=== PATIENT | female | born 1940 | race Caucasian/White ===

== ENCOUNTER 2023-11-11 09:15 | Inpatient (IN) | payer MEDICARE, SELFPAY ==
[2023-11-11] VITALS (18 sets, daily range): BP systolic 132–163; BP diastolic 84–121; PULSE 80–132; RESP 20–32; TEMP 36.4–37; O2SAT 88–98
--- NOTE | ~2023-11-11 | XR_ITS ---
EXAMINATION: XR chest 1V portable DATE: 11/18/2023 10:10 INDICATION: Heart failure. TECHNIQUE: A single frontal view of the chest was obtained. COMPARISON: Chest view 11/14/2023 FINDINGS: There is an interstitial pattern, consistent mild pulmonary edema. There are small right an d moderate-sized left pleural effusions. There are airspace opacities at left lung base. No pneumotho rax. Cardiomegaly is noted. There are surgical clips in left chest wall. IMPRESSION: 1. Mild pulmonary edema. 2. Stable small right and moderate-sized left pleural effusions. 3. Stable airspace opacities at left lung base, consistent with atelectasis versus pneumonia. 4. Cardiomegaly. Reviewed, dictated and finalized at location A. STRING WINDER IMPRESSION: 1. Mild pulmonary edema. 2. Stable small right and moderate-sized left pleural effusions. 3. Stable airspace opacities at left lung base, consistent with atelectasis nasim vanita pneumonia. 4. Cardiomegaly.
--- NOTE | ~2023-11-11 | XR_ITS ---
EXAMINATION: XR chest PICC line DATE: 11/18/2023 13:13 INDICATION: Central line placement. TECHNIQUE: A single frontal view of the chest was obtained. COMPARISON: Chest single view at 10:01 AM FINDINGS: There is a diffuse interstitial pattern in the lungs. There are airspace opacities in the l ower lung zones. There are small right and moderate-sized left pleural effusions. No pneumothorax. Ca rdiomegaly is noted. A right upper extremity peripherally inserted central venous catheter (PICC) is seen with tip in the superior vena cava. IMPRESSION: 1. PICC tip in the superior vena cava. 2. Diffuse lung disease with worsening at right lung base, likely mild pulmonary edema and basilar at electasis versus pneumonia. 3. Stable small right and moderate-sized left pleural effusions. 4. Cardiomegaly. Reviewed, dictated and finalized at location A. E FEDERAL RELATIONS DEPUTY DIRECTOR IMPRESSION: 1. PICC tip in the superior vena cava. 2. Diffuse lung disease with worsening at right lung base, likely mild pulmonar y edema and basilar atelectasis versus pneumonia. 3. Stable small right and moderate-sized left pleural effusions. 4. Cardiomegaly.
--- NOTE | ~2023-11-11 | XR_ITS ---
EXAMINATION: XR chest 2V Exam Date/Time: 11/21/2023 18:12 LITERACY CONSULTANT HISTORY: pleural effusion, CHF, pneumonia, SOB, cough Comparison: 11/20/2023. RESULT: Lines, tubes, and devices: Right upper extremity PICC remains in stable and good position. Lungs and pleura: Unchanged left basilar and improving right basilar pulmonary opacities. Stable yancy ateral costophrenic angle blunting. Cardiomediastinal silhouette: Stable. Other: No acute osseous or upper abdominal finding. IMPRESSION: Improving aeration of the right lung base. Stable left basilar opacities. Unchanged bilateral pleural effusions. Reviewed, dictated and finalized at location K. RACY CONSULTANT IMPRESSION: Improving aeration of the right lung base. Stable left basilar opacities. Uncha nged bilateral pleural effusions.
--- NOTE | ~2023-11-11 | XR_ITS ---
EXAMINATION: XR chest 1V portable DATE: 11/14/2023 13:59 INDICATION: Shortness of breath. TECHNIQUE: A single frontal view of the chest was obtained. COMPARISON: Chest 2 views 11/11/2023 FINDINGS: There is a diffuse interstitial pattern, consistent with mild pulmonary edema. There are sm all right and moderate-sized left pleural effusions. No pneumothorax. Cardiomegaly is noted. IMPRESSION: 1. Mild pulmonary edema. 2. Worsened small right and moderate-sized left pleural effusions. 3. Cardiomegaly. Reviewed, dictated and finalized at location E. AIDE
--- NOTE | ~2023-11-11 | XR_ITS ---
XR chest 2V DATE: 11/11/2023 09:57 INDICATION: Cough. Hypoxia. TECHNIQUE: AP and lateral views COMPARISON: None FINDINGS: There is cardiomegaly. Is aortic unfolding and ectasia. There are bilateral lower lung infiltrates and/atelectasis, left greater than right. Small pleural ef fusions are suggested. Mild prominence of the fissures suggests subpleural edema. Pulmonary vascular redistribution suggests mild pulmonary venous hypertension. Bilateral glenohumeral osteoarthritis. Diffuse osteopenia. Thoracic and lumbar scoliosis and degenera tive change. IMPRESSION: Cardiomegaly, mild congestive heart failure Bilateral lower lung infiltrate and/atelectasis, left greater than right Reviewed, dictated and finalized at location A. EACH PROFESSIONAL
--- NOTE | ~2023-11-11 | US_ITS ---
EXAMINATION: US thoracentesis DATE: 11/22/2023 12:22 INDICATION: Left pleural effusion TECHNIQUE: The procedure and its risks and benefits were discussed with the patient. Potential risks discussed included bleeding, infection, and pneumothorax. The patient understood the risks and agreed to proceed. The skin was prepped and draped in sterile fashion. 1% lidocaine was used for local anes thesia. Under ultrasound guidance, a 5 Fr catheter with trochar was advanced into the left pleural ef fusion. Fluid was aspirated. The catheter was removed, and a dressing was applied. There were no imme diate complications. FINDINGS: Ultrasound images demonstrate a small left pleural effusion and the catheter within the fluid. IMPRESSION: 1. Successful ultrasound-guided thoracentesis yielding 350 mL of yellowish fluid. Reviewed, dictated and finalized at location A. UNITY EDUCATION SPECIALIST IMPRESSION: 1. Successful ultrasound-guided thoracentesis yielding 350 mL of yellowish flu id.
--- NOTE | ~2023-11-11 | XR_ITS ---
EXAMINATION: [id number]_CR DATE: 11/22/2023 12:12 INDICATION: Status post left thoracentesis TECHNIQUE: frontal view of the chest was obtained. COMPARISON: Chest radiograph dated 11/21/2023 FINDINGS: Unchanged opacities at the right lower lung zone and decrease in opacities with improved aeration in the left lower lung zone. There is persistent blunting at the costophrenic angles. No pulmonary edema or pneumothorax. Cardiomegaly. Right upper extremity peripherally inserted central venous catheter ( PICC) tip at the mid superior vena cava. IMPRESSION: 1. Improved aeration at the left lung base post left thoracentesis with decreased small left and unch anged small right pleural effusion with associated bibasilar atelectasis and/or pneumonia. Reviewed, dictated and finalized at location A. COLLECTOR IMPRESSION: 1. Improved aeration at the left lung base post left thoracentesis with decreas ed small left and unchanged small right pleural effusion with associated bibasi lar atelectasis and/or pneumonia.
--- NOTE | ~2023-11-11 | XR_ITS ---
EXAMINATION: XR chest 2V DATE: 11/20/2023 11:09 INDICATION: Congestive heart failure. TECHNIQUE: Frontal and lateral views of the chest were obtained. COMPARISON: Chest single view 11/18/2023 FINDINGS: There are airspace opacities at the lung bases. There are small right and moderate-sized le ft pleural effusions. No pneumothorax. Cardiomegaly is noted. A right upper extremity peripherally in serted central venous catheter (PICC) is seen with tip in the superior vena cava. IMPRESSION: 1. Stable small right and moderate-sized left pleural effusions. 2. Airspace opacities at the lung bases with worsening on the right, consistent with atelectasis vers us pneumonia. 3. Cardiomegaly. Reviewed, dictated and finalized at location A. T OR NUT FARMER IMPRESSION: 1. Stable small right and moderate-sized left pleural effusions. 2. Airspace opacities at the lung bases with worsening on the right, consistent with atelectasis versus pneumonia. 3. Cardiomegaly.
[2023-11-11] MEDS: SODIUM CHLORIDE 0.9% IV 1,000 ML 999 ML IV CONT (09:38)
--- NOTE | 2023-11-11 09:42 | ED.NAVMDI ---
HPI - Nausea/Vomiting/Diarrhea General Chief complaint: Nausea/Vomiting/Diarrhea <Lorenza Roth PA-C - Last Filed: 11/11/23 13:38> Stated complaint: N/V <Lorenza Roth PA-C - Last Filed: 11/11/23 13:38> Time Seen by Provider: 11/11/23 09:22 <Lorenza Roth PA-C - Last Filed: 11/11/23 13:38> Source: patient and family <Lorenza Roth PA-C - Last Filed: 11/11/23 13:38> Mode of arrival: EMS <FALLON Mata Last Filed: 11/11/23 13:38> Limitations: no limitations <FALLON Mata Last Filed: 11/11/23 13:38> History of Present Illness HPI Narrative: Patient is an 83 y/o female, with PMH of AFIB on relto, RA/OA, who presents to the ED via EMS with report of weakness, N/V. Patient reports she was seen in the emergency department at [facility] on for neck pain. Imaging was performed and without any abnormalities. Patient reports she has been feeling extremely weak since then, has not had an appetite, poor PO intake. states the last time she had any food to eat was on Monday. She also has not taken any of her home medications since Monday. She complains of nausea with persistent dry heaving. Does also report recent cough. Denies chest pain, shortness breath, abdominal pain, fevers, diarrhea, constipation. Denies known sick contacts. <Lorenza Roth PA-C - Last Filed: 11/11/23 13:38> Related Data Home medications: Home Medications Medication Instructions Recorded Confirmed carvedilol 25 mg tablet 25 mg PO Q12H 08/26/20 11/11/23 digoxin 125 mcg (0.125 mg) tablet 125 mcg PO DAILY 08/26/20 11/11/23 leflunomide 20 mg tablet 20 mg PO DAILY 08/26/20 11/11/23 losartan 50 mg tablet 50 mg PO DAILY 08/26/20 11/11/23 pramipexole 0.5 mg tablet 1.5 mg PO TID 08/26/20 11/11/23 rivaroxaban 20 mg tablet (Xarelto) 20 mg PO DAILY 08/26/20 11/11/23 tramadol 50 mg tablet 50 mg PO Q6H PRN Pain 08/26/20 11/11/23 atorvastatin 20 mg tablet 20 mg PO DAILY 02/17/21 11/11/23 gabapentin 100 mg capsule 100 mg PO BID 04/26/23 11/11/23 sitagliptin phosphate 25 mg tablet 25 mg PO DAILY 04/26/23 11/11/23 (Januvia) spironolactone 25 mg tablet 25 mg PO DAILY 04/26/23 11/11/23 calcitriol 0.25 mcg capsule 0.25 mcg PO DAILY 11/11/23 11/11/23 torsemide 20 mg tablet 40 mg PO DAILY 11/11/23 11/11/23 umeclidinium 62.5 mcg-vilanterol 62.5 inh inhalation DAILY 11/11/23 11/11/23 25 mcg/actuation powdr for inhalation (Anoro Ellipta) <Lorenza Roth PA-C - Last Filed: 11/11/23 13:38> Allergies/Adverse reactions: Allergies Allergy/AdvReac Type Severity Reaction Status Date / Time adalimumab [From Humira] Allergy Severe site Verified 11/11/23 09:39 reaction etanercept [From Enbrel] Allergy Severe site Verified 11/11/23 09:39 reaction infliximab [From Remicade] Allergy Severe pass out Verified 11/11/23 09:39 levofloxacin [From Levaquin] Allergy Intermediate rash Verified 11/11/23 09:39 amoxicillin Allergy Mild rash Verified 11/11/23 09:39 clarithromycin Allergy Mild rash Verified 11/11/23 09:39 codeine Allergy Mild sick Verified 11/11/23 09:39 <Lorenza Roth PA-C - Last Filed: 11/11/23 13:38> Review of Systems Review of Systems: CONSTITUTIONAL: Denies fever, chills, or sweats. CARDIOVASCULAR: Denies chest pain. RESPIRATORY: See HPI. GASTROINTESTINAL: See HPI. GENITOURINARY: Denies dysuria or hematuria. MUSCULOSKELETAL: See HPI. NEUROLOGIC: Denies headache, dizziness, numbness, or weakness. <Lorenza Roth PA-C - Last Filed: 11/11/23 13:38> All systems reviewed & are unremarkable except as noted in HPI and below <Lorenza Roth PA-C - Last Filed: 11/11/23 13:38> [facility] Past Medical History Medical History: Medical History Arthritis Cancer Breast COPD (chronic obstructive pulmonary disease)
--- NOTE | 2023-11-11 09:44 | ECG_ITS ---
Measurements Intervals [place] Rate: 85 P: 107 CA: 247 QRS: -43 QRSD: 110 T: 78 QT: 404 QTc: 481 Interpretive Statements SINUS RHYTHM WITH FIRST DEGREE AV BLOCK WITH OCCASIONAL ECTOPIC PREMATURE COMPLEXES MARKED LEFT AXIS DEVIATION [QRS AXIS < -30] POOR R-WAVE PROGRESSION NO PREVIOUS ECG AVAILABLE FOR COMPARISON Electronically Signed On 11-11-2023 19:50:15 CALL CENTER SUPERVISOR by Mohini Osei M.D.
[2023-11-11 09:53] LABS: Basophils Absolute Auto 0.1 K/mm3 (0.0-0.1); Basophils Percent Auto 1.1 % (0.2-1.2); Eosinophils Absolute Auto 0.2 K/mm3 (0-0.3); Eosinophils Percent Auto 2.3 % (0-4.4); Hematocrit 35.4 % (37.0-47.0); Hemoglobin 10.5 g/dL (12.0-15.0); Immature Granulocyte Absolute 0.03 K/mm3 (0.00-0.031); Immature Granulocyte Percent A 0.5 % (0-0.5); Lymphocytes Absolute Auto 1.27 K/mm3 (0.9-3.2); Lymphocytes Percent Auto 19.3 % (18.3-44.2); Mean Corpuscular HGB Conc 29.7 g/dl (32-36); Mean Corpuscular Hemoglobin 25.3 pg (26-34); Mean Corpuscular Volume 85.3 fl (80-100); Monocytes Absolute Auto 0.7 K/mm3 (0.1-0.6); Monocytes Percent Auto 11.2 % (2.6-8.5); Neutrophils Absolute Auto 4.3 K/mm3 (1.3-6.7); Neutrophils Percent Auto 65.6 % (45.5-73.1); Platelet Count Result 231 k/mm3 (150-375); Red Blood Count 4.15 M/mm3 (4.2-5.4); White Blood Count 6.6 K/mm3 (4.5-10.0)
[2023-11-11 10:06] LABS: Partial Thromboplastin Time 28.2 SECONDS (22.3-36.8); Prothrombin Time 13.9 Seconds (11.1-14.7)
[2023-11-11 10:08] LABS: Lactic Acid Reflex 2.1 mmol/L (0.7-2.0)
[2023-11-11 10:11] LABS: Platelet Estimate Adequate (Adequate); Schistocytes Rare (NORMAL)
[2023-11-11 10:12] LABS: Hypochromasia 1+ (NORMAL); Poikilocytosis 1+ (NORMAL)
[2023-11-11 10:15] LABS: Alanine Aminotransferase 17 U/L (6-35); Albumin Level 3.5 g/dL (3.5-5.1); Alkaline Phosphatase 127 U/L (38-126); Anion Gap 9 mmol/L (8-16); Aspartate Amino Transferase 38 U/L (14-36); Bilirubin,Total 1.4 mg/dL (0.2-1.3); Blood Urea Nitrogen 12 mg/dL (7-17); Calcium 8.8 mg/dL (8.4-10.2); Carbon Dioxide 30 mmol/L (22-30); Chloride 100 mmol/L (98-107); Creatine Kinase 189 U/L (30-135); Estimated CRCL calculation 34 ml/min; Estimated Glomerular Filt Rate 47; Glucose 143 mg/dL (65-110); Lipase 19 U/L (23-300); Potassium < 2.0 mmol/L (3.4-5.0); Sodium 139 mmol/L (137-145)
[2023-11-11 10:27] LABS: NT Pro B Type Natriuretic Pept 20100 pg/mL (19.9-100); Troponin I 0.127 ng/mL (0.000-0.034)
[2023-11-11 10:29] LABS: Influenza A QL RT-PCR Negative (Negative); Influenza B QL RT-PCR Negative (Negative); RSV RNA, RT-PCR Negative (Negative); SARS-CoV-2 RNA PCR Negative (Negative)
[2023-11-11] MEDS: POTASSIUM CHLORIDE INJ 40 MEQ in SODIUM CHLORIDE 0.9% IV 500 ML 130 MEQ IVPB ×2 (10:49→23:08)
[2023-11-11] MEDS: POTASSIUM CHLORIDE 20 MEQ PACKET (FOR LIQUID) 40 MEQ PO ×2 (10:53→23:06)
[2023-11-11 11:42] LABS: Alveolar/Arterial O2 Gradient 94.2 mmHg; Base Excess ABG 7.6 mEq/l (+/-2.0); Carboxyhemoglobin 1.2 % THb (0-2.0); Fractional Inspired Oxygen 28 %; Methemoglobin ABG 0.3 %THb (0-1.5); Oxygen Content ABG 15.5 %vol (16.0-22.0); Oxyhemoglobin 90.9 % THb (90.0-100.0); PCO2 ABG 34.8 mmHg (35.0-45.0); PO2 ABG 64.4 mmHg (80.0-100.0); Reduced Hemoglobin 7.6 %THb (0-5.0); Total Hemoglobin 12.1 g/dL (12.0-18.0)
[2023-11-11 11:44] LABS: Device NASAL CANNULA; Modified Allen's Test Pass; Site Drawn RIGHT RADIAL; pH ABG 7.554 (7.350-7.450)
--- NOTE | 2023-11-11 12:21 | PC.NURSE ---
Patient informed RN that her IV was burning and swelling. This RN went to assess patient and her IV had infiltrated and she has swelling and bruising around the site. This RN stopped potassium and removed IV. Provider made aware.
--- NOTE | 2023-11-11 12:27 | PC.NURSE ---
MACARENA Britt, assessed patient's arm and states to use warm compress and elevate extremity. Patient arm has swelling and bruising.
[2023-11-11 12:48] LABS: Reflex Lactic Acid Yes or No Add Lactic
--- NOTE | 2023-11-11 12:51 | PC.NURSE ---
Per provider, we are to wait to start antibiotic until UA results.
[2023-11-11 13:20] LABS: Potassium 2.3 mmol/L (3.4-5.0)
[2023-11-11 13:25] LABS: Appearance Urine Clear (Clear); Bacteria Urine None Seen /hpf; Bilirubin Urine Negative (Negative); Blood Urine Negative (Negative); Color Urine Yellow (Yellow); Glucose Urine UA Negative (Negative); Ketones Urine 1+ mg/dL (Negative); Leukocyte Esterase Ur Negative LEU/UL (Negative); Need Manual Microscopic Reviewed; Nitrate Urine Negative (Negative); Non Pathogenic Casts 0-2; Protein Urine 2+ mg/dL (Negative); RBC Urine 0-2 /hpf (0-2); Specific Grav Ur 1.017 (1.001-1.035); Squamous Epithelial Cell Urine Occasional /hpf (Few); WBC Urine 0-5 /hpf
[2023-11-11 13:27] LABS: Add Urine Microscopic? YES
[2023-11-11 13:36] LABS: Troponin I 0.134 ng/mL (0.000-0.034)
--- NOTE | 2023-11-11 14:32 | PM.IMHP ---
H&P: HPI History of Present Illness Date/Time: 11/11/23 14:32 Chief Complaint: Weakness, Nausea, Decreased Appetite Narrative: 83 y/o F presents here with persistent nausea, weakness, and decreased appetite with PMH of essential tremor, arthritis, breast cancer s/p lumpectomy of left breast, COPD, diabetes (not currently requiring meds), CHF, parathyroidectomy, and AFib. Patient presents here with nausea without vomiting, but has been dry heaving, since (11/09). Weakness and nausea are accompanied by fatigue and mild cough that is nonproductive. She reports baseline shortness of breath related to her COPD, but has become more short of breath today. No associated diarrhea, abdominal pain, chills, chest pain, palpitations, or fever. Recently seen at [place] for neck pain and was diagnosed with arthritis, discharged with Voltaren gel which largely resolved pain. Due to nausea patient has not been eating, drinking, or taking medication since . Currently on medications for dyslipidemia, congestive heart failure (diuretics), hypertension, arthritis, and AFib. Review of Systems Review of Systems: All systems reviewed & are unremarkable except as noted in HPI and below PMFSH Past Medical History Medical History (Updated 11/12/23 @ 01:12 by Angelita Hassan APRN) Arthritis Atrial fibrillation On Xarelto Cancer Breast Congestive heart failure COPD (chronic obstructive pulmonary disease) Diabetes last A1c noted by pt to be 6.1 in 2019 Essential tremor Hypertension Rheumatoid arthritis Surgical History Surgical History H/O tubal ligation History of carpal tunnel release left wrist 08/[address] Valiente History of cholecystectomy History of lumpectomy of left breast Hx of parathyroidectomy Family History Family History Other Asthma Cancer Social History Social History Smoking status: Never smoker Alcohol intake: never Substance use type: does not use Do You Feel Safe in your Home?: Yes Lack of Transportation: No Lack of Food: Never True Current Housing: I Have Housing Concerned About Future Housing: No Difficulty Paying Gas/Electric Bills: No Difficulty Paying for Meds: No Currently Unemployed: No Education: Don't Know Difficulty w/ Childcare or Family Care: No Living arrangements: alone Occupation/Education: occupation 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 rivaroxaban 20 mg tablet (Xarelto) 20 mg PO DAILY 08/26/20 11/11/23 History tramadol 50 mg tablet 50 mg PO Q6H PRN Pain 08/26/20 11/11/23 History atorvastatin 20 mg tablet 20 mg PO DAILY 02/17/21 11/11/23 History gabapentin 100 mg capsule 100 mg PO BID 04/26/23 11/11/23 History sitagliptin phosphate 25 mg tablet 25 mg PO DAILY 04/26/23 11/11/23 History (Januvia) spironolactone 25 mg tablet 25 mg PO DAILY 04/26/23 11/11/23 History calcitriol 0.25 mcg capsule 0.25 mcg PO DAILY 11/11/23 11/11/23 History torsemide 20 mg tablet 40 mg PO DAILY 11/11/23 11/11/23 History umeclidinium 62.5 mcg-vilanterol 62.5 inh inhalation DAILY 11/11/23 11/11/23 History 25 mcg/actuation powdr for inhalation (Anoro Ellipta) Allergies Allergy/AdvReac Type Severity Reaction Status Date / Time adalimumab [From Humira
--- NOTE | 2023-11-11 14:52 | PC.NURSE ---
[id number]
--- NOTE | 2023-11-11 15:27 | ADMGEN ---
This patient, Genny Gomez, was admitted to IMU Room 213-01. Patient/family oriented to hospital policies and general routines including ID bracelet, bed and alarms, visiting hours, pain management, procedures, bathroom and other care routines, personal items, smoking policy, room service/diet, and visiting hours. Information on how to activate the Rapid Response Team has been discussed. Patient/Family are encouraged to report perceived risks to care and to ask questions if they do not understand what they are told or what they should do.
[2023-11-11] MEDS: POTASSIUM CHLORIDE 20 MEQ ER TABLET 40 MEQ PO ×2 (16:00→20:40)
[2023-11-11 16:51] LABS: Troponin I 0.134 ng/mL (0.000-0.034)
--- NOTE | 2023-11-11 18:07 | ECG_ITS ---
Measurements Intervals [place] Rate: 92 P: -88 MN: 185 QRS: -39 QRSD: 87 T: 57 QT: 306 QTc: 380 Interpretive Statements SINUS RHYTHM Poor R-wave progression, pOSSIBLE ANTERIOR MYOCARDIAL INFARCTION, PROBABLY OLD COMPARED TO ECG 11/11/2023 10:30:31 NO SIGNIFICANT CHANGE Electronically Signed On 11-12-2023 16:59:34 MRI TECH by Mohini Osei M.D.
[2023-11-11] MEDS: SPIRONOLACTONE 25 MG TABLET PO (20:54)
[2023-11-11] MEDS: carvediloL 25 MG TABLET PO (20:54)
[2023-11-11 22:51] LABS: Anion Gap 8 mmol/L (8-16); Blood Urea Nitrogen 11 mg/dL (7-17); Calcium 8.6 mg/dL (8.4-10.2); Carbon Dioxide 30 mmol/L (22-30); Chloride 103 mmol/L (98-107); Estimated CRCL calculation 32 ml/min; Estimated Glomerular Filt Rate 43; Glucose 153 mg/dL (65-110); Potassium 2.2 mmol/L (3.4-5.0); Sodium 141 mmol/L (137-145)
--- NOTE | 2023-11-11 23:38 | PC.NURSE ---
patient continue to have SOB nurse spoke with Angelita GUEST HISTORY CLERK start breathing tx q 6 hours prn.
[2023-11-11] MEDS: LEVALBUTEROL NEB 1.25 MG/3 ML (23:45)
[2023-11-12] VITALS (31 sets, daily range): BP systolic 125–160; BP diastolic 60–89; PULSE 63–100; RESP 18–24; TEMP 36–36.9; O2SAT 90–100
[2023-11-12] MEDS: LORazepam INJ (*CRX) 2 MG/ML VIAL 0.5 MG IV PUSH (00:09)
[2023-11-12] MEDS: DOXYCYCLINE 100 MG/NS 100 ML 100 MG/100 ML BAG IVPB ×2 (03:01→13:56)
[2023-11-12 04:58] LABS: Basophils Absolute Auto 0.1 K/mm3 (0.0-0.1); Basophils Percent Auto 1.2 % (0.2-1.2); Eosinophils Percent Auto 0.4 % (0-4.4); Hematocrit 34.6 % (37.0-47.0); Hemoglobin 9.9 g/dL (12.0-15.0); Immature Granulocyte Absolute 0.05 K/mm3 (0.00-0.031); Immature Granulocyte Percent A 0.6 % (0-0.5); Lymphocytes Absolute Auto 1.55 K/mm3 (0.9-3.2); Lymphocytes Percent Auto 18.8 % (18.3-44.2); Mean Corpuscular HGB Conc 28.6 g/dl (32-36); Mean Corpuscular Hemoglobin 25.5 pg (26-34); Mean Corpuscular Volume 89.2 fl (80-100); Monocytes Absolute Auto 0.7 K/mm3 (0.1-0.6); Monocytes Percent Auto 8.4 % (2.6-8.5); Neutrophils Absolute Auto 5.8 K/mm3 (1.3-6.7); Neutrophils Percent Auto 70.6 % (45.5-73.1); Platelet Count Result 247 k/mm3 (150-375); Red Blood Count 3.88 M/mm3 (4.2-5.4); Red Cell Distribution Width 16.5 % (11.5-14.5); White Blood Count 8.2 K/mm3 (4.5-10.0)
[2023-11-12 05:08] LABS: Alanine Aminotransferase 16 U/L (6-35); Albumin Level 3.3 g/dL (3.5-5.1); Alkaline Phosphatase 114 U/L (38-126); Anion Gap 8 mmol/L (8-16); Aspartate Amino Transferase 38 U/L (14-36); Bilirubin,Total 1.2 mg/dL (0.2-1.3); Blood Urea Nitrogen 12 mg/dL (7-17); Calcium 8.3 mg/dL (8.4-10.2); Carbon Dioxide 30 mmol/L (22-30); Chloride 106 mmol/L (98-107); Estimated CRCL calculation 29 ml/min; Estimated Glomerular Filt Rate 39; Glucose 131 mg/dL (65-110); Magnesium 2.1 mg/dL (1.6-2.3); Potassium 3.5 mmol/L (3.4-5.0); Sodium 144 mmol/L (137-145)
[2023-11-12 05:23] LABS: CRP < 0.5 mg/dL (<1.0)
[2023-11-12 05:36] LABS: Platelet Estimate Adequate (Adequate)
[2023-11-12 05:37] LABS: Anisocytosis 1+ (NORMAL); Hypochromasia 1+ (NORMAL); Microcytosis 1+ (NORMAL); Poikilocytosis 1+ (NORMAL)
[2023-11-12 05:39] LABS: Ovalocytes 1+ (NORMAL)
[2023-11-12 05:41] LABS: Schistocytes Rare (NORMAL)
[2023-11-12 06:40] LABS: Erythrocyte Sedimentation Rate 21 mm/hr (0-20)
[2023-11-12] MEDS: LEVALBUTEROL NEB 1.25 MG/3 ML INHALATION ×3 (07:19→21:01)
[2023-11-12] MEDS: UMECLIDINIUM/VILANTEROL 62.5-25 MCG ELLIPTA 1 PUFF INHALATION (07:21)
[2023-11-12 08:09] LABS: Glucose Point of Care 158 mg/dl (65-105)
[2023-11-12] MEDS: FUROSEMIDE INJ 40 MG/4 ML VIAL IV PUSH (08:16)
[2023-11-12] MEDS: PANTOPRAZOLE SODIUM IV 40 MG VIAL IV PUSH (08:16)
[2023-11-12] MEDS: SPIRONOLACTONE 25 MG TABLET PO ×2 (09:04→17:10)
[2023-11-12] MEDS: LEFLUNOMIDE 20 MG TABLET PO (09:05)
[2023-11-12] MEDS: GABAPENTIN 100 MG CAPSULE PO ×2 (09:05→17:11)
[2023-11-12] MEDS: PRAMIPEXOLE 0.5 MG TABLET 1.5 MG PO ×3 (09:05→17:10)
[2023-11-12] MEDS: ATORVASTATIN 20 MG TABLET PO (09:05)
[2023-11-12] MEDS: carvediloL 25 MG TABLET PO ×2 (09:05→20:17)
[2023-11-12] MEDS: calcitrioL 0.25 MCG CAPSULE PO (09:05)
[2023-11-12] MEDS: LOSARTAN POTASSIUM 50 MG TABLET PO (09:05)
[2023-11-12] MEDS: TOLNAFTATE 1% POWDER 45 GM BTL 1 APPLIC TOPICAL ×2 (09:06→20:18)
[2023-11-12 12:13] LABS: Glucose Point of Care 136 mg/dl (65-105)
--- NOTE | 2023-11-12 15:51 | P.PNIM_ITS ---
Progress Note: A&P Assessment and Plan (1) Acute hypoxic respiratory failure: Code(s): J96.01 - Acute respiratory failure with hypoxia Status: Acute Assessment and Plan: * No previous need for supplemental O2. * Currently requiring high flow NC at 35, Fi O2 40. * CXR showed cardiomegaly, mild congestive heart failure, bilateral lower lung infiltrates and atelectasis with the left greater than right. * Suspect new oxygen requirement secondary to acute exacerbation of the CHF given normal white count, however patient reporting weakness and new cough so cannot exclude pneumonia. * Continue ceftriaxone and doxycycline due to current allergies. * Benadryl PRN. (2) Weakness: Code(s): R53.1 - Weakness Status: Acute Assessment and Plan: * Hemoglobin 9.9 today, no prior available for comparison. No active bleeding noted by patient. * Continue to trend CBC * Potassium initially 1.9, corrected with repletion. Will continue to monitor. * Viral PCR negative. * TSH 3.190. * could be secondary to decreased PO intake and hydration (3) Acute on chronic congestive heart failure: Code(s): I50.9 - Heart failure, unspecified Status: Acute Assessment and Plan: * CXR indicative of pulmonary edema and cardiomegaly. * Will resume torsemide 20 mg daily * Increase spironolactone from 25 p.o. daily to 25 p.o. b.i.d. * ECHO ordered. * Will monitor I&Os and daily weights. (4) Hypokalemia: Code(s): E87.6 - Hypokalemia Status: Resolved Assessment and Plan: * resolved this am post repletion * Continue to trend electrolytes. * Magnesium 2.0. * ABG shows alkalosis, likely primary respiratory alkalosis that is chronic with secondary metabolic alkalosis. (5) Atrial fibrillation: Code(s): I48.91 - Unspecified atrial fibrillation Status: Acute Assessment and Plan: * Restarted home medications carvedilol and Xarelto. * Not currently on digoxin per patient. (6) COPD (chronic obstructive pulmonary disease): Code(s): J44.9 - Chronic obstructive pulmonary disease, unspecified Status: Acute Assessment and Plan: * Continue home Anoro inhaler daily. * Start levalbuterol q.6H p.r.n. * continue supplemental oxygen. (7) Hypertension: Code(s): I10 - Essential (primary) hypertension Status: Acute Assessment and Plan: * Continue home losartan. Monitor. (8) Nausea: Code(s): R11.0 - Nausea Status: Acute Assessment and Plan: * Start PPI. * Antiemetic p.r.n. * Monitor blood sugar ACHS until able to tolerate PO - has hx of DM but has not been on medications for some time. * Tolerating clear liquids this am, advance as tolerated Plan Home Meds/Chronic Conditions -continue calcitriol. -OA/RA: Continue Arava, tramadol, and gabapentin. -essential tremor: Continue Mirapex. Diet: Clear liquid, may progress as tolerated GI Prophylaxis: Start pantoprazole 40 IVP daily DVT Prophylaxis: SCDs, continued Xarelto Lines: pIV Code Status: DNR Subjective Date/time seen: 11/12/23 15:51 Interval history: Patient is a 83 y/o F admitted for persistent nausea, weakness, and decreased appetite with PMH of essential tremor, arthritis, breast cancer s/p lumpectomy of left breast, COPD, diabetes (not currently requiring meds), CHF, parathyroidectomy, and AFib. This morning sh
--- NOTE | 2023-11-12 15:51 | PM.IMPN ---
Progress Note: A&P Assessment and Plan (1) Acute hypoxic respiratory failure: Code(s): J96.01 - Acute respiratory failure with hypoxia Status: Acute Assessment and Plan: No previous need for supplemental O2. Currently requiring high flow NC at 35, Fi O2 40. CXR showed cardiomegaly, mild congestive heart failure, bilateral lower lung infiltrates and atelectasis with the left greater than right. Suspect new oxygen requirement secondary to acute exacerbation of the CHF given normal white count, however patient reporting weakness and new cough so cannot exclude pneumonia. Continue ceftriaxone and doxycycline due to current allergies. Benadryl PRN. (2) Weakness: Code(s): R53.1 - Weakness Status: Acute Assessment and Plan: Hemoglobin 9.9 today, no prior available for comparison. No active bleeding noted by patient. Continue to trend CBC Potassium initially 1.9, corrected with repletion. Will continue to monitor. Viral PCR negative. TSH 3.190. could be secondary to decreased PO intake and hydration (3) Acute on chronic congestive heart failure: Code(s): I50.9 - Heart failure, unspecified Status: Acute Assessment and Plan: CXR indicative of pulmonary edema and cardiomegaly. Will resume torsemide 20 mg daily Increase spironolactone from 25 p.o. daily to 25 p.o. b.i.d. ECHO ordered. Will monitor I&Os and daily weights. (4) Hypokalemia: Code(s): E87.6 - Hypokalemia Status: Resolved Assessment and Plan: resolved this am post repletion Continue to trend electrolytes. Magnesium 2.0. ABG shows alkalosis, likely primary respiratory alkalosis that is chronic with secondary metabolic alkalosis. (5) Atrial fibrillation: Code(s): I48.91 - Unspecified atrial fibrillation Status: Acute Assessment and Plan: Restarted home medications carvedilol and Xarelto. Not currently on digoxin per patient. (6) COPD (chronic obstructive pulmonary disease): Code(s): J44.9 - Chronic obstructive pulmonary disease, unspecified Status: Acute Assessment and Plan: Continue home Anoro inhaler daily. Start levalbuterol q.6H p.r.n. continue supplemental oxygen. (7) Hypertension: Code(s): I10 - Essential (primary) hypertension Status: Acute Assessment and Plan: Continue home losartan. Monitor. (8) Nausea: Code(s): R11.0 - Nausea Status: Acute Assessment and Plan: Start PPI. Antiemetic p.r.n. Monitor blood sugar ACHS until able to tolerate PO - has hx of DM but has not been on medications for some time. Tolerating clear liquids this am, advance as tolerated Plan Home Meds/Chronic Conditions -continue calcitriol. -OA/RA: Continue Arava, tramadol, and gabapentin. -essential tremor: Continue Mirapex. Diet: Clear liquid, may progress as tolerated GI Prophylaxis: Start pantoprazole 40 IVP daily DVT Prophylaxis: SCDs, continued Xarelto Lines: pIV Code Status: DNR Subjective Date/time seen: 11/12/23 15:51 Interval history: Patient is a 83 y/o F admitted for persistent nausea, weakness, and decreased appetite with PMH of essential tremor, arthritis, breast cancer s/p lumpectomy of left breast, COPD, diabetes (not currently requiring meds), CHF, parathyroidectomy, and AFib. This morning she is requiring high flow oxygen via NC. She was feeling more SOB prior to IV lasix dose. Will work to wean oxygen as able. Being treated for possible pneumonia although her CRP, ESR were not indicative on infection. Respiratory panel was negative, CXR showed pulmonary edema. ECHO ordered, BC pending. Tolerating clear liquids, but no appetite yet. She denies abdominal pain or nausea this am. Will continue AB therapy, monitor kidney function to resume diuretics. Review of Systems Review of Systems: All systems reviewed
[2023-11-12 16:39] LABS: Glucose Point of Care 139 mg/dl (65-105)
[2023-11-12] MEDS: RIVAROXABAN 20 MG TABLET PO (17:10)
[2023-11-13] VITALS (24 sets, daily range): BP systolic 124–146; BP diastolic 67–88; PULSE 51–108; RESP 20–26; TEMP 36.2–36.6; O2SAT 86–100
--- NOTE | 2023-11-13 | ECHO_ITS ---
Patient Info Name: Genny Gomez Age: 83 years : 1940 Gender: Female Ht: 63 in Wt: 163 lbs BSA: 1.84 m2 HR: 69 bpm BP: 140 / 76 mmHg Heart Rhythm: Sinus Rhythm Technical Quality: Fair Exam Date: 11/13/2023 1:08 PM Exam Location: Echo Lab Patient Status: Inpatient Admit Date: 11/12/2023 Staff Ordering Physician: Angelita Hassan APRN Cathode Washer: Adrienne Lemus RDCS Attending Provider: Flaco Springer MD Referring Physician: Mo GERMAIN; Exam Type: CA echo dop color flow w con Study Info Indications - c/f hf Complete two-dimensional, color flow and Doppler transthoracic echocardiogram is performed with contrast to opacify the left ventricle and to improve the deliniation of the left ventricle endocardial borders. Contrast/Agitated Saline Contrast/Ag. Saline: Definity Amount: 2.00 ml Administered By: Adrienne Lemus RDCS Existing IV Access: Yes IV Access Condition: patent with no signs of infiltration Summary 1. Mild left ventricular enlargement with moderate eccentric hypertrophy. Severe global hypokinesis, with a calculated ejection fraction 22% (visually 15-20%). Grade 3 diastolic dysfunction is present. 2. Cannot exclude a laminated left ventricular apical thrombus. 3. Moderate right ventricular hypokinesis. 4. Left atrial chamber dimension is severely enlarged. 5. There is mild aortic valve regurgitation. 6. There is moderate to severe mitral valve regurgitation. 7. There is mild tricuspid valve regurgitation. 8. No pulmonary hypertension, estimated pulmonary arterial systolic pressure is 33 mmHg. 9. Large left pleural effusion. 10. Normal sinus rhythm. 11. Somewhat technically difficult study, definity echo contrast used. Left Ventricle Left ventricular chamber dimension is mildly enlarged. Left ventricular systolic function is severely reduced, estimated at 15-20%. There is moderately increased left ventricular wall thickness. Left ventricular septal wall motion is normal. The left ventricular diastolic function is grade III diastolic dysfunction. Right Ventricle Right ventricular chamber dimension is normal. Right ventricular systolic function is reduced. Left Atria Left atrial chamber dimension is severely enlarged. Right Atria Right atrial chamber dimension is normal. Aortic Valve The aortic valve is trileaflet. There is mild aortic valve sclerosis. There is no aortic valve stenosis. There is mild aortic valve regurgitation. Pulmonic Valve The pulmonic valve is normal. There is no pulmonic valve stenosis. There is no pulmonic regurgitation. Mitral Valve The mitral valve has thickened leaflets. There is no mitral valve stenosis. There is moderate to severe mitral valve regurgitation. Tricuspid Valve The tricuspid valve leaflets are normal. There is no significant tricuspid valve stenosis. There is mild tricuspid valve regurgitation. No pulmonary hypertension, estimated pulmonary arterial systolic pressure is 33 mmHg. Pericardium/Pleural The pericardium appears normal. There is no pericardial effusion. Inferior Vena Cava Not well visualized inferior vena cava with >50% collapse upon inspiration consistent with Empty right atrial pressure, 10 mmHg. Aorta The aortic root size at the sinus of Valsalva is normal. The prox ascending aorta size is normal. The abdominal aorta size is not well visualized. Left Ventricular Outflow Tract Name
[2023-11-13] MEDS: DOXYCYCLINE 100 MG/NS 100 ML 100 MG/100 ML BAG IVPB ×2 (03:45→13:20)
--- NOTE | 2023-11-13 04:13 | PCRCNOTE ---
Patient was crying stating she can't get sleep, therefore refused her 0200 updraft treatment. Treatment to resume at 0800.
[2023-11-13 04:57] LABS: Basophils Absolute Auto 0.1 K/mm3 (0.0-0.1); Basophils Percent Auto 1.4 % (0.2-1.2); Eosinophils Absolute Auto 0.1 K/mm3 (0-0.3); Hematocrit 32.6 % (37.0-47.0); Hemoglobin 9.3 g/dL (12.0-15.0); Immature Granulocyte Absolute 0.05 K/mm3 (0.00-0.031); Immature Granulocyte Percent A 0.8 % (0-0.5); Lymphocytes Percent Auto 22.5 % (18.3-44.2); Mean Corpuscular HGB Conc 28.5 g/dl (32-36); Mean Corpuscular Hemoglobin 25.3 pg (26-34); Mean Corpuscular Volume 88.8 fl (80-100); Monocytes Absolute Auto 0.7 K/mm3 (0.1-0.6); Monocytes Percent Auto 10.1 % (2.6-8.5); Neutrophils Absolute Auto 4.2 K/mm3 (1.3-6.7); Neutrophils Percent Auto 63.2 % (45.5-73.1); Platelet Count Result 210 k/mm3 (150-375); Red Blood Count 3.67 M/mm3 (4.2-5.4); Red Cell Distribution Width 16.4 % (11.5-14.5); White Blood Count 6.7 K/mm3 (4.5-10.0)
[2023-11-13 05:20] LABS: Albumin Level 3.1 g/dL (3.5-5.1); Anion Gap 9 mmol/L (8-16); Blood Urea Nitrogen 17 mg/dL (7-17); Calcium 8.4 mg/dL (8.4-10.2); Carbon Dioxide 27 mmol/L (22-30); Chloride 104 mmol/L (98-107); Estimated CRCL calculation 22 ml/min; Estimated Glomerular Filt Rate 29; Glucose 127 mg/dL (65-110); Phosphorus 3.6 mg/dL (2.5-4.5); Potassium 2.6 mmol/L (3.4-5.0); Sodium 140 mmol/L (137-145)
[2023-11-13 05:23] LABS: Anisocytosis 1+ (NORMAL); Ovalocytes 1+ (NORMAL); Platelet Estimate Adequate (Adequate); Schistocytes None Seen (NORMAL)
[2023-11-13 06:11] LABS: Base Excess ABG 0.6 mEq/l (+/-2.0); Carboxyhemoglobin 0.3 % THb (0-2.0); Fractional Inspired Oxygen 40 %; HCO3 ABG 24.9 mEq/l (22.0-26.0); Methemoglobin ABG 0.3 %THb (0-1.5); Oxygen Content ABG 13.2 %vol (16.0-22.0); Oxygen Saturation ABG 93.7 % (95.0-100.0); Oxyhemoglobin 89.9 % THb (90.0-100.0); PCO2 ABG 38.3 mmHg (35.0-45.0); PO2 ABG 66.2 mmHg (80.0-100.0); PO2 FiO2 Ratio Arterial Blood 1.65 %; Reduced Hemoglobin 9.5 %THb (0-5.0); Site Drawn RIGHT BRACHIAL; Total Hemoglobin 10.4 g/dL (12.0-18.0)
[2023-11-13 06:12] LABS: Device HIGH FLOW THERAPY
[2023-11-13] MEDS: POTASSIUM CHLORIDE 20 MEQ PACKET (FOR LIQUID) 80 MEQ PO ×2 (06:23→22:40)
[2023-11-13] MEDS: LEVALBUTEROL NEB 1.25 MG/3 ML INHALATION ×3 (07:39→21:26)
[2023-11-13] MEDS: UMECLIDINIUM/VILANTEROL 62.5-25 MCG ELLIPTA 1 PUFF INHALATION (07:54)
[2023-11-13 08:28] LABS: Glucose Point of Care 150 mg/dl (65-105)
[2023-11-13] MEDS: PANTOPRAZOLE SODIUM IV 40 MG VIAL IV PUSH (09:49)
[2023-11-13] MEDS: ATORVASTATIN 20 MG TABLET PO (09:50)
[2023-11-13] MEDS: LOSARTAN POTASSIUM 50 MG TABLET PO (09:50)
[2023-11-13] MEDS: SPIRONOLACTONE 25 MG TABLET PO ×2 (09:50→17:14)
[2023-11-13] MEDS: carvediloL 25 MG TABLET PO ×2 (09:50→21:00)
[2023-11-13] MEDS: calcitrioL 0.25 MCG CAPSULE PO (09:50)
[2023-11-13] MEDS: GABAPENTIN 100 MG CAPSULE PO ×2 (09:51→17:15)
[2023-11-13] MEDS: LEFLUNOMIDE 20 MG TABLET PO (09:51)
[2023-11-13] MEDS: PRAMIPEXOLE 0.5 MG TABLET 1.5 MG PO ×3 (09:51→17:14)
[2023-11-13] MEDS: SODIUM CHLORIDE 0.9% IV 1,000 ML 75 ML IV CONT (09:55)
[2023-11-13 13:30] LABS: Glucose Point of Care 149 mg/dl (65-105)
[2023-11-13] MEDS: PERFLUTREN LIPID MICROSPHERES 1.5 ML VIAL DILUTED TO 10 ML TOTAL VOLUME IV PUSH (13:42)
--- NOTE | 2023-11-13 14:23 | IVDEFINITY ---
Prior to administration of IV Definity the patient was educated on the risks and benefits of the imaging enhancing agent including potential adverse side effects. The patient verbalized understanding. Allergies were verified. No exclusion criteria were identified and at least one of the following inclusion criteria were met: 1) physician request, 2) patient technically difficult to image (per the [place] [employer] guidelines of two or more segments not discernable within the apical view), or 3) questionable left ventricular function. ?
--- NOTE | 2023-11-13 14:24 | P.PNIM_ITS ---
Progress Note: A&P Assessment and Plan (1) Acute hypoxic respiratory failure: Code(s): J96.01 - Acute respiratory failure with hypoxia Status: Acute Assessment and Plan: * No previous need for supplemental O2. * Currently requiring high flow NC at 35, Fi O2 30. Work to wean or will need home O2 evaluation. * CXR showed cardiomegaly, mild congestive heart failure, bilateral lower lung infiltrates and atelectasis with the left greater than right. * Suspect new oxygen requirement secondary to acute exacerbation of the CHF given normal white count, however patient reporting weakness and new cough so cannot exclude pneumonia. * Continue ceftriaxone and doxycycline due to current allergies. * Benadryl PRN. (2) Weakness: Code(s): R53.1 - Weakness Status: Acute Assessment and Plan: * Hemoglobin 9.3 today, no prior available for comparison. No active bleeding noted by patient. * Continue to trend CBC * Viral PCR negative. * TSH 3.190. * PT/OT ordered for eval (3) Acute on chronic congestive heart failure: Code(s): I50.9 - Heart failure, unspecified Status: Acute Assessment and Plan: * CXR indicative of pulmonary edema and cardiomegaly. * Currently holding torsemide due to kidney function, resume when improved * Increase spironolactone from 25 p.o. daily to 25 p.o. b.i.d. * ECHO ordered, pending report. * Will monitor I&Os and daily weights. * IVF cautiously, but not taking in much PO (4) Hypokalemia: Code(s): E87.6 - Hypokalemia Status: Resolved Assessment and Plan: * requiring repletion again today, 2.6 this am * Continue to trend electrolytes. * Magnesium 2.0. * ABG shows alkalosis, likely primary respiratory alkalosis that is chronic with secondary metabolic alkalosis. (5) Atrial fibrillation: Code(s): I48.91 - Unspecified atrial fibrillation Status: Acute Assessment and Plan: * Restarted home medications carvedilol and Xarelto. * Not currently on digoxin per patient. (6) COPD (chronic obstructive pulmonary disease): Code(s): J44.9 - Chronic obstructive pulmonary disease, unspecified Status: Acute Assessment and Plan: * Continue home Anoro inhaler daily. * Start levalbuterol q.6H p.r.n. * continue supplemental oxygen. * may need home O2 evaluation * incentive spirometer (7) Hypertension: Code(s): I10 - Essential (primary) hypertension Status: Acute Assessment and Plan: * Continue home losartan. Monitor. (8) Nausea: Code(s): R11.0 - Nausea Status: Acute Assessment and Plan: * PPI. Antiemetic p.r.n. * Monitor blood sugar ACHS until able to tolerate PO - has hx of DM but has not been on medications for some time. * Full liquids this am, advance as tolerated Plan Home Meds/Chronic Conditions -continue calcitriol. -OA/RA: Continue Arava, tramadol, and gabapentin. -essential tremor: Continue Mirapex. Diet: Full liquids, may progress as tolerated GI Prophylaxis: Start pantoprazole 40 IVP daily DVT Prophylaxis: SCDs, continued Xarelto Lines: pIV Code Status: DNR Subjective Date/time seen: 11/13/23 14:24 Interval history: Patient is a 83 y/o F admitted for persistent nausea, weakness, and decreased appetite with PMH of essential tremor, arthritis, breast cancer s/p lumpectomy of left breast, COPD, diabetes (not curr
--- NOTE | 2023-11-13 14:24 | PM.IMPN ---
Progress Note: A&P Assessment and Plan (1) Acute hypoxic respiratory failure: Code(s): J96.01 - Acute respiratory failure with hypoxia Status: Acute Assessment and Plan: No previous need for supplemental O2. Currently requiring high flow NC at 35, Fi O2 30. Work to wean or will need home O2 evaluation. CXR showed cardiomegaly, mild congestive heart failure, bilateral lower lung infiltrates and atelectasis with the left greater than right. Suspect new oxygen requirement secondary to acute exacerbation of the CHF given normal white count, however patient reporting weakness and new cough so cannot exclude pneumonia. Continue ceftriaxone and doxycycline due to current allergies. Benadryl PRN. (2) Weakness: Code(s): R53.1 - Weakness Status: Acute Assessment and Plan: Hemoglobin 9.3 today, no prior available for comparison. No active bleeding noted by patient. Continue to trend CBC Viral PCR negative. TSH 3.190. PT/OT ordered for eval (3) Acute on chronic congestive heart failure: Code(s): I50.9 - Heart failure, unspecified Status: Acute Assessment and Plan: CXR indicative of pulmonary edema and cardiomegaly. Currently holding torsemide due to kidney function, resume when improved Increase spironolactone from 25 p.o. daily to 25 p.o. b.i.d. ECHO ordered, pending report. Will monitor I&Os and daily weights. IVF cautiously, but not taking in much PO (4) Hypokalemia: Code(s): E87.6 - Hypokalemia Status: Resolved Assessment and Plan: requiring repletion again today, 2.6 this am Continue to trend electrolytes. Magnesium 2.0. ABG shows alkalosis, likely primary respiratory alkalosis that is chronic with secondary metabolic alkalosis. (5) Atrial fibrillation: Code(s): I48.91 - Unspecified atrial fibrillation Status: Acute Assessment and Plan: Restarted home medications carvedilol and Xarelto. Not currently on digoxin per patient. (6) COPD (chronic obstructive pulmonary disease): Code(s): J44.9 - Chronic obstructive pulmonary disease, unspecified Status: Acute Assessment and Plan: Continue home Anoro inhaler daily. Start levalbuterol q.6H p.r.n. continue supplemental oxygen. may need home O2 evaluation incentive spirometer (7) Hypertension: Code(s): I10 - Essential (primary) hypertension Status: Acute Assessment and Plan: Continue home losartan. Monitor. (8) Nausea: Code(s): R11.0 - Nausea Status: Acute Assessment and Plan: PPI. Antiemetic p.r.n. Monitor blood sugar ACHS until able to tolerate PO - has hx of DM but has not been on medications for some time. Full liquids this am, advance as tolerated Plan Home Meds/Chronic Conditions -continue calcitriol. -OA/RA: Continue Arava, tramadol, and gabapentin. -essential tremor: Continue Mirapex. Diet: Full liquids, may progress as tolerated GI Prophylaxis: Start pantoprazole 40 IVP daily DVT Prophylaxis: SCDs, continued Xarelto Lines: pIV Code Status: DNR Subjective Date/time seen: 11/13/23 14:24 Interval history: Patient is a 83 y/o F admitted for persistent nausea, weakness, and decreased appetite with PMH of essential tremor, arthritis, breast cancer s/p lumpectomy of left breast, COPD, diabetes (not currently requiring meds), CHF, parathyroidectomy, and AFib. She is still requiring high flow oxygen via NC. Will work to wean oxygen as able. She is not normally on oxygen at baseline. CXR showed pulmonary edema, given diuretic yesterday but holding today due to worsening kidney function. Fluids are ordered, giving cautiously due to CHF. Patient is not taking in much PO so concern for kidney injury due to dehydration. Patient reports she has appointment with her director of cloud services on Nov 21, and one with her electrical appliance preparer sometime
[2023-11-13 17:14] LABS: Potassium 2.7 mmol/L (3.4-5.0)
[2023-11-13] MEDS: RIVAROXABAN 20 MG TABLET PO (17:16)
[2023-11-13] MEDS: POTASSIUM CHLORIDE 20 MEQ ER TABLET 40 MEQ PO (17:46)
[2023-11-13 18:33] LABS: Glucose Point of Care 135 mg/dl (65-105)
[2023-11-13] MEDS: POTASSIUM CHLORIDE 20 MEQ ER TABLET PO (18:53)
[2023-11-13 20:59] LABS: Glucose Point of Care 169 mg/dl (65-105)
[2023-11-13] MEDS: TOLNAFTATE 1% POWDER 45 GM BTL 1 APPLIC TOPICAL (21:02)
[2023-11-14] VITALS (34 sets, daily range): BP systolic 121–135; BP diastolic 67–97; PULSE 49–65; RESP 20–32; TEMP 35.9–36.6; O2SAT 94–100
[2023-11-14] MEDS: DOXYCYCLINE 100 MG/NS 100 ML 100 MG/100 ML BAG IVPB ×2 (01:39→13:59)
[2023-11-14] MEDS: LEVALBUTEROL NEB 1.25 MG/3 ML INHALATION ×4 (03:21→20:53)
[2023-11-14 06:12] LABS: Basophils Absolute Auto 0.1 K/mm3 (0.0-0.1); Basophils Percent Auto 1.2 % (0.2-1.2); Eosinophils Absolute Auto 0.2 K/mm3 (0-0.3); Eosinophils Percent Auto 3.4 % (0-4.4); Hematocrit 33.8 % (37.0-47.0); Hemoglobin 9.6 g/dL (12.0-15.0); Immature Granulocyte Absolute 0.04 K/mm3 (0.00-0.031); Immature Granulocyte Percent A 0.7 % (0-0.5); Lymphocytes Percent Auto 25.8 % (18.3-44.2); Mean Corpuscular HGB Conc 28.4 g/dl (32-36); Mean Corpuscular Hemoglobin 25.8 pg (26-34); Mean Corpuscular Volume 90.9 fl (80-100); Mean Platelet Volume 10.9 fl (7.4-10.4); Monocytes Absolute Auto 0.6 K/mm3 (0.1-0.6); Monocytes Percent Auto 9.6 % (2.6-8.5); Neutrophils Absolute Auto 3.5 K/mm3 (1.3-6.7); Neutrophils Percent Auto 59.3 % (45.5-73.1); Platelet Count Result 238 k/mm3 (150-375); Red Blood Count 3.72 M/mm3 (4.2-5.4); White Blood Count 5.8 K/mm3 (4.5-10.0)
[2023-11-14 06:23] LABS: Albumin Level 3.4 g/dL (3.5-5.1); Anion Gap 6 mmol/L (8-16); Blood Urea Nitrogen 21 mg/dL (7-17); Calcium 8.6 mg/dL (8.4-10.2); Carbon Dioxide 28 mmol/L (22-30); Chloride 108 mmol/L (98-107); Estimated CRCL calculation 24 ml/min; Estimated Glomerular Filt Rate 31; Glucose 133 mg/dL (65-110); Phosphorus 3.6 mg/dL (2.5-4.5); Potassium 3.9 mmol/L (3.4-5.0); Sodium 142 mmol/L (137-145)
[2023-11-14 06:24] LABS: Lactic Acid Reflex 1.3 mmol/L (0.7-2.0)
[2023-11-14 06:59] LABS: Anisocytosis 2+ (NORMAL); Ovalocytes 2+ (NORMAL); Platelet Estimate Adequate (Adequate)
[2023-11-14 07:00] LABS: Hypochromasia 1+ (NORMAL); Schistocytes None Seen (NORMAL)
[2023-11-14 07:37] LABS: Glucose Point of Care 137 mg/dl (65-105)
[2023-11-14] MEDS: UMECLIDINIUM/VILANTEROL 62.5-25 MCG ELLIPTA 1 PUFF INHALATION (08:04)
[2023-11-14] MEDS: PANTOPRAZOLE SODIUM IV 40 MG VIAL IV PUSH (10:04)
[2023-11-14] MEDS: carvediloL 25 MG TABLET PO ×2 (10:04→21:25)
[2023-11-14] MEDS: PRAMIPEXOLE 0.5 MG TABLET 1.5 MG PO ×3 (10:05→18:54)
[2023-11-14] MEDS: calcitrioL 0.25 MCG CAPSULE PO (10:05)
[2023-11-14] MEDS: LEFLUNOMIDE 20 MG TABLET PO (10:05)
[2023-11-14] MEDS: ATORVASTATIN 20 MG TABLET PO (10:05)
[2023-11-14] MEDS: GABAPENTIN 100 MG CAPSULE PO ×2 (10:05→18:54)
[2023-11-14] MEDS: LOSARTAN POTASSIUM 50 MG TABLET PO (10:05)
[2023-11-14] MEDS: TOLNAFTATE 1% POWDER 45 GM BTL 1 APPLIC TOPICAL ×2 (10:06→21:26)
--- NOTE | 2023-11-14 11:45 | P.PNIM_ITS ---
Progress Note: A&P Assessment and Plan (1) Acute hypoxic respiratory failure: Code(s): J96.01 - Acute respiratory failure with hypoxia Status: Acute Assessment and Plan: 11/13/23: (Copied from chart) * No previous need for supplemental O2. * Currently requiring high flow NC at 35, Fi O2 30. Work to wean or will need home O2 evaluation. * CXR showed cardiomegaly, mild congestive heart failure, bilateral lower lung infiltrates and atelectasis with the left greater than right. * Suspect new oxygen requirement secondary to acute exacerbation of the CHF given normal white count, however patient reporting weakness and new cough so cannot exclude pneumonia. * Continue ceftriaxone and doxycycline due to current allergies. * Benadryl PRN. 11/14/23: * Patient weaned down to 6L HFNC. She does have use of accessory muscles and appears a bit labored this morning. Lungs sound course throughout. * Will repeat CXR now * Recheck proBNP * May require additional Lasix. (2) Weakness: Code(s): R53.1 - Weakness Status: Acute Assessment and Plan: 11/13/23: (Copied from chart) * Hemoglobin 9.3 today, no prior available for comparison. No active bleeding noted by patient. * Continue to trend CBC * Viral PCR negative. * TSH 3.190. * PT/OT ordered for eval 11/14/23: * Continue PT/OT * Echo showing severely reduced EF of 15-20%, RV function severely reduced, grade III diastolic dysfunction. (3) Acute on chronic congestive heart failure: Code(s): I50.9 - Heart failure, unspecified Status: Acute Assessment and Plan: 11/13/23: (Copied from chart) * CXR indicative of pulmonary edema and cardiomegaly. * Currently holding torsemide due to kidney function, resume when improved * Increase spironolactone from 25 p.o. daily to 25 p.o. b.i.d. * ECHO ordered, pending report. * Will monitor I&Os and daily weights. * IVF cautiously, but not taking in much PO 11/14/23: * Echo showing severely reduced EF of 15-20%, RV function severely reduced, grade III diastolic dysfunction. * Cardiology consulted * Checking proBNP today * Monitor daily weights * Monitor I and O's (4) Hypokalemia: Code(s): E87.6 - Hypokalemia Status: Resolved Assessment and Plan: 11/13/23: (Copied from chart) * requiring repletion again today, 2.6 this am * Continue to trend electrolytes. * Magnesium 2.0. * ABG shows alkalosis, likely primary respiratory alkalosis that is chronic with secondary metabolic alkalosis. 11/14/23: * K+ 3.9 today, no replacement needed * Continue to trend lab (5) Atrial fibrillation: Code(s): I48.91 - Unspecified atrial fibrillation Status: Acute Assessment and Plan: 11/13/23: (Copied from chart) * Restarted home medications carvedilol and Xarelto. * Not currently on digoxin per patient. 11/14/23: * Continue with current treatment plan. * Patient currently is SB in the 50's * Continue to hold digoxin * Cardiology consulted (6) COPD (chronic obstructive pulmonary disease): Code(s): J44.9 - Chronic obstructive pulmonary disease, unspecified Status: Acute Assessment and Plan: 11/13/23: (Copied from chart) * Continue home Anoro inhaler daily. * Start levalbuterol q.6H p.r.n. * continue supplemental oxygen. * may need home O2 evaluation * incentive spirometer 11/14/23: * Continue breathing treatments * Continue to wean O2 * No aline
--- NOTE | 2023-11-14 11:45 | PM.IMPN ---
Progress Note: A&P Assessment and Plan (1) Acute hypoxic respiratory failure: Code(s): J96.01 - Acute respiratory failure with hypoxia Status: Acute Assessment and Plan: 11/13/23: (Copied from chart) No previous need for supplemental O2. Currently requiring high flow NC at 35, Fi O2 30. Work to wean or will need home O2 evaluation. CXR showed cardiomegaly, mild congestive heart failure, bilateral lower lung infiltrates and atelectasis with the left greater than right. Suspect new oxygen requirement secondary to acute exacerbation of the CHF given normal white count, however patient reporting weakness and new cough so cannot exclude pneumonia. Continue ceftriaxone and doxycycline due to current allergies. Benadryl PRN. 11/14/23: Patient weaned down to 6L HFNC. She does have use of accessory muscles and appears a bit labored this morning. Lungs sound course throughout. Will repeat CXR now Recheck proBNP May require additional Lasix. (2) Weakness: Code(s): R53.1 - Weakness Status: Acute Assessment and Plan: 11/13/23: (Copied from chart) Hemoglobin 9.3 today, no prior available for comparison. No active bleeding noted by patient. Continue to trend CBC Viral PCR negative. TSH 3.190. PT/OT ordered for eval 11/14/23: Continue PT/OT Echo showing severely reduced EF of 15-20%, RV function severely reduced, grade III diastolic dysfunction. (3) Acute on chronic congestive heart failure: Code(s): I50.9 - Heart failure, unspecified Status: Acute Assessment and Plan: 11/13/23: (Copied from chart) CXR indicative of pulmonary edema and cardiomegaly. Currently holding torsemide due to kidney function, resume when improved Increase spironolactone from 25 p.o. daily to 25 p.o. b.i.d. ECHO ordered, pending report. Will monitor I&Os and daily weights. IVF cautiously, but not taking in much PO 11/14/23: Echo showing severely reduced EF of 15-20%, RV function severely reduced, grade III diastolic dysfunction. Cardiology consulted Checking proBNP today Monitor daily weights Monitor I and O's (4) Hypokalemia: Code(s): E87.6 - Hypokalemia Status: Resolved Assessment and Plan: 11/13/23: (Copied from chart) requiring repletion again today, 2.6 this am Continue to trend electrolytes. Magnesium 2.0. ABG shows alkalosis, likely primary respiratory alkalosis that is chronic with secondary metabolic alkalosis. 11/14/23: K+ 3.9 today, no replacement needed Continue to trend lab (5) Atrial fibrillation: Code(s): I48.91 - Unspecified atrial fibrillation Status: Acute Assessment and Plan: 11/13/23: (Copied from chart) Restarted home medications carvedilol and Xarelto. Not currently on digoxin per patient. 11/14/23: Continue with current treatment plan. Patient currently is SB in the 50's Continue to hold digoxin Cardiology consulted (6) COPD (chronic obstructive pulmonary disease): Code(s): J44.9 - Chronic obstructive pulmonary disease, unspecified Status: Acute Assessment and Plan: 11/13/23: (Copied from chart) Continue home Anoro inhaler daily. Start levalbuterol q.6H p.r.n. continue supplemental oxygen. may need home O2 evaluation incentive spirometer 11/14/23: Continue breathing treatments Continue to wean O2 No change in treatment plan (7) Hypertension: Code(s): I10 - Essential (primary) hypertension Status: Acute Assessment and Plan: 11/13/23: (Copied from chart) Continue home losartan. Monitor. 11/14/23: B/P 132/84-135/97 Continue with current treatment plan (8) Nausea: Code(s): R11.0 - Nausea Status: Acute Assessment and Plan: 11/13/23: (Copied from chart) PPI. Antiemetic p.r.n. Monitor blood sugar ACHS until able to tolerate PO - has hx of DM but has not bee
[2023-11-14 12:23] LABS: Glucose Point of Care 124 mg/dl (65-105)
--- NOTE | 2023-11-14 13:14 | PM.CNCAR ---
Assessment and Plan Assessment and plan (1) Acute on chronic congestive heart failure: Code(s): I50.9 - Heart failure, unspecified Status: Acute Assessment and Plan: Has known congestive heart failure, but last LVEF not known. Sees a invasive cardiovascular technologist at [facility]. Please obtain records from her invasive cardiovascular technologist. Torsemide is currently on hold due to SARAI. Resume when SARAI improves. Continue with Coreg and Losartan for now. Her Spironolactone was increased to 25mg BID this admission (currently on hold due to SARAI), however, would decrease back down to 25mg once daily. (2) Atrial fibrillation: Code(s): I48.91 - Unspecified atrial fibrillation Status: Acute Assessment and Plan: Currently in sinus rhythm. Continue beta angelita, Xarelto. (3) Acute hypoxic respiratory failure: Code(s): J96.01 - Acute respiratory failure with hypoxia Status: Acute Assessment and Plan: Wean off oxygen as tolerated (4) Hypertension: Code(s): I10 - Essential (primary) hypertension Status: Acute Assessment and Plan: Stable History of Present Illness History of Present Illness Consult date/time: 11/14/23 13:14 Requesting physician: Marichuy Overton APRN Consult reason: congestive heart failure Reason For Visit: Acute Hypoxic Resp Failure/CHF/Elevated Troponin Narrative: We are consulted for cardiomyopathy. This is an 83 year old female that was admitted to [facility] on 11/11 for persistent nausea, weakness, decreased appetite. She has a history of known congestive heart failure and atrial fibrillation. Sees a invasive cardiovascular technologist at [facility]. Has shortness of breath that became more progressive over past few days prior to admission. Echocardiogram done 11/13 which showed LVEF 22%, moderate to severe MR, large left pleural effusion. Her Torsemide and Spironolactone are currently on hold due to SARAI, which is improving. Review of Systems Review of Systems: All systems reviewed & are unremarkable except as noted in HPI and below (HPI) [facility] Past Medical History Medical History Arthritis Atrial fibrillation On Xarelto Cancer Breast Congestive heart failure COPD (chronic obstructive pulmonary disease) Diabetes last A1c noted by pt to be 6.1 in 2019 Essential tremor Hypertension Rheumatoid arthritis Surgical History Surgical History H/O tubal ligation History of carpal tunnel release left wrist 08/[address] Valiente History of cholecystectomy History of lumpectomy of left breast Hx of parathyroidectomy Family History Family History Other Asthma Cancer Social History Social History Smoking status: Never smoker Alcohol intake: never Substance use type: does not use Do You Feel Safe in your Home?: Yes Lack of Transportation: No Lack of Food: Never True Current Housing: I Have Housing Concerned About Future Housing: No Difficulty Paying Gas/Electric Bills: No Difficulty Paying for Meds: No Currently Unemployed: No Education: Don't Know Difficulty w/ Childcare or Family Care: No Living arrangements: alone Occupation/Education: occupation 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
[2023-11-14 13:58] LABS: NT Pro B Type Natriuretic Pept 17800 pg/mL (19.9-100)
[2023-11-14 17:07] LABS: Glucose Point of Care 139 mg/dl (65-105)
[2023-11-14] MEDS: RIVAROXABAN 20 MG TABLET PO (18:54)
[2023-11-14 20:23] LABS: Glucose Point of Care 129 mg/dl (65-105)
[2023-11-15] VITALS (29 sets, daily range): BP systolic 123–144; BP diastolic 70–95; PULSE 49–64; RESP 16–30; TEMP 35.7–36.6; O2SAT 88–100
[2023-11-15] MEDS: LEVALBUTEROL NEB 1.25 MG/3 ML INHALATION ×4 (01:22→19:57)
[2023-11-15] MEDS: DOXYCYCLINE 100 MG/NS 100 ML 100 MG/100 ML BAG IVPB ×2 (02:32→13:59)
[2023-11-15 04:28] LABS: Basophils Absolute Auto 0.1 K/mm3 (0.0-0.1); Basophils Percent Auto 1.3 % (0.2-1.2); Eosinophils Absolute Auto 0.2 K/mm3 (0-0.3); Eosinophils Percent Auto 4.4 % (0-4.4); Hematocrit 31.4 % (37.0-47.0); Hemoglobin 8.9 g/dL (12.0-15.0); Immature Granulocyte Absolute 0.06 K/mm3 (0.00-0.031); Immature Granulocyte Percent A 1.3 % (0-0.5); Lymphocytes Absolute Auto 1.36 K/mm3 (0.9-3.2); Lymphocytes Percent Auto 28.8 % (18.3-44.2); Mean Corpuscular HGB Conc 28.3 g/dl (32-36); Mean Corpuscular Volume 91.8 fl (80-100); Mean Platelet Volume 11.1 fl (7.4-10.4); Monocytes Absolute Auto 0.5 K/mm3 (0.1-0.6); Neutrophils Absolute Auto 2.5 K/mm3 (1.3-6.7); Neutrophils Percent Auto 53.2 % (45.5-73.1); Platelet Count Result 205 k/mm3 (150-375); Red Blood Count 3.42 M/mm3 (4.2-5.4); Red Cell Distribution Width 16.6 % (11.5-14.5); White Blood Count 4.7 K/mm3 (4.5-10.0)
[2023-11-15 04:46] LABS: Alanine Aminotransferase 16 U/L (6-35); Albumin Level 3.2 g/dL (3.5-5.1); Alkaline Phosphatase 113 U/L (38-126); Anion Gap 10 mmol/L (8-16); Aspartate Amino Transferase 28 U/L (14-36); Bilirubin,Total 0.6 mg/dL (0.2-1.3); Blood Urea Nitrogen 22 mg/dL (7-17); Calcium 8.5 mg/dL (8.4-10.2); Carbon Dioxide 23 mmol/L (22-30); Chloride 107 mmol/L (98-107); Estimated CRCL calculation 26 ml/min; Estimated Glomerular Filt Rate 33; Glucose 113 mg/dL (65-110); Potassium 3.4 mmol/L (3.4-5.0); Sodium 140 mmol/L (137-145)
[2023-11-15 05:25] LABS: Schistocytes Rare (NORMAL)
[2023-11-15 05:26] LABS: Anisocytosis 2+ (NORMAL); Hypochromasia 1+ (NORMAL); Platelet Estimate Adequate (Adequate); Poikilocytosis 2+ (NORMAL)
[2023-11-15] MEDS: UMECLIDINIUM/VILANTEROL 62.5-25 MCG ELLIPTA 1 PUFF INHALATION (07:36)
[2023-11-15 08:14] LABS: Glucose Point of Care 131 mg/dl (65-105)
[2023-11-15] MEDS: PANTOPRAZOLE SODIUM IV 40 MG VIAL IV PUSH (09:00)
[2023-11-15] MEDS: LEFLUNOMIDE 20 MG TABLET PO (09:00)
[2023-11-15] MEDS: ATORVASTATIN 20 MG TABLET PO (09:01)
[2023-11-15] MEDS: GABAPENTIN 100 MG CAPSULE PO ×2 (09:01→17:13)
[2023-11-15] MEDS: PRAMIPEXOLE 0.5 MG TABLET 1.5 MG PO ×3 (09:01→17:13)
[2023-11-15] MEDS: TOLNAFTATE 1% POWDER 45 GM BTL 1 APPLIC TOPICAL ×2 (09:02→21:35)
[2023-11-15] MEDS: calcitrioL 0.25 MCG CAPSULE PO (09:02)
[2023-11-15] MEDS: LOSARTAN POTASSIUM 50 MG TABLET PO (09:02)
--- NOTE | 2023-11-15 10:33 | P.PNIM_ITS ---
Progress Note: A&P Assessment and Plan (1) Acute hypoxic respiratory failure: Code(s): J96.01 - Acute respiratory failure with hypoxia Status: Acute Assessment and Plan: 11/13/23: (Copied from chart) * No previous need for supplemental O2. * Currently requiring high flow NC at 35, Fi O2 30. Work to wean or will need home O2 evaluation. * CXR showed cardiomegaly, mild congestive heart failure, bilateral lower lung infiltrates and atelectasis with the left greater than right. * Suspect new oxygen requirement secondary to acute exacerbation of the CHF given normal white count, however patient reporting weakness and new cough so cannot exclude pneumonia. * Continue ceftriaxone and doxycycline due to current allergies. * Benadryl PRN. 11/14/23: * Patient weaned down to 6L HFNC. She does have use of accessory muscles and appears a bit labored this morning. Lungs sound course throughout. * Will repeat CXR now * Recheck proBNP * May require additional Lasix. 11/15/23: * Patient weaned to 4L NC. * CXR from yesterday showing mild pulmonary edema, worsened small right and moderate sized left pleural effusions * Cardiology following. * Torsemide on hold due to SARAI (2) Weakness: Code(s): R53.1 - Weakness Status: Acute Assessment and Plan: 11/13/23: (Copied from chart) * Hemoglobin 9.3 today, no prior available for comparison. No active bleeding noted by patient. * Continue to trend CBC * Viral PCR negative. * TSH 3.190. * PT/OT ordered for eval 11/14/23: * Continue PT/OT * Echo showing severely reduced EF of 15-20%, RV function severely reduced, grade III diastolic dysfunction. 11/15/23: * Continue with PT/OT (3) Acute on chronic congestive heart failure: Code(s): I50.9 - Heart failure, unspecified Status: Acute Assessment and Plan: 11/13/23: (Copied from chart) * CXR indicative of pulmonary edema and cardiomegaly. * Currently holding torsemide due to kidney function, resume when improved * Increase spironolactone from 25 p.o. daily to 25 p.o. b.i.d. * ECHO ordered, pending report. * Will monitor I&Os and daily weights. * IVF cautiously, but not taking in much PO 11/14/23: * Echo showing severely reduced EF of 15-20%, RV function severely reduced, grade III diastolic dysfunction. * Cardiology consulted * Checking proBNP today * Monitor daily weights * Monitor I and O's 11/15/23: * Cardiology following, awaiting records from [facility] * Continue with current treatment plan (4) Hypokalemia: Code(s): E87.6 - Hypokalemia Status: Resolved Assessment and Plan: 11/13/23: (Copied from chart) * requiring repletion again today, 2.6 this am * Continue to trend electrolytes. * Magnesium 2.0. * ABG shows alkalosis, likely primary respiratory alkalosis that is chronic with secondary metabolic alkalosis. 11/14/23: * K+ 3.9 today, no replacement needed * Continue to trend lab 11/15/23: * K+ 3.4, no replacement needed * Continue to trend labs (5) Atrial fibrillation: Code(s): I48.91 - Unspecified atrial fibrillation Status: Acute Assessment and Plan: 11/13/23: (Copied from chart) * Restarted home medications carvedilol and Xarelto. * Not currently on digoxin per patient. 11/14/23: * Continue with current treatment plan. * Patient currently is SB in the 50's * Continue to hold digoxin * Cardiology consulted
--- NOTE | 2023-11-15 10:33 | PM.IMPN ---
Progress Note: A&P Assessment and Plan (1) Acute hypoxic respiratory failure: Code(s): J96.01 - Acute respiratory failure with hypoxia Status: Acute Assessment and Plan: 11/13/23: (Copied from chart) No previous need for supplemental O2. Currently requiring high flow NC at 35, Fi O2 30. Work to wean or will need home O2 evaluation. CXR showed cardiomegaly, mild congestive heart failure, bilateral lower lung infiltrates and atelectasis with the left greater than right. Suspect new oxygen requirement secondary to acute exacerbation of the CHF given normal white count, however patient reporting weakness and new cough so cannot exclude pneumonia. Continue ceftriaxone and doxycycline due to current allergies. Benadryl PRN. 11/14/23: Patient weaned down to 6L HFNC. She does have use of accessory muscles and appears a bit labored this morning. Lungs sound course throughout. Will repeat CXR now Recheck proBNP May require additional Lasix. 11/15/23: Patient weaned to 4L NC. CXR from yesterday showing mild pulmonary edema, worsened small right and moderate sized left pleural effusions Cardiology following. Torsemide on hold due to SARAI (2) Weakness: Code(s): R53.1 - Weakness Status: Acute Assessment and Plan: 11/13/23: (Copied from chart) Hemoglobin 9.3 today, no prior available for comparison. No active bleeding noted by patient. Continue to trend CBC Viral PCR negative. TSH 3.190. PT/OT ordered for eval 11/14/23: Continue PT/OT Echo showing severely reduced EF of 15-20%, RV function severely reduced, grade III diastolic dysfunction. 11/15/23: Continue with PT/OT (3) Acute on chronic congestive heart failure: Code(s): I50.9 - Heart failure, unspecified Status: Acute Assessment and Plan: 11/13/23: (Copied from chart) CXR indicative of pulmonary edema and cardiomegaly. Currently holding torsemide due to kidney function, resume when improved Increase spironolactone from 25 p.o. daily to 25 p.o. b.i.d. ECHO ordered, pending report. Will monitor I&Os and daily weights. IVF cautiously, but not taking in much PO 11/14/23: Echo showing severely reduced EF of 15-20%, RV function severely reduced, grade III diastolic dysfunction. Cardiology consulted Checking proBNP today Monitor daily weights Monitor I and O's 11/15/23: Cardiology following, awaiting records from [facility] Continue with current treatment plan (4) Hypokalemia: Code(s): E87.6 - Hypokalemia Status: Resolved Assessment and Plan: 11/13/23: (Copied from chart) requiring repletion again today, 2.6 this am Continue to trend electrolytes. Magnesium 2.0. ABG shows alkalosis, likely primary respiratory alkalosis that is chronic with secondary metabolic alkalosis. 11/14/23: K+ 3.9 today, no replacement needed Continue to trend lab 11/15/23: K+ 3.4, no replacement needed Continue to trend labs (5) Atrial fibrillation: Code(s): I48.91 - Unspecified atrial fibrillation Status: Acute Assessment and Plan: 11/13/23: (Copied from chart) Restarted home medications carvedilol and Xarelto. Not currently on digoxin per patient. 11/14/23: Continue with current treatment plan. Patient currently is SB in the 50's Continue to hold digoxin Cardiology consulted 11/15/23: No change to current treatment plan Cardiology following (6) COPD (chronic obstructive pulmonary disease): Code(s): J44.9 - Chronic obstructive pulmonary disease, unspecified Status: Acute Assessment and Plan: 11/13/23: (Copied from chart) Continue home Anoro inhaler daily. Start levalbuterol q.6H p.r.n. continue supplemental oxygen. may need home O2 evaluation incentive spirometer 11/14/23: Continue breathing treatments Continue to wean O2 No change in treatment plan 11/15
[2023-11-15 12:08] LABS: Glucose Point of Care 114 mg/dl (65-105)
--- NOTE | 2023-11-15 12:25 | PM.PNCARD ---
Progress Note: A&P Assessment and Plan (1) Acute on chronic congestive heart failure: Code(s): I50.9 - Heart failure, unspecified Status: Acute Assessment and Plan: Has known congestive heart failure, but last LVEF not known. Sees a talend etl developer at [facility]. Please obtain records from her talend etl developer. Repeat echocardiogram here showed systolic dysfunction with an EF of 15-20% and grade 3 diastolic dysfunction. Torsemide is currently on hold due to SARAI. Resume when SARAI improves. Continue with Coreg and Losartan for now. Ideally, would like to optimize her medical therapy with Entresto (would need to discontinue losartan), and addition Jardiance (her GFR is borderline for this, cut off is less than 30) Her Spironolactone was increased to 25mg BID this admission (currently on hold due to SARAI), however, would decrease back down to 25mg once daily. (2) Atrial fibrillation: Code(s): I48.91 - Unspecified atrial fibrillation Status: Acute Assessment and Plan: Currently in sinus rhythm. Continue beta angelita, Xarelto. (3) Acute hypoxic respiratory failure: Code(s): J96.01 - Acute respiratory failure with hypoxia Status: Acute Assessment and Plan: Wean off oxygen as tolerated (4) Hypertension: Code(s): I10 - Essential (primary) hypertension Status: Acute Assessment and Plan: Stable Subjective Date/time seen: 11/15/23 12:25 Interval history: Cardiology follow-up for CHF Lower extremity swelling has resolved. She does still have some shortness of breath but this has improved since admission. Review of Systems Review of Systems: All systems reviewed & are unremarkable except as noted in HPI and below (HPI) Exam Const: General: comfortable and no acute distress HENMT: Mouth: Yes moist mucous membranes Eyes: General: appearance normal, both eyes and all related structures Sclera: sclerae normal Neck: Neck: supple Resp: Effort & Inspection: normal respiratory effort Auscultation: rales on the right and diminished lung sounds Cardio: Rate: regular rate Rhythm: regular rhythm Heart sounds: Murmur heart sound present Skin: General skin exam: normal color Neuro: Speech: normal speech Psych: Mental Status: mental status grossly normal Affect: normal affect Objective Data Vital Signs Vital Signs: Vital Signs - 24 hr 11/14/23 14:29 11/14/23 14:41 11/14/23 14:42 Temperature Pulse Rate 55 L 53 L Respiratory Rate 20 20 Blood Pressure Pulse Oximetry 97 Oxygen Delivery High Flow Nasal Cannula Oxygen Flow Rate 5 11/14/23 15:23 11/14/23 16:13 11/14/23 14:00 Temperature 36.3 C L 36.4 C Pulse Rate 52 L 49 L 54 L Respiratory Rate 32 H 30 H Blood Pressure 129/95 H 130/88 Pulse Oximetry 98 96 Oxygen Delivery Oxygen Flow Rate 11/14/23 16:00 11/14/23 16:00 11/14/23 18:00 Temperature Pulse Rate 49 L 55 L Respiratory Rate Blood Pressure Pulse Oximetry 100 Oxygen Delivery High Flow Nasal Cannula Oxygen Flow Rate 5 11/14/23 19:55 11/14/23 20:50 11/14/23 20:50 Temperature 36.6 C Pulse Rate 53 L 58 L Respiratory Rate 23 H 22 H Blood Pressure 133/71 Pulse Oximetry 100 98 Oxygen Delivery High Flow Nasal Cannula Oxygen Flow Rate 4 11/14/23 21:00 11/14/23 21:02 11/14/23 21:25 Temperature Pulse Rate 57 L 57 L Respiratory Rate 22 H Blood Pressure Pulse Oximetry 96 Oxygen Delivery High Flow Nasal Cannula Oxygen Flow Rate 3 11/14/23 20:00 11/15/23 00:50 11/15/23 00:00 Temperature 36.6 C Pulse Rate 49 L Respiratory Rate 23 H Blood Pressure 123/72 Pulse Oximetry 96 94 94 Oxygen Delivery High Flow Nasal Cannula High Flow Nasal Cannula Oxygen Flow Rate 5 5 11/14/23 20:00 11/14/23 22:00 11/15/23 00:00 Temperature Pulse Rate 52 L 55 L 54 L Respiratory Rate Blood Pressure Pulse Oximetry Oxygen Delivery Oxy
[2023-11-15 16:45] LABS: Glucose Point of Care 113 mg/dl (65-105)
[2023-11-15] MEDS: RIVAROXABAN 20 MG TABLET PO (17:13)
[2023-11-15 17:55] LABS: NT Pro B Type Natriuretic Pept 14000 pg/mL (19.9-100)
[2023-11-15 20:33] LABS: Glucose Point of Care 131 mg/dl (65-105)
[2023-11-15] MEDS: carvediloL 25 MG TABLET PO (21:35)
[2023-11-16] VITALS (23 sets, daily range): BP systolic 132–153; BP diastolic 75–85; PULSE 49–66; RESP 20–26; TEMP 36.2–36.4; O2SAT 90–100
[2023-11-16] MEDS: DOXYCYCLINE 100 MG/NS 100 ML 100 MG/100 ML BAG IVPB ×2 (02:26→14:01)
[2023-11-16] MEDS: LEVALBUTEROL NEB 1.25 MG/3 ML INHALATION ×4 (02:43→20:15)
[2023-11-16 05:03] LABS: Basophils Absolute Auto 0.1 K/mm3 (0.0-0.1); Basophils Percent Auto 1.6 % (0.2-1.2); Eosinophils Absolute Auto 0.3 K/mm3 (0-0.3); Hematocrit 33.2 % (37.0-47.0); Hemoglobin 9.3 g/dL (12.0-15.0); Immature Granulocyte Absolute 0.07 K/mm3 (0.00-0.031); Immature Granulocyte Percent A 1.4 % (0-0.5); Lymphocytes Absolute Auto 1.28 K/mm3 (0.9-3.2); Lymphocytes Percent Auto 25.7 % (18.3-44.2); Mean Corpuscular Hemoglobin 25.9 pg (26-34); Mean Corpuscular Volume 92.5 fl (80-100); Monocytes Absolute Auto 0.5 K/mm3 (0.1-0.6); Monocytes Percent Auto 10.6 % (2.6-8.5); Neutrophils Absolute Auto 2.8 K/mm3 (1.3-6.7); Neutrophils Percent Auto 55.7 % (45.5-73.1); Platelet Count Result 218 k/mm3 (150-375); Red Blood Count 3.59 M/mm3 (4.2-5.4); Red Cell Distribution Width 16.5 % (11.5-14.5)
[2023-11-16 05:16] LABS: Alanine Aminotransferase 15 U/L (6-35); Albumin Level 3.2 g/dL (3.5-5.1); Alkaline Phosphatase 123 U/L (38-126); Anion Gap 6 mmol/L (8-16); Aspartate Amino Transferase 29 U/L (14-36); Bilirubin,Total 0.7 mg/dL (0.2-1.3); Blood Urea Nitrogen 23 mg/dL (7-17); Calcium 8.8 mg/dL (8.4-10.2); Carbon Dioxide 25 mmol/L (22-30); Chloride 109 mmol/L (98-107); Estimated CRCL calculation 27 ml/min; Estimated Glomerular Filt Rate 36; Glucose 128 mg/dL (65-110); Potassium 4.3 mmol/L (3.4-5.0); Sodium 140 mmol/L (137-145)
[2023-11-16 05:31] LABS: Platelet Estimate Adequate (Adequate)
[2023-11-16 05:32] LABS: Anisocytosis 1+ (NORMAL); Hypochromasia 1+ (NORMAL); Ovalocytes 1+ (NORMAL); Poikilocytosis 2+ (NORMAL); Schistocytes 1+ (NORMAL)
[2023-11-16 08:02] LABS: Glucose Point of Care 117 mg/dl (65-105)
[2023-11-16] MEDS: PRAMIPEXOLE 0.5 MG TABLET 1.5 MG PO ×3 (08:06→17:32)
[2023-11-16] MEDS: PANTOPRAZOLE SODIUM IV 40 MG VIAL IV PUSH (08:06)
[2023-11-16] MEDS: LEFLUNOMIDE 20 MG TABLET PO (08:07)
[2023-11-16] MEDS: calcitrioL 0.25 MCG CAPSULE PO (08:07)
[2023-11-16] MEDS: LOSARTAN POTASSIUM 50 MG TABLET PO (08:07)
[2023-11-16] MEDS: GABAPENTIN 100 MG CAPSULE PO ×2 (08:07→17:32)
[2023-11-16] MEDS: ATORVASTATIN 20 MG TABLET PO (08:07)
[2023-11-16] MEDS: UMECLIDINIUM/VILANTEROL 62.5-25 MCG ELLIPTA 1 PUFF INHALATION (08:16)
[2023-11-16] MEDS: TOLNAFTATE 1% POWDER 45 GM BTL 1 APPLIC TOPICAL ×2 (09:43→20:28)
--- NOTE | 2023-11-16 11:25 | P.CDI_ITS ---
CDI Query Clarification Request Documented history of CHF. CHF noted on the assessment and plan. Torsemide listed as a home medication. Patient receiving Torsemide. CHF noted on the 11/11 chest xray. Elevated BNP on 11/11 lab work. Please specify type and acuity of heart failure if known. * Acute * Chronic * Acute on Chronic * Unknown * Systolic * Diastolic * Combined Systolic and Diastolic * Unknown <Pushpa Moses RN - Last Filed: 11/16/23 11:29> Clarified Diagnosis Clarified Diagnosis: Acute on chronic combined systolic and diastolic <Marichuy Overton APRN - Last Filed: 11/16/23 15:16>
[2023-11-16 12:13] LABS: Glucose Point of Care 110 mg/dl (65-105)
--- NOTE | 2023-11-16 15:05 | P.PNIM_ITS ---
Progress Note: A&P Assessment and Plan (1) Acute hypoxic respiratory failure: Code(s): J96.01 - Acute respiratory failure with hypoxia Status: Acute Assessment and Plan: 11/13/23: (Copied from chart) * No previous need for supplemental O2. * Currently requiring high flow NC at 35, Fi O2 30. Work to wean or will need home O2 evaluation. * CXR showed cardiomegaly, mild congestive heart failure, bilateral lower lung infiltrates and atelectasis with the left greater than right. * Suspect new oxygen requirement secondary to acute exacerbation of the CHF given normal white count, however patient reporting weakness and new cough so cannot exclude pneumonia. * Continue ceftriaxone and doxycycline due to current allergies. * Benadryl PRN. 11/14/23: * Patient weaned down to 6L HFNC. She does have use of accessory muscles and appears a bit labored this morning. Lungs sound course throughout. * Will repeat CXR now * Recheck proBNP * May require additional Lasix. 11/15/23: * Patient weaned to 4L NC. * CXR from yesterday showing mild pulmonary edema, worsened small right and moderate sized left pleural effusions * Cardiology following. * Torsemide on hold due to SARAI 11/16/23: * Patient currently on 4L NC * Cardiology following * Creatinine trending downward but not back to baseline. * Torsemide will continue to be held. (2) Weakness: Code(s): R53.1 - Weakness Status: Acute Assessment and Plan: 11/13/23: (Copied from chart) * Hemoglobin 9.3 today, no prior available for comparison. No active bleeding noted by patient. * Continue to trend CBC * Viral PCR negative. * TSH 3.190. * PT/OT ordered for eval 11/14/23: * Continue PT/OT * Echo showing severely reduced EF of 15-20%, RV function severely reduced, grade III diastolic dysfunction. 11/15/23: * Continue with PT/OT 11/16/23: * no change to current treatment plan (3) Acute on chronic congestive heart failure: Code(s): I50.9 - Heart failure, unspecified Status: Acute Assessment and Plan: 11/13/23: (Copied from chart) * CXR indicative of pulmonary edema and cardiomegaly. * Currently holding torsemide due to kidney function, resume when improved * Increase spironolactone from 25 p.o. daily to 25 p.o. b.i.d. * ECHO ordered, pending report. * Will monitor I&Os and daily weights. * IVF cautiously, but not taking in much PO 11/14/23: * Acute on chronic congestive heart failure with systolic and diastolic dysfunction. * Echo showing severely reduced EF of 15-20%, RV function severely reduced, grade III diastolic dysfunction. * Cardiology consulted * Checking proBNP today * Monitor daily weights * Monitor I and O's 11/15/23: * Cardiology following, awaiting records from [facility] * Continue with current treatment plan 11/16/23: * Received Echo from patient's clerk general which was done in 2019 and shown mildly reduced EF of 50-55% and grade 1 diastolic dysfunction. Considering the change, I reached out to our cardiology team to update them. * Cardiology following and awaiting their input. (4) Atrial fibrillation: Code(s): I48.91 - Unspecified atrial fibrillation Status: Acute Assessment and Plan: 11/13/23: (Copied from chart) * Restarted home medications carvedilol and Xarelto. * Not currently on digoxin per patient. 11/14/23: * Continue with current treatment plan. * Patient currently is SB in the 50's
--- NOTE | 2023-11-16 15:05 | PM.IMPN ---
Progress Note: A&P Assessment and Plan (1) Acute hypoxic respiratory failure: Code(s): J96.01 - Acute respiratory failure with hypoxia Status: Acute Assessment and Plan: 11/13/23: (Copied from chart) No previous need for supplemental O2. Currently requiring high flow NC at 35, Fi O2 30. Work to wean or will need home O2 evaluation. CXR showed cardiomegaly, mild congestive heart failure, bilateral lower lung infiltrates and atelectasis with the left greater than right. Suspect new oxygen requirement secondary to acute exacerbation of the CHF given normal white count, however patient reporting weakness and new cough so cannot exclude pneumonia. Continue ceftriaxone and doxycycline due to current allergies. Benadryl PRN. 11/14/23: Patient weaned down to 6L HFNC. She does have use of accessory muscles and appears a bit labored this morning. Lungs sound course throughout. Will repeat CXR now Recheck proBNP May require additional Lasix. 11/15/23: Patient weaned to 4L NC. CXR from yesterday showing mild pulmonary edema, worsened small right and moderate sized left pleural effusions Cardiology following. Torsemide on hold due to SARAI 11/16/23: Patient currently on 4L NC Cardiology following Creatinine trending downward but not back to baseline. Torsemide will continue to be held. (2) Weakness: Code(s): R53.1 - Weakness Status: Acute Assessment and Plan: 11/13/23: (Copied from chart) Hemoglobin 9.3 today, no prior available for comparison. No active bleeding noted by patient. Continue to trend CBC Viral PCR negative. TSH 3.190. PT/OT ordered for eval 11/14/23: Continue PT/OT Echo showing severely reduced EF of 15-20%, RV function severely reduced, grade III diastolic dysfunction. 11/15/23: Continue with PT/OT 11/16/23: no change to current treatment plan (3) Acute on chronic congestive heart failure: Code(s): I50.9 - Heart failure, unspecified Status: Acute Assessment and Plan: 11/13/23: (Copied from chart) CXR indicative of pulmonary edema and cardiomegaly. Currently holding torsemide due to kidney function, resume when improved Increase spironolactone from 25 p.o. daily to 25 p.o. b.i.d. ECHO ordered, pending report. Will monitor I&Os and daily weights. IVF cautiously, but not taking in much PO 11/14/23: Acute on chronic congestive heart failure with systolic and diastolic dysfunction. Echo showing severely reduced EF of 15-20%, RV function severely reduced, grade III diastolic dysfunction. Cardiology consulted Checking proBNP today Monitor daily weights Monitor I and O's 11/15/23: Cardiology following, awaiting records from [facility] Continue with current treatment plan 11/16/23: Received Echo from patient's ink maker which was done in 2019 and shown mildly reduced EF of 50-55% and grade 1 diastolic dysfunction. Considering the change, I reached out to our cardiology team to update them. Cardiology following and awaiting their input. (4) Atrial fibrillation: Code(s): I48.91 - Unspecified atrial fibrillation Status: Acute Assessment and Plan: 11/13/23: (Copied from chart) Restarted home medications carvedilol and Xarelto. Not currently on digoxin per patient. 11/14/23: Continue with current treatment plan. Patient currently is SB in the 50's Continue to hold digoxin Cardiology consulted 11/15/23: No change to current treatment plan Cardiology following 11/16/23: No change to current treatment plan (5) COPD (chronic obstructive pulmonary disease): Code(s): J44.9 - Chronic obstructive pulmonary disease, unspecified Status: Acute Assessment and Plan: 11/13/23: (Copied from chart) Continue home Anoro inhaler daily. Start levalbuterol q.6H p.r.n. continue supplemental oxygen. may need home O2 evaluation
[2023-11-16 16:47] LABS: Glucose Point of Care 122 mg/dl (65-105)
[2023-11-16] MEDS: RIVAROXABAN 20 MG TABLET PO (17:32)
[2023-11-16 20:19] LABS: Glucose Point of Care 109 mg/dl (65-105)
[2023-11-16] MEDS: carvediloL 25 MG TABLET PO (20:27)
[2023-11-17] VITALS (26 sets, daily range): BP systolic 119–152; BP diastolic 50–100; PULSE 50–96; RESP 20–26; TEMP 36.3–37.6; O2SAT 89–100
[2023-11-17] MEDS: BENZONATATE 100 MG CAPSULE PO ×2 (01:37→08:47)
[2023-11-17] MEDS: DOXYCYCLINE 100 MG/NS 100 ML 100 MG/100 ML BAG IVPB ×2 (01:38→14:22)
[2023-11-17] MEDS: LEVALBUTEROL NEB 1.25 MG/3 ML INHALATION ×4 (02:38→20:59)
[2023-11-17 05:23] LABS: Basophils Absolute Auto 0.1 K/mm3 (0.0-0.1); Basophils Percent Auto 1.1 % (0.2-1.2); Eosinophils Absolute Auto 0.2 K/mm3 (0-0.3); Eosinophils Percent Auto 5.2 % (0-4.4); Hemoglobin 9.4 g/dL (12.0-15.0); Immature Granulocyte Absolute 0.04 K/mm3 (0.00-0.031); Immature Granulocyte Percent A 0.9 % (0-0.5); Lymphocytes Absolute Auto 1.15 K/mm3 (0.9-3.2); Lymphocytes Percent Auto 24.9 % (18.3-44.2); Mean Corpuscular HGB Conc 28.5 g/dl (32-36); Mean Corpuscular Hemoglobin 26.1 pg (26-34); Mean Corpuscular Volume 91.7 fl (80-100); Mean Platelet Volume 11.1 fl (7.4-10.4); Monocytes Absolute Auto 0.6 K/mm3 (0.1-0.6); Monocytes Percent Auto 11.9 % (2.6-8.5); Neutrophils Absolute Auto 2.6 K/mm3 (1.3-6.7); Platelet Count Result 222 k/mm3 (150-375); Red Cell Distribution Width 16.2 % (11.5-14.5); White Blood Count 4.6 K/mm3 (4.5-10.0)
[2023-11-17 05:42] LABS: Alanine Aminotransferase 16 U/L (6-35); Albumin Level 3.2 g/dL (3.5-5.1); Alkaline Phosphatase 129 U/L (38-126); Anion Gap 6 mmol/L (8-16); Aspartate Amino Transferase 28 U/L (14-36); Bilirubin,Total 0.6 mg/dL (0.2-1.3); Blood Urea Nitrogen 21 mg/dL (7-17); Calcium 8.7 mg/dL (8.4-10.2); Carbon Dioxide 28 mmol/L (22-30); Chloride 105 mmol/L (98-107); Estimated CRCL calculation 29 ml/min; Estimated Glomerular Filt Rate 39; Glucose 119 mg/dL (65-110); Potassium 3.9 mmol/L (3.4-5.0); Sodium 139 mmol/L (137-145)
[2023-11-17 06:48] LABS: Platelet Estimate Adequate (Adequate)
[2023-11-17 06:49] LABS: Acanthocytes 1+ (NORMAL); Anisocytosis 1+ (NORMAL); Hypochromasia 1+ (NORMAL); Ovalocytes 1+ (NORMAL); Poikilocytosis 1+ (NORMAL); Schistocytes Rare (NORMAL)
[2023-11-17] MEDS: UMECLIDINIUM/VILANTEROL 62.5-25 MCG ELLIPTA 1 PUFF INHALATION (08:31)
[2023-11-17] MEDS: PRAMIPEXOLE 0.5 MG TABLET 1.5 MG PO ×3 (08:47→17:00)
[2023-11-17] MEDS: PANTOPRAZOLE SODIUM IV 40 MG VIAL IV PUSH (08:47)
[2023-11-17] MEDS: LOSARTAN POTASSIUM 50 MG TABLET PO (08:47)
[2023-11-17] MEDS: calcitrioL 0.25 MCG CAPSULE PO (08:47)
[2023-11-17] MEDS: LEFLUNOMIDE 20 MG TABLET PO (08:47)
[2023-11-17] MEDS: GABAPENTIN 100 MG CAPSULE PO ×2 (08:49→17:00)
[2023-11-17] MEDS: ATORVASTATIN 20 MG TABLET PO (08:50)
[2023-11-17] MEDS: TOLNAFTATE 1% POWDER 45 GM BTL 1 APPLIC TOPICAL ×2 (08:50→20:25)
[2023-11-17] MEDS: carvediloL 25 MG TABLET PO ×2 (09:28→20:25)
--- NOTE | 2023-11-17 09:44 | P.PNIM_ITS ---
Progress Note: A&P Assessment and Plan (1) Acute hypoxic respiratory failure: Code(s): J96.01 - Acute respiratory failure with hypoxia Status: Acute Assessment and Plan: 11/13/23: (Copied from chart) * No previous need for supplemental O2. * Currently requiring high flow NC at 35, Fi O2 30. Work to wean or will need home O2 evaluation. * CXR showed cardiomegaly, mild congestive heart failure, bilateral lower lung infiltrates and atelectasis with the left greater than right. * Suspect new oxygen requirement secondary to acute exacerbation of the CHF given normal white count, however patient reporting weakness and new cough so cannot exclude pneumonia. * Continue ceftriaxone and doxycycline due to current allergies. * Benadryl PRN. 11/14/23: * Patient weaned down to 6L HFNC. She does have use of accessory muscles and appears a bit labored this morning. Lungs sound course throughout. * Will repeat CXR now * Recheck proBNP * May require additional Lasix. 11/15/23: * Patient weaned to 4L NC. * CXR from yesterday showing mild pulmonary edema, worsened small right and moderate sized left pleural effusions * Cardiology following. * Torsemide on hold due to SARAI 11/16/23: * Patient currently on 4L NC * Cardiology following * Creatinine trending downward but not back to baseline. * Torsemide will continue to be held. 11/17/23: * Patient went up to 7 L nasal cannula overnight, now down to 4 L nasal cannula * Cardiology following a and gave 1 dose of Lasix today * Torsemide still on (2) Weakness: Code(s): R53.1 - Weakness Status: Acute Assessment and Plan: 11/13/23: (Copied from chart) * Hemoglobin 9.3 today, no prior available for comparison. No active bleeding noted by patient. * Continue to trend CBC * Viral PCR negative. * TSH 3.190. * PT/OT ordered for eval 11/14/23: * Continue PT/OT * Echo showing severely reduced EF of 15-20%, RV function severely reduced, grade III diastolic dysfunction. 11/15/23: * Continue with PT/OT 11/16/23: * no change to current treatment plan (3) Acute on chronic congestive heart failure: Code(s): I50.9 - Heart failure, unspecified Status: Acute Assessment and Plan: 11/13/23: (Copied from chart) * CXR indicative of pulmonary edema and cardiomegaly. * Currently holding torsemide due to kidney function, resume when improved * Increase spironolactone from 25 p.o. daily to 25 p.o. b.i.d. * ECHO ordered, pending report. * Will monitor I&Os and daily weights. * IVF cautiously, but not taking in much PO 11/14/23: * Acute on chronic congestive heart failure with systolic and diastolic dysfunction. * Echo showing severely reduced EF of 15-20%, RV function severely reduced, grade III diastolic dysfunction. * Cardiology consulted * Checking proBNP today * Monitor daily weights * Monitor I and O's 11/15/23: * Cardiology following, awaiting records from [facility] * Continue with current treatment plan 11/16/23: * Received Echo from patient's qa analyst which was done in 2019 and shown mildly reduced EF of 50-55% and grade 1 diastolic dysfunction. Considering the change, I reached out to our cardiology team to update them. * Cardiology following and awaiting their input. 11/17/23: * One time dose of Lasix given today per Cardiology, we will see how this effects her creatinine tomorrow. * Cardiology added Silvio (4) Atrial fibrillation: Code(s)
--- NOTE | 2023-11-17 09:44 | PM.IMPN ---
Progress Note: A&P Assessment and Plan (1) Acute hypoxic respiratory failure: Code(s): J96.01 - Acute respiratory failure with hypoxia Status: Acute Assessment and Plan: 11/13/23: (Copied from chart) No previous need for supplemental O2. Currently requiring high flow NC at 35, Fi O2 30. Work to wean or will need home O2 evaluation. CXR showed cardiomegaly, mild congestive heart failure, bilateral lower lung infiltrates and atelectasis with the left greater than right. Suspect new oxygen requirement secondary to acute exacerbation of the CHF given normal white count, however patient reporting weakness and new cough so cannot exclude pneumonia. Continue ceftriaxone and doxycycline due to current allergies. Benadryl PRN. 11/14/23: Patient weaned down to 6L HFNC. She does have use of accessory muscles and appears a bit labored this morning. Lungs sound course throughout. Will repeat CXR now Recheck proBNP May require additional Lasix. 11/15/23: Patient weaned to 4L NC. CXR from yesterday showing mild pulmonary edema, worsened small right and moderate sized left pleural effusions Cardiology following. Torsemide on hold due to SARAI 11/16/23: Patient currently on 4L NC Cardiology following Creatinine trending downward but not back to baseline. Torsemide will continue to be held. 11/17/23: Patient went up to 7 L nasal cannula overnight, now down to 4 L nasal cannula Cardiology following a and gave 1 dose of Lasix today Torsemide still on (2) Weakness: Code(s): R53.1 - Weakness Status: Acute Assessment and Plan: 11/13/23: (Copied from chart) Hemoglobin 9.3 today, no prior available for comparison. No active bleeding noted by patient. Continue to trend CBC Viral PCR negative. TSH 3.190. PT/OT ordered for eval 11/14/23: Continue PT/OT Echo showing severely reduced EF of 15-20%, RV function severely reduced, grade III diastolic dysfunction. 11/15/23: Continue with PT/OT 11/16/23: no change to current treatment plan (3) Acute on chronic congestive heart failure: Code(s): I50.9 - Heart failure, unspecified Status: Acute Assessment and Plan: 11/13/23: (Copied from chart) CXR indicative of pulmonary edema and cardiomegaly. Currently holding torsemide due to kidney function, resume when improved Increase spironolactone from 25 p.o. daily to 25 p.o. b.i.d. ECHO ordered, pending report. Will monitor I&Os and daily weights. IVF cautiously, but not taking in much PO 11/14/23: Acute on chronic congestive heart failure with systolic and diastolic dysfunction. Echo showing severely reduced EF of 15-20%, RV function severely reduced, grade III diastolic dysfunction. 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 Considering the change, I reached out to our cardiology team to update them. Cardiology following and awaiting their input. 11/17/23: One time dose of Lasix given today per Cardiology, we will see how this effects her creatinine tomorrow. Cardiology added Silvio (4) Atrial fibrillation: Code(s): I48.91 - Unspecified atrial fibrillation Status: Acute Assessment and Plan: 11/13/23: (Copied from chart) Restarted home medications carvedilol and Xarelto. Not currently on digoxin per patient. 11/14/23: Continue with current treatment plan. Patient currently is SB in the 50's Continue to hold digoxin Cardiology consulted 11/15/23: No change to current treatment plan Cardiology following 11/16/23: No change to current treatment plan (5) COPD (chronic obstructi
--- NOTE | 2023-11-17 11:00 | PM.PNCARD ---
Progress Note: A&P Assessment and Plan (1) Acute on chronic congestive heart failure: Code(s): I50.9 - Heart failure, unspecified Status: Acute Assessment and Plan: Has known congestive heart failure, last LVEF 55%. Repeat echocardiogram here showed systolic dysfunction with an EF of 15-20% and grade 3 diastolic dysfunction. Torsemide is currently on hold due to SARAI. Her pulmonary exam seems worse to me today. Therefore, I am going to give her one dose of IV furosemide and see how she responds. We may need to restart her torsemide tomorrow Continue with Coreg Optimize GDMT with Entresto. Will discontinue losartan and add low dose Entresto. Can also add jardiancce (GFR 39) Resume spironolactone at 25mg daily Daily BMP (2) Atrial fibrillation: Code(s): I48.91 - Unspecified atrial fibrillation Status: Acute Assessment and Plan: Currently in sinus rhythm. Continue beta angelita, Xarelto. (3) Acute hypoxic respiratory failure: Code(s): J96.01 - Acute respiratory failure with hypoxia Status: Acute Assessment and Plan: Wean off oxygen as tolerated (4) Hypertension: Code(s): I10 - Essential (primary) hypertension Status: Acute Assessment and Plan: Stable Subjective Date/time seen: 11/17/23 11:00 Interval history: Cardiology follow-up for CHF Lower extremity swelling has resolved. She does still have some shortness of breath but this has improved since admission. Date of service 11/17/2023: she feels like her breathing is about the same today, maybe slightly better. Review of Systems Review of Systems: All systems reviewed & are unremarkable except as noted in HPI and below (HPI) Exam Const: General: comfortable and no acute distress HENMT: Mouth: Yes moist mucous membranes Eyes: General: appearance normal, both eyes and all related structures Sclera: sclerae normal Neck: Neck: supple Resp: Effort & Inspection: normal respiratory effort Auscultation: rales (bilaterally 1/[address] ) and diminished lung sounds Cardio: Rate: regular rate Rhythm: regular rhythm Heart sounds: Murmur heart sound present Skin: General skin exam: normal color Neuro: Speech: normal speech Extrem: Other: no edema Psych: Mental Status: mental status grossly normal Affect: normal affect Objective Data Vital Signs Vital Signs: Vital Signs - 24 hr 11/16/23 13:37 11/16/23 13:49 11/16/23 12:00 Temperature 36.4 C Pulse Rate 56 L 56 L 50 L Respiratory Rate 24 H 20 22 H Blood Pressure 142/75 H Pulse Oximetry 98 Oxygen Delivery Oxygen Flow Rate Fraction of Inspired Oxygen 11/16/23 16:00 11/16/23 12:00 11/16/23 14:00 Temperature 36.4 C L Pulse Rate 62 49 L 54 L Respiratory Rate 24 H Blood Pressure 140/83 Pulse Oximetry 100 Oxygen Delivery Oxygen Flow Rate Fraction of Inspired Oxygen 11/16/23 16:00 11/16/23 12:00 11/16/23 16:00 Temperature Pulse Rate 55 L Respiratory Rate Blood Pressure Pulse Oximetry 97 99 Oxygen Delivery High Flow Therapy with Tr High Flow Therapy with Tr Oxygen Flow Rate 4 4 Fraction of Inspired Oxygen 11/16/23 18:00 11/16/23 19:46 11/16/23 20:15 Temperature 36.4 C Pulse Rate 57 L 64 62 Respiratory Rate 22 H 20 Blood Pressure 148/76 H Pulse Oximetry 100 Oxygen Delivery Oxygen Flow Rate Fraction of Inspired Oxygen 11/16/23 20:20 11/16/23 20:25 11/16/23 20:27 Temperature Pulse Rate 62 61 66 Respiratory Rate 20 20 Blood Pressure Pulse Oximetry 100 Oxygen Delivery Oxygen Flow Rate 4 Fraction of Inspired Oxygen 32 11/16/23 20:00 11/16/23 20:00 11/16/23 22:00 Temperature Pulse Rate 56 L 62 Respiratory Rate Blood Pressure Pulse Oximetry 100 Oxygen Delivery High Flow Therapy with Tr Oxygen Flow Rate 4 Fraction of Inspired Oxygen 11/17/23 00:00 11/17/23 00:00
[2023-11-17] MEDS: EMPAGLIFLOZIN 10 MG TABLET PO (12:07)
[2023-11-17] MEDS: FUROSEMIDE INJ 40 MG/4 ML VIAL IV PUSH (14:22)
--- NOTE | 2023-11-17 14:22 | PCNWS ---
Weekly nutritional screen. Patient is tolerating current diet with adequate intake 25-75%. No weight loss reported. No nutritional needs at this time.
[2023-11-17 16:36] LABS: Glucose Point of Care 132 mg/dl (65-105)
[2023-11-17 16:36] LABS: Glucose Point of Care 133 mg/dl (65-105)
[2023-11-17] MEDS: RIVAROXABAN 20 MG TABLET PO (17:00)
[2023-11-17] MEDS: guaiFENesin/DEXTROMETHORPHAN 10 ML UDC PO ×2 (17:00→21:06)
[2023-11-17] MEDS: SACUBITRIL/VALSARTAN 24-26 MG TABLET 1 TAB PO (20:25)
[2023-11-17 20:30] LABS: Glucose Point of Care 158 mg/dl (65-105)
[2023-11-18] VITALS (19 sets, daily range): BP systolic 113–131; BP diastolic 50–80; PULSE 54–87; RESP 18–24; TEMP 35.9–36.9; O2SAT 89–100
[2023-11-18] MEDS: guaiFENesin/DEXTROMETHORPHAN 10 ML UDC PO ×2 (02:00→09:02)
[2023-11-18] MEDS: DOXYCYCLINE 100 MG/NS 100 ML 100 MG/100 ML BAG IVPB ×2 (02:00→13:37)
[2023-11-18] MEDS: LEVALBUTEROL NEB 1.25 MG/3 ML INHALATION ×3 (03:37→20:11)
[2023-11-18 04:16] LABS: Basophils Absolute Auto 0.1 K/mm3 (0.0-0.1); Eosinophils Absolute Auto 0.2 K/mm3 (0-0.3); Eosinophils Percent Auto 4.2 % (0-4.4); Hematocrit 31.3 % (37.0-47.0); Hemoglobin 8.9 g/dL (12.0-15.0); Immature Granulocyte Absolute 0.05 K/mm3 (0.00-0.031); Immature Granulocyte Percent A 1.2 % (0-0.5); Lymphocytes Absolute Auto 1.11 K/mm3 (0.9-3.2); Lymphocytes Percent Auto 27.1 % (18.3-44.2); Mean Corpuscular HGB Conc 28.4 g/dl (32-36); Mean Corpuscular Hemoglobin 25.9 pg (26-34); Mean Platelet Volume 11.2 fl (7.4-10.4); Monocytes Absolute Auto 0.5 K/mm3 (0.1-0.6); Neutrophils Absolute Auto 2.2 K/mm3 (1.3-6.7); Neutrophils Percent Auto 52.5 % (45.5-73.1); Platelet Count Result 195 k/mm3 (150-375); Red Blood Count 3.44 M/mm3 (4.2-5.4); Red Cell Distribution Width 16.1 % (11.5-14.5); White Blood Count 4.1 K/mm3 (4.5-10.0)
[2023-11-18 04:30] LABS: Alanine Aminotransferase 16 U/L (6-35); Alkaline Phosphatase 129 U/L (38-126); Anion Gap 7 mmol/L (8-16); Aspartate Amino Transferase 26 U/L (14-36); Bilirubin,Total 0.6 mg/dL (0.2-1.3); Blood Urea Nitrogen 20 mg/dL (7-17); Calcium 8.3 mg/dL (8.4-10.2); Carbon Dioxide 28 mmol/L (22-30); Chloride 105 mmol/L (98-107); Estimated CRCL calculation 30 ml/min; Estimated Glomerular Filt Rate 39; Glucose 120 mg/dL (65-110); Potassium 3.2 mmol/L (3.4-5.0); Sodium 140 mmol/L (137-145)
[2023-11-18 04:49] LABS: Anisocytosis 1+ (NORMAL); Ovalocytes 1+ (NORMAL); Platelet Estimate Adequate (Adequate)
[2023-11-18 04:50] LABS: Schistocytes Rare (NORMAL)
[2023-11-18] MEDS: ATORVASTATIN 20 MG TABLET PO (09:01)
[2023-11-18] MEDS: EMPAGLIFLOZIN 10 MG TABLET PO (09:02)
[2023-11-18] MEDS: SACUBITRIL/VALSARTAN 24-26 MG TABLET 1 TAB PO ×2 (09:02→20:42)
[2023-11-18] MEDS: PANTOPRAZOLE SODIUM IV 40 MG VIAL IV PUSH (09:02)
[2023-11-18] MEDS: GABAPENTIN 100 MG CAPSULE PO ×2 (09:02→17:47)
[2023-11-18 09:03] LABS: Glucose Point of Care 130 mg/dl (65-105)
[2023-11-18] MEDS: LEFLUNOMIDE 20 MG TABLET PO (09:05)
[2023-11-18] MEDS: calcitrioL 0.25 MCG CAPSULE PO (09:06)
[2023-11-18] MEDS: PRAMIPEXOLE 0.5 MG TABLET 1.5 MG PO ×3 (09:06→17:47)
[2023-11-18] MEDS: UMECLIDINIUM/VILANTEROL 62.5-25 MCG ELLIPTA 1 PUFF INHALATION (09:26)
[2023-11-18] MEDS: TOLNAFTATE 1% POWDER 45 GM BTL 1 APPLIC TOPICAL ×2 (09:43→20:48)
--- NOTE | 2023-11-18 09:55 | PM.PNCARD ---
Progress Note: A&P Assessment and Plan (1) Acute on chronic congestive heart failure: Code(s): I50.9 - Heart failure, unspecified Status: Acute Assessment and Plan: Has known congestive heart failure, last LVEF 55%. Repeat echocardiogram here showed systolic dysfunction with an EF of 15-20% and grade 3 diastolic dysfunction. Will give another dose of IV Lasix this morning. Obtain CXR. Continue with Coreg Optimize GDMT with Entresto. Discontinued Losartan and added low dose Entresto. Tolerating Entresto well thus far. Blood pressures remain stable. Added Jardiance. Resumed Spironolactone at 25mg daily Daily BMP Will need close outpatient follow up with her primary Watershed Tender. (2) Atrial fibrillation: Code(s): I48.91 - Unspecified atrial fibrillation Status: Acute Assessment and Plan: Currently in sinus rhythm. Continue beta angelita, Xarelto. (3) Acute hypoxic respiratory failure: Code(s): J96.01 - Acute respiratory failure with hypoxia Status: Acute Assessment and Plan: Wean off oxygen as tolerated (4) Hypertension: Code(s): I10 - Essential (primary) hypertension Status: Acute Assessment and Plan: Stable Subjective Date/time seen: 11/18/23 09:55 Interval history: Reason for visit: Congestive heart failure HPI: We are consulted for cardiomyopathy. This is an 83 year old female that was admitted to [facility] on 11/11 for persistent nausea, weakness, decreased appetite. She has a history of known congestive heart failure and atrial fibrillation. 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 Has shortness of breath that became more progressive over past few days prior to admission. Echocardiogram done 11/13 which showed LVEF 22%, moderate to severe MR, large left pleural effusion. Her Torsemide and Spironolactone are currently on hold due to SARAI, which is improving. Date of service 11/15: Lower extremity swelling has resolved.? She does still have some shortness of breath but this has improved since admission. Date of service 11/17: She feels like her breathing is about the same today, maybe slightly better. Date of service 11/18: Reports feeling okay this morning. Remains on 4L of oxygen. Had good amount of urine output yesterday. Review of Systems Review of Systems: All systems reviewed & are unremarkable except as noted in HPI and below (HPI) Exam Const: General: no acute distress HENMT: Mouth: Yes moist mucous membranes Resp: Effort & Inspection: normal respiratory effort Other: Decreased breath sounds at the bases. Cardio: Rate: regular rate Rhythm: regular rhythm Skin: General skin exam: normal color Neuro: Speech: normal speech Psych: Mental Status: mental status grossly normal Affect: normal affect Objective Data Vital Signs Vital Signs: Vital Signs - 24 hr 11/17/23 12:00 11/17/23 12:00 11/17/23 10:00 Temperature 36.5 C Pulse Rate 54 L 50 L Respiratory Rate 24 H Blood Pressure 147/69 H Pulse Oximetry 96 95 Oxygen Delivery High Flow Therapy with Tr Oxygen Flow Rate 3 11/17/23 12:00 11/17/23 13:48 11/17/23 13:54 Temperature Pulse Rate 59 L 59 L 64 Respiratory Rate 22 H 22 H Blood Pressure Pulse Oximetry Oxygen Delivery Oxygen Flow Rate 11/17/23 14:00 11/17/23 15:55 11/17/23 16:00 Temperature 36.3 C L Pulse Rate 61 68 58 L Respiratory Rate 24 H Blood Pressure 140/77 Pulse Oximetry 99 Oxygen Delivery Oxygen Flow Rate 11/17/23 16:00 11/17/23 18:00 11/17/23 20:10 Temperature Pulse Rate 60 Respiratory Rate Blood Pressure Pulse Oximetry 95 89 L Oxygen Delivery High Flow Therapy with Tr Nasal Cannula Oxygen Flow Rate 3 3 11/17/23 20:22 11/17/23 20:25 11/17/23 20:00 Temperature 36.6 C Pulse Rate 59 L 96 Respiratory Rate 24 H Blood Pressure 119/63 Pulse Oximetry 92 98 Oxygen Delivery Nasal Cannula
[2023-11-18] MEDS: FUROSEMIDE INJ 40 MG/4 ML VIAL IV PUSH (13:17)
[2023-11-18 13:18] LABS: Glucose Point of Care 143 mg/dl (65-105)
[2023-11-18] MEDS: CENTRAL LINE FLUSH 10 ML IV PUSH ×2 (15:06→20:48)
--- NOTE | 2023-11-18 15:31 | P.PNIM_ITS ---
Progress Note: A&P Assessment and Plan (1) Acute hypoxic respiratory failure: Code(s): J96.01 - Acute respiratory failure with hypoxia Status: Acute Assessment and Plan: 11/13/23: (Copied from chart) * No previous need for supplemental O2. * Currently requiring high flow NC at 35, Fi O2 30. Work to wean or will need home O2 evaluation. * CXR showed cardiomegaly, mild congestive heart failure, bilateral lower lung infiltrates and atelectasis with the left greater than right. * Suspect new oxygen requirement secondary to acute exacerbation of the CHF given normal white count, however patient reporting weakness and new cough so cannot exclude pneumonia. * Continue ceftriaxone and doxycycline due to current allergies. * Benadryl PRN. 11/14/23: * Patient weaned down to 6L HFNC. She does have use of accessory muscles and appears a bit labored this morning. Lungs sound course throughout. * Will repeat CXR now * Recheck proBNP * May require additional Lasix. 11/15/23: * Patient weaned to 4L NC. * CXR from yesterday showing mild pulmonary edema, worsened small right and moderate sized left pleural effusions * Cardiology following. * Torsemide on hold due to SARAI 11/16/23: * Patient currently on 4L NC * Cardiology following * Creatinine trending downward but not back to baseline. * Torsemide will continue to be held. 11/17/23: * Patient went up to 7 L nasal cannula overnight, now down to 4 L nasal cannula * Cardiology following a and gave 1 dose of Lasix today * Torsemide still on hold 11/18/23: * Currently on 4L NC * Cardiology seen again today and gave an additional dose of Lasix considering her creatinine stayed the same at 1.3. * Monitor I and O * Can move out of IMU today to a regular med surge with tele * She will need continuous cardiac monitoring (2) Weakness: Code(s): R53.1 - Weakness Status: Acute Assessment and Plan: 11/13/23: (Copied from chart) * Hemoglobin 9.3 today, no prior available for comparison. No active bleeding noted by patient. * Continue to trend CBC * Viral PCR negative. * TSH 3.190. * PT/OT ordered for eval 11/14/23: * Continue PT/OT * Echo showing severely reduced EF of 15-20%, RV function severely reduced, grade III diastolic dysfunction. 11/15/23: * Continue with PT/OT 11/16/23: * no change to current treatment plan (3) Acute on chronic congestive heart failure: Code(s): I50.9 - Heart failure, unspecified Status: Acute Assessment and Plan: 11/13/23: (Copied from chart) * CXR indicative of pulmonary edema and cardiomegaly. * Currently holding torsemide due to kidney function, resume when improved * Increase spironolactone from 25 p.o. daily to 25 p.o. b.i.d. * ECHO ordered, pending report. * Will monitor I&Os and daily weights. * IVF cautiously, but not taking in much PO 11/14/23: * Acute on chronic congestive heart failure with systolic and diastolic dysfunction. * Echo showing severely reduced EF of 15-20%, RV function severely reduced, grade III diastolic dysfunction. 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 Considering the change, I reached out to our c
--- NOTE | 2023-11-18 15:31 | PM.IMPN ---
Progress Note: A&P Assessment and Plan (1) Acute hypoxic respiratory failure: Code(s): J96.01 - Acute respiratory failure with hypoxia Status: Acute Assessment and Plan: 11/13/23: (Copied from chart) No previous need for supplemental O2. Currently requiring high flow NC at 35, Fi O2 30. Work to wean or will need home O2 evaluation. CXR showed cardiomegaly, mild congestive heart failure, bilateral lower lung infiltrates and atelectasis with the left greater than right. Suspect new oxygen requirement secondary to acute exacerbation of the CHF given normal white count, however patient reporting weakness and new cough so cannot exclude pneumonia. Continue ceftriaxone and doxycycline due to current allergies. Benadryl PRN. 11/14/23: Patient weaned down to 6L HFNC. She does have use of accessory muscles and appears a bit labored this morning. Lungs sound course throughout. Will repeat CXR now Recheck proBNP May require additional Lasix. 11/15/23: Patient weaned to 4L NC. CXR from yesterday showing mild pulmonary edema, worsened small right and moderate sized left pleural effusions Cardiology following. Torsemide on hold due to SARAI 11/16/23: Patient currently on 4L NC Cardiology following Creatinine trending downward but not back to baseline. Torsemide will continue to be held. 11/17/23: Patient went up to 7 L nasal cannula overnight, now down to 4 L nasal cannula Cardiology following a and gave 1 dose of Lasix today Torsemide still on hold 11/18/23: Currently on 4L NC Cardiology seen again today and gave an additional dose of Lasix considering her creatinine stayed the same at 1.3. Monitor I and O Can move out of IMU today to a regular med surge with tele She will need continuous cardiac monitoring (2) Weakness: Code(s): R53.1 - Weakness Status: Acute Assessment and Plan: 11/13/23: (Copied from chart) Hemoglobin 9.3 today, no prior available for comparison. No active bleeding noted by patient. Continue to trend CBC Viral PCR negative. TSH 3.190. PT/OT ordered for eval 11/14/23: Continue PT/OT Echo showing severely reduced EF of 15-20%, RV function severely reduced, grade III diastolic dysfunction. 11/15/23: Continue with PT/OT 11/16/23: no change to current treatment plan (3) Acute on chronic congestive heart failure: Code(s): I50.9 - Heart failure, unspecified Status: Acute Assessment and Plan: 11/13/23: (Copied from chart) CXR indicative of pulmonary edema and cardiomegaly. Currently holding torsemide due to kidney function, resume when improved Increase spironolactone from 25 p.o. daily to 25 p.o. b.i.d. ECHO ordered, pending report. Will monitor I&Os and daily weights. IVF cautiously, but not taking in much PO 11/14/23: Acute on chronic congestive heart failure with systolic and diastolic dysfunction. Echo showing severely reduced EF of 15-20%, RV function severely reduced, grade III diastolic dysfunction. 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 Considering the change, I reached out to our cardiology team to update them. Cardiology following and awaiting their input. 11/17/23: One time dose of Lasix given today per Cardiology, we will see how this effects her creatinine tomorrow. Cardiology added Entresto 11/18/23: Another dose of Lasix given today per Cardiology No change to current treatment plan. (4) Atrial fibrillation: Code(s): I48.91 - Unspecified atrial fibrillation Status: Acute Assessment and Plan: 11/13/23: (Copied from chart) Restarte
[2023-11-18] MEDS: RIVAROXABAN 20 MG TABLET PO (17:47)
[2023-11-18] MEDS: carvediloL 25 MG TABLET PO (20:42)
[2023-11-18 20:53] LABS: Glucose Point of Care 138 mg/dl (65-105)
[2023-11-19] VITALS (14 sets, daily range): BP systolic 92–126; BP diastolic 46–86; PULSE 22–82; RESP 16–24; TEMP 35.7–36.7; O2SAT 96–98
[2023-11-19] MEDS: DOXYCYCLINE 100 MG/NS 100 ML 100 MG/100 ML BAG IVPB ×2 (02:24→14:02)
[2023-11-19] MEDS: LEVALBUTEROL NEB 1.25 MG/3 ML INHALATION ×4 (02:48→20:21)
[2023-11-19] MEDS: CENTRAL LINE FLUSH 10 ML IV PUSH ×3 (05:26→20:40)
[2023-11-19 05:41] LABS: Basophils Absolute Auto 0.1 K/mm3 (0.0-0.1); Basophils Percent Auto 1.6 % (0.2-1.2); Eosinophils Absolute Auto 0.1 K/mm3 (0-0.3); Eosinophils Percent Auto 2.7 % (0-4.4); Hematocrit 31.9 % (37.0-47.0); Hemoglobin 8.9 g/dL (12.0-15.0); Immature Granulocyte Absolute 0.07 K/mm3 (0.00-0.031); Immature Granulocyte Percent A 1.6 % (0-0.5); Lymphocytes Absolute Auto 1.44 K/mm3 (0.9-3.2); Lymphocytes Percent Auto 32.7 % (18.3-44.2); Mean Corpuscular HGB Conc 27.9 g/dl (32-36); Mean Corpuscular Hemoglobin 25.5 pg (26-34); Mean Corpuscular Volume 91.4 fl (80-100); Mean Platelet Volume 10.8 fl (7.4-10.4); Monocytes Absolute Auto 0.6 K/mm3 (0.1-0.6); Monocytes Percent Auto 12.5 % (2.6-8.5); Neutrophils Absolute Auto 2.2 K/mm3 (1.3-6.7); Neutrophils Percent Auto 48.9 % (45.5-73.1); Platelet Count Result 186 k/mm3 (150-375); Red Blood Count 3.49 M/mm3 (4.2-5.4); Red Cell Distribution Width 15.9 % (11.5-14.5); White Blood Count 4.4 K/mm3 (4.5-10.0)
[2023-11-19 05:54] LABS: Alanine Aminotransferase 16 U/L (6-35); Albumin Level 2.6 g/dL (3.5-5.1); Alkaline Phosphatase 127 U/L (38-126); Anion Gap 5 mmol/L (8-16); Aspartate Amino Transferase 27 U/L (14-36); Bilirubin,Total 0.5 mg/dL (0.2-1.3); Blood Urea Nitrogen 20 mg/dL (7-17); Calcium 8.2 mg/dL (8.4-10.2); Carbon Dioxide 31 mmol/L (22-30); Chloride 105 mmol/L (98-107); Estimated CRCL calculation 27 ml/min; Estimated Glomerular Filt Rate 36; Glucose 105 mg/dL (65-110); Potassium 2.9 mmol/L (3.4-5.0); Sodium 141 mmol/L (137-145)
[2023-11-19 06:39] LABS: Ovalocytes 2+ (NORMAL); Platelet Estimate Adequate (Adequate)
[2023-11-19 06:40] LABS: Hypochromasia 2+ (NORMAL); Schistocytes 1+ (NORMAL)
[2023-11-19 08:07] LABS: Glucose Point of Care 115 mg/dl (65-105)
[2023-11-19] MEDS: UMECLIDINIUM/VILANTEROL 62.5-25 MCG ELLIPTA 1 PUFF INHALATION (08:15)
[2023-11-19] MEDS: GABAPENTIN 100 MG CAPSULE PO ×2 (09:00→16:36)
[2023-11-19] MEDS: EMPAGLIFLOZIN 10 MG TABLET PO (09:00)
[2023-11-19] MEDS: PANTOPRAZOLE SODIUM IV 40 MG VIAL IV PUSH (09:00)
[2023-11-19] MEDS: calcitrioL 0.25 MCG CAPSULE PO (09:00)
[2023-11-19] MEDS: ATORVASTATIN 20 MG TABLET PO (09:00)
[2023-11-19] MEDS: SACUBITRIL/VALSARTAN 24-26 MG TABLET 1 TAB PO ×2 (09:00→20:37)
[2023-11-19] MEDS: PRAMIPEXOLE 0.5 MG TABLET 1.5 MG PO ×3 (09:00→16:35)
[2023-11-19] MEDS: LEFLUNOMIDE 20 MG TABLET PO (09:00)
[2023-11-19] MEDS: carvediloL 25 MG TABLET PO ×2 (09:00→20:37)
[2023-11-19] MEDS: SPIRONOLACTONE 25 MG TABLET PO (09:00)
--- NOTE | 2023-11-19 09:14 | P.PNIM_ITS ---
Progress Note: A&P Assessment and Plan (1) Acute hypoxic respiratory failure: Code(s): J96.01 - Acute respiratory failure with hypoxia Status: Acute Assessment and Plan: 11/13/23: (Copied from chart) * No previous need for supplemental O2. * Currently requiring high flow NC at 35, Fi O2 30. Work to wean or will need home O2 evaluation. * CXR showed cardiomegaly, mild congestive heart failure, bilateral lower lung infiltrates and atelectasis with the left greater than right. * Suspect new oxygen requirement secondary to acute exacerbation of the CHF given normal white count, however patient reporting weakness and new cough so cannot exclude pneumonia. * Continue ceftriaxone and doxycycline due to current allergies. * Benadryl PRN. 11/14/23: * Patient weaned down to 6L HFNC. She does have use of accessory muscles and appears a bit labored this morning. Lungs sound course throughout. * Will repeat CXR now * Recheck proBNP * May require additional Lasix. 11/15/23: * Patient weaned to 4L NC. * CXR from yesterday showing mild pulmonary edema, worsened small right and moderate sized left pleural effusions * Cardiology following. * Torsemide on hold due to SARAI 11/16/23: * Patient currently on 4L NC * Cardiology following * Creatinine trending downward but not back to baseline. * Torsemide will continue to be held. 11/17/23: * Patient went up to 7 L nasal cannula overnight, now down to 4 L nasal cannula * Cardiology following a and gave 1 dose of Lasix today * Torsemide still on hold 11/18/23: * Currently on 4L NC * Cardiology seen again today and gave an additional dose of Lasix considering her creatinine stayed the same at 1.3. * Monitor I and O * Can move out of IMU today to a regular med surge with tele * She will need continuous cardiac monitoring 11/19/23: * Currently on 4 L nasal cannula * Cardiology added Lasix 40 mg IV b.i.d. * Monitor I&O * Continue with continuous cardiac monitoring (2) Weakness: Code(s): R53.1 - Weakness Status: Acute Assessment and Plan: 11/13/23: (Copied from chart) * Hemoglobin 9.3 today, no prior available for comparison. No active bleeding noted by patient. * Continue to trend CBC * Viral PCR negative. * TSH 3.190. * PT/OT ordered for eval 11/14/23: * Continue PT/OT * Echo showing severely reduced EF of 15-20%, RV function severely reduced, grade III diastolic dysfunction. 11/15/23: * Continue with PT/OT 11/16/23: * no change to current treatment plan (3) Acute on chronic congestive heart failure: Code(s): I50.9 - Heart failure, unspecified Status: Acute Assessment and Plan: 11/13/23: (Copied from chart) * CXR indicative of pulmonary edema and cardiomegaly. * Currently holding torsemide due to kidney function, resume when improved * Increase spironolactone from 25 p.o. daily to 25 p.o. b.i.d. * ECHO ordered, pending report. * Will monitor I&Os and daily weights. * IVF cautiously, but not taking in much PO 11/14/23: * Acute on chronic congestive heart failure with systolic and diastolic dysfunction. * Echo showing severely reduced EF of 15-20%, RV function severely reduced, gra de III diastolic dysfunction. * Cardiology consulted * Checking proBNP today * Monitor daily weights * Monitor I and O's 11/15/23: * Cardiology following, awaiting records from [facility] * Continue with current treatment plan 11/16/23: * Received
--- NOTE | 2023-11-19 09:14 | PM.IMPN ---
Progress Note: A&P Assessment and Plan (1) Acute hypoxic respiratory failure: Code(s): J96.01 - Acute respiratory failure with hypoxia Status: Acute Assessment and Plan: 11/13/23: (Copied from chart) No previous need for supplemental O2. Currently requiring high flow NC at 35, Fi O2 30. Work to wean or will need home O2 evaluation. CXR showed cardiomegaly, mild congestive heart failure, bilateral lower lung infiltrates and atelectasis with the left greater than right. Suspect new oxygen requirement secondary to acute exacerbation of the CHF given normal white count, however patient reporting weakness and new cough so cannot exclude pneumonia. Continue ceftriaxone and doxycycline due to current allergies. Benadryl PRN. 11/14/23: Patient weaned down to 6L HFNC. She does have use of accessory muscles and appears a bit labored this morning. Lungs sound course throughout. Will repeat CXR now Recheck proBNP May require additional Lasix. 11/15/23: Patient weaned to 4L NC. CXR from yesterday showing mild pulmonary edema, worsened small right and moderate sized left pleural effusions Cardiology following. Torsemide on hold due to SARIA 11/16/23: Patient currently on 4L NC Cardiology following Creatinine trending downward but not back to baseline. Torsemide will continue to be held. 11/17/23: Patient went up to 7 L nasal cannula overnight, now down to 4 L nasal cannula Cardiology following a and gave 1 dose of Lasix today Torsemide still on hold 11/18/23: Currently on 4L NC Cardiology seen again today and gave an additional dose of Lasix considering her creatinine stayed the same at 1.3. Monitor I and O Can move out of IMU today to a regular med surge with tele She will need continuous cardiac monitoring 11/19/23: Currently on 4 L nasal cannula Cardiology added Lasix 40 mg IV b.i.d. Monitor I&O Continue with continuous cardiac monitoring (2) Weakness: Code(s): R53.1 - Weakness Status: Acute Assessment and Plan: 11/13/23: (Copied from chart) Hemoglobin 9.3 today, no prior available for comparison. No active bleeding noted by patient. Continue to trend CBC Viral PCR negative. TSH 3.190. PT/OT ordered for eval 11/14/23: Continue PT/OT Echo showing severely reduced EF of 15-20%, RV function severely reduced, grade III diastolic dysfunction. 11/15/23: Continue with PT/OT 11/16/23: no change to current treatment plan (3) Acute on chronic congestive heart failure: Code(s): I50.9 - Heart failure, unspecified Status: Acute Assessment and Plan: 11/13/23: (Copied from chart) CXR indicative of pulmonary edema and cardiomegaly. Currently holding torsemide due to kidney function, resume when improved Increase spironolactone from 25 p.o. daily to 25 p.o. b.i.d. ECHO ordered, pending report. Will monitor I&Os and daily weights. IVF cautiously, but not taking in much PO 11/14/23: Acute on chronic congestive heart failure with systolic and diastolic dysfunction. Echo showing severely reduced EF of 15-20%, RV function severely reduced, grade III diastolic dysfunction. Cardiology consulted Checking proBNP today Monitor daily weights Monitor I and O's 11/15/23: Cardiology following, awaiting records from [facility] Continue with current treatment plan 11/16/23: Received Echo from patient's respiratory assistant which was done in 2019 and shown mildly reduced EF of 50-55% and grade 1 diastolic dysfunction. Considering the change, I reached out to our cardiology team to update them. Cardiology following and awaiting their input. 11/17/23: One time dose of Lasix given today per Cardiology, we will see how this effects her creatinine tomorrow. Cardiology added Silvio 11/18/23: Another dose of Lasix given today per Cardiology No change to current treatment plan. 11/19/23: Lasix 40 mg IV
[2023-11-19] MEDS: KCL 40 MEQ/WATER 100 ML 100 ML 25 ML IVPB (09:29)
[2023-11-19 11:48] LABS: Glucose Point of Care 165 mg/dl (65-105)
--- NOTE | 2023-11-19 12:17 | PM.PNCARD ---
Progress Note: A&P Assessment and Plan (1) Acute on chronic congestive heart failure: Code(s): I50.9 - Heart failure, unspecified Status: Acute Assessment and Plan: Has known congestive heart failure, last LVEF 55%. Repeat echocardiogram here showed systolic dysfunction with an EF of 15-20% and grade 3 diastolic dysfunction. CXR 11/18 with diffuse lung disease with worsening at right base, likely mild pulmonary edema, stable small right and moderate-sized left pleural effusions. Therefore, will continue diuresis for now. Will do Lasix 40mg IV BID. Continue with Coreg Optimize GDMT with Entresto. Discontinued Losartan and added low dose Entresto. Tolerating Entresto well thus far. Blood pressures remain stable. Added Jardiance. Resumed Spironolactone at 25mg daily Daily BMP Will need close outpatient follow up with her primary Dba Developer. (2) Atrial fibrillation: Code(s): I48.91 - Unspecified atrial fibrillation Status: Acute Assessment and Plan: Currently in sinus rhythm. Continue beta angeliat, Xarelto. (3) Acute hypoxic respiratory failure: Code(s): J96.01 - Acute respiratory failure with hypoxia Status: Acute Assessment and Plan: Wean off oxygen as tolerated (4) Hypertension: Code(s): I10 - Essential (primary) hypertension Status: Acute Assessment and Plan: Stable Subjective Date/time seen: 11/19/23 12:17 Interval history: Reason for visit: Congestive heart failure HPI: We are consulted for cardiomyopathy. This is an 83 year old female that was admitted to [facility] on 11/11 for persistent nausea, weakness, decreased appetite. She has a history of known congestive heart failure and atrial fibrillation. 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 Has shortness of breath that became more progressive over past few days prior to admission. Echocardiogram done 11/13 which showed LVEF 22%, moderate to severe MR, large left pleural effusion. Her Torsemide and Spironolactone are currently on hold due to SARAI, which is improving. Date of service 11/15: Lower extremity swelling has resolved.? She does still have some shortness of breath but this has improved since admission. Date of service 11/17: She feels like her breathing is about the same today, maybe slightly better. Date of service 11/18: Reports feeling okay this morning. Remains on 4L of oxygen. Had good amount of urine output yesterday. Date of service 11/19: Reports her shortness of breath is getting better. Still on oxygen. Review of Systems Review of Systems: All systems reviewed & are unremarkable except as noted in HPI and below (HPI) Exam Const: General: no acute distress HENMT: Mouth: Yes moist mucous membranes Resp: Effort & Inspection: normal respiratory effort Other: Decreased breath sounds at the bases. Cardio: Rate: regular rate Rhythm: regular rhythm Skin: General skin exam: normal color Neuro: Speech: normal speech Psych: Mental Status: mental status grossly normal Affect: normal affect Objective Data Vital Signs Vital Signs: Vital Signs - 24 hr 11/18/23 12:23 11/18/23 16:00 11/18/23 16:00 Temperature 35.9 C L 36.6 C Pulse Rate 83 61 61 Respiratory Rate 22 H 24 H 24 H Blood Pressure 121/50 L 127/69 Pulse Oximetry 96 99 99 Oxygen Delivery High Flow Nasal Cannula Oxygen Flow Rate 4 Fraction of Inspired Oxygen 48 11/18/23 20:13 11/18/23 20:13 11/18/23 20:42 Temperature Pulse Rate 57 L 64 Respiratory Rate 18 Blood Pressure Pulse Oximetry 89 L Oxygen Delivery High Flow Nasal Cannula Oxygen Flow Rate 4 Fraction of Inspired Oxygen 11/18/23 20:43 11/18/23 20:00 11/19/23 00:32 Temperature 36.8 C 36.7 C Pulse Rate 64 63 62 Respiratory Rate 23 H 22 H Blood Pressure 128/80 120/55 L Pulse Oximetry 100 96 Oxygen Delivery Oxygen Flow Rate Fraction of Inspired Oxygen 11/19/23 02:4
[2023-11-19] MEDS: TOLNAFTATE 1% POWDER 45 GM BTL 1 APPLIC TOPICAL ×2 (14:01→20:40)
[2023-11-19] MEDS: FUROSEMIDE INJ 40 MG/4 ML VIAL IV PUSH ×2 (14:02→16:36)
[2023-11-19] MEDS: RIVAROXABAN 20 MG TABLET PO (16:35)
[2023-11-19 16:41] LABS: Glucose Point of Care 139 mg/dl (65-105)
--- NOTE | 2023-11-19 17:06 | PCPTNOTE ---
The patient treatment was not able to be completed this afternoon due to patient with OT. Will plan to continue treatment per plan of care.
[2023-11-19 20:45] LABS: Glucose Point of Care 131 mg/dl (65-105)
[2023-11-20] VITALS (20 sets, daily range): BP systolic 107–134; BP diastolic 46–61; PULSE 48–81; RESP 16–20; TEMP 36.4–36.6; O2SAT 84–99
[2023-11-20] MEDS: DOXYCYCLINE 100 MG/NS 100 ML 100 MG/100 ML BAG IVPB ×2 (02:18→14:01)
[2023-11-20] MEDS: LEVALBUTEROL NEB 1.25 MG/3 ML INHALATION ×3 (02:24→20:07)
[2023-11-20 05:14] LABS: Basophils Absolute Auto 0.1 K/mm3 (0.0-0.1); Basophils Percent Auto 1.5 % (0.2-1.2); Eosinophils Absolute Auto 0.2 K/mm3 (0-0.3); Eosinophils Percent Auto 4.9 % (0-4.4); Hematocrit 30.6 % (37.0-47.0); Hemoglobin 8.7 g/dL (12.0-15.0); Immature Granulocyte Absolute 0.05 K/mm3 (0.00-0.031); Immature Granulocyte Percent A 1.3 % (0-0.5); Lymphocytes Absolute Auto 1.35 K/mm3 (0.9-3.2); Lymphocytes Percent Auto 34.7 % (18.3-44.2); Mean Corpuscular HGB Conc 28.4 g/dl (32-36); Mean Corpuscular Hemoglobin 25.7 pg (26-34); Mean Corpuscular Volume 90.5 fl (80-100); Mean Platelet Volume 10.3 fl (7.4-10.4); Monocytes Absolute Auto 0.5 K/mm3 (0.1-0.6); Monocytes Percent Auto 12.3 % (2.6-8.5); Neutrophils Absolute Auto 1.8 K/mm3 (1.3-6.7); Neutrophils Percent Auto 45.3 % (45.5-73.1); Platelet Count Result 171 k/mm3 (150-375); Red Blood Count 3.38 M/mm3 (4.2-5.4); White Blood Count 3.9 K/mm3 (4.5-10.0)
[2023-11-20 05:23] LABS: Alanine Aminotransferase 17 U/L (6-35); Albumin Level 2.5 g/dL (3.5-5.1); Alkaline Phosphatase 111 U/L (38-126); Anion Gap 1 mmol/L (8-16); Aspartate Amino Transferase 30 U/L (14-36); Bilirubin,Total 0.5 mg/dL (0.2-1.3); Blood Urea Nitrogen 21 mg/dL (7-17); Calcium 8.1 mg/dL (8.4-10.2); Carbon Dioxide 33 mmol/L (22-30); Chloride 106 mmol/L (98-107); Estimated CRCL calculation 26 ml/min; Estimated Glomerular Filt Rate 33; Glucose 101 mg/dL (65-110); Potassium 3.2 mmol/L (3.4-5.0); Sodium 140 mmol/L (137-145)
[2023-11-20] MEDS: CENTRAL LINE FLUSH 10 ML IV PUSH ×3 (05:44→20:56)
--- NOTE | 2023-11-20 05:45 | PC.NURSE ---
This patient, Genny Gomez, was transferred to [[id number] ] on 11/20/23 at 0545. Personal belongings sent with patient. Report given to [ Kassidy ECHEVARRIA ]. Appropriate documentation sent with patient.
[2023-11-20 05:47] LABS: Platelet Estimate Adequate (Adequate)
[2023-11-20 05:48] LABS: Anisocytosis 1+ (NORMAL); Ovalocytes 1+ (NORMAL); Schistocytes Rare (NORMAL)
--- NOTE | 2023-11-20 06:22 | PC.NURSE ---
nurse called spoke with son gus made aware patient was moved to [id number]
[2023-11-20 08:41] LABS: Glucose Point of Care 115 mg/dl (65-105)
[2023-11-20] MEDS: GABAPENTIN 100 MG CAPSULE PO ×2 (08:54→17:20)
[2023-11-20] MEDS: SACUBITRIL/VALSARTAN 24-26 MG TABLET 1 TAB PO ×2 (08:54→20:55)
[2023-11-20] MEDS: calcitrioL 0.25 MCG CAPSULE PO (08:54)
[2023-11-20] MEDS: guaiFENesin/DEXTROMETHORPHAN 10 ML UDC PO (08:55)
[2023-11-20] MEDS: PANTOPRAZOLE SODIUM IV 40 MG VIAL IV PUSH (08:55)
[2023-11-20] MEDS: SPIRONOLACTONE 25 MG TABLET PO (08:55)
[2023-11-20] MEDS: FUROSEMIDE INJ 40 MG/4 ML VIAL IV PUSH (08:55)
[2023-11-20] MEDS: EMPAGLIFLOZIN 10 MG TABLET PO (08:55)
[2023-11-20] MEDS: ATORVASTATIN 20 MG TABLET PO (08:55)
[2023-11-20] MEDS: PRAMIPEXOLE 0.5 MG TABLET 1.5 MG PO ×3 (08:55→17:19)
[2023-11-20] MEDS: LEFLUNOMIDE 20 MG TABLET PO (08:55)
[2023-11-20] MEDS: TOLNAFTATE 1% POWDER 45 GM BTL 1 APPLIC TOPICAL ×2 (09:07→20:55)
[2023-11-20 12:06] LABS: Glucose Point of Care 138 mg/dl (65-105)
--- NOTE | 2023-11-20 12:12 | PCRCNOTE ---
Window of time for administration has passed. See next scheduled administration.
--- NOTE | 2023-11-20 12:38 | PM.PNCARD ---
Progress Note: A&P Assessment and Plan (1) Acute on chronic congestive heart failure: Code(s): I50.9 - Heart failure, unspecified Status: Acute Assessment and Plan: Has known congestive heart failure, last LVEF 55%. Repeat echocardiogram here showed systolic dysfunction with an EF of 15-20% and grade 3 diastolic dysfunction. CXR 11/20 with stable small right and moderate sized left pleural effusions. Was getting IV Lasix 40mg BID, however, her SCR is now up to 1.5, and urine output has dropped off. Will hold the Lasix for now, not sure how much we will be able to further diurese her if her renal function continues to worsen. Holding Coreg for now due to HR in the 50s. If heart rate improves, will plan to resume Coreg at low-dose. Optimize GDMT with Entresto. Discontinued Losartan and added low dose Entresto. Tolerating Entresto well thus far. Blood pressures remain stable. Added Jardiance. Resumed Spironolactone at 25mg daily Daily BMP Will need close outpatient follow up with her primary Traveling Buyer. (2) Atrial fibrillation: Code(s): I48.91 - Unspecified atrial fibrillation Status: Acute Assessment and Plan: Paroxysmal. Hold Xarelto due to bloody stools. Holding Coreg for now due to HR in the 50s. If heart rate improves, will plan to resume Coreg at low-dose. (3) Acute hypoxic respiratory failure: Code(s): J96.01 - Acute respiratory failure with hypoxia Status: Acute Assessment and Plan: Wean off oxygen as tolerated (4) Hypertension: Code(s): I10 - Essential (primary) hypertension Status: Acute Assessment and Plan: Stable Subjective Date/time seen: 11/20/23 12:38 Interval history: Reason for visit: Congestive heart failure HPI: We are consulted for cardiomyopathy. This is an 83 year old female that was admitted to [facility] on 11/11 for persistent nausea, weakness, decreased appetite. She has a history of known congestive heart failure and atrial fibrillation. 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. Has shortness of breath that became more progressive over past few days prior to admission. Echocardiogram done 11/13 which showed LVEF 22%, moderate to severe MR, large left pleural effusion. Her Torsemide and Spironolactone are currently on hold due to SARAI, which is improving. Date of service 11/15: Lower extremity swelling has resolved.? She does still have some shortness of breath but this has improved since admission. Date of service 11/17: She feels like her breathing is about the same today, maybe slightly better. Date of service 11/18: Reports feeling okay this morning. Remains on 4L of oxygen. Had good amount of urine output yesterday. Date of service 11/19: Reports her shortness of breath is getting better. Still on oxygen. Date of service 11/20: She is feeling better this morning. Sitting up in chair. HR in the 50s. She did have a bowel movement with quite a bit of bright red blood. Review of Systems Review of Systems: All systems reviewed & are unremarkable except as noted in HPI and below (HPI) Exam Const: General: comfortable and no acute distress Eyes: General: appearance normal, both eyes and all related structures Sclera: sclerae normal Resp: Effort & Inspection: normal respiratory effort Other: Decreased breath sounds at the bases. Cardio: Rate: regular rate Rhythm: regular rhythm Skin: General skin exam: normal color Neuro: Speech: normal speech Psych: Mental Status: mental status grossly normal Affect: normal affect Objective Data Vital Signs Vital Signs: Vital Signs - 24 hr 11/19/23 14:40 11/19/23 13:55 11/19/23 16:00 Temperature 35.7 C L Pulse Rate 58 L 61 51 L Respiratory Rate 20 20 16 Blood Pressure 92/46 L Pulse Oximetry 98 Oxygen Delivery Oxygen Flow Rate Fraction of Inspired Oxygen 11/19/23 20:22 11/19/23 20:22 11/19/23 20:28 Temperature Pulse
--- NOTE | 2023-11-20 14:05 | P.PNIM_ITS ---
Progress Note: A&P Assessment and Plan (1) Acute hypoxic respiratory failure: Code(s): J96.01 - Acute respiratory failure with hypoxia Status: Acute Assessment and Plan: 11/13/23: (Copied from chart) * No previous need for supplemental O2. * Currently requiring high flow NC at 35, Fi O2 30. Work to wean or will need home O2 evaluation. * CXR showed cardiomegaly, mild congestive heart failure, bilateral lower lung infiltrates and atelectasis with the left greater than right. * Suspect new oxygen requirement secondary to acute exacerbation of the CHF given normal white count, however patient reporting weakness and new cough so cannot exclude pneumonia. * Continue ceftriaxone and doxycycline due to current allergies. * Benadryl PRN. 11/14/23: * Patient weaned down to 6L HFNC. She does have use of accessory muscles and appears a bit labored this morning. Lungs sound course throughout. * Will repeat CXR now * Recheck proBNP * May require additional Lasix. 11/15/23: * Patient weaned to 4L NC. * CXR from yesterday showing mild pulmonary edema, worsened small right and moderate sized left pleural effusions * Cardiology following. * Torsemide on hold due to SARAI 11/16/23: * Patient currently on 4L NC * Cardiology following * Creatinine trending downward but not back to baseline. * Torsemide will continue to be held. 11/17/23: * Patient went up to 7 L nasal cannula overnight, now down to 4 L nasal cannula * Cardiology following a and gave 1 dose of Lasix today * Torsemide still on hold 11/18/23: * Currently on 4L NC * Cardiology seen again today and gave an additional dose of Lasix considering her creatinine stayed the same at 1.3. * Monitor I and O * Can move out of IMU today to a regular med surge with tele * She will need continuous cardiac monitoring 11/19/23: * Currently on 4 L nasal cannula * Cardiology added Lasix 40 mg IV b.i.d. * Monitor I&O * Continue with continuous cardiac monitoring 11/20/23: * Currently on 2 L nasal cannula * Continue to monitor * Continue tele monitoring * With both been creatinine to 1.5 cardiology holding Lasix 40 b.i.d. (2) Weakness: Code(s): R53.1 - Weakness Status: Acute Assessment and Plan: 11/13/23: (Copied from chart) * Hemoglobin 9.3 today, no prior available for comparison. No active bleeding noted by patient. * Continue to trend CBC * Viral PCR negative. * TSH 3.190. * PT/OT ordered for eval 11/14/23: * Continue PT/OT * Echo showing severely reduced EF of 15-20%, RV function severely reduced, grade III diastolic dysfunction. 11/15/23: * Continue with PT/OT 11/16/23: * no change to current treatment plan (3) Acute on chronic congestive heart failure: Code(s): I50.9 - Heart failure, unspecified Status: Acute Assessment and Plan: 11/13/23: (Copied from chart) * CXR indicative of pulmonary edema and cardiomegaly. * Currently holding torsemide due to kidney function, resume when improved * Increase spironolactone from 25 p.o. daily to 25 p.o. b.i.d. * ECHO ordered, pending report. * Will monitor I&Os and daily weights. * IVF cautiously, but not taking in much PO 11/14/23: * Acute on chronic congestive heart failure with systolic and diastolic dysfunction. * Echo showing severely reduced EF of 15-20%, RV function severely reduced, grade III diastolic dysfunction. * Cardiology consulted * Checking proBNP today * Mo
--- NOTE | 2023-11-20 14:05 | PM.IMPN ---
Progress Note: A&P Assessment and Plan (1) Acute hypoxic respiratory failure: Code(s): J96.01 - Acute respiratory failure with hypoxia Status: Acute Assessment and Plan: 11/13/23: (Copied from chart) No previous need for supplemental O2. Currently requiring high flow NC at 35, Fi O2 30. Work to wean or will need home O2 evaluation. CXR showed cardiomegaly, mild congestive heart failure, bilateral lower lung infiltrates and atelectasis with the left greater than right. Suspect new oxygen requirement secondary to acute exacerbation of the CHF given normal white count, however patient reporting weakness and new cough so cannot exclude pneumonia. Continue ceftriaxone and doxycycline due to current allergies. Benadryl PRN. 11/14/23: Patient weaned down to 6L HFNC. She does have use of accessory muscles and appears a bit labored this morning. Lungs sound course throughout. Will repeat CXR now Recheck proBNP May require additional Lasix. 11/15/23: Patient weaned to 4L NC. CXR from yesterday showing mild pulmonary edema, worsened small right and moderate sized left pleural effusions Cardiology following. Torsemide on hold due to SARAI 11/16/23: Patient currently on 4L NC Cardiology following Creatinine trending downward but not back to baseline. Torsemide will continue to be held. 11/17/23: Patient went up to 7 L nasal cannula overnight, now down to 4 L nasal cannula Cardiology following a and gave 1 dose of Lasix today Torsemide still on hold 11/18/23: Currently on 4L NC Cardiology seen again today and gave an additional dose of Lasix considering her creatinine stayed the same at 1.3. Monitor I and O Can move out of IMU today to a regular med surge with tele She will need continuous cardiac monitoring 11/19/23: Currently on 4 L nasal cannula Cardiology added Lasix 40 mg IV b.i.d. Monitor I&O Continue with continuous cardiac monitoring 11/20/23: Currently on 2 L nasal cannula Continue to monitor Continue tele monitoring With both been creatinine to 1.5 cardiology holding Lasix 40 b.i.d. (2) Weakness: Code(s): R53.1 - Weakness Status: Acute Assessment and Plan: 11/13/23: (Copied from chart) Hemoglobin 9.3 today, no prior available for comparison. No active bleeding noted by patient. Continue to trend CBC Viral PCR negative. TSH 3.190. PT/OT ordered for eval 11/14/23: Continue PT/OT Echo showing severely reduced EF of 15-20%, RV function severely reduced, grade III diastolic dysfunction. 11/15/23: Continue with PT/OT 11/16/23: no change to current treatment plan (3) Acute on chronic congestive heart failure: Code(s): I50.9 - Heart failure, unspecified Status: Acute Assessment and Plan: 11/13/23: (Copied from chart) CXR indicative of pulmonary edema and cardiomegaly. Currently holding torsemide due to kidney function, resume when improved Increase spironolactone from 25 p.o. daily to 25 p.o. b.i.d. ECHO ordered, pending report. Will monitor I&Os and daily weights. IVF cautiously, but not taking in much PO 11/14/23: Acute on chronic congestive heart failure with systolic and diastolic dysfunction. Echo showing severely reduced EF of 15-20%, RV function severely reduced, grade III diastolic dysfunction. Cardiology consulted Checking proBNP today Monitor daily weights Monitor I and O's 11/15/23: Cardiology following, awaiting records from [facility] Continue with current treatment plan 11/16/23: Received Echo from patient's body man which was done in 2019 and shown mildly reduced EF of 50-55% and grade 1 diastolic dysfunction. Considering the change, I reached out to our cardiology team to update them. Cardiology following and awaiting their input. 11/17/23: One time dose of Lasix given today per Cardiology, we will see how this effects her creatinine kelechi
[2023-11-20 16:48] LABS: Glucose Point of Care 136 mg/dl (65-105)
[2023-11-20 20:37] LABS: Glucose Point of Care 136 mg/dl (65-105)
[2023-11-21] VITALS (18 sets, daily range): BP systolic 130–153; BP diastolic 58–84; PULSE 53–76; RESP 16–20; TEMP 36.3–36.6; O2SAT 92–99; BMI 30.2
[2023-11-21] MEDS: DOXYCYCLINE 100 MG/NS 100 ML 100 MG/100 ML BAG IVPB (01:05)
[2023-11-21] MEDS: LEVALBUTEROL NEB 1.25 MG/3 ML INHALATION ×3 (02:01→21:30)
--- NOTE | 2023-11-21 03:02 | PC.NURSE ---
pt voided around 2100 on 11/20 and it was clear yellow, pt voided again around 2300 on 11/20 and it was bright red blood mixed with urine, I believe the source of bleeding is vaginal not rectum. Will pass on to day shift RN.
[2023-11-21] MEDS: CENTRAL LINE FLUSH 10 ML IV PUSH ×3 (05:17→22:59)
--- NOTE | 2023-11-21 05:23 | PC.NURSE ---
pt voided around 0520 on 11/21 and it was clear yellow, I believe source of bleeding is from the rectum. will update day shift RN. (disregard previous note)
[2023-11-21 06:04] LABS: Basophils Absolute Auto 0.1 K/mm3 (0.0-0.1); Basophils Percent Auto 1.5 % (0.2-1.2); Eosinophils Absolute Auto 0.3 K/mm3 (0-0.3); Eosinophils Percent Auto 4.8 % (0-4.4); Hematocrit 30.8 % (37.0-47.0); Hemoglobin 9.2 g/dL (12.0-15.0); Immature Granulocyte Absolute 0.05 K/mm3 (0.00-0.031); Lymphocytes Absolute Auto 1.79 K/mm3 (0.9-3.2); Lymphocytes Percent Auto 34.4 % (18.3-44.2); Mean Corpuscular HGB Conc 29.9 g/dl (32-36); Mean Platelet Volume 11.4 fl (7.4-10.4); Monocytes Absolute Auto 0.6 K/mm3 (0.1-0.6); Monocytes Percent Auto 10.7 % (2.6-8.5); Neutrophils Absolute Auto 2.5 K/mm3 (1.3-6.7); Neutrophils Percent Auto 47.6 % (45.5-73.1); Nucleated Red Blood Cells Perc 0.4 % (0.0-0.2); Platelet Count Result 213 k/mm3 (150-375); Red Blood Count 3.54 M/mm3 (4.2-5.4); Red Cell Distribution Width 15.9 % (11.5-14.5); White Blood Count 5.2 K/mm3 (4.5-10.0)
[2023-11-21 06:13] LABS: Alanine Aminotransferase 19 U/L (6-35); Albumin Level 2.6 g/dL (3.5-5.1); Alkaline Phosphatase 121 U/L (38-126); Anion Gap 5 mmol/L (8-16); Aspartate Amino Transferase 44 U/L (14-36); Bilirubin,Total 0.6 mg/dL (0.2-1.3); Blood Urea Nitrogen 20 mg/dL (7-17); Calcium 7.8 mg/dL (8.4-10.2); Carbon Dioxide 32 mmol/L (22-30); Chloride 102 mmol/L (98-107); Estimated CRCL calculation 27 ml/min; Estimated Glomerular Filt Rate 36; Glucose 96 mg/dL (65-110); Potassium 2.5 mmol/L (3.4-5.0); Sodium 139 mmol/L (137-145)
[2023-11-21 08:07] LABS: Glucose Point of Care 111 mg/dl (65-105)
--- NOTE | 2023-11-21 08:33 | PM.PNCARD ---
Progress Note: A&P Assessment and Plan (1) Acute on chronic congestive heart failure: Code(s): I50.9 - Heart failure, unspecified Status: Acute Assessment and Plan: Has known congestive heart failure, last LVEF 55%. Repeat echocardiogram here showed systolic dysfunction with an EF of 15-20% and grade 3 diastolic dysfunction. CXR 11/20 with stable small right and moderate sized left pleural effusions. Was getting IV Lasix 40mg BID, however, her SCR increased (1.4 today), and urine output has dropped off. Will hold the Lasix for now, not sure how much we will be able to further diurese her if her renal function continues to worsen. Holding Coreg for now due to HR in the 50s. If heart rate improves, will plan to resume Coreg at low-dose. Optimize GDMT with Entresto. Discontinued Losartan and added low dose Entresto. Tolerating Entresto well thus far. Blood pressures remain stable. Added Jardiance. Resumed Spironolactone at 25mg daily Daily BMP Will need close outpatient follow up with her primary Duco Polisher. (2) Atrial fibrillation: Code(s): I48.91 - Unspecified atrial fibrillation Status: Acute Assessment and Plan: Paroxysmal. Holding Xarelto due to bloody stools. Holding Coreg for now due to HR in the 50s. If heart rate improves, will plan to resume Coreg at low-dose. (3) Acute hypoxic respiratory failure: Code(s): J96.01 - Acute respiratory failure with hypoxia Status: Acute Assessment and Plan: Wean off oxygen as tolerated (4) Hypertension: Code(s): I10 - Essential (primary) hypertension Status: Acute Assessment and Plan: Stable Subjective Date/time seen: 11/21/23 08:33 Interval history: Reason for visit: Congestive heart failure HPI: We are consulted for cardiomyopathy. This is an 83 year old female that was admitted to [facility] on 11/11 for persistent nausea, weakness, decreased appetite. She has a history of known congestive heart failure and atrial fibrillation. 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 Has shortness of breath that became more progressive over past few days prior to admission. Echocardiogram done 11/13 which showed LVEF 22%, moderate to severe MR, large left pleural effusion. Her Torsemide and Spironolactone are currently on hold due to SARAI, which is improving. Date of service 11/15: Lower extremity swelling has resolved.? She does still have some shortness of breath but this has improved since admission. Date of service 11/17: She feels like her breathing is about the same today, maybe slightly better. Date of service 11/18: Reports feeling okay this morning. Remains on 4L of oxygen. Had good amount of urine output yesterday. Date of service 11/19: Reports her shortness of breath is getting better. Still on oxygen. Date of service 11/20: She is feeling better this morning. Sitting up in chair. HR in the 50s. She did have a bowel movement with quite a bit of bright red blood. Date of service 11/21/23: Feeling fatigued but otherwise has no complaints. Breathing is better today. Review of Systems Review of Systems: All systems reviewed & are unremarkable except as noted in HPI and below (HPI) Exam Const: General: comfortable and no acute distress HENMT: Mouth: Yes moist mucous membranes Eyes: General: appearance normal, both eyes and all related structures Sclera: sclerae normal Neck: Neck: supple Resp: Effort & Inspection: normal respiratory effort Auscultation: rales and diminished lung sounds Other: Decreased breath sounds at the bases. Cardio: Rate: regular rate Rhythm: regular rhythm Heart sounds: Murmur heart sound present Skin: General skin exam: normal color Neuro: Speech: normal speech Extrem: Other: no edema Psych: Mental Status: mental status grossly normal Affect: normal affect Objective Data Vital Signs Vital Signs: Vital Signs - 24 hr 11/20/23 09:
[2023-11-21] MEDS: SPIRONOLACTONE 25 MG TABLET PO (08:55)
[2023-11-21] MEDS: ATORVASTATIN 20 MG TABLET PO (08:56)
[2023-11-21] MEDS: calcitrioL 0.25 MCG CAPSULE PO (08:56)
[2023-11-21] MEDS: LEFLUNOMIDE 20 MG TABLET PO (08:56)
[2023-11-21] MEDS: EMPAGLIFLOZIN 10 MG TABLET PO (08:56)
[2023-11-21] MEDS: PANTOPRAZOLE SODIUM IV 40 MG VIAL IV PUSH (08:56)
[2023-11-21] MEDS: GABAPENTIN 100 MG CAPSULE PO ×2 (08:56→18:00)
[2023-11-21] MEDS: TOLNAFTATE 1% POWDER 45 GM BTL 1 APPLIC TOPICAL ×2 (08:56→20:09)
[2023-11-21] MEDS: PRAMIPEXOLE 0.5 MG TABLET 1.5 MG PO ×3 (08:56→18:00)
[2023-11-21] MEDS: SACUBITRIL/VALSARTAN 24-26 MG TABLET 1 TAB PO ×2 (08:56→20:09)
[2023-11-21] MEDS: POTASSIUM CHLORIDE INJ 40 MEQ in SODIUM CHLORIDE 0.9% IV 500 ML 130 MEQ IVPB (09:40)
--- NOTE | 2023-11-21 11:53 | PM.IMPN ---
Progress Note: A&P Assessment and Plan (1) Acute hypoxic respiratory failure: Code(s): J96.01 - Acute respiratory failure with hypoxia Status: Acute Assessment and Plan: 11/13/23: (Copied from chart) No previous need for supplemental O2. Currently requiring high flow NC at 35, Fi O2 30. Work to wean or will need home O2 evaluation. CXR showed cardiomegaly, mild congestive heart failure, bilateral lower lung infiltrates and atelectasis with the left greater than right. Suspect new oxygen requirement secondary to acute exacerbation of the CHF given normal white count, however patient reporting weakness and new cough so cannot exclude pneumonia. Continue ceftriaxone and doxycycline due to current allergies. Benadryl PRN. 11/14/23: Patient weaned down to 6L HFNC. She does have use of accessory muscles and appears a bit labored this morning. Lungs sound course throughout. Will repeat CXR now Recheck proBNP May require additional Lasix. 11/15/23: Patient weaned to 4L NC. CXR from yesterday showing mild pulmonary edema, worsened small right and moderate sized left pleural effusions Cardiology following. Torsemide on hold due to SARAI 11/16/23: Patient currently on 4L NC Cardiology following Creatinine trending downward but not back to baseline. Torsemide will continue to be held. 11/17/23: Patient went up to 7 L nasal cannula overnight, now down to 4 L nasal cannula Cardiology following a and gave 1 dose of Lasix today Torsemide still on hold 11/18/23: Currently on 4L NC Cardiology seen again today and gave an additional dose of Lasix considering her creatinine stayed the same at 1.3. Monitor I and O Can move out of IMU today to a regular med surge with tele She will need continuous cardiac monitoring 11/19/23: Currently on 4 L nasal cannula Cardiology added Lasix 40 mg IV b.i.d. Monitor I&O Continue with continuous cardiac monitoring 11/20/23: Currently on 2 L nasal cannula Continue to monitor Continue tele monitoring With both been creatinine to 1.5 cardiology holding Lasix 40 b.i.d. 11/21/23: patient currently on 1 L nasal cannula lungs sound relatively clear today we will get a chest x-ray tomorrow I also put for an ultrasound-guided thoracentesis for her moderate effusion creatinine currently at 1.4, we will continue to hold Lasix and Torsemide. Continue with cardiac monitoring antibiotics are discontinued as she received 9 days of doxycycline and Rocephin for treatment of pneumonia (2) Weakness: Code(s): R53.1 - Weakness Status: Acute Assessment and Plan: 11/13/23: (Copied from chart) Hemoglobin 9.3 today, no prior available for comparison. No active bleeding noted by patient. Continue to trend CBC Viral PCR negative. TSH 3.190. PT/OT ordered for eval 11/14/23: Continue PT/OT Echo showing severely reduced EF of 15-20%, RV function severely reduced, grade III diastolic dysfunction. 11/15/23: Continue with PT/OT 11/16/23: no change to current treatment plan (3) Acute on chronic congestive heart failure: Code(s): I50.9 - Heart failure, unspecified Status: Acute Assessment and Plan: 11/13/23: (Copied from chart) CXR indicative of pulmonary edema and cardiomegaly. Currently holding torsemide due to kidney function, resume when improved Increase spironolactone from 25 p.o. daily to 25 p.o. b.i.d. ECHO ordered, pending report. Will monitor I&Os and daily weights. IVF cautiously, but not taking in much PO 11/14/23: Acute on chronic congestive heart failure with systolic and diastolic dysfunction. Echo showing severely reduced EF of 15-20%, RV function severely reduced, grade III diastolic dysfunction. Cardiology consulted Checking proBNP today Monitor daily weights Monitor I and O's 11/15/23: Cardiology following, awaiting records from [facility]
[2023-11-21 11:57] LABS: Glucose Point of Care 158 mg/dl (65-105)
[2023-11-21] MEDS: POTASSIUM CHLORIDE 20 MEQ ER TABLET 40 MEQ PO (14:08)
--- NOTE | 2023-11-21 14:53 | PCPTNOTE ---
Attempted to see patient for PT, however patient declined. Patient reported she just got back to bed from sitting up from 9:30 a.m. to 2:30 p.m. and did not want to work with therapy.
[2023-11-21] MEDS: UMECLIDINIUM/VILANTEROL 62.5-25 MCG ELLIPTA 1 PUFF INHALATION (14:54)
[2023-11-21 16:33] LABS: Glucose Point of Care 129 mg/dl (65-105)
[2023-11-21] MEDS: POTASSIUM CHLORIDE 20 MEQ ER TABLET PO (16:59)
[2023-11-21 21:10] LABS: Glucose Point of Care 145 mg/dl (65-105)
[2023-11-22] VITALS (18 sets, daily range): BP systolic 125–148; BP diastolic 54–62; PULSE 57–96; RESP 14–22; TEMP 36.5–36.8; O2SAT 93–99
[2023-11-22] MEDS: LEVALBUTEROL NEB 1.25 MG/3 ML INHALATION ×4 (02:42→21:12)
[2023-11-22] MEDS: CENTRAL LINE FLUSH 10 ML IV PUSH ×3 (05:25→21:05)
[2023-11-22 05:41] LABS: Basophils Absolute Auto 0.1 K/mm3 (0.0-0.1); Basophils Percent Auto 1.7 % (0.2-1.2); Eosinophils Absolute Auto 0.1 K/mm3 (0-0.3); Eosinophils Percent Auto 3.1 % (0-4.4); Hematocrit 31.2 % (37.0-47.0); Hemoglobin 9.2 g/dL (12.0-15.0); Immature Granulocyte Absolute 0.04 K/mm3 (0.00-0.031); Lymphocytes Absolute Auto 1.72 K/mm3 (0.9-3.2); Lymphocytes Percent Auto 41.1 % (18.3-44.2); Mean Corpuscular HGB Conc 29.5 g/dl (32-36); Mean Corpuscular Hemoglobin 25.7 pg (26-34); Mean Corpuscular Volume 87.2 fl (80-100); Mean Platelet Volume 10.5 fl (7.4-10.4); Monocytes Absolute Auto 0.5 K/mm3 (0.1-0.6); Monocytes Percent Auto 11.7 % (2.6-8.5); Neutrophils Absolute Auto 1.7 K/mm3 (1.3-6.7); Neutrophils Percent Auto 41.4 % (45.5-73.1); Platelet Count Result 189 k/mm3 (150-375); Red Blood Count 3.58 M/mm3 (4.2-5.4); Red Cell Distribution Width 16.2 % (11.5-14.5); White Blood Count 4.2 K/mm3 (4.5-10.0)
[2023-11-22 05:57] LABS: Alanine Aminotransferase 19 U/L (6-35); Albumin Level 2.5 g/dL (3.5-5.1); Alkaline Phosphatase 114 U/L (38-126); Anion Gap 4 mmol/L (8-16); Aspartate Amino Transferase 38 U/L (14-36); Bilirubin,Total 0.9 mg/dL (0.2-1.3); Blood Urea Nitrogen 17 mg/dL (7-17); Calcium 7.9 mg/dL (8.4-10.2); Carbon Dioxide 32 mmol/L (22-30); Chloride 104 mmol/L (98-107); Estimated CRCL calculation 33 ml/min; Estimated Glomerular Filt Rate 43; Glucose 98 mg/dL (65-110); Magnesium 1.4 mg/dL (1.6-2.3); Potassium 2.7 mmol/L (3.4-5.0); Sodium 140 mmol/L (137-145)
[2023-11-22] MEDS: KCL 40 MEQ/WATER 100 ML 100 ML 25 ML IVPB (06:24)
--- NOTE | 2023-11-22 06:57 | WPDGICN ---
Assessment and Plan Assessment and plan (1) Blood in stool: Code(s): K92.1 - Melena Status: Acute Assessment and Plan: hopefully this was all due to internal hemorrhoids. If bleeding persists we might need to consider sigmoidoscopy. her low ejection fraction however puts her at high risk for sedation. (2) External hemorrhoids: Code(s): K64.4 - Residual hemorrhoidal skin tags Status: Acute Assessment and Plan: There are external hemorrhoids which are nontender and not thrombosed. (3) Atrial fibrillation: Code(s): I48.91 - Unspecified atrial fibrillation Status: Acute Assessment and Plan: She has been chronically on Xarelto but this has been held for 2 days due to the bleeding. (4) Congestive heart failure: Code(s): I50.9 - Heart failure, unspecified Status: Acute Assessment and Plan: She does have cardiomegaly and a low ejection fraction. He is lying comfortably in bed today (5) COPD (chronic obstructive pulmonary disease): Code(s): J44.9 - Chronic obstructive pulmonary disease, unspecified Status: Acute Plan prescribe steroid suppository. If bleeding persists we may need to consider colonoscopy or flexible sigmoidoscopy. GI Consult Note Consult date/time: 11/22/23 06:57 HPI: Genny Gomez is a 83 year old female Who was admitted with weakness nausea vomiting which has resolved. Now she is primarily here Due to COPD and because of congestive heart failure and shortness of breath. she is known to have a low ejection fraction of 15-20%. She has been given diuretics and is breathing comfortably now. She is still on nasal oxygen however. Over the last couple of days however she has passed bright red blood in her stools. She states that she had never had this before this admission. She denies straining or having any rectal or abdominal pain. She believes that at least 1 bowel movement the day before yesterday was nothing but blood. Her blood counts have remained stable she had a colonoscopy several years ago in [place] at the surgery center. She can not recall when exactly it was done but believes that everything was okay Review of Systems Review of Systems: All systems reviewed & are unremarkable except as noted in HPI and below PMFSH Past Medical History Medical History Arthritis Atrial fibrillation On Xarelto Cancer Breast Congestive heart failure COPD (chronic obstructive pulmonary disease) Diabetes last A1c noted by pt to be 6.1 in 2020 Essential tremor Hypertension Rheumatoid arthritis Surgical History Surgical History H/O tubal ligation History of carpal tunnel release left wrist 08/[address] Valiente History of cholecystectomy History of lumpectomy of left breast Hx of parathyroidectomy Family History Family History Other Asthma Cancer Social History Social History Smoking status: Never smoker Alcohol intake: never Substance use type: does not use Do You Feel Safe in your Home?: Yes Lack of Transportation: No Lack of Food: Never True Current Housing: I Have Housing Concerned About Future Housing: No Difficulty Paying Gas/Electric Bills: No Difficulty Paying for Meds: No Currently Unemployed: No Education: Don't Know Difficulty w/ Childcare or Family Care: No Living arrangements: alone Occupation/Education: occupation 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
[2023-11-22 07:45] LABS: Anisocytosis 1+ (NORMAL); Hypochromasia 1+ (NORMAL); Platelet Estimate Adequate (Adequate); Poikilocytosis 1+ (NORMAL); Schistocytes None Seen (NORMAL)
[2023-11-22] MEDS: UMECLIDINIUM/VILANTEROL 62.5-25 MCG ELLIPTA 1 PUFF INHALATION (08:00)
[2023-11-22 08:08] LABS: Glucose Point of Care 110 mg/dl (65-105)
[2023-11-22] MEDS: EMPAGLIFLOZIN 10 MG TABLET PO (09:14)
[2023-11-22] MEDS: SACUBITRIL/VALSARTAN 24-26 MG TABLET 1 TAB PO ×2 (09:14→20:16)
[2023-11-22] MEDS: ATORVASTATIN 20 MG TABLET PO (09:14)
[2023-11-22] MEDS: PRAMIPEXOLE 0.5 MG TABLET 1.5 MG PO ×3 (09:14→17:25)
[2023-11-22] MEDS: calcitrioL 0.25 MCG CAPSULE PO (09:14)
[2023-11-22] MEDS: LEFLUNOMIDE 20 MG TABLET PO (09:14)
[2023-11-22] MEDS: SPIRONOLACTONE 25 MG TABLET PO (09:14)
[2023-11-22] MEDS: PANTOPRAZOLE SODIUM IV 40 MG VIAL IV PUSH (09:14)
[2023-11-22] MEDS: GABAPENTIN 100 MG CAPSULE PO ×2 (09:15→17:24)
[2023-11-22] MEDS: TOLNAFTATE 1% POWDER 45 GM BTL 1 APPLIC TOPICAL ×2 (09:15→20:16)
[2023-11-22] MEDS: HYDROCORTISONE ACETATE 25 MG SUPPOSITORY RECTAL (09:15)
[2023-11-22] MEDS: ALPRAZolam (*CRX) 0.5 MG TABLET PO (11:29)
--- NOTE | 2023-11-22 12:10 | P.PNIM_ITS ---
Progress Note: A&P Assessment and Plan (1) Acute hypoxic respiratory failure: Code(s): J96.01 - Acute respiratory failure with hypoxia Status: Acute Assessment and Plan: 11/13/23: (Copied from chart) * No previous need for supplemental O2. * Currently requiring high flow NC at 35, Fi O2 30. Work to wean or will need home O2 evaluation. * CXR showed cardiomegaly, mild congestive heart failure, bilateral lower lung infiltrates and atelectasis with the left greater than right. * Suspect new oxygen requirement secondary to acute exacerbation of the CHF given normal white count, however patient reporting weakness and new cough so cannot exclude pneumonia. * Continue ceftriaxone and doxycycline due to current allergies. * Benadryl PRN. 11/14/23: * Patient weaned down to 6L HFNC. She does have use of accessory muscles and appears a bit labored this morning. Lungs sound course throughout. * Will repeat CXR now * Recheck proBNP * May require additional Lasix. 11/15/23: * Patient weaned to 4L NC. * CXR from yesterday showing mild pulmonary edema, worsened small right and moderate sized left pleural effusions * Cardiology following. * Torsemide on hold due to SARAI 11/16/23: * Patient currently on 4L NC * Cardiology following * Creatinine trending downward but not back to baseline. * Torsemide will continue to be held. 11/17/23: * Patient went up to 7 L nasal cannula overnight, now down to 4 L nasal cannula * Cardiology following a and gave 1 dose of Lasix today * Torsemide still on hold 11/18/23: * Currently on 4L NC * Cardiology seen again today and gave an additional dose of Lasix considering her creatinine stayed the same at 1.3. * Monitor I and O * Can move out of IMU today to a regular med surge with tele * She will need continuous cardiac monitoring 11/19/23: * Currently on 4 L nasal cannula * Cardiology added Lasix 40 mg IV b.i.d. * Monitor I&O * Continue with continuous cardiac monitoring 11/20/23: * Currently on 2 L nasal cannula * Continue to monitor * Continue tele monitoring * With both been creatinine to 1.5 cardiology holding Lasix 40 b.i.d. 11/21/23: * patient currently on 1 L nasal cannula * lungs sound relatively clear today * we will get a chest x-ray tomorrow * I also put for an ultrasound-guided thoracentesis for her moderate effusion * creatinine currently at 1.4, we will continue to hold Lasix and Torsemide. * Continue with cardiac monitoring * antibiotics are discontinued as she received 9 days of doxycycline and Rocephin for treatment of pneumonia 11/22: Patient remains on 1 L nasal cannula, restart torsemide status post ultrasound-guided thoracentesis. (2) Weakness: Code(s): R53.1 - Weakness Status: Acute Assessment and Plan: 11/13/23: (Copied from chart) * Hemoglobin 9.3 today, no prior available for comparison. No active bleeding noted by patient. * Continue to trend CBC * Viral PCR negative. * TSH 3.190. * PT/OT ordered for eval 11/14/23: * Continue PT/OT * Echo showing severely reduced EF of 15-20%, RV function severely reduced, grade III diastolic dysfunction. 11/15/23: * Continue with PT/OT 11/16/23: * no change to current treatment plan (3) Acute on chronic congestive heart failure: Code(s): I50.9 - Heart failure, unspecified Status: Acute Assessment and Plan: 11/13/23: (Copied from chart) * CXR indicative of pulmonary edema and cardiome
[2023-11-22] MEDS: MAGNESIUM SULFATE 3GM/D5W100ML 3 GM/100 ML BAG IVPB (12:27)
[2023-11-22] MEDS: POTASSIUM CHLORIDE INJ 40 MEQ in SODIUM CHLORIDE 0.9% IV 500 ML 130 MEQ IVPB (12:27)
[2023-11-22 12:32] LABS: Glucose Point of Care 110 mg/dl (65-105)
[2023-11-22] MEDS: POTASSIUM CHLORIDE 20 MEQ ER TABLET 60 MEQ PO (12:34)
--- NOTE | 2023-11-22 15:47 | PM.PNCARD ---
Progress Note: A&P Assessment and Plan (1) Acute on chronic congestive heart failure: Code(s): I50.9 - Heart failure, unspecified Status: Acute Assessment and Plan: Has known congestive heart failure, however last LVEF 55%. Echocardiogram here showed systolic dysfunction with an EF of 15-20% and grade 3 diastolic dysfunction. Appears to be euvolemic now. SCr at 1.2 now. Can resume Torsemide 40mg daily. Resume Coreg at 3.125mg BID Continue Entresto, Jardiance, Spironolactone. Will need close outpatient follow up with her primary Sketch Maker. (2) Atrial fibrillation: Code(s): I48.91 - Unspecified atrial fibrillation Status: Acute Assessment and Plan: Paroxysmal. Resume Xarelto if no more bleeding issues. Resume Coreg at 3.125mg BID. (3) Acute hypoxic respiratory failure: Code(s): J96.01 - Acute respiratory failure with hypoxia Status: Acute Assessment and Plan: Wean off oxygen as tolerated (4) Hypertension: Code(s): I10 - Essential (primary) hypertension Status: Acute Assessment and Plan: Stable Plan Recommendations and Plan discussed with Hospitalist. Subjective Date/time seen: 11/22/23 15:48 Interval history: Reason for visit: Congestive heart failure HPI: We are consulted for cardiomyopathy. This is an 83 year old female that was admitted to [facility] on 11/11 for persistent nausea, weakness, decreased appetite. She has a history of known congestive heart failure and atrial fibrillation. Sees a embedded developer at [facility]. Has shortness of breath that became more progressive over past few days prior to admission. Echocardiogram done 11/13 which showed LVEF 22%, moderate to severe MR, large left pleural effusion. Her Torsemide and Spironolactone are currently on hold due to SARAI, which is improving. Date of service 11/15: Lower extremity swelling has resolved.? She does still have some shortness of breath but this has improved since admission. Date of service 11/17: She feels like her breathing is about the same today, maybe slightly better. Date of service 11/18: Reports feeling okay this morning. Remains on 4L of oxygen. Had good amount of urine output yesterday. Date of service 11/19: Reports her shortness of breath is getting better. Still on oxygen. Date of service 11/20: She is feeling better this morning. Sitting up in chair. HR in the 50s. She did have a bowel movement with quite a bit of bright red blood. Date of service 11/21/23: Feeling fatigued but otherwise has no complaints. Breathing is better today. Date of service 11/22: Feeling okay. Underwent thoracentesis -- US showed small left pleural effusion, underwent successful ultrasound-guided thoracentesis yielding 350mL of fluid. Review of Systems Review of Systems: All systems reviewed & are unremarkable except as noted in HPI and below (HPI) Exam Const: General: comfortable and no acute distress Eyes: General: appearance normal, both eyes and all related structures Sclera: sclerae normal Resp: Effort & Inspection: normal respiratory effort Other: Decreased breath sounds at the bases. Cardio: Rate: regular rate Rhythm: regular rhythm Skin: General skin exam: normal color Neuro: Speech: normal speech Psych: Mental Status: mental status grossly normal Affect: normal affect Objective Data Vital Signs Vital Signs: Vital Signs - 24 hr 11/21/23 16:30 11/21/23 16:00 11/21/23 19:55 Temperature 36.4 C L 36.6 C Pulse Rate 55 L 65 60 Respiratory Rate 16 16 Blood Pressure 153/70 H 142/72 H Pulse Oximetry 94 97 Oxygen Delivery Oxygen Flow Rate Fraction of Inspired Oxygen 11/21/23 21:30 11/21/23 20:05 11/21/23 20:00 Temperature Pulse Rate 64 60 Respiratory Rate 20 Blood Pressure Pulse Oximetry 97 Oxygen Delivery Nasal Cannula Oxygen Flow Rate 1 Fraction of Inspired Oxygen 11/21/23 21:5
[2023-11-22 17:20] LABS: Glucose Point of Care 144 mg/dl (65-105)
[2023-11-22] MEDS: TORSEMIDE 20 MG TABLET PO (17:24)
[2023-11-22] MEDS: POTASSIUM CHLORIDE 20 MEQ ER TABLET 40 MEQ PO (17:24)
[2023-11-22] MEDS: carvediloL 3.125 MG TABLET PO (20:16)
[2023-11-22 21:01] LABS: Glucose Point of Care 172 mg/dl (65-105)
[2023-11-23] VITALS (12 sets, daily range): BP systolic 140–147; BP diastolic 62–87; PULSE 58–69; RESP 16–18; TEMP 36.3–36.6; O2SAT 92–97
[2023-11-23] MEDS: LEVALBUTEROL NEB 1.25 MG/3 ML INHALATION ×3 (02:52→14:01)
[2023-11-23 05:31] LABS: Basophils Absolute Auto 0.1 K/mm3 (0.0-0.1); Basophils Percent Auto 1.5 % (0.2-1.2); Eosinophils Absolute Auto 0.1 K/mm3 (0-0.3); Eosinophils Percent Auto 3.2 % (0-4.4); Hematocrit 31.1 % (37.0-47.0); Hemoglobin 9.1 g/dL (12.0-15.0); Immature Granulocyte Absolute 0.03 K/mm3 (0.00-0.031); Immature Granulocyte Percent A 0.7 % (0-0.5); Lymphocytes Absolute Auto 1.63 K/mm3 (0.9-3.2); Lymphocytes Percent Auto 39.7 % (18.3-44.2); Mean Corpuscular HGB Conc 29.3 g/dl (32-36); Mean Corpuscular Hemoglobin 25.8 pg (26-34); Mean Corpuscular Volume 88.1 fl (80-100); Monocytes Absolute Auto 0.5 K/mm3 (0.1-0.6); Monocytes Percent Auto 11.4 % (2.6-8.5); Neutrophils Absolute Auto 1.8 K/mm3 (1.3-6.7); Neutrophils Percent Auto 43.5 % (45.5-73.1); Platelet Count Result 180 k/mm3 (150-375); Red Blood Count 3.53 M/mm3 (4.2-5.4); Red Cell Distribution Width 16.5 % (11.5-14.5); White Blood Count 4.1 K/mm3 (4.5-10.0)
[2023-11-23 05:47] LABS: Alanine Aminotransferase 18 U/L (6-35); Albumin Level 2.4 g/dL (3.5-5.1); Alkaline Phosphatase 118 U/L (38-126); Anion Gap 2 mmol/L (8-16); Aspartate Amino Transferase 36 U/L (14-36); Bilirubin,Total 0.9 mg/dL (0.2-1.3); Blood Urea Nitrogen 13 mg/dL (7-17); Carbon Dioxide 32 mmol/L (22-30); Chloride 106 mmol/L (98-107); Estimated CRCL calculation 33 ml/min; Estimated Glomerular Filt Rate 43; Glucose 104 mg/dL (65-110); Potassium 3.5 mmol/L (3.4-5.0); Sodium 140 mmol/L (137-145)
[2023-11-23] MEDS: CENTRAL LINE FLUSH 10 ML IV PUSH ×2 (06:08→13:34)
[2023-11-23 06:50] LABS: Anisocytosis 2+ (NORMAL); Platelet Estimate Adequate (Adequate)
[2023-11-23 06:51] LABS: Burr Cells 1+ (NORMAL); Hypochromasia 1+ (NORMAL); Ovalocytes 1+ (NORMAL); Poikilocytosis 1+ (NORMAL); Schistocytes None Seen (NORMAL)
--- NOTE | 2023-11-23 07:00 | WPDGIPROGNO ---
Progress Note: A&P Assessment and Plan (1) Blood in stool: Code(s): K92.1 - Melena Status: Acute Assessment and Plan: hopefully this was all due to internal hemorrhoids. If bleeding persists we might need to consider sigmoidoscopy. her low ejection fraction however puts her at high risk for sedation. (2) External hemorrhoids: Code(s): K64.4 - Residual hemorrhoidal skin tags Status: Acute Assessment and Plan: There are external hemorrhoids which are nontender and not thrombosed. A rectal examination Revealed no masses and no blood on examining finger. (3) Atrial fibrillation: Code(s): I48.91 - Unspecified atrial fibrillation Status: Acute Assessment and Plan: She has been chronically on Xarelto but this has been held for 2 days due to the bleeding. from my perspective we can restart Xarelto today. Hopefully she will not began bleeding again. (4) Congestive heart failure: Code(s): I50.9 - Heart failure, unspecified Status: Acute Assessment and Plan: She does have cardiomegaly and a low ejection fraction. He is lying comfortably in bed today (5) COPD (chronic obstructive pulmonary disease): Code(s): J44.9 - Chronic obstructive pulmonary disease, unspecified Status: Acute Plan I have prescribed steroid suppository. If bleeding persists we may need to consider colonoscopy or flexible sigmoidoscopy. 11/23 so far as of today no further bleeding. I will sign off. Call me if any further issues Subjective Date/time seen: 11/23/23 07:00 the patient reports no further bleeding. I told her that we will continue the suppositories for a few days. Should be okay to resume Xarelto. Exam Const: General: cooperative and healthy appearing Orientation/consciousness: patient oriented x3 HENMT: Head: normal to inspection Ears: hearing grossly normal bilaterally Mouth: Yes Normal oral and palatal mucosa present Eyes: General: appearance normal, both eyes and all related structures Neck: Neck: normal visual inspection Chest: Chest palpation & inspection: normal inspection of the chest Resp: Effort & Inspection: normal respiratory effort Auscultation: clear to auscultation bilaterally Cardio: Rate: regular rate Rhythm: regular rhythm GI: Inspection: normal to inspection Auscultation: normal bowel sounds Rectal Exam: External hemorrhoid(s) present ( not thrombosed or tender.) Other: No blood on examining finger. No rectal mass felt. Mild anal stenosis precluding deep rectal examination. Skin: General skin exam: normal color and no jaundice Neuro: General: patient oriented x3 Speech: normal speech Objective Data Vital Signs Vital Signs: Vital Signs - 24 hr 11/22/23 08:00 11/22/23 08:00 11/22/23 08:10 Temperature Pulse Rate 64 64 68 Respiratory Rate 22 H 22 H 20 Blood Pressure Pulse Oximetry 94 Oxygen Delivery Nasal Cannula Oxygen Flow Rate 2 Fraction of Inspired Oxygen 28 11/22/23 08:00 11/22/23 12:00 11/22/23 13:49 Temperature 36.5 C 36.5 C Pulse Rate 62 66 59 L Respiratory Rate 21 H 20 20 Blood Pressure 142/56 H 140/60 Pulse Oximetry 94 95 Oxygen Delivery Oxygen Flow Rate Fraction of Inspired Oxygen 11/22/23 13:56 11/22/23 13:00 11/22/23 13:00 Temperature Pulse Rate 60 64 Respiratory Rate 20 Blood Pressure Pulse Oximetry 95 Oxygen Delivery Nasal Cannula Oxygen Flow Rate 1 Fraction of Inspired Oxygen 11/22/23 16:00 11/22/23 19:51 11/22/23 20:16 Temperature 36.8 C 36.7 C Pulse Rate 57 L 58 L 66 Respiratory Rate 19 18 Blood Pressure 131/57 L 125/62 Pulse Oximetry 99 98 Oxygen Delivery Oxygen Flow Rate Fraction of Inspired Oxygen 11/22/23 20:15 11/22/23 21:14 11/22/23 21:15 Temperature Pulse Rate 62 Respiratory Rate 16 Blood Pressure Pulse Oximetry 98 93 Oxygen Delivery Nasal Cannula Nasal
[2023-11-23] MEDS: UMECLIDINIUM/VILANTEROL 62.5-25 MCG ELLIPTA 1 PUFF INHALATION (07:52)
[2023-11-23 08:02] LABS: Glucose Point of Care 96 mg/dl (65-105)
[2023-11-23] MEDS: PANTOPRAZOLE SODIUM IV 40 MG VIAL IV PUSH (09:51)
[2023-11-23] MEDS: TOLNAFTATE 1% POWDER 45 GM BTL 1 APPLIC TOPICAL (09:51)
[2023-11-23] MEDS: GABAPENTIN 100 MG CAPSULE PO ×2 (09:52→17:16)
[2023-11-23] MEDS: POTASSIUM CHLORIDE 20 MEQ ER TABLET 40 MEQ PO ×2 (09:52→17:15)
[2023-11-23] MEDS: LEFLUNOMIDE 20 MG TABLET PO (09:52)
[2023-11-23] MEDS: PRAMIPEXOLE 0.5 MG TABLET 1.5 MG PO ×3 (09:52→17:16)
[2023-11-23] MEDS: SACUBITRIL/VALSARTAN 24-26 MG TABLET 1 TAB PO (09:53)
[2023-11-23] MEDS: EMPAGLIFLOZIN 10 MG TABLET PO (09:53)
[2023-11-23] MEDS: SPIRONOLACTONE 25 MG TABLET PO (09:53)
[2023-11-23] MEDS: ATORVASTATIN 20 MG TABLET PO (09:53)
[2023-11-23] MEDS: TORSEMIDE 20 MG TABLET 40 MG PO (09:53)
[2023-11-23] MEDS: calcitrioL 0.25 MCG CAPSULE PO (09:53)
[2023-11-23] MEDS: carvediloL 3.125 MG TABLET PO (09:53)
[2023-11-23] MEDS: HYDROCORTISONE ACETATE 25 MG SUPPOSITORY RECTAL (10:02)
[2023-11-23 12:21] LABS: Glucose Point of Care 176 mg/dl (65-105)
--- NOTE | 2023-11-23 13:32 | PM.DS ---
DS: Admitting Diagnosis Discharge Date 11/23/2023 Admitting Diagnosis Acute hypoxic respiratory failure, weakness, acute on chronic congestive heart failure, hypokalemia, atrial fibrillation, COPD, hypertension, nausea DS: Discharge Diagnosis Discharge Diagnosis (1) Acute hypoxic respiratory failure: Code(s): J96.01 - Acute respiratory failure with hypoxia Status: Acute (2) Weakness: Code(s): R53.1 - Weakness Status: Acute (3) Acute on chronic congestive heart failure: Qualifiers: Heart failure type: combined systolic and diastolic Qualified Code(s): I50.43 - Acute on chronic combined systolic (congestive) and diastolic (congestive) heart failure Code(s): I50.9 - Heart failure, unspecified Status: Acute (4) Atrial fibrillation: Code(s): I48.91 - Unspecified atrial fibrillation Status: Acute (5) COPD (chronic obstructive pulmonary disease): Code(s): J44.9 - Chronic obstructive pulmonary disease, unspecified Status: Acute (6) Hypertension: Code(s): I10 - Essential (primary) hypertension Status: Acute (7) Nausea: Code(s): R11.0 - Nausea Status: Acute (8) Hypokalemia: Code(s): E87.6 - Hypokalemia Status: Acute (9) Hypomagnesemia: Code(s): E83.42 - Hypomagnesemia Status: Acute DS: Summary Hospital Course Reason for hospitalization: From HPI of history and physical: Chief Complaint: Weakness, Nausea, Decreased Appetite Narrative: 83 y/o F presents here with persistent nausea, weakness, and decreased appetite with PMH of essential tremor, arthritis, breast cancer s/p lumpectomy of left breast, COPD, diabetes (not currently requiring meds), CHF, parathyroidectomy, and AFib. Patient presents here with nausea without vomiting, but has been dry heaving, since (11/09).? Weakness and nausea are accompanied by fatigue and mild cough that is nonproductive.? She reports baseline shortness of breath related to her COPD, but has become more short of breath today.? No associated diarrhea, abdominal pain, chills, chest pain, palpitations, or fever.? Recently seen at [facility] for neck pain and was diagnosed with arthritis, discharged with Voltaren gel which largely resolved pain.? Due to nausea patient has not been eating, drinking, or taking medication since .? Currently on medications for dyslipidemia, congestive heart failure (diuretics), hypertension, arthritis, and AFib. Hospital Course: 11/14/23: This is an 83 year old female who presents to the hospital on 11/11/23 with nausea and dry heaving since 11/09/23 and increased SOB. She has not been able to eat or take her daily medication since the . Work up in the hospital includes a chest x-ray that shown bilateral lower lung infiltrates and atelectasis, left greater than the right. WBC 6.6, hgb 10.5, Hct 35.4, K+ < 2.0, BUN 12, Creatinine 1.10, BG ranging 131-153, Lactic acid 2.1, AST 38, Alk phos 127, Total CK 189, proBNP 26560, TSH 3.190. Troponin 0.127>0.134. UA revealed 2+ protein, 1+ ketones. Respiratory panel negative. Blood cultures were obtained. Patient started on Rocephin and Doxycycline. On examination today patient is alert and oriented x3, lying in the bed. Family is at the bedside. Patient denies any nausea, vomiting, diarrhea, abdominal pain, chest pain, fever, or chills. She does appear labored? and to be using accessory muscles today. She was weaned to 6L HFNC. Lungs sound course throughout on examination. Discussed ECHO results with patient. She follow with a electronics detail draftsperson at [facility] and currently has an appointment to see him on November 21. Echo showing severely reduced RV and LV function with an EF of 15-20% and grade III diastolic dysfunction. Plan today for cardiology consultation, order for records to be obtained from electronics detail draftsperson at [facility], and repeat chest x-ray now. 11/15/23: On examination today patient is alert and oriented x3, lying
[2023-11-23 16:11] LABS: Influenza A QL RT-PCR Negative (Negative); Influenza B QL RT-PCR Negative (Negative); SARS-CoV-2 RNA PCR Negative (Negative)
[2023-11-23 16:48] LABS: Glucose Point of Care 110 mg/dl (65-105)
[2023-11-23] MEDS: RIVAROXABAN 20 MG TABLET PO (17:15)
== END 2023-11-23 18:00 | DRG 291 ==
LOC: ANHED 13:38 → ANHIMU 14:02 → ANH2MED 11-23 07:22 → ANHIMU 11-24 10:52
PROVIDERS: Internal Medicine; Nurse Practitioner; Nurse Practitioner Acute Care; Student in an Organized Health Care Education/Training Program; Admitting Provider Internal Medicine; Emergency Provider Physician Assistant; PCP Internal Medicine; Visit Provider Nurse Practitioner
DX: I11.0 Hypertensive heart disease with heart failure (principal); I50.43 Acute on chronic combined systolic (congestive) and diastolic (congestive) heart failure; J96.01 Acute respiratory failure with hypoxia; K92.1 Melena; J90 Pleural effusion, not elsewhere classified; K64.4 Residual hemorrhoidal skin tags; Z20.822 Contact with and (suspected) exposure to COVID-19; E87.6 Hypokalemia; I48.91 Unspecified atrial fibrillation; J44.9 Chronic obstructive pulmonary disease, unspecified; E11.9 Type 2 diabetes mellitus without complications; R25.1 Tremor, unspecified; E86.0 Dehydration; M19.90 Unspecified osteoarthritis, unspecified site; M06.9 Rheumatoid arthritis, unspecified; Z79.01 Long term (current) use of anticoagulants; Z85.3 Personal history of malignant neoplasm of breast; Z90.49 Acquired absence of other specified parts of digestive tract
CPT/HCPCS: 32555; 36415; 36569; 36600; 71045; 71046; 80048; 80053; 80069; 81001; 82375; 82550; 82805; 82948; 83036; 83050; 83605; 83690; 83735; 83880; 84100; 84132; 84443; 84484; 85025; 85610; 85652; 85730; 86140; 87040; 87636; 87637; 93005; 94640; 96361; 96374; 96375; 96376; 97110; 97161; 97165; 97530; 97535; 99285; A9270; C1751; C8929; C9113; G0378; J0696; J1940; J2060; J3475; J3480; J7030; J7040; Q9957

== ENCOUNTER 2023-11-24 18:46 | Emergency (ER) | payer MEDICARE, SELFPAY ==
--- NOTE | ~2023-11-24 | XR_ITS ---
EXAMINATION: XR chest 1V portable DATE: 11/24/2023 20:05 INDICATION: Dyspnea. TECHNIQUE: A single frontal view of the chest was obtained. COMPARISON: Chest single view 11/22/2023 FINDINGS: There is a diffuse interstitial pattern in the lungs, consistent with mild pulmonary edema. There is mild atelectasis at the lung bases. There is a small right pleural effusion. No pneumothora x. Cardiomegaly is noted. A right upper extremity peripherally inserted central venous catheter (PICC ) is seen with tip in the superior vena cava. IMPRESSION: 1. Mild pulmonary edema. 2. Stable small right pleural effusion. 3. Cardiomegaly. Reviewed, dictated and finalized at location E. ROOM ATTENDANT
[2023-11-24 18:58] VITALS: BP 119/77; PULSE 68; RESP 22; TEMP 36.4; O2SAT 98
[2023-11-24 18:59] VITALS: BP 119/77; PULSE 71; RESP 25; O2SAT 93
[2023-11-24 19:16] VITALS: BP 118/83; PULSE 85; RESP 24; O2SAT 100
[2023-11-24 19:45] VITALS: PULSE 70; RESP 19; O2SAT 98
--- NOTE | 2023-11-24 19:50 | ED.GENADULT ---
HPI - General Adult General Chief complaint: Recheck/Abnormal Lab/Rx Stated complaint: Hypoxia Time Seen by Provider: 11/24/23 19:13 History of Present Illness HPI narrative: patient is a 83-year-old female who presents emergency department with chief complaint of hypoxia. Patient was recently discharged from the hospital and is on oxygen continuously the patient was getting a breathing treatment and they took off her oxygen briefly and the nurse at the facility where she is at could not get an accurate pulse ox reading the nurse there proceeded to call EMS as she was concerned that the patient was becoming hypoxic the patient states that normally they have difficult time with a finger probe pulse ox and normally last warmer fingers up as they are continuously call Related Data Home Medications Medication Instructions Recorded Confirmed leflunomide 20 mg tablet 20 mg PO DAILY 08/26/20 11/22/23 pramipexole 0.5 mg tablet 1.5 mg PO TID 08/26/20 11/22/23 rivaroxaban 20 mg tablet (Xarelto) 20 mg PO DAILY 08/26/20 11/22/23 atorvastatin 20 mg tablet 20 mg PO DAILY 02/17/21 11/22/23 gabapentin 100 mg capsule 100 mg PO BID 04/26/23 11/22/23 spironolactone 25 mg tablet 25 mg PO DAILY 04/26/23 11/22/23 calcitriol 0.25 mcg capsule 0.25 mcg PO DAILY 11/11/23 11/11/23 torsemide 20 mg tablet 40 mg PO DAILY 11/11/23 11/11/23 umeclidinium 62.5 mcg-vilanterol 62.5 inh inhalation DAILY 11/11/23 11/11/23 25 mcg/actuation powdr for inhalation (Anoro Ellipta) Allergies Allergy/AdvReac Type Severity Reaction Status Date / Time adalimumab [From Humira] Allergy Severe site Verified 11/11/23 09:39 reaction etanercept [From Enbrel] Allergy Severe site Verified 11/11/23 09:39 reaction infliximab [From Remicade] Allergy Severe pass out Verified 11/11/23 09:39 levofloxacin [From Levaquin] Allergy Intermediate rash Verified 11/11/23 09:39 amoxicillin Allergy Mild rash Verified 11/21/23 09:06 clarithromycin Allergy Mild rash Verified 11/11/23 09:39 codeine Allergy Mild sick Verified 11/11/23 09:39 Review of Systems Review of Systems: A 10 system review of systems was completed on the patient and is negative except for what is stated in the HPI. Nursing and ancillary documentation was reviewed. [facility] Past Medical History Medical History Arthritis Atrial fibrillation On Xarelto Cancer Breast Congestive heart failure COPD (chronic obstructive pulmonary disease) Diabetes last A1c noted by pt to be 6.1 in 2019 Essential tremor Hypertension Rheumatoid arthritis Surgical History Surgical History H/O tubal ligation History of carpal tunnel release left wrist 08/[address] Valiente History of cholecystectomy History of lumpectomy of left breast Hx of parathyroidectomy Family History Family History Other Asthma Cancer Social History Social History Smoking status: Never smoker Alcohol intake: never Substance use type: does not use Do You Feel Safe in your Home?: Yes Lack of Transportation: No Lack of Food: Never True Current Housing: I Have Housing Concerned About Future Housing: No Difficulty Paying Gas/Electric Bills: No Difficulty Paying for Meds: No Currently Unemployed: No Education: Don't Know Difficulty w/ Childcare or Family Care: No Living arrangements: alone Occupation/Education: occupation 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 HEAD: Normocephalic, atraumatic. EYES: PERRLA and EOMI. ENT: Nares clear, no rhinorrhea or epistaxis. Mucous me
[2023-11-24 19:58] VITALS: O2SAT 96
[2023-11-24 20:30] VITALS: BP 131/74; PULSE 68; RESP 19; O2SAT 100
== END 2023-11-24 22:33 ==
PROVIDERS: Emergency Provider Emergency Medicine; PCP Internal Medicine
DX: J44.9 Chronic obstructive pulmonary disease, unspecified (principal); I50.9 Heart failure, unspecified; I11.0 Hypertensive heart disease with heart failure; I48.91 Unspecified atrial fibrillation; E11.9 Type 2 diabetes mellitus without complications; M19.90 Unspecified osteoarthritis, unspecified site; M06.9 Rheumatoid arthritis, unspecified; Z85.3 Personal history of malignant neoplasm of breast; Z90.89 Acquired absence of other organs; Z90.49 Acquired absence of other specified parts of digestive tract; Z79.01 Long term (current) use of anticoagulants; Z79.84 Long term (current) use of oral hypoglycemic drugs
CPT/HCPCS: 71045; 99283

== ENCOUNTER 2023-12-15 21:16 | Inpatient (IN) | payer MEDICARE, SELFPAY ==
[2023-12-15 21:17] VITALS: BP 164/82; PULSE 61; RESP 16; TEMP 36.2; O2SAT 98
[2023-12-15 21:45] LABS: Basophils Absolute Auto 0.1 K/mm3 (0.0-0.1); Eosinophils Absolute Auto 0.3 K/mm3 (0-0.3); Eosinophils Percent Auto 3.6 % (0-4.4); Hematocrit 41.1 % (37.0-47.0); Hemoglobin 12.1 g/dL (12.0-15.0); Immature Granulocyte Absolute 0.01 K/mm3 (0.00-0.031); Immature Granulocyte Percent A 0.1 % (0-0.5); Lymphocytes Absolute Auto 2.18 K/mm3 (0.9-3.2); Lymphocytes Percent Auto 31.7 % (18.3-44.2); Mean Corpuscular HGB Conc 29.4 g/dl (32-36); Mean Corpuscular Hemoglobin 26.2 pg (26-34); Mean Corpuscular Volume 89.2 fl (80-100); Mean Platelet Volume 11.1 fl (7.4-10.4); Monocytes Absolute Auto 0.5 K/mm3 (0.1-0.6); Monocytes Percent Auto 6.8 % (2.6-8.5); Neutrophils Absolute Auto 3.9 K/mm3 (1.3-6.7); Neutrophils Percent Auto 56.8 % (45.5-73.1); Platelet Count Result 306 k/mm3 (150-375); Red Blood Count 4.61 M/mm3 (4.2-5.4); Red Cell Distribution Width 18.2 % (11.5-14.5); White Blood Count 6.9 K/mm3 (4.5-10.0)
[2023-12-15 22:04] LABS: Alanine Aminotransferase 125 U/L (6-35); Albumin Level 4.5 g/dL (3.5-5.1); Alkaline Phosphatase 347 U/L (38-126); Anion Gap 10 mmol/L (8-16); Aspartate Amino Transferase 132 U/L (14-36); Bilirubin,Total 0.7 mg/dL (0.2-1.3); Blood Urea Nitrogen 43 mg/dL (7-17); Calcium 9.8 mg/dL (8.4-10.2); Carbon Dioxide 23 mmol/L (22-30); Chloride 103 mmol/L (98-107); Estimated CRCL calculation 15 ml/min; Estimated Glomerular Filt Rate 18; Glucose 145 mg/dL (65-110); Potassium 6.5 mmol/L (3.4-5.0); Sodium 136 mmol/L (137-145)
--- NOTE | 2023-12-15 22:08 | ECG_ITS ---
Measurements Intervals [place] Rate: 57 P: 55 PA: 242 QRS: -52 QRSD: 110 T: 49 QT: 416 QTc: 405 Interpretive Statements SINUS BRADYCARDIA WITH SINUS ARRHYTHMIA WITH FIRST DEGREE AV BLOCK LEFT ANTERIOR FASCICULAR BLOCK POOR R WAVE PROGRESSION, CONSIDER ANTERIOR INFARCT BORDERLINE ST ABNORMALITY- HIGH LATERAL LEADS ABNORMAL ECG COMPARED TO ECG 11/11/2023 18:18:40 SINUS BRADYCARDIA NOW PRESENT SINUS ARRHYTHMIA NOW PRESENT FIRST DEGREE AV BLOCK NOW PRESENT LEFT ANTERIOR FASCICULAR BLOCK NOW PRESENT Electronically Signed On 12-16-2023 6:37:51 BOOKING OFFICER by Amilcar Crocker D.O.
[2023-12-15 22:12] LABS: Platelet Estimate Adequate (Adequate)
[2023-12-15 22:13] LABS: Anisocytosis 2+ (NORMAL); Hypochromasia 1+ (NORMAL); Schistocytes None Seen (NORMAL)
[2023-12-15] MEDS: INSULIN HUMAN REGULAR (*BKC) 100 UNITS/ML 10 UNITS IV PUSH (23:10)
[2023-12-15] MEDS: DEXTROSE 50% 25 GM/50 ML SYRINGE IV PUSH (23:10)
[2023-12-15] MEDS: SODIUM CHLORIDE 0.9% IV 1,000 ML 999 ML IV CONT (23:12)
[2023-12-15] MEDS: SODIUM ZIRCONIUM CYCLOSILICATE 10 GM POWD.PACK PO (23:12)
[2023-12-15 23:16] VITALS: BP 131/73; PULSE 79; RESP 15; O2SAT 98
[2023-12-15] MEDS: CALCIUM GLUCONATE 1,000 MG/10 ML VIAL 1000 MG IV PUSH (23:16)
--- NOTE | 2023-12-15 23:16 | ED.GENADULT ---
HPI - General Adult General Chief complaint: Recheck/Abnormal Lab/Rx Stated complaint: high potassium Time Seen by Provider: 12/15/23 22:11 History of Present Illness HPI narrative: Patient is a 83-year-old female presents emergency department with chief complaint of abnormal labs. Patient had a blood work done as an outpatient and was found to have a elevated potassium and elevated BUN and creatinine. The patient states that she is taking a fair amount of potassium every day since she was in the hospital the patient states that she may feel a little weak but otherwise has no chest pain no shortness of breath the Related Data Home Medications Medication Instructions Recorded Confirmed leflunomide 20 mg tablet 20 mg PO DAILY 08/26/20 12/06/23 pramipexole 0.5 mg tablet 1.5 mg PO TID 08/26/20 12/06/23 rivaroxaban 20 mg tablet (Xarelto) 20 mg PO DAILY 08/26/20 12/06/23 atorvastatin 20 mg tablet 20 mg PO DAILY 02/17/21 12/06/23 gabapentin 100 mg capsule 100 mg PO BID 04/26/23 12/06/23 spironolactone 25 mg tablet 25 mg PO DAILY 04/26/23 12/06/23 calcitriol 0.25 mcg capsule 0.25 mcg PO DAILY 11/11/23 12/06/23 torsemide 20 mg tablet 40 mg PO DAILY 11/11/23 12/06/23 umeclidinium 62.5 mcg-vilanterol 62.5 inh inhalation DAILY 11/11/23 12/06/23 25 mcg/actuation powdr for inhalation (Anoro Ellipta) Allergies Allergy/AdvReac Type Severity Reaction Status Date / Time adalimumab [From Humira] Allergy Severe site Verified 11/28/23 09:00 reaction etanercept [From Enbrel] Allergy Severe site Verified 11/28/23 09:00 reaction infliximab [From Remicade] Allergy Severe pass out Verified 11/28/23 09:00 levofloxacin [From Levaquin] Allergy Intermediate rash Verified 11/28/23 09:00 amoxicillin Allergy Mild rash Verified 11/28/23 09:00 clarithromycin Allergy Mild rash Verified 11/28/23 09:00 codeine Allergy Mild sick Verified 11/28/23 09:00 Review of Systems Review of Systems: A 10 system review of systems was completed on the patient and is negative except for what is stated in the HPI. Nursing and ancillary documentation was reviewed. [facility] Past Medical History Medical History Arthritis Atrial fibrillation On Xarelto Cancer Breast Congestive heart failure COPD (chronic obstructive pulmonary disease) Diabetes last A1c noted by pt to be 6.1 in 2019 Essential tremor Hypertension Rheumatoid arthritis Surgical History Surgical History H/O tubal ligation History of carpal tunnel release left wrist 08/[address] Valiente History of cholecystectomy History of lumpectomy of left breast Hx of parathyroidectomy Family History Family History Other Asthma Cancer Social History Social History Smoking status: Never smoker Alcohol intake: never Substance use type: does not use Do You Feel Safe in your Home?: Yes Lack of Transportation: No Lack of Food: Never True Current Housing: I Have Housing Concerned About Future Housing: No Difficulty Paying Gas/Electric Bills: No Difficulty Paying for Meds: No Currently Unemployed: No Education: Don't Know Difficulty w/ Childcare or Family Care: No Living arrangements: alone Occupation/Education: occupation 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 HEAD: Normocephalic, atraumatic. EYES: PERRLA and EOMI. ENT: Nares clear, no rhinorrhea or epistaxis. Mucous membranes moist. NECK: Supple. CHEST: Clear to auscultation. No respiratory distress. HEART: Regular rate and rhythm. No murmur heard. Normal peripheral
[2023-12-15] MEDS: SODIUM BICARBONATE 8.4% 50 MEQ/50 ML SYRINGE IV PUSH (23:19)
--- NOTE | 2023-12-15 23:44 | PM.IMHP ---
H&P: HPI History of Present Illness Date/Time: 12/15/23 23:44 Chief Complaint: Abnormal labs Narrative: Patient has history of CHF for which she is on torsemide, spironolactone and entresto, she was diagnosed of hypokalemia and week of November 2023 and placed on oral potassium 40 mEq twice a day, she was at her primary care physician yesterday and had labs drawn her potassium came back 7.0 patient was called to come to the ER, she denied any symptoms. Further workup in the ER showed the patient has potassium of 6.5, it BUN of 43 and EGFR of 18 and a creatinine of 2.6 and these were totally different from her labs on November 22, 2023. EKG shows sinus bradycardia, she was provided with insulin and glucose, sodium bicarb and calcium gluconate, also given Kayexalate. During my encounter with patient she denies any symptoms Review of Systems Review of Systems: All systems reviewed & are unremarkable except as noted in HPI and below PMFSH Past Medical History Medical History Arthritis Atrial fibrillation On Xarelto Cancer Breast Congestive heart failure COPD (chronic obstructive pulmonary disease) Diabetes last A1c noted by pt to be 6.1 in 2019 Essential tremor Hypertension Rheumatoid arthritis Surgical History Surgical History H/O tubal ligation History of carpal tunnel release left wrist 08/[address] Valiente History of cholecystectomy History of lumpectomy of left breast Hx of parathyroidectomy Family History Family History Other Asthma Cancer Social History Social History Smoking status: Never smoker Alcohol intake: never Substance use type: does not use Do You Feel Safe in your Home?: Yes Lack of Transportation: No Lack of Food: Never True Current Housing: I Have Housing Concerned About Future Housing: No Difficulty Paying Gas/Electric Bills: No Difficulty Paying for Meds: No Currently Unemployed: No Education: High School Diploma/GED Difficulty w/ Childcare or Family Care: No Living arrangements: alone Occupation/Education: occupation 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 Gender identity (if verbalized by the patient): Female Spiritual care concerns: No Meds Home Medications and Allergies Home Medications Medication Instructions Recorded Confirmed Type leflunomide 20 mg tablet 20 mg PO DAILY 08/26/20 12/16/23 History pramipexole 0.5 mg tablet 1.5 mg PO TID 08/26/20 12/16/23 History rivaroxaban 20 mg tablet (Xarelto) 20 mg PO DAILY 08/26/20 12/16/23 History atorvastatin 20 mg tablet 20 mg PO DAILY 02/17/21 12/16/23 History gabapentin 100 mg capsule 100 mg PO BID 04/26/23 12/16/23 History spironolactone 25 mg tablet 25 mg PO DAILY 04/26/23 12/16/23 History calcitriol 0.25 mcg capsule 0.25 mcg PO DAILY 11/11/23 12/16/23 History torsemide 20 mg tablet 40 mg PO DAILY 11/11/23 12/16/23 History umeclidinium 62.5 mcg-vilanterol 62.5 inh inhalation DAILY 11/11/23 12/16/23 History 25 mcg/actuation powdr for inhalation (Anoro Ellipta) carvedilol 3.125 mg tablet (Coreg) 3.125 mg PO Q12HR #0 tabs 11/23/23 12/16/23 Rx empagliflozin 10 mg tablet 10 mg PO DAILY #0 tabs 11/23/23 12/16/23 Rx (Jardiance) hydrocortisone acetate 25 mg 25 mg RECTAL Q12HR #0 ea 11/23/23 12/16/23 Rx rectal suppository (Anusol-HC) levalbuterol HCl 1.25 mg/3 mL 1.25 mg (3 mL) inhalation Q6HRT #0 11/23/23 12/16/23 Rx solution for nebulization mL potassium chloride 20 mEq 40 meq PO BID #0 tabs 11/23/23 12/16/23 Rx tablet,extended release (K-Tab) sacubitril 24 mg-valsartan 26 mg 1 tablet PO Q12HR #0 tabs 11/23/23 12/16/23 Rx tablet (Entresto) tolnaftate 1 % topical powder 1 applic topical Q12HR #0 grams 11/23/23 12/16/23 Rx
[2023-12-15 23:58] LABS: Appearance Urine Cloudy (Clear); Bacteria Urine None Seen /hpf; Bilirubin Urine Negative (Negative); Blood Urine Negative (Negative); Color Urine Yellow (Yellow); Glucose Urine UA Negative (Negative); Ketones Urine Negative (Negative); Leukocyte Esterase Ur 1+ LEU/UL (Negative); Nitrate Urine Negative (Negative); Protein Urine Negative (Negative); RBC Urine 0-2 /hpf (0-2); Specific Grav Ur 1.012 (1.001-1.035); Squamous Epithelial Cell Urine Few /hpf (Few); Urobilinogen Urine 0.2 mg/dL (<2.0); WBC Urine 0-5 /hpf
[2023-12-16] VITALS (21 sets, daily range): BP systolic 100–120; BP diastolic 50–72; PULSE 44–111; RESP 12–22; TEMP 36.2–36.7; O2SAT 94–100; BMI 29.0
[2023-12-16] LABS: Add Urine Microscopic? YES; Need Manual Microscopic Reviewed
--- NOTE | 2023-12-16 00:26 | PC.NURSE ---
Pt reported dizziness to this RN @0020, this Rn checked pt blood sugar. Finger stick results were 25. Provider immediately made aware. EDP Dr. Escobar gave Verbal order to give two pushes of 25g 50% dextrose.
[2023-12-16 00:35] LABS: Glucose Point of Care 25 mg/dl (65-105)
[2023-12-16 00:35] LABS: Glucose Point of Care 414 mg/dl (65-105)
[2023-12-16] MEDS: DEXTROSE 50% 25 GM/50 ML SYRINGE IV PUSH ×2 (00:42→00:43)
[2023-12-16 01:07] LABS: Glucose Point of Care 166 mg/dl (65-105)
[2023-12-16 01:59] LABS: Glucose Point of Care 95 mg/dl (65-105)
[2023-12-16 02:13] LABS: Potassium 4.8 mmol/L (3.4-5.0)
--- NOTE | 2023-12-16 03:44 | ADMGEN ---
This patient, Genny Gomez, was admitted to [facility] Surg Room 304-02. Patient/family oriented to hospital policies and general routines including ID bracelet, bed and alarms, visiting hours, pain management, procedures, bathroom and other care routines, personal items, smoking policy, room service/diet, and visiting hours. Information on how to activate the Rapid Response Team has been discussed. Patient/Family are encouraged to report perceived risks to care and to ask questions if they do not understand what they are told or what they should do.
[2023-12-16 06:28] LABS: Basophils Absolute Auto 0.1 K/mm3 (0.0-0.1); Basophils Percent Auto 1.3 % (0.2-1.2); Eosinophils Absolute Auto 0.2 K/mm3 (0-0.3); Eosinophils Percent Auto 4.2 % (0-4.4); Hematocrit 34.4 % (37.0-47.0); Hemoglobin 10.1 g/dL (12.0-15.0); Immature Granulocyte Absolute 0.02 K/mm3 (0.00-0.031); Immature Granulocyte Percent A 0.4 % (0-0.5); Lymphocytes Absolute Auto 1.66 K/mm3 (0.9-3.2); Lymphocytes Percent Auto 31.5 % (18.3-44.2); Mean Corpuscular HGB Conc 29.4 g/dl (32-36); Mean Platelet Volume 11.1 fl (7.4-10.4); Monocytes Absolute Auto 0.5 K/mm3 (0.1-0.6); Monocytes Percent Auto 10.2 % (2.6-8.5); Neutrophils Absolute Auto 2.8 K/mm3 (1.3-6.7); Neutrophils Percent Auto 52.4 % (45.5-73.1); Nucleated Red Blood Cells Absolute Auto 0.1 K/mm3 (0.0-0.012); Nucleated Red Blood Cells Perc 1.9 % (0.0-0.2); Platelet Count Result 207 k/mm3 (150-375); Red Blood Count 3.74 M/mm3 (4.2-5.4); Red Cell Distribution Width 17.9 % (11.5-14.5); White Blood Count 5.3 K/mm3 (4.5-10.0)
[2023-12-16] MEDS: SODIUM CHLORIDE 0.9% IV 1,000 ML 125 ML IV CONT ×2 (07:12→14:16)
[2023-12-16 07:20] LABS: Anisocytosis 1+ (NORMAL); Ovalocytes 1+ (NORMAL); Schistocytes None Seen (NORMAL)
[2023-12-16 07:56] LABS: Glucose Point of Care 80 mg/dl (65-105)
[2023-12-16 08:40] LABS: Anion Gap 4 mmol/L (8-16); Blood Urea Nitrogen 37 mg/dL (7-17); Calcium 8.8 mg/dL (8.4-10.2); Carbon Dioxide 24 mmol/L (22-30); Chloride 108 mmol/L (98-107); Estimated CRCL calculation 18 ml/min; Estimated Glomerular Filt Rate 21; Glucose 87 mg/dL (65-110); Potassium 4.7 mmol/L (3.4-5.0); Sodium 136 mmol/L (137-145)
[2023-12-16] MEDS: HYDROCORTISONE ACETATE 25 MG SUPPOSITORY RECTAL (09:08)
[2023-12-16] MEDS: TORSEMIDE 20 MG TABLET 40 MG PO (09:12)
[2023-12-16] MEDS: LEFLUNOMIDE 20 MG TABLET PO (09:14)
[2023-12-16] MEDS: TOLNAFTATE 1% POWDER 45 GM BTL 1 APPLIC TOPICAL ×2 (09:14→21:16)
[2023-12-16] MEDS: EMPAGLIFLOZIN 10 MG TABLET PO (09:14)
[2023-12-16] MEDS: SPIRONOLACTONE 25 MG TABLET PO (09:14)
[2023-12-16] MEDS: PRAMIPEXOLE 0.5 MG TABLET 1.5 MG PO ×3 (09:14→16:25)
[2023-12-16] MEDS: calcitrioL 0.25 MCG CAPSULE PO (09:14)
[2023-12-16] MEDS: GABAPENTIN 100 MG CAPSULE PO ×2 (09:14→16:25)
[2023-12-16] MEDS: SACUBITRIL/VALSARTAN 24-26 MG TABLET 1 TAB PO ×2 (09:14→21:14)
[2023-12-16] MEDS: ATORVASTATIN 20 MG TABLET PO (09:14)
[2023-12-16 11:18] LABS: Glucose Point of Care 128 mg/dl (65-105)
[2023-12-16] MEDS: RIVAROXABAN 20 MG TABLET PO (16:25)
[2023-12-16 16:45] LABS: Glucose Point of Care 68 mg/dl (65-105)
--- NOTE | 2023-12-16 16:48 | PM.IMPN ---
Progress Note: A&P Assessment and Plan (1) Acute hyperkalemia: Code(s): E87.5 - Hyperkalemia Status: Acute (2) Acute kidney injury: Code(s): N17.9 - Acute kidney failure, unspecified Status: Acute (3) Atrial fibrillation: Code(s): I48.91 - Unspecified atrial fibrillation Status: Acute (4) Chronic combined systolic and diastolic CHF, NYHA class 4: Code(s): I50.42 - Chronic combined systolic (congestive) and diastolic (congestive) heart failure Status: Acute Plan 83-year-old female with history of combined systolic diastolic heart failure, COPD, CKD, atrial fibrillation on Xarelto, arthritis, [id number] diabetes mellitus, hypertension, rheumatoid arthritis, essential tremor who presents from her primary care physician with a potassium of 7. The patient was recently admitted to [facility] with hypokalemia and discharged on potassium supplementation. In the [place] [facility] she was given insulin with dextrose sodium bicarb calcium gluconate and Kayexalate. Admitted for hypokalemia on 12/15 1. Hyperkalemia -resolved status post Kayexalate and insulin administration. Recheck in a.m.. She was recently diagnosed with hypokalemia and this is the reason she was taking potassium supplementation at home. Will have to watch her trend and decide if she goes home on a small dose potassium pill. At the same time we are adjusting the torsemide and spironolactone. 2. SARAI on CKD -she usually trends in the mid 1 serum creatinine and presented with serum creatinine 2.6. Her diuretic was recently increased and she may be over diuresed. Bringing torsemide down to 10 mg daily and spironolactone to 12.5 mg. Repeat serum creatinine 2.2, improving, continue to trend. 3. Combined systolic diastolic CHF -euvolemic, dehydrated if anything. She received normal saline on admission because of her SARAI and now that is improving so discontinue fluids as to not overload her. Continue her Jardiance, torsemide and spironolactone and Entresto FEN: Saline lock IV. Cardiac diabetic diet. GI prophylaxis: None indicated DVT prophylaxis: On Xarelto Lines: Peripheral IV Code Status: Full code Dispo: Stable, hopefully home on Monday after another day of trending electrolytes and medication adjustment. Subjective Date/time seen: 12/16/23 16:48 Interval history: Patient reports feeling better. She denies any chest pain Review of Systems Review of Systems: All systems reviewed & are unremarkable except as noted in HPI and below (Subjective) Exam Const: General: comfortable and no acute distress Other: A and O x3 Eyes: Pupils: Equal, round and reactive pupils present Resp: Effort & Inspection: normal respiratory effort Auscultation: clear to auscultation bilaterally Cardio: Rate: regular rate GI: GI Palp: Yes Soft to palpation and No Tenderness to palpation present (GI) Extrem: General: no edema Objective Data Vital Signs Vital Signs: Vital Signs - 24 hr 12/15/23 21:17 12/15/23 23:16 12/16/23 00:56 Temperature 97.1 F L Pulse Rate 61 79 73 Respiratory Rate 16 15 16 Blood Pressure 164/82 H 131/73 105/65 Pulse Oximetry 98 98 94 Oxygen Delivery Room Air 12/16/23 01:00 12/16/23 01:01 12/16/23 01:11 Temperature Pulse Rate 60 61 56 L Respiratory Rate 20 22 H 18 Blood Pressure 114/60 120/59 L Pulse Oximetry 96 96 94 Oxygen Delivery 12/16/23 01:15 12/16/23 01:21 12/16/23 01:26 Temperature Pulse Rate 59 L 56 L 55 L Respiratory Rate 20 14 20 Blood Pressure 105/56 L 102/72 Pulse Oximetry Oxygen Delivery 12/16/23 01:32 12/16/23 01:45 12/16/23 01:50 Temperature Pulse Rate 53 L 56 L 58 L Respiratory Rate 14 16 20 Blood Pressure 116/61 Pulse Oximetry 96 Oxygen Delivery 12/16/23 05:41 12/16/23 04:00 12/16/23 09:13 Temperature 97.2 F L Pulse Rate 68 56 L 44 L Respiratory Rate 14 Blood Pressure
[2023-12-16 17:18] LABS: Glucose Point of Care 91 mg/dl (65-105)
[2023-12-16 20:17] LABS: Glucose Point of Care 126 mg/dl (65-105)
[2023-12-16] MEDS: carvediloL 3.125 MG TABLET PO (21:14)
[2023-12-17] VITALS (10 sets, daily range): BP systolic 108–125; BP diastolic 52–79; PULSE 57–74; RESP 12–16; TEMP 35.8–36.5; O2SAT 97–99
[2023-12-17 03:18] LABS: Glucose Point of Care 98 mg/dl (65-105)
[2023-12-17 07:11] LABS: Glucose Point of Care 66 mg/dl (65-105)
[2023-12-17 07:18] LABS: Hematocrit 36.6 % (37.0-47.0); Hemoglobin 10.7 g/dL (12.0-15.0); Mean Corpuscular HGB Conc 29.2 g/dl (32-36); Mean Corpuscular Hemoglobin 26.4 pg (26-34); Mean Corpuscular Volume 90.4 fl (80-100); Mean Platelet Volume 11.7 fl (7.4-10.4); Platelet Count Result 236 k/mm3 (150-375); Red Blood Count 4.05 M/mm3 (4.2-5.4); White Blood Count 5.3 K/mm3 (4.5-10.0)
[2023-12-17 07:33] LABS: Alanine Aminotransferase 152 U/L (6-35); Albumin Level 3.6 g/dL (3.5-5.1); Alkaline Phosphatase 269 U/L (38-126); Anion Gap 7 mmol/L (8-16); Aspartate Amino Transferase 174 U/L (14-36); Bilirubin,Total 0.7 mg/dL (0.2-1.3); Blood Urea Nitrogen 35 mg/dL (7-17); Calcium 8.6 mg/dL (8.4-10.2); Carbon Dioxide 21 mmol/L (22-30); Chloride 106 mmol/L (98-107); Estimated CRCL calculation 19 ml/min; Estimated Glomerular Filt Rate 24; Glucose 76 mg/dL (65-110); Magnesium 1.9 mg/dL (1.6-2.3); Potassium 4.8 mmol/L (3.4-5.0); Sodium 134 mmol/L (137-145)
[2023-12-17 07:43] LABS: Glucose Point of Care 98 mg/dl (65-105)
[2023-12-17] MEDS: carvediloL 3.125 MG TABLET PO ×2 (08:27→21:13)
[2023-12-17] MEDS: GABAPENTIN 100 MG CAPSULE PO ×2 (08:27→17:18)
[2023-12-17] MEDS: calcitrioL 0.25 MCG CAPSULE PO (08:27)
[2023-12-17] MEDS: TORSEMIDE 10 MG TABLET PO (08:32)
[2023-12-17] MEDS: LEFLUNOMIDE 20 MG TABLET PO (08:32)
[2023-12-17] MEDS: PRAMIPEXOLE 0.5 MG TABLET 1.5 MG PO ×3 (08:32→17:18)
[2023-12-17] MEDS: EMPAGLIFLOZIN 10 MG TABLET PO (08:32)
[2023-12-17] MEDS: SACUBITRIL/VALSARTAN 24-26 MG TABLET 1 TAB PO ×2 (08:32→21:13)
[2023-12-17] MEDS: ATORVASTATIN 20 MG TABLET PO (08:32)
[2023-12-17] MEDS: SPIRONOLACTONE 12.5 MG TABLET PO (08:33)
[2023-12-17] MEDS: TOLNAFTATE 1% POWDER 45 GM BTL 1 APPLIC TOPICAL ×2 (08:33→21:14)
[2023-12-17] MEDS: UMECLIDINIUM/VILANTEROL 62.5-25 MCG ELLIPTA 1 PUFF INHALATION (10:07)
[2023-12-17 11:43] LABS: Glucose Point of Care 144 mg/dl (65-105)
--- NOTE | 2023-12-17 15:36 | PM.IMPN ---
Progress Note: A&P Assessment and Plan (1) Acute hyperkalemia: Code(s): E87.5 - Hyperkalemia Status: Acute (2) Acute kidney injury: Code(s): N17.9 - Acute kidney failure, unspecified Status: Acute (3) Atrial fibrillation: Code(s): I48.91 - Unspecified atrial fibrillation Status: Acute (4) Chronic combined systolic and diastolic CHF, NYHA class 4: Code(s): I50.42 - Chronic combined systolic (congestive) and diastolic (congestive) heart failure Status: Acute Plan 83-year-old female with history of combined systolic diastolic heart failure, COPD, CKD, atrial fibrillation on Xarelto, arthritis, [id number] diabetes mellitus, hypertension, rheumatoid arthritis, essential tremor who presents from her primary care physician with a potassium of 7. The patient was recently admitted to [facility] with hypokalemia and discharged on potassium supplementation. In the [place] [facility] she was given insulin with dextrose sodium bicarb calcium gluconate and Kayexalate. Admitted for hypokalemia on 12/15 1. Hyperkalemia -resolved status post Kayexalate and insulin administration. Recheck in a.m.. She was recently diagnosed with hypokalemia and this is the reason she was taking potassium supplementation at home. Will have to watch her trend and decide if she goes home on a small dose potassium pill. At the same time we are adjusting the torsemide and spironolactone. On 12/17 her potassium is holding. Recheck in the a.m. again. 2. SARAI on CKD -she usually trends in the mid 1 serum creatinine and presented with serum creatinine 2.6. Her diuretic was recently increased and she may be over diuresed. Bringing torsemide down to 10 mg daily and spironolactone to 12.5 mg. Repeat serum creatinine 2.2, improving, continue to trend. On 12/17 her serum creatinine is improving. Continue current management. 3. Combined systolic diastolic CHF -euvolemic, dehydrated if anything. She received normal saline on admission because of her SARAI and now that is improving so discontinue fluids as to not overload her. Continue her Jardiance, torsemide and spironolactone and Entresto On 12/17 she appears euvolemic. Continue current management 4. She has had hypoglycemia in the morning. She reports at home she usually eats a small dinner and then snacks before bedtime. She has not been snacking here. Advised her she can receive snack at bedtime. Discontinue her Jardiance and this can be continued as an outpatient for sugars remained stable. FEN: Saline lock IV. Cardiac diabetic diet. GI prophylaxis: None indicated DVT prophylaxis: On Xarelto Lines: Peripheral IV Code Status: Full code Dispo: Stable, hopefully home on Monday after another day of trending electrolytes and medication adjustment. Subjective Date/time seen: 12/17/23 15:36 Interval history: No acute overnight events. The patient reports she usually snacks before bedtime at home but here she has not. Review of Systems Review of Systems: All systems reviewed & are unremarkable except as noted in HPI and below (Subjective) Exam Const: General: comfortable and no acute distress Eyes: Pupils: Equal, round and reactive pupils present Neck: Neck: supple Resp: Effort & Inspection: normal respiratory effort Auscultation: clear to auscultation bilaterally Cardio: Rate: regular rate Rhythm: regular rhythm GI: GI Palp: Yes Soft to palpation and No Tenderness to palpation present (GI) Extrem: General: no edema Objective Data Vital Signs Vital Signs: Vital Signs - 24 hr 12/16/23 16:00 12/16/23 21:14 12/16/23 22:00 Temperature 97.1 F L Pulse Rate 60 69 78 Respiratory Rate 12 Blood Pressure 114/69 Pulse Oximetry 99 Oxygen Delivery 12/16/23 20:00 12/17/23 00:00 12/17/23 04:00 Temperature Pulse Rate 98 65 59 L Respiratory Rate Blood Pressure Pulse Oximetry Oxygen
[2023-12-17 17:13] LABS: Glucose Point of Care 150 mg/dl (65-105)
[2023-12-17] MEDS: RIVAROXABAN 20 MG TABLET PO (17:18)
[2023-12-17] MEDS: HYDROCORTISONE ACETATE 25 MG SUPPOSITORY RECTAL (21:14)
[2023-12-18] VITALS (9 sets, daily range): BP systolic 91–116; BP diastolic 53–71; PULSE 60–74; RESP 16–22; TEMP 36.3–36.6; O2SAT 95–99; BMI 29.0
[2023-12-18 00:49] LABS: Glucose Point of Care 119 mg/dl (65-105)
[2023-12-18 06:45] LABS: Hematocrit 34.2 % (37.0-47.0); Mean Corpuscular HGB Conc 29.2 g/dl (32-36); Mean Corpuscular Hemoglobin 26.4 pg (26-34); Mean Corpuscular Volume 90.2 fl (80-100); Mean Platelet Volume 11.3 fl (7.4-10.4); Platelet Count Result 238 k/mm3 (150-375); Red Blood Count 3.79 M/mm3 (4.2-5.4); White Blood Count 7.5 K/mm3 (4.5-10.0)
[2023-12-18 07:01] LABS: Anion Gap 7 mmol/L (8-16); Blood Urea Nitrogen 34 mg/dL (7-17); Calcium 8.4 mg/dL (8.4-10.2); Carbon Dioxide 21 mmol/L (22-30); Chloride 105 mmol/L (98-107); Estimated CRCL calculation 19 ml/min; Estimated Glomerular Filt Rate 22; Glucose 82 mg/dL (65-110); Magnesium 1.8 mg/dL (1.6-2.3); Potassium 4.3 mmol/L (3.4-5.0); Sodium 133 mmol/L (137-145)
[2023-12-18] MEDS: UMECLIDINIUM/VILANTEROL 62.5-25 MCG ELLIPTA 1 PUFF INHALATION (08:07)
[2023-12-18 08:08] LABS: Glucose Point of Care 74 mg/dl (65-105)
[2023-12-18 08:58] LABS: Glucose Point of Care 124 mg/dl (65-105)
[2023-12-18] MEDS: PRAMIPEXOLE 0.5 MG TABLET 1.5 MG PO ×2 (09:25→15:04)
[2023-12-18] MEDS: SPIRONOLACTONE 12.5 MG TABLET PO (09:25)
[2023-12-18] MEDS: SACUBITRIL/VALSARTAN 24-26 MG TABLET 1 TAB PO (09:26)
[2023-12-18] MEDS: LEFLUNOMIDE 20 MG TABLET PO (09:26)
[2023-12-18] MEDS: TORSEMIDE 10 MG TABLET PO (09:26)
[2023-12-18] MEDS: ATORVASTATIN 20 MG TABLET PO (09:26)
[2023-12-18] MEDS: TOLNAFTATE 1% POWDER 45 GM BTL 1 APPLIC TOPICAL (09:27)
[2023-12-18] MEDS: calcitrioL 0.25 MCG CAPSULE PO (09:27)
[2023-12-18] MEDS: GABAPENTIN 100 MG CAPSULE PO (09:27)
[2023-12-18] MEDS: carvediloL 3.125 MG TABLET PO (09:34)
[2023-12-18 11:20] LABS: Glucose Point of Care 126 mg/dl (65-105)
[2023-12-18 16:13] LABS: Glucose Point of Care 117 mg/dl (65-105)
--- NOTE | 2023-12-18 16:23 | PM.DS ---
DS: Admitting Diagnosis Discharge Date December 18 Admitting Diagnosis Hyperkalemia DS: Discharge Diagnosis Discharge Diagnosis (1) Acute hyperkalemia: Code(s): E87.5 - Hyperkalemia Status: Acute (2) Acute kidney injury: Code(s): N17.9 - Acute kidney failure, unspecified Status: Acute (3) Weakness: Code(s): R53.1 - Weakness Status: Acute (4) Dehydration: Code(s): E86.0 - Dehydration Status: Acute DS: Summary Hospital Course Hospital Course: 83-year-old female with history of combined systolic diastolic heart failure, COPD, CKD, atrial fibrillation on Xarelto, arthritis, [id number] diabetes mellitus, hypertension, rheumatoid arthritis, essential tremor who presents from her primary care physician with a potassium of 7.? The patient was recently admitted to [facility] with hypokalemia and discharged on potassium supplementation.? In the [place] [facility] she was given insulin with dextrose sodium bicarb calcium gluconate and Kayexalate.? Admitted for hypokalemia on 12/15 Her potassium was held, torsemide cut in half to 10 mg q.day and spironolactone cut in half to 12.5 mg q.day. she remained euvolemic and her potassium within normal limits. She will not be discharged on potassium supplementation. Educated the patient and the son that she should have an adequate oral diet at home. She was eating much better at the hospital and that is likely what kept her potassium up. She will have a repeat BMP and magnesium in 2 days and follow up with PCP within a week. She is advised to return to the ER if she has any overt symptoms and she understands this. Her SARAI on CKD did improve after fluid resuscitation. The patient was DNR during her stay. She is discharged home in stable condition on 12/18 Time Spent with Patient Time attestation: Total time spent providing and/or coordinating discharge services: Exam Const: General: comfortable and no acute distress Eyes: Pupils: Equal, round and reactive pupils present Neck: Neck: supple Resp: Effort & Inspection: normal respiratory effort Auscultation: clear to auscultation bilaterally Cardio: Rate: regular rate Rhythm: regular rhythm GI: GI Palp: Yes Soft to palpation and No Tenderness to palpation present (GI) Extrem: General: no edema DS: Data Data Completed and Pending Labs on day of discharge: Labs from last 24 hours 12/18/23 12/18/23 12/18/23 16:03 11:10 08:55 WBC RBC Hgb Hct MCV MCH MCHC RDW Plt Count MPV Sodium Potassium Chloride Carbon Dioxide Anion Gap BUN Creatinine Estim Creat Clear Calc Estimated GFR Glucose POC Capillary Glucose 117 H 126 H 124 H Calcium Magnesium 12/18/23 12/18/23 12/17/23 08:02 06:00 21:12 WBC 7.5 RBC 3.79 L Hgb 10.0 L Hct 34.2 L MCV 90.2 MCH 26.4 MCHC 29.2 L RDW 18.0 H Plt Count 238 MPV 11.3 H Sodium 133 L Potassium 4.3 Chloride 105 Carbon Dioxide 21 L Anion Gap 7 L BUN 34 H Creatinine 2.10 H Estim Creat Clear Calc 19 Estimated GFR 22 L Glucose 82 POC Capillary Glucose 74 119 H Calcium 8.4 Magnesium 1.8 12/17/23 17:01 WBC RBC Hgb Hct MCV MCH MCHC RDW Plt Count MPV Sodium Potassium Chloride Carbon Dioxide Anion Gap BUN Creatinine Estim Creat Clear Calc Estimated GFR Glucose POC Capillary Glucose 150 H Calcium Magnesium Discharge Plan Discharge Attending physician on discharge: Colleen Lugo Discharging Clinician: Colleen Lugo Patient Disposition: Home Health Service Activity: march shower Diet: heart healthy and diabetic Discharge Instructions: Per Care Coordination: [facility] will resume services with patient at discharge. [facility] will resume RN and PT/OT eval and treat services.
--- NOTE | 2023-12-18 18:28 | PC.NURSE ---
I, Idalmis Graham RN, have personally reviewed Mitzi Root's [employer] charting and agree with Mitzi's charting.
== END 2023-12-18 17:00 | disposition home health service (06) | DRG 683 ==
LOC: ANHED 23:44 → ANH3MEDSUR 12-16 02:38
PROVIDERS: Admitting Provider Student in an Organized Health Care Education/Training Program; Emergency Provider Emergency Medicine; PCP Internal Medicine; Visit Provider General Practice
DX: N17.9 Acute kidney failure, unspecified (principal); I13.0 Hypertensive heart and chronic kidney disease with heart failure and stage 1 through stage 4 chronic kidney disease, or unspecified chronic kidney disease; I50.42 Chronic combined systolic (congestive) and diastolic (congestive) heart failure; I48.20 Chronic atrial fibrillation, unspecified; E87.5 Hyperkalemia; N18.9 Chronic kidney disease, unspecified; E11.22 Type 2 diabetes mellitus with diabetic chronic kidney disease; E11.649 Type 2 diabetes mellitus with hypoglycemia without coma; J44.9 Chronic obstructive pulmonary disease, unspecified; M19.90 Unspecified osteoarthritis, unspecified site; M06.9 Rheumatoid arthritis, unspecified; E86.0 Dehydration; G25.0 Essential tremor; Z85.3 Personal history of malignant neoplasm of breast; Z79.01 Long term (current) use of anticoagulants
CPT/HCPCS: 36415; 80048; 80053; 81001; 82948; 83735; 84132; 85025; 85027; 93005; 94640; 96361; 96374; 96375; 99285; A9270; G0378; J0612; J1815; J7030

== ENCOUNTER 2024-08-25 14:15 | Emergency (ER) | payer MEDICARE, SELFPAY ==
[2024-08-25 14:45] VITALS: BP 143/100; PULSE 88; RESP 16; TEMP 36.3; O2SAT 98
--- NOTE | 2024-08-25 19:18 | PC.NURSE ---
Patient called out for a room in the ED, no answer
== END 2024-08-25 19:18 | disposition left against medical advice (07) ==
PROVIDERS: PCP Internal Medicine
DX: R10.9 Unspecified abdominal pain (principal)
CPT/HCPCS: 99199

== ENCOUNTER 2024-08-26 09:48 | Emergency (ER) | payer MEDICARE, SELFPAY ==
--- NOTE | ~2024-08-26 | XR_ITS ---
EXAMINATION: XR hip RT 2V w AP pelvis DATE: 08/26/2024 12:08 INDICATION: General hip pain. TECHNIQUE: An anteroposterior view of the pelvis and 2 views of right hip were obtained. COMPARISON: None. FINDINGS: There is lumbar levoscoliosis and moderate spondylosis. No fracture. There are benign bone islands in proximal right femur. There is mild osteoarthritis of the hips. Osteitis pubis is noted. IMPRESSION: 1. Mild osteoarthritis of the hips. Reviewed, dictated and finalized at location A.
--- NOTE | ~2024-08-26 | XR_ITS ---
EXAMINATION: XR chest 2V DATE: 08/26/2024 10:55 INDICATION: Weakness. TECHNIQUE: Frontal and lateral views of the chest were obtained. COMPARISON: Chest single view 11/24/2023 FINDINGS: Anibal B-lines are noted, consistent with mild pulmonary edema. No pleural effusion or pneu mothorax. Cardiomegaly is noted. IMPRESSION: 1. Mild pulmonary edema. 2. Cardiomegaly. Reviewed, dictated and finalized at location A.
[2024-08-26 09:49] VITALS: BP 149/103; PULSE 86; RESP 20; TEMP 36.8; O2SAT 96
[2024-08-26 10:14] VITALS: BP 169/93; PULSE 76; RESP 19; TEMP 36.6; O2SAT 97
--- NOTE | 2024-08-26 10:19 | ECG_ITS ---
Test Date: 2024-08-26 10:38:39 Measurements Intervals Amery Rate: 71 P: -66 AR: 169 QRS: -43 QRSD: 109 T: 84 QT: 428 QTc: 467 Interpretive Statements SINUS RHYTHM WITH OCCASIONAL VENTRICULAR PREMATURE COMPLEXES WITH OCCASIONAL SUPRAVENTRICULAR PREMATURE COMPLEXES LEFT AXIS DEVIATION [QRS AXIS < -30] POOR R-WAVE PROGRESSION ABNORMAL ECG No previous ECG available for comparison Electronically Signed On 08-26-2024 14:38:27 CDT by Jonathon Moore M.D.
[2024-08-26 10:27] VITALS: PULSE 70
[2024-08-26 10:34] LABS: Basophils Absolute Auto 0.1 K/mm3 (0.0-0.1); Basophils Percent Auto 1.1 % (0.2-1.2); Eosinophils Absolute Auto 0.1 K/mm3 (0-0.3); Eosinophils Percent Auto 1.8 % (0-4.4); Hematocrit 35.2 % (37.0-47.0); Immature Granulocyte Absolute 0.03 K/mm3 (0.00-0.031); Immature Granulocyte Percent A 0.6 % (0-0.5); Lymphocytes Percent Auto 22.1 % (18.3-44.2); Mean Corpuscular HGB Conc 31.3 g/dl (32-36); Mean Corpuscular Hemoglobin 28.4 pg (26-34); Mean Platelet Volume 10.6 fl (7.4-10.4); Monocytes Absolute Auto 0.6 K/mm3 (0.1-0.6); Monocytes Percent Auto 10.3 % (2.6-8.5); Neutrophils Absolute Auto 3.5 K/mm3 (1.3-6.7); Neutrophils Percent Auto 64.1 % (45.5-73.1); Platelet Count Result 211 k/mm3 (150-375); Red Blood Count 3.87 M/mm3 (4.2-5.4); Red Cell Distribution Width 14.1 % (11.5-14.5); White Blood Count 5.4 K/mm3 (4.5-10.0)
[2024-08-26 10:54] LABS: Alanine Aminotransferase 13 U/L (6-35); Albumin Level 3.6 g/dL (3.5-5.1); Alkaline Phosphatase 107 U/L (38-126); Anion Gap 7 mmol/L (4-12); Aspartate Amino Transferase 29 U/L (14-36); Bilirubin,Total 1.2 mg/dL (0.2-1.3); Blood Urea Nitrogen 13 mg/dL (7-17); Carbon Dioxide 29 mmol/L (22-30); Chloride 103 mmol/L (98-107); Estimated CRCL calculation 28 ml/min; Estimated Glomerular Filt Rate 36; Glucose 121 mg/dL (65-110); Potassium 3.1 mmol/L (3.4-5.0); Sodium 139 mmol/L (137-145)
[2024-08-26 11:16] LABS: Influenza A QL RT-PCR Negative (Negative); Influenza B QL RT-PCR Negative (Negative); SARS-CoV-2 RNA PCR Negative (Negative)
--- NOTE | 2024-08-26 11:28 | ED.GENADULT ---
HPI - General Adult General Chief complaint: Weakness Stated complaint: weak Time Seen by Provider: 08/26/24 11:12 History of Present Illness HPI narrative: 83-year-old female present to the emergency department for evaluation for increased generalized weakness. Patient states she has had decreased p.o. intake since Monday and had dry heaves. Patient denies any current nausea. Patient denies any falls or injuries. Patient denies any cough shortness of breath chest pain, abdominal pain. Patient does report right hip pain that has been bothering her for the last 2 months. Related Data Home Medications Medication Instructions Recorded Confirmed leflunomide 20 mg tablet 20 mg PO DAILY 08/26/20 06/14/24 pramipexole 0.5 mg tablet 1.5 mg PO TID 08/26/20 06/14/24 atorvastatin 20 mg tablet 20 mg PO DAILY 02/17/21 06/14/24 gabapentin 100 mg capsule 100 mg PO BID 04/26/23 06/14/24 calcitriol 0.25 mcg capsule 0.25 mcg PO DAILY 11/11/23 06/14/24 umeclidinium 62.5 mcg-vilanterol 62.5 inh inhalation DAILY 11/11/23 06/14/24 25 mcg/actuation powdr for inhalation (Anoro Ellipta) Allergies Allergy/AdvReac Type Severity Reaction Status Date / Time adalimumab [From Humira] Allergy Severe site Verified 08/25/24 14:18 reaction etanercept [From Enbrel] Allergy Severe site Verified 08/25/24 14:18 reaction infliximab [From Remicade] Allergy Severe pass out Verified 08/25/24 14:18 levofloxacin [From Levaquin] Allergy Intermediate rash Verified 08/25/24 14:18 amoxicillin Allergy Mild rash Verified 08/25/24 14:18 clarithromycin Allergy Mild rash Verified 08/25/24 14:18 codeine Allergy Mild sick Verified 08/25/24 14:18 Review of Systems Review of Systems: All systems reviewed & are unremarkable except as noted in HPI and below PMFSH Past Medical History Medical History Arthritis Atrial fibrillation On Xarelto Cancer Breast Congestive heart failure COPD (chronic obstructive pulmonary disease) Diabetes last A1c noted by pt to be 6.1 in 2019 Essential tremor Hypertension Rheumatoid arthritis Surgical History Surgical History H/O tubal ligation History of carpal tunnel release left wrist 08/[address] Valiente History of cholecystectomy History of lumpectomy of left breast Hx of parathyroidectomy Family History Family History Other Asthma Cancer Social History Social History Smoking status: Never smoker Alcohol intake: never Substance use type: does not use Do You Feel Safe in your Home?: Yes Lack of Transportation: No Lack of Food: Never True Current Housing: I Have Housing Concerned About Future Housing: No Difficulty Paying Gas/Electric Bills: No Difficulty Paying for Meds: No Currently Unemployed: No Education: High School Diploma/GED Difficulty w/ Childcare or Family Care: No Living arrangements: alone Occupation/Education: occupation 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 Vital Signs Vital signs: Vital Signs Temperature 98.2 F 08/26/24 09:49 Pulse Rate 86 08/26/24 09:49 Respiratory Rate 20 08/26/24 09:49 Blood Pressure 149/103 H 08/26/24 09:49 Pulse Oximetry 96 08/26/24 09:49 Oxygen Delivery Room Air 08/26/24 09:49 Temperature 97.8 F 08/26/24 10:14 Pulse Rate 67 08/26/24 14:03 Respiratory Rate 18 08/26/24 14:03 Blood Pressure 138/82 08/26/24 14:03 Pulse Oximetry 99 08/26/24 14:03 Oxygen Delivery Room Air 08/26/24 09:49 Medical Decision Making MDM Narrative Med
[2024-08-26 11:41] LABS: Add Urine Microscopic? YES; Appearance Urine Clear (Clear); Bacteria Urine None Seen /hpf; Bilirubin Urine Negative (Negative); Blood Urine Negative (Negative); Color Urine Yellow (Yellow); Glucose Urine UA Negative (Negative); Ketones Urine 1+ mg/dL (Negative); Leukocyte Esterase Ur Negative LEU/UL (Negative); Nitrate Urine Negative (Negative); Non Pathogenic Casts 0-2; Protein Urine 1+ mg/dL (Negative); RBC Urine 0-2 /hpf (0-2); Specific Grav Ur 1.016 (1.001-1.035); Squamous Epithelial Cell Urine None Seen /hpf (Few); Urobilinogen Urine 0.2 mg/dL (<2.0); WBC Urine 0-5 /hpf (0-3); pH Urine 6.5 (5.0-9.0)
[2024-08-26] MEDS: SODIUM CHLORIDE 0.9% IV 1,000 ML 999 ML IV CONT (12:11)
[2024-08-26] MEDS: ONDANSETRON INJ 4 MG/2 ML VIAL IV PUSH ×2 (12:12→13:15)
[2024-08-26 12:42] VITALS: BP 147/99; PULSE 68; RESP 17; O2SAT 95
[2024-08-26] MEDS: HYDROcodone/acetaminophen (*CRX) 5-325 MG TABLET 1 TAB PO (13:15)
[2024-08-26 14:03] VITALS: BP 138/82; PULSE 67; RESP 18; O2SAT 99
== END 2024-08-26 14:04 | disposition home or self-care (01) ==
PROVIDERS: Emergency Provider Emergency Medicine; PCP Internal Medicine
DX: R63.39 Other feeding difficulties (principal); M16.0 Bilateral primary osteoarthritis of hip; Z20.822 Contact with and (suspected) exposure to COVID-19; I48.91 Unspecified atrial fibrillation; I50.9 Heart failure, unspecified; I11.0 Hypertensive heart disease with heart failure; J44.9 Chronic obstructive pulmonary disease, unspecified; E11.9 Type 2 diabetes mellitus without complications; M06.9 Rheumatoid arthritis, unspecified; Z85.3 Personal history of malignant neoplasm of breast; Z90.49 Acquired absence of other specified parts of digestive tract; Z90.89 Acquired absence of other organs; Z79.01 Long term (current) use of anticoagulants; Z79.899 Other long term (current) drug therapy
CPT/HCPCS: 36415; 71046; 73502; 80053; 81001; 85025; 87636; 93005; 96361; 96374; 96376; 99284; A9270; J2405; J7030

== ENCOUNTER 2024-09-19 07:17 | Inpatient (IN) | payer MEDICARE, SELFPAY ==
[2024-09-19] VITALS (18 sets, daily range): BP systolic 107–125; BP diastolic 67–96; PULSE 45–151; RESP 19–97; TEMP 36.6–36.7; O2SAT 93–100
--- NOTE | 2024-09-19 | ECHO_ITS ---
Patient Info Name: Genny Gomez Age: 83 years : 1940 Gender: Female Ht: 64 in Wt: 175 lbs BSA: 1.92 m2 HR: 99 bpm BP: 113 / 88 mmHg Heart Rhythm: Atrial Fibrillation Technical Quality: Fair Exam Date: 09/19/2024 4:33 PM Exam Location: Echo Lab Patient Status: Outpatient Admit Date: 09/19/2024 Staff Ordering Physician: Angelita Hassan APRN Printing Engineer: Ranjit Nj RDCS Attending Provider: Oleg Robledo MD Referring Physician: Mo GERMAIN; Exam Type: CA echo doppler color flow Study Info Indications R53.81 - Other malaise - Elevated BNP Complete two-dimensional, color flow and Doppler transthoracic echocardiogram is performed. Summary 1. Left ventricular chamber dimension is moderately enlarged. 2. Left ventricular systolic function is moderately reduced, estimated at 35-40%. 3. There is mildly increased left ventricular wall thickness. 4. Right ventricular chamber dimension is normal. 5. Right ventricular systolic function is reduced. 6. Left atrial chamber dimension is severely enlarged. 7. Right atrial chamber dimension is mildly enlarged. 8. There is mild aortic valve regurgitation. 9. The mitral valve has thickened leaflets. 10. There is mild tricuspid valve regurgitation. Left Ventricle Left ventricular chamber dimension is moderately enlarged. Left ventricular systolic function is moderately reduced, estimated at 35-40%. There is mildly increased left ventricular wall thickness. The left ventricular diastolic function is abnormal. Right Ventricle Right ventricular chamber dimension is normal. Right ventricular systolic function is reduced. Left Atria Left atrial chamber dimension is severely enlarged. Right Atria Right atrial chamber dimension is mildly enlarged. Atrial Septum Intact interatrial septum visualized by color flow imaging. Aortic Valve The aortic valve is trileaflet. There is no aortic valve stenosis. There is mild aortic valve regurgitation. There is moderate aortic valve calcification. Pulmonic Valve The pulmonic valve is not well visualized. There is trace pulmonic regurgitation. Mitral Valve The mitral valve has thickened leaflets. There is severe mitral valve regurgitation. Tricuspid Valve There is mild tricuspid valve regurgitation. Pericardium/Pleural There is no pericardial effusion. Inferior Vena Cava Dilated inferior vena cava with >50% collapse upon inspiration consistent with elevated right atrial pressure, 8 mmHg. Aorta The aortic root size at the sinus of Valsalva is normal. Left Ventricular Outflow Tract Name Value Normal LVOT 2D LVOT Diameter 2.1 cm LVOT Doppler LVOT Peak Gradient 4 mmHg LVOT Mean Gradient 2 mmHg LVOT VTI 15 cm LVOT VTI/AV VTI Ratio 0.6 LVOT Stroke Volume 50 ml LVOT CO 3.5 l/min LVOT CI 1.8 l/min/m2 Pulmonic Valve Name Value Normal PV Doppler PV Peak Gradient 1 mmHg PV Regurgitation Doppler OH Peak End Diastolic Velocity 131 cm/s Mitral Valve Name Value Normal MV Doppler MV Decel Woodward 790 cm/s2 MV PHT 48 ms MV Area (PHT) 4.6 cm2 4.0-5.0 MV Regurgitation Doppler MR Peak Gradient 75 mmHg MV Diastolic Function MV E Peak Velocity 130 cm/s MV A Peak Velocity 1 cm/s MV E/A 179.5 MV Decel Time 165 ms Tricuspid Valve Name Value Normal TV Regurgitation Doppler TR Peak Velocity 292 cm/s TR Peak Gradient 34 mmHg Estimated PAP/RSVP RA Pressure 8 mmHg <=5 PA Systolic Pressure 42 mmHg <36 RV Systolic Pressure 42 mmHg <36 Aorta Name Value Normal Ascending Aorta Ao Root Diameter (MM) 2.2 cm Ao Root Diam Index (MM) 1.1 cm/m2 Aortic Valve Name Value Normal AV Doppler AV Peak Velocity 176 cm/s AV Peak Gradient 12 mmHg AV Mean Gradient 6 mmHg AV VTI 27 cm AV Area (Cont Eq VTI) 1.8 cm2 >=3.0 AV Area (Cont Eq Victor Manuel) 1.9 cm2 AV Regurgitation 2D LVOT Area 3.3 cm2 AV Regurgitation Doppler AR Decel Time 2,042 ms AR Decel Woodward 181 cm/s2 AR PHT 592 ms Ventricles Name Value Normal LV Dimensions 2D/MM IVS Diastolic Thickness (2D) 0.8 cm 0.6-1.0 IVS Diastole Thickness (MM) 0.7 cm 0.6-0.9 LVID Diastole (2D) 6.1 cm 3.8-5.2 LVID Diastole (MM) 6.3 cm 3.8-5.2 LVIW Diastolic Thickness (2D) 0.9 cm 0.6-0.9 LVIW Diastolic Thickness (MM) 0.7 cm 0.6-0.9 LVID Systole (2D) 5.2 cm 2.2-3.5 LVID Systole (MM) 5.0 cm 2.2-3.5 LVOT Diameter 2.1 cm LV Mass (2D Cubed) 213.33 g 67.00-162.00 LV Mass Index (2D Cubed) 111 g/m2 43-95 Relative Wall Thickness (2D) 0.30 LV Mass (MM Cubed) 167.77 g 67.00-162.00 LV Mass Index (MM Cubed) 87 g/m2 43-95 Relative Wall Thickness (MM) 0.21 LV Fractional Shortening/Ejection Fraction 2D/MM LV Fractional Shortening (2D) 16 % 27-45 LV Fractional Shortening (MM) 21 % 27-45 LV EF (MM Teicholz) 42 % 54-74 LV EF (2D Teicholz) 32 % 54-74 LV Diastolic Volume (4C MOD) 117 ml LV EF (4C MOD) 39 % LV Diastolic Volume (2C MOD) 98 ml LV EF (2C MOD) 48 % LV Diastolic Volume (BP MOD) 108 ml 46-106 LV Diastolic Volume Index (BP MOD) 56 ml/m2 29-61 LV Systolic Volume (BP MOD) 64 ml 14-42 LV Systolic Volume Index (BP MOD) 33 ml/m2 8-24 LV EF (BP MOD) 41 % 54-74 LV Diastolic Length (4C) 7.5 cm LV Systolic Length (4C) 6.8 cm LV Stroke Volume (4C MOD) 46 ml Atria Name Value Normal LA Dimensions LA Dimension (MM) 5.0 cm 2.7-3.8 LA Volume (4C A-L) 61 ml LA Volume (BP A-L) 73 ml RA Dimensions RA Area (4C) 16.3 cm2 <=18.0 Report Signatures
--- NOTE | ~2024-09-19 | CT_ITS ---
EXAMINATION: CT abdomen pelvis wo con DATE: 09/19/2024 09:09 INDICATION: Transaminitis TECHNIQUE: Computed tomography (CT) of the abdomen and pelvis was performed without intravenous contr ast. Automated exposure control and iterative reconstruction technique were employed. The dose-length product was 520.18 mGy-cm. COMPARISON: None FINDINGS: Small bilateral dependently layering pleural effusions, right greater than left. There is dependent c ompressive atelectasis in both lower lobes. There are more patchy groundglass opacities in the nondep endent regions of the visualized lower lobes which could represent additional atelectasis, pneumonia or mild pulmonary edema. Cardiomegaly. No pericardial effusion. Gallbladder is not definitively visualized. There is a 5 mm calcification along the ligamentum teres most likely a phlebolith or sequela of old granulomatous disease with differential including less lik alice gallstone within a very small decompressed gallbladder. Liver is otherwise unremarkable with no e vident intra-axial hepatic biliary ductal dilation. Spleen, pancreas and, bilateral adrenal glands an d left kidney are normal. There is mild cortical scarring at the right kidney. Mild right hydronephro sis with transition point at the ureterovesicular junction with no evident obstructing stone or mass. No bowel obstruction. The appendix is not visualized. No pericecal inflammatory change to suggest acu te appendicitis.. There are few scattered colonic and distal small bowel diverticula without adjacent from trace stranding to suggest diverticulitis. Small uterine fibroids. Bladder is normal. No free i ntraperitoneal gas or fluid. No pathologically enlarged abdominal or pelvic lymphadenopathy. Postoper ative changes along the anterior abdominal wall ventral diastases. Mild S-shaped scoliosis of the lum bar and lower thoracic spine with severe spondylosis. Severe right and moderate left sacroiliitis. Blake bluxation at the pubis symphysis which could be due to severe osteitis pubis or sequela of old trauma . IMPRESSION: 1. Unremarkable liver with no intra or extra hepatic biliary ductal dilation. There is a calcificatio n along the left ligamentum teres most likely a phlebolith or old granulomatous disease but could not absolutely exclude a gallstone within a very small decompressed gallbladder. Suspect more likely the gallbladder is surgically absent and would correlate with surgical history. 2. Mild cortical scarring at the right kidney with dilated renal pelvis without evident obstructing s tone or mass consistent with chronic UPJ obstruction which appears to been present dating back to ix renal scans in 2010. 3. Fibroid uterus. 4. Small bilateral pleural effusions with patchy groundglass opacities in bilateral lower lobes which could represent atelectasis, pneumonia or mild pulmonary edema. 5. Cardiomegaly. Reviewed, dictated and finalized at location A. IMPRESSION: 1. Unremarkable liver with no intra or extra hepatic biliary ductal dilation. T here is a calcification along the left ligamentum teres most likely a phlebolit h or old granulomatous disease but could not absolutely exclude a gallstone wit hin a very small decompressed gallbladder. Suspect more likely the gallbladder is surgically absent and would correlate with surgical history. 2. Mild cortical scarring at the right kidney with dilated renal pelvis without evident obstructing stone or mass consistent with chronic UPJ obstruction whic h appears to been present dating back to Lasix renal scans in 2010. 3. Fibroid uterus. 4. Small bilateral pleural effusions with patchy groundglass opacities in bilat eral lower lobes which could represent atelectasis, pneumonia or mild pulmonary edema. 5. Cardiomegaly.
--- NOTE | ~2024-09-19 | XR_ITS ---
XR chest 1V portable Ordering provider: Angelita Hassan APRN History: 83 years Female with . Cough . Comparison: August 26, 2024 FINDINGS: MEDIASTINUM: The cardiac silhouette is moderately enlarged. Enlarged. LUNGS: No pneumothorax. Fibrotic changes of both lungs. Superimposed pneumonitis or pulmonary edema c annot be excluded. Prominent markings in the lower lobes which may indicate atelectasis versus pneumo jesus more prominent in the left side. Focal nodule is seen in the right lower lobe which also may be a summation shadow or focal pneumonia or a nodule. Follow-up advised. Minimal right pleural effusion. OTHER: No free air under the diaphragm. Degenerative the spine with levoscoliosis. Osteoarthritic aline nges of the left shoulder. IMPRESSION: Bilateral lower lobe prominent markings with minimal opacification more on the left side which may in dicate pneumonia. Follow-up advised. Possible nodule versus focal pneumonia in the right lower lobe. Minimal right pleural effusion. Bilateral interstitial changes which may indicate fibrotic changes versus pneumonitis versus underlyi ng pulmonary edema. Clinical correlation advised. Reviewed, dictated and finalized at location A. IMPRESSION: Bilateral lower lobe prominent markings with minimal opacification more on the left side which may indicate pneumonia. Follow-up advised. Possible nodule versus focal pneumonia in the right lower lobe. Minimal right pleural effusion. Bilateral interstitial changes which may indicate fibrotic changes versus pneum onitis versus underlying pulmonary edema. Clinical correlation advised.
--- NOTE | ~2024-09-19 | XR_ITS ---
EXAMINATION: XR abdomen/kub 1V DATE: 09/19/2024 07:45 INDICATION: Illness. TECHNIQUE: A supine view of the abdomen on 2 radiographs was obtained. COMPARISON: None. FINDINGS: There are no dilated loops of bowel. There is a small volume of stool in the colon. There a re phleboliths in the pelvis. Cardiomegaly is noted. IMPRESSION: 1. Normal bowel gas pattern. 2. Cardiomegaly. Reviewed, dictated and finalized at location []
--- NOTE | 2024-09-19 07:19 | ECG_ITS ---
Test Date: 2024-09-19 07:19:30 Measurements Intervals Irene Rate: 136 P: 0 DE: 0 QRS: 78 QRSD: 122 T: -9 QT: 317 QTc: 478 Interpretive Statements ATRIAL FIBRILLATION WITH RAPID VENTRICULAR RESPONSE WITH ABERRANT CONDUCTION OR VENTRICULAR PREMATURE COMPLEXES RIGHT BUNDLE BRANCH BLOCK [120+ ms QRS DURATION, UPRIGHT V1, 40+ ms S IN I/aVL/V4/V5/V6] Compared to ECG 08/26/2024 10:38:39 Aberrant conduction of supraventricular beat(s) now present Right bundle-branch block now present Sinus rhythm no longer present Left-axis deviation no longer present Poor R-wave progression no longer present Electronically Signed On 09-19-2024 11:44:48 CDT by Marbin Felix M.D.
[2024-09-19] MEDS: dilTIAZem HCl INJ 25 MG/5 ML VIAL 10 MG IV PUSH (07:28)
[2024-09-19 07:36] LABS: Basophils Absolute Auto 0.1 K/mm3 (0.0-0.1); Basophils Percent Auto 0.7 % (0.2-1.2); Eosinophils Absolute Auto 0.1 K/mm3 (0-0.3); Eosinophils Percent Auto 0.9 % (0-4.4); Hematocrit 33.6 % (37.0-47.0); Hemoglobin 10.2 g/dL (12.0-15.0); Immature Granulocyte Absolute 0.04 K/mm3 (0.00-0.031); Immature Granulocyte Percent A 0.4 % (0-0.5); Lymphocytes Percent Auto 15.3 % (18.3-44.2); Mean Corpuscular HGB Conc 30.4 g/dl (32-36); Mean Corpuscular Hemoglobin 28.4 pg (26-34); Mean Corpuscular Volume 93.6 fl (80-100); Mean Platelet Volume 11.7 fl (7.4-10.4); Monocytes Absolute Auto 0.6 K/mm3 (0.1-0.6); Monocytes Percent Auto 6.5 % (2.6-8.5); Neutrophils Percent Auto 76.2 % (45.5-73.1); Platelet Count Result 183 k/mm3 (150-375); Red Blood Count 3.59 M/mm3 (4.2-5.4); Red Cell Distribution Width 17.1 % (11.5-14.5); White Blood Count 9.1 K/mm3 (4.5-10.0)
[2024-09-19 07:47] LABS: Alanine Aminotransferase 102 U/L (6-35); Albumin Level 3.5 g/dL (3.5-5.1); Alkaline Phosphatase 300 U/L (38-126); Anion Gap 12 mmol/L (4-12); Aspartate Amino Transferase 75 U/L (14-36); Bilirubin,Total 1.9 mg/dL (0.2-1.3); Blood Urea Nitrogen 32 mg/dL (7-17); Calcium 8.8 mg/dL (8.4-10.2); Carbon Dioxide 21 mmol/L (22-30); Chloride 107 mmol/L (98-107); Estimated CRCL calculation 22 ml/min; Estimated Glomerular Filt Rate 27; Glucose 164 mg/dL (65-110); Potassium 3.5 mmol/L (3.4-5.0); Sodium 140 mmol/L (137-145)
[2024-09-19 08:14] LABS: Influenza A QL RT-PCR Negative (Negative); Influenza B QL RT-PCR Negative (Negative); RSV RNA, RT-PCR Negative (Negative); SARS-CoV-2 RNA PCR Negative (Negative)
[2024-09-19] MEDS: SODIUM CHLORIDE 0.9% IV 500 ML 999 ML IV CONT (08:29)
[2024-09-19 08:31] LABS: INR 1.3; Prothrombin Time 16.1 Seconds (11.1-14.7)
[2024-09-19 08:32] LABS: Partial Thromboplastin Time 25.1 Seconds (22.3-36.8)
[2024-09-19 09:07] LABS: Add Urine Microscopic? YES; Appearance Urine Clear (Clear); Bacteria Urine None Seen /hpf; Bilirubin Urine Negative (Negative); Blood Urine Negative (Negative); Color Urine Yellow (Yellow); Glucose Urine UA Negative (Negative); Ketones Urine Negative (Negative); Leukocyte Esterase Ur Negative LEU/UL (Negative); Need Manual Microscopic Reviewed; Nitrate Urine Negative (Negative); Protein Urine 1+ mg/dL (Negative); RBC Urine 0-2 /hpf (0-2); Specific Grav Ur 1.017 (1.001-1.035); Squamous Epithelial Cell Urine None Seen /hpf (Few); WBC Urine 0-5 /hpf (0-3)
[2024-09-19] MEDS: dilTIAZem 100 MG/100 ML 100 MG/100 ML BAG IV CONT (09:08)
--- NOTE | 2024-09-19 09:15 | ED.GENADULT ---
HPI - General Adult General Chief complaint: Weakness Stated complaint: not feeling well ; Afib History of Present Illness HPI narrative: 83-year-old female present to the emergency department for evaluation for increased generalized fatigue. Patient reports that the last 3 days she has had decreased p.o. intake. Patient denies any specific coughs colds or fevers denies any pain with urination. Patient states he is having some intermittent abdominal pain which she states is not new for her. Patient does have prior history cholecystectomy. Related Data Home Medications Medication Instructions Recorded Confirmed leflunomide 20 mg tablet 20 mg PO DAILY 08/26/20 06/14/24 pramipexole 0.5 mg tablet 1.5 mg PO TID 08/26/20 06/14/24 atorvastatin 20 mg tablet 20 mg PO DAILY 02/17/21 06/14/24 gabapentin 100 mg capsule 100 mg PO BID 04/26/23 06/14/24 calcitriol 0.25 mcg capsule 0.25 mcg PO DAILY 11/11/23 06/14/24 umeclidinium 62.5 mcg-vilanterol 62.5 inh inhalation DAILY 11/11/23 06/14/24 25 mcg/actuation powdr for inhalation (Anoro Ellipta) Allergies Allergy/AdvReac Type Severity Reaction Status Date / Time adalimumab [From Humira] Allergy Severe site Verified 09/19/24 07:31 reaction etanercept [From Enbrel] Allergy Severe site Verified 09/19/24 07:31 reaction infliximab [From Remicade] Allergy Severe pass out Verified 09/19/24 07:31 levofloxacin [From Levaquin] Allergy Intermediate rash Verified 09/19/24 07:31 amoxicillin Allergy Mild rash Verified 09/19/24 07:31 clarithromycin Allergy Mild rash Verified 09/19/24 07:31 codeine Allergy Mild sick Verified 09/19/24 07:31 Review of Systems Review of Systems: All systems reviewed & are unremarkable except as noted in HPI and below PMFSH Past Medical History Medical History Arthritis Atrial fibrillation On Xarelto Cancer Breast Congestive heart failure COPD (chronic obstructive pulmonary disease) Diabetes last A1c noted by pt to be 6.1 in 2019 Essential tremor Hypertension Rheumatoid arthritis Surgical History Surgical History H/O tubal ligation History of carpal tunnel release left wrist 08/[address] Valiente History of cholecystectomy History of lumpectomy of left breast Hx of parathyroidectomy Family History Family History Other Asthma Cancer Social History Social History Smoking status: Never smoker Alcohol intake: never Substance use: never Substance use type: does not use Do You Feel Safe in your Home?: Yes Lack of Transportation: No Lack of Food: Never True Current Housing: I Have Housing Concerned About Future Housing: No Difficulty Paying Gas/Electric Bills: No Difficulty Paying for Meds: No Currently Unemployed: No Education: High School Diploma/GED Difficulty w/ Childcare or Family Care: No Living arrangements: alone Occupation/Education: occupation 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 HEAD: normocephalic, atraumatic. EYES: PERRLA/EOMI, conjunctivae clear. NOSE: Normal no drainage EARS:TMS clear with good light reflex. THROAT: Pharynx clear, no exudate. NECK: Supple. No adenopathy, no masses. RESPIRATORY: Airway patent, respirations nonlabored. Clear to auscultation bilaterally, no rales, rhonchi, wheezing. CARDIOVASCULAR: Regular rate and rhythm without murmurs rubs or gallops. ABDOMINAL: Soft, nontender, nondistended, normal bowel sounds MUSCULOSKELETAL: Moves all extremities. Strength/ROM intact, No edema, No calf tenderness. NEURO: Alert. Cranial nerves II through XII intact. Grossly intact SKIN: Warm, dry. Normal Color Course Vital Signs Vital signs: Vital Signs Temperature 98.0 F 09/19/24 07:11 Pulse Rate 151 H 09/19/24 07:11 Respiratory Rate 26 H 09/19/24 07:11 Blood Pressure 125/96 H 09/19/24 07:11 Pulse Oximetry 95 09/19/24 07:11 Oxygen Delivery Room Air 09/19/24 07:11 Temperature 98.1 F 09/19/24 16:00 Pulse Rate 45 L 09/19/24 16:00 Respiratory Rate 20 09/19/24 16:00 Blood Pressure 125/79 09/19/24 16:00 Pulse Oximetry 98 09/19/24 16:00 Oxygen Delivery Nasal Cannula 09/19/24 16:00 Oxygen Flow Rate 2 09/19/24 16:00 Medical Decision Making MDM Narrative Medical decision making narrative: 83-year-old female presents to the emergency department for evaluation for weakness. Upon arrival patient's heart rate was significantly elevated but did improve with Cardizem bolus and infusion. Patient is afebrile with no leukocytosis and hemoglobin of 10.2 which is similar to baseline. Patient has a creatinine of 1.8 which is also similar to her baseline. Patient does have elevated T bili and transaminases but these have been elevated the past. Patient does complain of intermittent abdominal pain CT scan was ordered and did show calcifications associated with the right upper quadrant but patient is status post cholecystectomy. Patient does have an elevated BNP and 15,000. UA was negative for infection patient was negative for influenza RSV and for COVID. Patient was admitted for AFib with RVR. Differential Diagnosis Differential Diagnosis: Pneumonia, UTI, COVID, RSV, influenza Vital Signs Vital Signs: Vital Signs Temperature 98.0 F 09/19/24 07:11 Pulse Rate 151 H 09/19/24 07:11 Respiratory Rate 26 H 09/19/24 07:11 Blood Pressure 125/96 H 09/19/24 07:11 Pulse Oximetry 95 09/19/24 07:11 Oxygen Delivery Room Air 09/19/24 07:11 Temperature 98.1 F 09/19/24 16:00 Pulse Rate 45 L 09/19/24 16:00 Respiratory Rate 20 09/19/24 16:00 Blood Pressure 125/79 09/19/24 16:00 Pulse Oximetry 98 09/19/24 16:00 Oxygen Delivery Nasal Cannula 09/19/24 16:00 Oxygen Flow Rate 2 09/19/24 16:00 Lab Data Lab results reviewed: Yes I reviewed the patient's lab results. 09/19/24 07:25 09/19/24 07:25 Labs: Lab Results 09/19/24 09/19/24 Range/Units 07:25 08:41 WBC 9.1 (4.5-10.0) K/mm3 RBC 3.59 L (4.2-5.4) M/mm3 Hgb 10.2 L (12.0-15.0) g/dL Hct 33.6 L (37.0-47.0) % MCV 93.6 (80-100) fl MCH 28.4 (26-34) pg MCHC 30.4 L (32-36) g/dl RDW 17.1 H (11.5-14.5) % Plt Count 183 (150-375) k/mm3 MPV 11.7 H (7.4-10.4) fl Immature Gran % (Auto) 0.4 (0-0.5) % Neut % (Auto) 76.2 H (45.5-73.1) % Lymph % (Auto) 15.3 L (18.3-44.2) % [place] % (Auto) 6.5 (2.6-8.5) % Eos % (Auto) 0.9 (0-4.4) % Baso % (Auto) 0.7 (0.2-1.2) % Lymph # (Auto) 1.40 (0.9-3.2) K/mm3 [place] # (Auto) 0.6 (0.1-0.6) K/mm3 Eos # (Auto) 0.1 (0-0.3) K/mm3 Baso # (Auto) 0.1 (0.0-0.1) K/mm3 Abs Immat Gran (auto) 0.04 H (0.00-0.031) K/mm3 Absolute Neuts (auto) 7.0 H (1.3-6.7) K/mm3 Absolute Nucleated RBC 0.000 (0.0-0.012) K/mm3 Nucleated RBC % 0.0 (0.0-0.2) % PT 16.1 H (11.1-14.7) Seconds INR 1.3 APTT 25.1 (22.3-36.8) Seconds Sodium 140 (137-145) mmol/L Potassium 3.5 (3.4-5.0) mmol/L Chloride 107 (98-107) mmol/L Carbon Dioxide 21 L (22-30) mmol/L Anion Gap 12 (4-12) mmol/L BUN 32 H D (7-17) mg/dL Creatinine 1.80 H (0.7-1.0) mg/dL Estim Creat Clear Calc 22 ml/min Estimated GFR 27 L (59 - ) Glucose 164 H (65-110) mg/dL Calcium 8.8 (8.4-10.2) mg/dL Total Bilirubin 1.9 H (0.2-1.3) mg/dL AST 75 H (14-36) U/L ALT 102 H (6-35) U/L Alkaline Phosphatase 300 H (38-126) U/L Total Protein 6.0 L (6.3-8.2) g/dL Albumin 3.5 (3.5-5.1) g/dL Urine Color Yellow (Yellow) Urine Appearance Clear (Clear) Urine pH 5.0 (5.0-9.0) Ur Specific [place] 1.017 (1.001-1.035) Urine Protein 1+ H (Negative) mg/dL Urine Glucose (UA) Negative (Negative) mg/dL Urine Ketones Negative (Negative) mg/dL Ur Blood (Man) Negative (Negative) Urine Nitrate Negative (Negative) Urine Bilirubin Negative (Negative) Urine Urobilinogen 1.0 (<2.0) mg/dL Add Ur Microanalysis Reviewed Leukocyte Esterase Rfl Negative (Negative) OTILIO/UL Urine RBC 0-2 (0-2) /hpf Urine WBC 0-5 (0-3) /hpf Ur Squamous Epith Cells None seen (Few) /hpf Urine Bacteria None seen /hpf Urine Casts 3-5 Influenza A (RT-PCR) Negative (Negative) Influenza B (RT-PCR) Negative (Negative) RSV (RT-PCR) Negative (Negative) SARS-CoV-2 RNA (RT-PCR) Negative (Negative) Imaging Data Radiologist's impression: Impressions Abdomen X-Ray 09/19/24 07:56 IMPRESSION: 1. Normal bowel gas pattern. 2. Cardiomegaly. Abdomen/Pelvis CT 09/19/24 09:09 IMPRESSION: 1. Unremarkable liver with no intra or extra hepatic biliary ductal dilation. There is a calcification along the left ligamentum teres most likely a phlebolith or old granulomatous disease but could not absolutely exclude a gallstone within a very small decompressed gallbladder. Suspect more likely the gallbladder is surgically absent and would correlate with surgical history. 2. 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 3. Fibroid uterus. 4. Small bilateral pleural effusions with patchy groundglass opacities in bilateral lower lobes which could represent atelectasis, pneumonia or mild pulmonary edema. 5. Cardiomegaly. Discharge Plan Discharge Clinical Impression: Generalized weakness, Decreased oral intake, Atrial fibrillation with RVR Patient Disposition: Still a Patient Condition: Serious
--- NOTE | 2024-09-19 09:58 | PCCCNOTE ---
[id number]-Called the pt's room in the ED regarding long-term placement by the pt's daughter. Upon speaking to the pt, she is not wanting placement. The daughter stated she does not feel the pt is safe to be at home by herself any longer. She is not eating food left for her, locking the door and returning to the ED frequently for her failing health. The family was not aware Medicare did not pay for placement and shared with them the out of pocket cost range, OT/PT evals needed and 3 midnight rule noted by Medicare. Stated they would wait to see the outcome of this hospitalization and move foward with her health care needs. The pt stated she does not have a POA, the finances to pay and did not have medicaid at this time.-doreen.
[2024-09-19 10:46] LABS: Lactic Acid Reflex 1.5 mmol/L (0.7-2.0)
[2024-09-19 10:55] LABS: NT Pro B Type Natriuretic Pept 15700 pg/mL (19.9-100)
--- NOTE | 2024-09-19 11:55 | PC.NURSE ---
[facility] - [email or web address] Admission Note: Arrived to the floor via stretcher from the ER. Denies chest pain or shortness of breath at this time. States that she has been at home with and not feeling well for several days . Stated that I haven't been eating or drinking much over the last few days because I don't feel well . Family member at bedside. Alert and oriented, able to answer all admission questions without difficulty. Noted tremors in bilateral upper extremities. Placed on environmental monitoring specialist which is on and functioning at this time. Vital signs obtained. Gown changed. Maceration and foul smell noted in groin. Purewick placed for urinary output and skin protection at this point. Discussed plan of care at this time. Denies further questions, comments or concerns. The patient,Genny Gomez,83 y/o, was given written information regarding hospital policies, unit procedures and contact persons. Patient's smoking status: Never smoker.
[2024-09-19 12:15] LABS: Glucose Point of Care 146 mg/dl (65-105)
--- NOTE | 2024-09-19 12:33 | PM.IMHP ---
H&P: HPI History of Present Illness Date/Time: 09/19/24 12:33 Chief Complaint: Decreased Appetite, General Malaise Narrative: 83 y/o F presents here with general malaise and decreased appetite with PMH of atrial fibrillation on Xarelto, breast cancer s/p lumpectomy, CHF, COPD, essential tremor, RA, and HTN. The patient presents here from home via EMS for further evaluation of weakness, general malaise, and decreased appetite. She reports onset of the symptoms approximately 3 days ago. Initially more so reduced appetite, however has been becoming increasingly fatigued. Endorsing dry cough. Patient reports she is short of breath at baseline due to her COPD, however she feels it has been worse over the last few days and is exacerbated by activity. She denies any associated body aches, chills, fevers, chest pain, congestion, rhinorrhea, palpitations, dizziness, abdominal pain, or urinary symptoms. No known sick contacts. Reports very slight weight loss due to her reduced appetite and no lower extremity edema. Sees a papier mache' molder at [facility] with last appt one week ago. Initial VS at presentation: 98? F, HR 151, RR 26, 125/96, and 95% on RA. Now on 2L NC. ED workup showed: No leukocytosis, hemoglobin 10.2 (previously 11.0 on 08/26/2024), INR 1.3, creatinine 1.8 and GFR 27 (previously 1.4 and GFR 36), total bilirubin 1.9, AST 75 ALT 102, BNP 39517, and UA showed 1+ protein. Viral PCR negative. Abdominal x-ray showed normal bowel gas pattern and cardiomegaly. CT of the abdomen pelvis showed unremarkable liver, mild cortical scarring at the right kidney with dilated renal pelvis without evidence of obstruction or mass, fibroid uterus, small bilateral pleural effusions with patchy ground-glass opacities in the bilateral lower lobes, and cardiomegaly. Review of Systems Review of Systems: All systems reviewed & are unremarkable except as noted in HPI and below PMFSH Past Medical History Medical History Arthritis Atrial fibrillation On Xarelto Cancer Breast Congestive heart failure COPD (chronic obstructive pulmonary disease) Diabetes last A1c noted by pt to be 6.1 in 2019 Essential tremor Hypertension Rheumatoid arthritis Surgical History Surgical History H/O tubal ligation History of carpal tunnel release left wrist 08/[address] Valiente History of cholecystectomy History of lumpectomy of left breast Hx of parathyroidectomy Family History Family History Other Asthma Cancer Social History Social History Smoking status: Never smoker Alcohol intake: never Substance use: never Substance use type: does not use Do You Feel Safe in your Home?: Yes Lack of Transportation: No Lack of Food: Never True Current Housing: I Have Housing Concerned About Future Housing: No Difficulty Paying Gas/Electric Bills: No Difficulty Paying for Meds: No Currently Unemployed: No Education: High School Diploma/GED Difficulty w/ Childcare or Family Care: No Living arrangements: alone Occupation/Education: occupation 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 Gender identity (if verbalized by the patient): Female Spiritual care concerns: No Meds Home Medications and Allergies Home Medications Medication Instructions Recorded Confirmed Type leflunomide 20 mg tablet 20 mg PO DAILY 08/26/20 06/14/24 History pramipexole 0.5 mg tablet 1.5 mg PO TID 08/26/20 06/14/24 History atorvastatin 20 mg tablet 20 mg PO DAILY 02/17/21 06/14/24 History gabapentin 100 mg capsule 100 mg PO BID 04/26/23 06/14/24 History calcitriol 0.25 mcg capsule 0.25 mcg PO DAILY 11/11/23 06/14/24 History umeclidinium 62.5 mcg-vilanterol 62.5 inh inhalation DAILY 11/11/23 06/14/24 History 25 mcg/actuation powdr for inhalation (Anoro Ellipta) sacubitril 24 mg-valsartan 26 mg 1 tablet PO Q12HR #0 tabs 11/23/23 06/14/24 Rx tablet (Entresto) tramadol 50 mg tablet 50 mg PO Q6H PRN Pain #20 tabs 11/23/23 06/14/24 Rx spironolactone 25 mg tablet 12.5 mg PO DAILY #90 tabs 12/18/23 06/14/24 Rx torsemide 10 mg tablet 10 mg PO QAM #90 tabs 12/18/23 06/14/24 Rx hydrocodone 5 mg-acetaminophen 325 1 tablet PO Q12H PRN pain #10 tabs 08/26/24 Rx mg tablet ondansetron 4 mg disintegrating 4 mg PO Q8H PRN nausea and 08/26/24 Rx tablet vomiting #20 tabs Allergies Allergy/AdvReac Type Severity Reaction Status Date / Time adalimumab [From Humira] Allergy Severe site Verified 09/19/24 07:31 reaction etanercept [From Enbrel] Allergy Severe site Verified 09/19/24 07:31 reaction infliximab [From Remicade] Allergy Severe pass out Verified 09/19/24 07:31 levofloxacin [From Levaquin] Allergy Intermediate rash Verified 09/19/24 07:31 amoxicillin Allergy Mild rash Verified 09/19/24 07:31 clarithromycin Allergy Mild rash Verified 09/19/24 07:31 codeine Allergy Mild sick Verified 09/19/24 07:31 Vital Signs Vital Signs - 24 hr 09/19/24 07:11 09/19/24 07:30 09/19/24 07:32 Temperature 98.0 F Pulse Rate 151 H 151 H 93 Respiratory Rate 26 H 24 H Blood Pressure 125/96 H 107/91 H Pulse Oximetry 95 93 Oxygen Delivery Room Air Oxygen Flow Rate 09/19/24 09:08 09/19/24 09:39 09/19/24 10:06 Temperature Pulse Rate 122 H 125 H 116 H Respiratory Rate 19 Blood Pressure 113/67 109/90 125/91 H Pulse Oximetry 100 Oxygen Delivery Oxygen Flow Rate 09/19/24 09:10 09/19/24 10:12 09/19/24 10:02 Temperature Pulse Rate 111 H 115 H 110 H Respiratory Rate 22 H 97 H Blood Pressure 109/90 125/91 H 125/91 H Pulse Oximetry 99 99 Oxygen Delivery Oxygen Flow Rate 09/19/24 08:00 09/19/24 12:00 Temperature 97.9 F Pulse Rate 99 Respiratory Rate 22 H Blood Pressure 113/88 Pulse Oximetry 98 98 Oxygen Delivery Nasal Cannula Oxygen Flow Rate 2 Exam Const: General: comfortable and no acute distress Other: , female, elderly, ill-appearing HENMT: Face/Nose/Sinus: Normal nares present Mouth: Yes moist mucous membranes Eyes: General: appearance normal, both eyes and all related structures Sclera: sclerae normal Pupils: Equal, round and reactive pupils present EOM: EOMs intact bilaterally Resp: Effort & Inspection: normal respiratory effort Other: Diminished he in the left lower lobe, crackles at the right lower lobe. Cardio: Rate: regular rate Rhythm: abnormal rhythm Other: No murmur or rub. Skin: General skin exam: normal color and no rashes or lesions noted Wounds: no wounds Neuro: Speech: normal speech Motor exam (neuro): 5/5 motor strength present throughout Sensory Exam: normal sensation Other: A&O x4 Extrem: Other: 1+ pitting edema to bilateral ankles, symmetric Psych: Mental Status: mental status grossly normal Affect: normal affect Other: Good insight and judgment, pleasant H&P: Results Labs Labs: Short CBC 09/19/24 Range/Units 07:25 WBC 9.1 (4.5-10.0) K/mm3 Hgb 10.2 L (12.0-15.0) g/dL Hct 33.6 L (37.0-47.0) % Plt Count 183 (150-375) k/mm3 BMP 09/19/24 07:25 Sodium 140 Potassium 3.5 Chloride 107 Carbon Dioxide 21 L BUN 32 H D Creatinine 1.80 H Glucose 164 H Calcium 8.8 Liver Function 09/19/24 Range/Units 07:25 Total Bilirubin 1.9 H (0.2-1.3) mg/dL AST 75 H (14-36) U/L ALT 102 H (6-35) U/L Alkaline Phosphatase 300 H (38-126) U/L Albumin 3.5 (3.5-5.1) g/dL Urine 09/19/24 Range/Units 08:41 Urine Color Yellow (Yellow) Urine Appearance Clear (Clear) Urine pH 5.0 (5.0-9.0) Ur Specific [place] 1.017 (1.001-1.035) Urine Protein 1+ H (Negative) mg/dL Urine Glucose (UA) Negative (Negative) mg/dL Assessment and Plan Assessment and plan (1) Atrial fibrillation with RVR: Code(s): I48.91 - Unspecified atrial fibrillation Status: Acute Assessment and Plan: - EKG, initial: AFib RVR with aberrant conduction, rate 136, right bundle branch block. - history of persistent AFib on Xarelto and has not required rate controlling medication, continue anticoagulant once confirmed. - started on diltiazem IVP and gtt in the ED, currently at 5 mg/hr, HR now 99 - papier mache' molder consulted given Afib in the setting of advanced CHF (EF 22%) - telemetry monitoring (2) Congestive heart failure: Qualifiers: Heart failure chronicity: acute on chronic Heart failure type: combined systolic and diastolic Qualified Code(s): I50.43 - Acute on chronic combined systolic (congestive) and diastolic (congestive) heart failure Code(s): I50.9 - Heart failure, unspecified Status: Acute Assessment and Plan: - BNP 53492 - most recent echo (10/2023): Mild left ventricular enlargement with moderate concentric hypertrophy, severe global hypokinesis, EF 22%, grade 3 diastolic dysfunction present. See report for further details. - currently on: spironolactone 12.5 mg daily, torsemide 10 mg daily. Continue as Lasix 40 mg b.i.d. - monitor I&Os and daily weights - trend renal function (3) Pneumonia: Qualifiers: Laterality: bilateral Lung location: lower lobe of lung Pneumonia type: due to unspecified organism Qualified Code(s): J18.9 - Pneumonia, unspecified organism Code(s): J18.9 - Pneumonia, unspecified organism Status: Acute Assessment and Plan: - CT abdomen/pelvis: Small bilateral pleural effusions with patchy groundglass opacities in bilateral lower lobes which could represent atelectasis, pneumonia or mild pulmonary edema. - risk factors and complicating factors: Suspected CHF exacerbation, AFib - started on doxycycline b.i.d. p.o. - MRSA PCR and sputum culture added - Viral PCR negative - new supplemental O2 requirement - 2L NC - supportive care (4) COPD (chronic obstructive pulmonary disease): Qualifiers: COPD type: COPD with acute exacerbation Qualified Code(s): J44.1 - Chronic obstructive pulmonary disease with (acute) exacerbation Code(s): J44.9 - Chronic obstructive pulmonary disease, unspecified Status: Acute Assessment and Plan: - started on nebs p.r.n. and scheduled steroids (5) Hypertension: Qualifiers: Hypertension type: primary hypertension Qualified Code(s): I10 - Essential (primary) hypertension Code(s): I10 - Essential (primary) hypertension Status: Chronic Assessment and Plan: - chronic, currently 113/80 - awaiting med rec, will add hydralazine p.r.n. in interim - monitor Plan The patient and her family members do not know her medication list, does not see a PCP through [facility]. Med reconciliation not able to be completed. Diet: Heart healthy GI Prophylaxis: Not currently indicated DVT Prophylaxis: Continue home Xarelto once confirmed, SCDs in interim. Lines: Peripheral Code Status: DNR Quality VTE Prophylaxis VTE prophylaxis: pharmacologic ordered Hospitalist [facility] Advance Care Plan I have confirmed that the patient's Advanced Care Plan is present, code status is documented, or surrogate decision maker is listed in patient medical record.: Yes Medication Reconciliation I have utilized all available resources to obtain, update and review the patients current medications (includes all prescriptions, OTC, herbals, cannabis, and nutritional supplements).: Yes
[2024-09-19] MEDS: BENZONATATE 100 MG CAPSULE PO (13:52)
--- NOTE | 2024-09-19 15:05 | P.CONCA_ITS ---
Assessment and Plan Assessment and plan (1) Atrial fibrillation with RVR: Code(s): I48.91 - Unspecified atrial fibrillation Status: Acute (2) Acute on chronic systolic heart failure: Code(s): I50.23 - Acute on chronic systolic (congestive) heart failure Status: Acute Plan 83-year-old woman with chronic systolic heart failure (LVEF 20-25%), chronic atrial fibrillation, COPD, and hypertension presented with 3 days of worsening shortness of breath Acute systolic heart failure -Lasix 40 mg IV b.i.d. and can most likely transition back to her home dose diuretic this weekend -currently her systolic blood pressure prohibits the resumption of her home GDMT -most likely exacerbated by her rapid ventricular rate which in turn may have been exacerbated by her underlying COPD exacerbation Chronic atrial fibrillation now in rapid ventricular rate -start metoprolol 50 mg every 6 hours -discontinue diltiazem giving her systolic dysfunction -continue her home dose DOAC Hypertension -currently at goal systolic which is less than 130 for her History of Present Illness History of Present Illness Consult date/time: 09/19/24 15:05 Requesting physician: Angelita Hassan APRN Reason For Visit: Afib with RVR/Weakness/ SARAI Narrative: 83-year-old woman with chronic systolic heart failure (LVEF 20-25%), chronic atrial fibrillation, COPD, and hypertension presented with 3 days of worsening shortness of breath. There has been associated weakness, general malaise, and decreased appetite. Her son was at bedside who provided some the subjective history as well. It would appear that the patient stop taking her anoro and her breathing started to worsen. She denies any orthopnea or worsening lower extremity swelling. She also denies any chest discomfort, palpitations, and syncope. She lives at home by herself and has a funeral home makeup artist and daughter who helps her with her airport attendant. Otherwise she is able to get around the house by herself without any significant cardiopulmonary limitations prior to the development of her current symptoms. Review of Systems Cardiovascular: Cardiovascular: Reports as per HPI Respiratory: Respiratory: Reports as per HPI [facility] Past Medical History Medical History Arthritis Atrial fibrillation On Xarelto Cancer Breast Congestive heart failure COPD (chronic obstructive pulmonary disease) Diabetes last A1c noted by pt to be 6.1 in 2019 Essential tremor Hypertension Rheumatoid arthritis Surgical History Surgical History H/O tubal ligation History of carpal tunnel release left wrist 08/[address] Valiente History of cholecystectomy History of lumpectomy of left breast Hx of parathyroidectomy Family History Family History Other Asthma Cancer Social History Social History Smoking status: Never smoker Alcohol intake: never Substance use: never Substance use type: does not use Do You Feel Safe in your Home?: Yes Lack of Transportation: No Lack of Food: Never True Current Housing: I Have Housing Concerned About Future Housing: No Difficulty Paying Gas/Electric Bills: No Difficulty Paying for Meds: No Currently Unemployed: No Education: High School Diploma/GED Difficulty w/ Childcare or Family Care: No Living arrangements: alone Occupation/Education: occupation 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 Gender identity (if verbalized by the patient): Female Spiritual care concerns: No Meds Home Medications and Allergies Home Medications Medication Instructions Recorded Confirmed Type leflunomide 20 mg tablet 20 mg PO DAILY 08/26/20 06/14/24 History pramipexole 0.5 mg tablet 1.5 mg PO TID 08/26/20 06/14/24 History atorvastatin 20 mg tablet 20 mg PO DAILY 02/17/21 06/14/24 History gabapentin 100 mg capsule 100 mg PO BID 04/26/23 06/14/24 History calcitriol 0.25 mcg capsule 0.25 mcg PO DAILY 11/11/23 06/14/24 History umeclidinium 62.5 mcg-vilanterol 62.5 inh inhalation DAILY 11/11/23 06/14/24 History 25 mcg/actuation powdr for inhalation (Anoro Ellipta) sacubitril 24 mg-valsartan 26 mg 1 tablet PO Q12HR #0 tabs 11/23/23 06/14/24 Rx tablet (Entresto) tramadol 50 mg tablet 50 mg PO Q6H PRN Pain #20 tabs 11/23/23 06/14/24 Rx spironolactone 25 mg tablet 12.5 mg PO DAILY #90 tabs 12/18/23 06/14/24 Rx torsemide 10 mg tablet 10 mg PO QAM #90 tabs 12/18/23 06/14/24 Rx hydrocodone 5 mg-acetaminophen 325 1 tablet PO Q12H PRN pain #10 tabs 08/26/24 Rx mg tablet ondansetron 4 mg disintegrating 4 mg PO Q8H PRN nausea and 08/26/24 Rx tablet vomiting #20 tabs Allergies Allergy/AdvReac Type Severity Reaction Status Date / Time adalimumab [From Humira] Allergy Severe site Verified 09/19/24 07:31 reaction etanercept [From Enbrel] Allergy Severe site Verified 09/19/24 07:31 reaction infliximab [From Remicade] Allergy Severe pass out Verified 09/19/24 07:31 levofloxacin [From Levaquin] Allergy Intermediate rash Verified 09/19/24 07:31 amoxicillin Allergy Mild rash Verified 09/19/24 07:31 clarithromycin Allergy Mild rash Verified 09/19/24 07:31 codeine Allergy Mild sick Verified 09/19/24 07:31 Vital Signs Vital Signs - 24 hr 09/19/24 07:11 09/19/24 07:30 09/19/24 07:32 Temperature 36.7 C Pulse Rate 151 H 151 H 93 Respiratory Rate 26 H 24 H Blood Pressure 125/96 H 107/91 H Pulse Oximetry 95 93 Oxygen Delivery Room Air Oxygen Flow Rate 09/19/24 09:08 09/19/24 09:39 09/19/24 10:06 Temperature Pulse Rate 122 H 125 H 116 H Respiratory Rate 19 Blood Pressure 113/67 109/90 125/91 H Pulse Oximetry 100 Oxygen Delivery Oxygen Flow Rate 09/19/24 09:10 09/19/24 10:12 09/19/24 10:02 Temperature Pulse Rate 111 H 115 H 110 H Respiratory Rate 22 H 97 H Blood Pressure 109/90 125/91 H 125/91 H Pulse Oximetry 99 99 Oxygen Delivery Oxygen Flow Rate 09/19/24 08:00 09/19/24 12:00 Temperature 36.6 C Pulse Rate 99 Respiratory Rate 22 H Blood Pressure 113/88 Pulse Oximetry 98 98 Oxygen Delivery Nasal Cannula Oxygen Flow Rate 2 Exam Const: General: comfortable HENMT: Mouth: Yes moist mucous membranes Eyes: EOM: EOMs intact bilaterally Neck: Other: Mildly positive hepatojugular reflux Resp: Effort & Inspection: normal respiratory effort Auscultation: rales Cardio: Rate: regular rate Rhythm: abnormal rhythm GI: GI Palp: Yes Soft to palpation Neuro: Speech: normal speech Extrem: General: edema Psych: Affect: normal affect Results Labs and Meds 09/19/24 07:25 09/19/24 07:25 Lab results: Cardiac Enzymes 09/19/24 Range/Units 07:25 AST 75 H (14-36) U/L Coagulation 09/19/24 Range/Units 07:25 PT 16.1 H (11.1-14.7) Seconds APTT 25.1 (22.3-36.8) Seconds CBC 09/19/24 Range/Units 07:25 WBC 9.1 (4.5-10.0) K/mm3 RBC 3.59 L (4.2-5.4) M/mm3 Hgb 10.2 L (12.0-15.0) g/dL Hct 33.6 L (37.0-47.0) % Plt Count 183 (150-375) k/mm3 Lymph # (Auto) 1.40 (0.9-3.2) K/mm3 Christian # (Auto) 0.6 (0.1-0.6) K/mm3 Eos # (Auto) 0.1 (0-0.3) K/mm3 Baso # (Auto) 0.1 (0.0-0.1) K/mm3 Comprehensive Metabolic Panel 09/19/24 Range/Units 07:25 Sodium 140 (137-145) mmol/L Potassium 3.5 (3.4-5.0) mmol/L Chloride 107 (98-107) mmol/L Carbon Dioxide 21 L (22-30) mmol/L BUN 32 H D (7-17) mg/dL Creatinine 1.80 H (0.7-1.0) mg/dL Glucose 164 H (65-110) mg/dL Calcium 8.8 (8.4-10.2) mg/dL AST 75 H (14-36) U/L ALT 102 H (6-35) U/L Alkaline Phosphatase 300 H (38-126) U/L Total Protein 6.0 L (6.3-8.2) g/dL Albumin 3.5 (3.5-5.1) g/dL Intake and Output 1030/24 10/31/24 10/31/24 23:59 07:59 15:59 Intake Total 508.1 Balance 508.1 Intake: IV 508.1 Sodium Chloride 0.9% IV 500 ml 500 @ 999 mls/hr IV CONT .Q31M STA Rx#:[id number] dilTIAZem 100 MG/100 ML 100 mg 8.1 In 100 ml @ 5 MG/HR 5 mls/hr IV CONT .Q20H STA Rx#:[id number] Patient Weight 09/19/24 23:59 Weight 79.5 kg
[2024-09-19] MEDS: DOXYCYCLINE HYCLATE 100 MG TABLET PO (15:43)
[2024-09-19] MEDS: predniSONE 20 MG TABLET 40 MG PO (15:43)
[2024-09-19] MEDS: FUROSEMIDE INJ 40 MG/4 ML VIAL IV PUSH (15:43)
[2024-09-19] MEDS: METOPROLOL TARTRATE 50 MG TAB PO (15:43)
--- NOTE | 2024-09-19 18:50 | PC.NURSE ---
bladder scanned patient related to reduced urinary output. approximately 20mL out since admission. bladder scanner showed approximately 215mL in bladder at this time.
[2024-09-19] MEDS: GABAPENTIN 100 MG CAPSULE 200 MG PO (21:01)
[2024-09-19] MEDS: guaiFENesin 12 HR 600 MG TABCR PO (21:01)
[2024-09-19] MEDS: PRAMIPEXOLE 0.5 MG TABLET 1.5 MG PO (21:01)
[2024-09-19] MEDS: RIVAROXABAN 20 MG TABLET PO (21:01)
[2024-09-19 21:53] LABS: MRSA (PCR) NOT DETECTED (NOT DETECTE)
[2024-09-20] VITALS (22 sets, daily range): BP systolic 113–148; BP diastolic 78–97; PULSE 69–103; RESP 18–20; TEMP 36.4–36.7; O2SAT 92–99
[2024-09-20] MEDS: METOPROLOL TARTRATE 50 MG TAB PO ×4 (00:25→18:27)
[2024-09-20] MEDS: DOXYCYCLINE HYCLATE 100 MG TABLET PO ×3 (00:25→21:13)
[2024-09-20] MEDS: GABAPENTIN 100 MG CAPSULE 200 MG PO ×3 (06:03→21:12)
[2024-09-20] MEDS: PRAMIPEXOLE 0.5 MG TABLET 1.5 MG PO ×3 (06:03→21:13)
[2024-09-20] MEDS: UMECLIDINIUM/VILANTEROL 62.5-25 MCG ELLIPTA 1 PUFF INHALATION (08:13)
--- NOTE | 2024-09-20 09:11 | P.PNIM_ITS ---
Progress Note: A&P Assessment and Plan (1) Acute on chronic systolic heart failure: Code(s): I50.23 - Acute on chronic systolic (congestive) heart failure Status: Acute (2) Pneumonia: Qualifiers: Laterality: bilateral Lung location: lower lobe of lung Pneumonia type: due to unspecified organism Qualified Code(s): J18.9 - Pneumonia, unspecified organism Code(s): J18.9 - Pneumonia, unspecified organism Status: Acute (3) Atrial fibrillation with RVR: Code(s): I48.91 - Unspecified atrial fibrillation Status: Acute (4) Chronic respiratory failure: Code(s): J96.10 - Chronic respiratory failure, unspecified whether with hypoxia or hypercapnia Status: Acute (5) COPD (chronic obstructive pulmonary disease): Qualifiers: COPD type: COPD with acute exacerbation Qualified Code(s): J44.1 - Chronic obstructive pulmonary disease with (acute) exacerbation Code(s): J44.9 - Chronic obstructive pulmonary disease, unspecified Status: Acute Plan Acute on chronic systolic heart failure Qualifiers: Heart failure chronicity: acute on chronic Heart failure type: combined systolic and diastolic Qualified Code(s): I50.43 - Acute on chronic combined systolic (congestive) and diastolic (congestive) heart failure Code(s): I50.9 - Heart failure, unspecified Status: Acute Assessment and Plan: BNP 03715 - most recent echo (10/2023): Mild left ventricular enlargement with moderate concentric hypertrophy, severe global hypokinesis, EF 22%, grade 3 diastolic dysfunction present. See report for further details. - currently on: spironolactone 12.5 mg daily, torsemide 10 mg daily. - monitor I&Os and daily weights Patient still has crackles left lower lobe, coarse breath sound bilaterally, Continue as Lasix 40 mg b.i.d. IV push Atrial fibrillation with RVR: Code(s): I48.91 - Unspecified atrial fibrillation Status: Acute Assessment and Plan: - EKG, initial: AFib RVR with aberrant conduction, rate 136, right bundle branch block. - history of persistent AFib on Xarelto and has not required rate controlling medication, continue anticoagulant once confirmed. 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 - risk factors and complicating factors: Suspected CHF exacerbation, AFib - started on doxycycline b.i.d. p.o. - MRSA PCR negative and sputum culture added - Viral PCR negative - new supplemental O2 requirement - 2L NC - supportive care COPD (chronic obstructive pulmonary disease): Qualifiers: COPD type: COPD with acute exacerbation Qualified Code(s): J44.1 - Chronic obstructive pulmonary disease with (acute) exacerbation Code(s): J44.9 - Chronic obstructive pulmonary disease, unspecified Status: Acute Assessment and Plan: - started on nebs p.r.n. and scheduled steroids (5) Hypertension: Qualifiers: Hypertension type: primary hypertension Qualified Code(s): I10 - Essential (primary) hypertension Code(s): I10 - Essential (primary) hypertension Status: Chronic Assessment and Plan: - chronic, currently 113/80 - awaiting med rec, will add hydralazine p.r.n. in interim - monitor Subjective Date/time seen: 09/20/24 09:11 Interval history: Patient is afebrile, blood pressure stable, pulse ox 96-98 on 2 L oxygen, patient still has shortness breath with exertion, cough is improving, patient denies chest pain, abdomen pain, nausea vomiting diarrhea Exam Narrative: GENERAL: Pleasant, in no acute distress. Well-nourished. - EYES: EOMI. Anicteric. - HENT: Moist mucous membranes. 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 No murmur. No JVD. - ABDOMEN: Soft, non-tender and non-dist ended. No palpable masses. - EXTREMITIES: No edema. Peripheral puls es 2+. Non-tender. - NEUROLOGIC: No focal neurological defi cits. CN II-XII grossly intact. - PSYCHIATRIC: Awake, Alert and oriented x 3. Appropriate mood and affect. General weakness - SKIN: No rashes or lesions. Warm. - LYMPH: No cervical lymphadenopathy. Objective Data Vital Signs Vital Signs: Vital Signs - 24 hr 09/19/24 09:39 09/19/24 10:06 09/19/24 10:12 Temperature Pulse Rate 125 H 116 H 115 H Respiratory Rate 19 Blood Pressure 109/90 125/91 H 125/91 H Pulse Oximetry 100 Oxygen Delivery Oxygen Flow Rate 09/19/24 10:02 09/19/24 12:00 09/19/24 15:43 Temperature 97.9 F Pulse Rate 110 H 99 85 Respiratory Rate 97 H 22 H Blood Pressure 125/91 H 113/88 Pulse Oximetry 99 98 Oxygen Delivery Oxygen Flow Rate 09/19/24 12:00 09/19/24 14:00 09/19/24 16:00 Temperature Pulse Rate 91 85 84 Respiratory Rate Blood Pressure Pulse Oximetry Oxygen Delivery Oxygen Flow Rate 09/19/24 16:00 09/19/24 16:00 09/19/24 18:00 Temperature 98.1 F Pulse Rate 85 45 L 81 Respiratory Rate 22 H 20 Blood Pressure 125/79 Pulse Oximetry 98 98 Oxygen Delivery Nasal Cannula Oxygen Flow Rate 2 09/19/24 19:59 09/19/24 20:00 09/19/24 22:00 Temperature 98.0 F Pulse Rate 86 82 82 Respiratory Rate 20 Blood Pressure 123/77 Pulse Oximetry 97 Oxygen Delivery Oxygen Flow Rate 09/19/24 20:00 09/20/24 00:25 09/20/24 00:48 Temperature 98.1 F Pulse Rate 94 99 Respiratory Rate 20 Blood Pressure 113/85 Pulse Oximetry 97 97 Oxygen Delivery Nasal Cannula Oxygen Flow Rate 2 09/20/24 00:00 09/20/24 00:00 09/20/24 02:00 Temperature Pulse Rate 95 76 Respiratory Rate Blood Pressure Pulse Oximetry 97 Oxygen Delivery Nasal Cannula Oxygen Flow Rate 2 09/20/24 03:47 09/20/24 04:00 09/20/24 04:00 Temperature 97.6 F Pulse Rate 103 H 91 Respiratory Rate 20 Blood Pressure 148/88 H Pulse Oximetry 93 96 Oxygen Delivery Nasal Cannula Oxygen Flow Rate 2 09/20/24 06:03 09/20/24 06:00 09/20/24 08:26 Temperature 97.8 F Pulse Rate 83 82 86 Respiratory Rate 18 Blood Pressure 123/87 Pulse Oximetry 98 Oxygen Delivery Oxygen Flow Rate 09/19/24 20:00 Temperature 98.0 F Pulse Rate 86 Respiratory Rate Blood Pressure 123/77 Pulse Oximetry 97 Oxygen Delivery Oxygen Flow Rate Intake/Output Intake/Output: Intake & Output 09/17/24 09/18/24 09/19/24 09/20/24 23:59 23:59 23:59 23:59 Intake Total 858.1 1111 Output Total 50 200 Balance 808.1 911 Meds/Results Medications: Active Medications Generic Name Dose Route Start Last Admin Trade Name Freq PRN Reason Stop Dose Admin Acetaminophen 650 mg 09/19/24 12:58 Acetaminophen 325 Mg Tablet PO Q6H PRN Mild Pain (1-3) or Fever Albuterol/Ipratropium 3 ml 09/19/24 12:58 Ipratropium 0.5 Mg/Albuterol Sulfate 2.5 Mg Ampul.Neb 3 Ml INHALATION Q6HRT PRN Shortness Of Breath Or Wheezing Atorvastatin Calcium 20 mg 09/20/24 09:00 Atorvastatin 20 Mg Tablet PO DAILY DEEP Benzonatate 100 mg 09/19/24 12:58 09/19/24 13:52 Benzonatate 100 Mg Capsule PO 100 mg TID PRN Administration Cough Calcitriol 0.25 mcg 09/20/24 09:00 Calcitriol 0.25 Mcg Capsule PO DAILY DEEP Doxycycline Hyclate 100 mg 09/19/24 13:10 09/20/24 00:25 Doxycycline Hyclate 100 Mg Tablet PO 100 mg Q12HR DEEP Administration Furosemide 40 mg 09/19/24 17:00 09/19/24 15:43 Furosemide Inj 40 Mg/4 Ml Vial IV PUSH 09/21/24 10:00 40 mg BID DEEP Administration Gabapentin 200 mg 09/19/24 22:00 09/20/24 06:03 Gabapentin 100 Mg Capsule PO 200 mg Q8H DEEP Administration Guaifenesin 600 mg 09/19/24 21:00 09/19/24 21:01 Guaifenesin 12 Hr 600 Mg Tabcr PO 600 mg Q12HR DEEP Administration Hydralazine HCl 10 mg 09/19/24 19:15 Hydralazine Hcl 20 Mg/Ml Vial IV PUSH Q8H PRN BP greater than 180/90 Leflunomide 20 mg 09/20/24 09:00 Leflunomide 20 Mg Tablet PO DAILY [facility] Losartan Potassium 25 mg 09/20/24 09:00 Losartan Potassium 25 Mg Tablet PO DAILY [facility] Metoprolol Tartrate 50 mg 09/19/24 15:25 09/20/24 06:03 Metoprolol Tartrate 50 Mg Tab PO 50 mg Q6HR DEEP Administration Ondansetron HCl 4 mg 09/19/24 09:46 Ondansetron Inj 4 Mg/2 Ml Vial IV PUSH Q4H PRN Nausea Perflutren Lipid Microsphere 0 ml 09/19/24 12:57 Perflutren Lipid Microspheres 1.5 Ml Vial Diluted To 10 Ml Total Volume IV PUSH 09/22/24 12:57 ONCE PRN adequate visualization Protocol Pramipexole Dihydrochloride 1.5 mg 09/19/24 22:00 09/20/24 06:03 Pramipexole 0.5 Mg Tablet PO 1.5 mg Q8H DEEP Administration Prednisone 40 mg 09/19/24 13:05 09/19/24 15:43 Prednisone 20 Mg Tablet PO 09/24/24 13:04 40 mg DAILY@0800 DEEP Administration Rivaroxaban 20 mg 09/19/24 20:35 09/19/24 21:01 Rivaroxaban 20 Mg Tablet PO 20 mg DAILY@1700 DEEP Administration Umeclidinium/Vilanterol 1 puff 09/20/24 09:00 09/20/24 08:13 Umeclidinium/Vilanterol 62.5-25 Mcg Ellipta INHALATION 1 puff DAILY DEEP Administration Radiology Results: ITS Impressions Abdomen X-Ray 09/19/24 07:56 IMPRESSION: 1. Normal bowel gas pattern. 2. Cardiomegaly. Abdomen/Pelvis CT 09/19/24 09:09 IMPRESSION: 1. Unremarkable liver with no intra or extra hepatic biliary ductal dilation. There is a calcification along the left ligamentum teres most likely a phlebolith or old granulomatous disease but could not absolutely exclude a gallstone within a very small decompressed gallbladder. Suspect more likely the gallbladder is surgically absent and would correlate with surgical history. 2. 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 3. Fibroid uterus. 4. Small bilateral pleural effusions with patchy groundglass opacities in bilateral lower lobes which could represent atelectasis, pneumonia or mild pulmonary edema. 5. Cardiomegaly. Chest X-Ray 09/19/24 15:11 IMPRESSION: Bilateral lower lobe prominent markings with minimal opacification more on the left side which may indicate pneumonia. Follow-up advised. Possible nodule versus focal pneumonia in the right lower lobe. Minimal right pleural effusion. Bilateral interstitial changes which may indicate fibrotic changes versus pneumonitis versus underlying pulmonary edema. Clinical correlation advised. Labs Labs: Laboratory Results - last 24 hr 09/19/24 09/19/24 09/19/24 10:27 11:31 20:08 POC Capillary Glucose 146 H Lactic Acid 1.5 NT-Pro-B Natriuret Pep 09152 H Nasal MRSA (PCR) Not detected
[2024-09-20] MEDS: guaiFENesin 12 HR 600 MG TABCR PO ×2 (10:00→21:13)
[2024-09-20] MEDS: predniSONE 20 MG TABLET 40 MG PO (10:00)
[2024-09-20] MEDS: LOSARTAN POTASSIUM 25 MG TABLET PO (10:01)
[2024-09-20] MEDS: FUROSEMIDE INJ 40 MG/4 ML VIAL IV PUSH ×2 (10:01→18:28)
[2024-09-20] MEDS: ATORVASTATIN 20 MG TABLET PO (10:01)
[2024-09-20] MEDS: LEFLUNOMIDE 20 MG TABLET PO (10:01)
[2024-09-20] MEDS: calcitrioL 0.25 MCG CAPSULE PO (10:01)
[2024-09-20 11:54] LABS: Basophils Percent Auto 0.3 % (0.2-1.2); Hematocrit 36.6 % (37.0-47.0); Hemoglobin 10.9 g/dL (12.0-15.0); Immature Granulocyte Absolute 0.03 K/mm3 (0.00-0.031); Immature Granulocyte Percent A 0.4 % (0-0.5); Lymphocytes Absolute Auto 0.79 K/mm3 (0.9-3.2); Lymphocytes Percent Auto 10.2 % (18.3-44.2); Mean Corpuscular HGB Conc 29.8 g/dl (32-36); Mean Corpuscular Hemoglobin 28.6 pg (26-34); Mean Corpuscular Volume 96.1 fl (80-100); Monocytes Absolute Auto 0.3 K/mm3 (0.1-0.6); Monocytes Percent Auto 3.4 % (2.6-8.5); Neutrophils Absolute Auto 6.6 K/mm3 (1.3-6.7); Neutrophils Percent Auto 85.7 % (45.5-73.1); Platelet Count Result 176 k/mm3 (150-375); Red Blood Count 3.81 M/mm3 (4.2-5.4); Red Cell Distribution Width 16.9 % (11.5-14.5); White Blood Count 7.7 K/mm3 (4.5-10.0)
[2024-09-20 12:05] LABS: Anion Gap 11 mmol/L (4-12); Blood Urea Nitrogen 37 mg/dL (7-17); Calcium 8.9 mg/dL (8.4-10.2); Carbon Dioxide 20 mmol/L (22-30); Chloride 107 mmol/L (98-107); Estimated CRCL calculation 21 ml/min; Estimated Glomerular Filt Rate 25; Glucose 221 mg/dL (65-110); Sodium 138 mmol/L (137-145)
[2024-09-20 12:20] LABS: Platelet Estimate Adequate (Adequate)
[2024-09-20 12:21] LABS: Anisocytosis 1+; Burr Cells 1+; Ovalocytes 1+
--- NOTE | 2024-09-20 12:21 | PM.PNCARD ---
Progress Note: A&P Assessment and Plan (1) Atrial fibrillation with RVR: Code(s): I48.91 - Unspecified atrial fibrillation Status: Acute Assessment and Plan: Discontinued Diltiazem given reduced LVEF. Rate controlled on Metoprolol 50mg Q6H. Will transition to Toprol. Continue Xarelto. (2) Acute on chronic heart failure with reduced ejection fraction (HFrEF, <= 40%): Code(s): I50.23 - Acute on chronic systolic (congestive) heart failure Status: Acute Assessment and Plan: -Lasix 40 mg IV BID and can most likely transition back to her home dose diuretic this weekend -Most likely exacerbated by her rapid ventricular rate which in turn may have been exacerbated by her underlying COPD exacerbation -Continue Losartan. Will transition Metoprolol tartrate to Metoprolol succinate. -Can resume home dose of Spironolactone if renal function stays stable with IV diuresis. (3) Hypertension: Qualifiers: Hypertension type: primary hypertension Qualified Code(s): I10 - Essential (primary) hypertension Code(s): I10 - Essential (primary) hypertension Status: Chronic Assessment and Plan: At goal. (4) Pneumonia: Qualifiers: Pneumonia type: due to unspecified organism Laterality: bilateral Lung location: lower lobe of lung Qualified Code(s): J18.9 - Pneumonia, unspecified organism Code(s): J18.9 - Pneumonia, unspecified organism Status: Acute Assessment and Plan: On antibiotics as per primary team. (5) COPD (chronic obstructive pulmonary disease): Qualifiers: COPD type: COPD with acute exacerbation Qualified Code(s): J44.1 - Chronic obstructive pulmonary disease with (acute) exacerbation Code(s): J44.9 - Chronic obstructive pulmonary disease, unspecified Status: Acute Assessment and Plan: Management of acute COPD exacerbation as per primary team. Subjective Date/time seen: 09/20/24 12:21 Interval history: Reason for visit: AFIB with RVR, CHF HPI: 83-year-old woman with chronic systolic heart failure (LVEF 20-25%), chronic atrial fibrillation, COPD, and hypertension presented with 3 days of worsening shortness of breath. There has been associated weakness, general malaise, and decreased appetite. Her son was at bedside who provided some the subjective history as well. It would appear that the patient stop taking her anoro and her breathing started to worsen. She denies any orthopnea or worsening lower extremity swelling. She also denies any chest discomfort, palpitations, and syncope. She lives at home by herself and has a licensed home inspector and daughter who helps her with her manager money. Otherwise she is able to get around the house by herself without any significant cardiopulmonary limitations prior to the development of her current symptoms. Date of service 09/20: Feeling better today. Still with mild lower extremity edema. Shortness of breath with activity, however, none at rest. Review of Systems Review of Systems: All systems reviewed & are unremarkable except as noted in HPI and below (HPI) Exam Const: General: no acute distress HENMT: Mouth: Yes moist mucous membranes Eyes: General: appearance normal, both eyes and all related structures Sclera: sclerae normal Resp: Effort & Inspection: normal respiratory effort Other: On supplemental oxygen Cardio: Rhythm: abnormal rhythm irregularly irregular Heart sounds: no murmurs Other: Mild lower extremity edema Skin: General skin exam: normal color Neuro: Speech: normal speech Psych: Mental Status: mental status grossly normal Affect: normal affect Objective Data Vital Signs Vital Signs: Vital Signs - 24 hr 09/19/24 15:43 09/19/24 14:00 09/19/24 16:00 Temperature Pulse Rate 85 85 84 Respiratory Rate Blood Pressure Pulse Oximetry Oxygen Delivery Oxygen Flow Rate 09/19/24 16:00 09/19/24 16:00 09/19/24 18:00 Temperature 36.7 C Pulse Rate 85 45 L 81 Respiratory Rate 22 H 20 Blood Pressure 125/79 Pulse Oximetry 98 98 Oxygen Delivery Nasal Cannula Oxygen Flow Rate 2 09/19/24 19:59 09/19/24 20:00 09/19/24 22:00 Temperature 36.7 C Pulse Rate 86 82 82 Respiratory Rate 20 Blood Pressure 123/77 Pulse Oximetry 97 Oxygen Delivery Oxygen Flow Rate 09/19/24 20:00 09/20/24 00:25 09/20/24 00:48 Temperature 36.7 C Pulse Rate 94 99 Respiratory Rate 20 Blood Pressure 113/85 Pulse Oximetry 97 97 Oxygen Delivery Nasal Cannula Oxygen Flow Rate 2 09/20/24 00:00 09/20/24 00:00 09/20/24 02:00 Temperature Pulse Rate 95 76 Respiratory Rate Blood Pressure Pulse Oximetry 97 Oxygen Delivery Nasal Cannula Oxygen Flow Rate 2 09/20/24 03:47 09/20/24 04:00 09/20/24 04:00 Temperature 36.4 C Pulse Rate 103 H 91 Respiratory Rate 20 Blood Pressure 148/88 H Pulse Oximetry 93 96 Oxygen Delivery Nasal Cannula Oxygen Flow Rate 2 09/20/24 06:03 09/20/24 06:00 09/20/24 08:26 Temperature 36.6 C Pulse Rate 83 82 86 Respiratory Rate 18 Blood Pressure 123/87 Pulse Oximetry 98 Oxygen Delivery Oxygen Flow Rate 09/20/24 11:54 09/19/24 20:00 Temperature 36.6 C 36.7 C Pulse Rate 90 86 Respiratory Rate 18 Blood Pressure 128/97 H 123/77 Pulse Oximetry 93 97 Oxygen Delivery Oxygen Flow Rate Intake/Output Intake/Output: Intake & Output 09/17/24 09/18/24 09/19/24 09/20/24 23:59 23:59 23:59 23:59 Intake Total 858.1 1351 Output Total 50 200 Balance 808.1 1151 Meds/Results Medications: Active Medications Generic Name Dose Route Start Last Admin Trade Name Freq PRN Reason Stop Dose Admin Acetaminophen 650 mg 09/19/24 12:58 Acetaminophen 325 Mg Tablet PO Q6H PRN Mild Pain (1-3) or Fever Albuterol/Ipratropium 3 ml 09/19/24 12:58 Ipratropium 0.5 Mg/Albuterol Sulfate 2.5 Mg Ampul.Neb 3 Ml INHALATION Q6HRT PRN Shortness Of Breath Or Wheezing Atorvastatin Calcium 20 mg 09/20/24 09:00 09/20/24 10:01 Atorvastatin 20 Mg Tablet PO 20 mg DAILY DEEP Administration Benzonatate 100 mg 09/19/24 12:58 09/19/24 13:52 Benzonatate 100 Mg Capsule PO 100 mg TID PRN Administration Cough Calcitriol 0.25 mcg 09/20/24 09:00 09/20/24 10:01 Calcitriol 0.25 Mcg Capsule PO 0.25 mcg DAILY DEEP Administration Doxycycline Hyclate 100 mg 09/19/24 13:10 09/20/24 10:01 Doxycycline Hyclate 100 Mg Tablet PO 100 mg Q12HR DEEP Administration Furosemide 40 mg 09/19/24 17:00 09/20/24 10:01 Furosemide Inj 40 Mg/4 Ml Vial IV PUSH 09/21/24 10:00 40 mg BID DEEP Administration Gabapentin 200 mg 09/19/24 22:00 09/20/24 06:03 Gabapentin 100 Mg Capsule PO 200 mg Q8H DEEP Administration Guaifenesin 600 mg 09/19/24 21:00 09/20/24 10:00 Guaifenesin 12 Hr 600 Mg Tabcr PO 600 mg Q12HR DEEP Administration Hydralazine HCl 10 mg 09/19/24 19:15 Hydralazine Hcl 20 Mg/Ml Vial IV PUSH Q8H PRN BP greater than 180/90 Leflunomide 20 mg 09/20/24 09:00 09/20/24 10:01 Leflunomide 20 Mg Tablet PO 20 mg DAILY DEEP Administration Losartan Potassium 25 mg 09/20/24 09:00 09/20/24 10:01 Losartan Potassium 25 Mg Tablet PO 25 mg DAILY DEEP Administration Metoprolol Tartrate 50 mg 09/19/24 15:25 09/20/24 06:03 Metoprolol Tartrate 50 Mg Tab PO 50 mg Q6HR DEEP Administration Ondansetron HCl 4 mg 09/19/24 09:46 Ondansetron Inj 4 Mg/2 Ml Vial IV PUSH Q4H PRN Nausea Perflutren Lipid Microsphere 0 ml 09/19/24 12:57 Perflutren Lipid Microspheres 1.5 Ml Vial Diluted To 10 Ml Total Volume IV PUSH 09/22/24 12:57 ONCE PRN adequate visualization Protocol Pramipexole Dihydrochloride 1.5 mg 09/19/24 22:00 09/20/24 06:03 Pramipexole 0.5 Mg Tablet PO 1.5 mg Q8H DEEP Administration Prednisone 40 mg 09/19/24 13:05 09/20/24 10:00 Prednisone 20 Mg Tablet PO 09/24/24 13:04 40 mg DAILY@0800 [facility] Administration Rivaroxaban 20 mg 09/19/24 20:35 09/19/24 21:01 Rivaroxaban 20 Mg Tablet PO 20 mg DAILY@1700 [facility] Administration Umeclidinium/Vilanterol 1 puff 09/20/24 09:00 09/20/24 08:13 Umeclidinium/Vilanterol 62.5-25 Mcg Ellipta INHALATION 1 puff DAILY DEEP Administration Radiology Results: ITS Impressions Abdomen X-Ray 09/19/24 07:56 IMPRESSION: 1. Normal bowel gas pattern. 2. Cardiomegaly. Abdomen/Pelvis CT 09/19/24 09:09 IMPRESSION: 1. Unremarkable liver with no intra or extra hepatic biliary ductal dilation. There is a calcification along the left ligamentum teres most likely a phlebolith or old granulomatous disease but could not absolutely exclude a gallstone within a very small decompressed gallbladder. Suspect more likely the gallbladder is surgically absent and would correlate with surgical history. 2. 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 3. Fibroid uterus. 4. Small bilateral pleural effusions with patchy groundglass opacities in bilateral lower lobes which could represent atelectasis, pneumonia or mild pulmonary edema. 5. Cardiomegaly. Chest X-Ray 09/19/24 15:11 IMPRESSION: Bilateral lower lobe prominent markings with minimal opacification more on the left side which may indicate pneumonia. Follow-up advised. Possible nodule versus focal pneumonia in the right lower lobe. Minimal right pleural effusion. Bilateral interstitial changes which may indicate fibrotic changes versus pneumonitis versus underlying pulmonary edema. Clinical correlation advised. Labs Labs: Laboratory Results - last 24 hr 09/19/24 09/20/24 20:08 11:47 WBC 7.7 RBC 3.81 L Hgb 10.9 L Hct 36.6 L MCV 96.1 MCH 28.6 MCHC 29.8 L RDW 16.9 H Plt Count 176 MPV 12.0 H Immature Gran % (Auto) 0.4 Neut % (Auto) 85.7 H Lymph % (Auto) 10.2 L [place] % (Auto) 3.4 Eos % (Auto) 0.0 Baso % (Auto) 0.3 Lymph # (Auto) 0.79 L [place] # (Auto) 0.3 Eos # (Auto) 0.0 Baso # (Auto) 0.0 Abs Immat Gran (auto) 0.03 Absolute Neuts (auto) 6.6 Absolute Nucleated RBC 0.000 Nucleated RBC % 0.0 Sodium 138 Potassium 4.0 Chloride 107 Carbon Dioxide 20 L Anion Gap 11 BUN 37 H Creatinine 1.90 H Estim Creat Clear Calc 21 Estimated GFR 25 L Glucose 221 H Calcium 8.9 Nasal MRSA (PCR) Not detected
[2024-09-20 12:23] LABS: Schistocytes Rare
[2024-09-20] MEDS: RIVAROXABAN 20 MG TABLET PO (18:28)
[2024-09-21] VITALS (19 sets, daily range): BP systolic 95–116; BP diastolic 55–83; PULSE 71–115; RESP 16–20; TEMP 36.4–37.1; O2SAT 95–99
[2024-09-21] MEDS: PRAMIPEXOLE 0.5 MG TABLET 1.5 MG PO ×3 (06:34→21:51)
[2024-09-21] MEDS: GABAPENTIN 100 MG CAPSULE 200 MG PO ×3 (06:34→21:51)
--- NOTE | 2024-09-21 07:54 | P.PNCA_ITS ---
Progress Note: A&P Assessment and Plan (1) Atrial fibrillation with RVR: Code(s): I48.91 - Unspecified atrial fibrillation Status: Acute Assessment and Plan: Continue Toprol-XL 200 mg daily. Heart rates improved. Continue Xarelto for anticoagulation (2) Acute on chronic heart failure with reduced ejection fraction (HFrEF, <= 40%): Code(s): I50.23 - Acute on chronic systolic (congestive) heart failure Status: Acute Assessment and Plan: -at home she takes torsemide 10 mg daily. Currently on Lasix 40 mg IV b.i.d.. Creatinine slightly rising. She has underlying CKD. Discontinue IV Lasix 40 mg b.i.d. and start p.o. Lasix 40 mg daily. -Most likely exacerbated by her rapid ventricular rate which in turn may have been exacerbated by her underlying COPD exacerbation -Continue Losartan. Continue Toprol-XL. -continue to hold off spironolactone given chronic kidney disease (3) Hypertension: Qualifiers: Hypertension type: primary hypertension Qualified Code(s): I10 - Essential (primary) hypertension Code(s): I10 - Essential (primary) hypertension Status: Chronic Assessment and Plan: Controlled. Continue Toprol-XL and losartan (4) Pneumonia: Qualifiers: Pneumonia type: due to unspecified organism Laterality: bilateral Lung location: lower lobe of lung Qualified Code(s): J18.9 - Pneumonia, unspecified organism Code(s): J18.9 - Pneumonia, unspecified organism Status: Acute Assessment and Plan: On antibiotics as per primary team. (5) COPD (chronic obstructive pulmonary disease): Qualifiers: COPD type: COPD with acute exacerbation Qualified Code(s): J44.1 - Chronic obstructive pulmonary disease with (acute) exacerbation Code(s): J44.9 - Chronic obstructive pulmonary disease, unspecified Status: Acute Assessment and Plan: Management of acute COPD exacerbation as per primary team. Subjective Date/time seen: 09/21/24 07:54 Interval history: Reason for visit: AFIB with RVR, CHF HPI: 83-year-old woman with chronic systolic heart failure (LVEF 20-25%), chronic atrial fibrillation, COPD, and hypertension presented with 3 days of worsening shortness of breath. There has been associated weakness, general malaise, and decreased appetite. Her son was at bedside who provided some the subjective history as well. It would appear that the patient stop taking her anoro and her breathing started to worsen. She denies any orthopnea or worsening lower extremity swelling. She also denies any chest discomfort, palpitations, and syncope. She lives at home by herself and has a home care music therapist and daughter who helps her with her director of speech pathology. Otherwise she is able to get around the house by herself without any significant cardiopulmonary limitations prior to the development of her current symptoms. Date of service 09/20: Feeling better today. Still with mild lower extremity edema. Shortness of breath with activity, however, none at rest. Date of [id number]-feeling better today. On 2 L nasal cannula. She is working with physical therapist and remains in AFib heart rates low 100s. Denies extremity edema Review of Systems Review of Systems: All systems reviewed & are unremarkable except as noted in HPI and below (HPI) Cardiovascular: Cardiovascular: Reports as per HPI Respiratory: Respiratory: Reports as per HPI Exam Const: General: comfortable and no acute distress HENMT: Mouth: Yes moist mucous membranes Eyes: General: appearance normal, both eyes and all related structures Sclera: sclerae normal EOM: EOMs intact bilaterally Neck: Other: Mildly positive hepatojugular reflux Resp: Effort & Inspection: normal respiratory effort Auscultation: rales Other: On supplemental oxygen Cardio: Rate: regular rate Rhythm: abnormal rhythm irregularly irregular Heart sounds: no murmurs Other: Mild lower extremity edema Skin: General skin exam: normal color Neuro: Speech: normal speech Extrem: General: edema Psych: Mental Status: mental status grossly normal Affect: normal affect Objective Data Vital Signs Vital Signs: Vital Signs - 24 hr 09/20/24 08:26 09/20/24 11:54 09/20/24 08:00 Temperature 36.6 C 36.6 C Pulse Rate 86 90 Respiratory Rate 18 18 Blood Pressure 123/87 128/97 H Pulse Oximetry 98 93 95 Oxygen Delivery Nasal Cannula Oxygen Flow Rate 2 09/20/24 12:00 09/20/24 15:59 09/20/24 18:27 Temperature 36.4 C Pulse Rate 69 88 Respiratory Rate 20 Blood Pressure 120/78 Pulse Oximetry 95 99 Oxygen Delivery Nasal Cannula Oxygen Flow Rate 2 09/20/24 08:00 09/20/24 10:00 09/20/24 12:00 Temperature Pulse Rate 91 84 95 Respiratory Rate Blood Pressure Pulse Oximetry Oxygen Delivery Oxygen Flow Rate 09/20/24 14:00 09/20/24 16:00 09/20/24 16:00 Temperature Pulse Rate 93 81 Respiratory Rate Blood Pressure Pulse Oximetry 99 Oxygen Delivery Nasal Cannula Oxygen Flow Rate 2 09/20/24 18:00 09/20/24 19:52 09/20/24 20:00 Temperature 36.4 C L Pulse Rate 82 91 Respiratory Rate 20 Blood Pressure 114/82 Pulse Oximetry 92 92 Oxygen Delivery Nasal Cannula Oxygen Flow Rate 2 09/20/24 20:00 09/20/24 22:00 09/20/24 23:08 Temperature 36.4 C Pulse Rate 92 81 81 Respiratory Rate 20 Blood Pressure 130/85 Pulse Oximetry 96 Oxygen Delivery Oxygen Flow Rate 09/21/24 00:00 09/21/24 00:00 09/21/24 04:00 Temperature 37.0 C Pulse Rate 81 95 Respiratory Rate 20 Blood Pressure 116/83 Pulse Oximetry 96 99 Oxygen Delivery Nasal Cannula Oxygen Flow Rate 2 09/21/24 04:00 09/21/24 02:00 09/21/24 04:00 Temperature Pulse Rate 73 79 Respiratory Rate Blood Pressure Pulse Oximetry 98 Oxygen Delivery Nasal Cannula Oxygen Flow Rate 2 09/21/24 06:00 Temperature Pulse Rate 71 Respiratory Rate Blood Pressure Pulse Oximetry Oxygen Delivery Oxygen Flow Rate Intake/Output Intake/Output: Intake & Output 09/18/24 09/19/24 09/20/24 09/21/24 23:59 23:59 23:59 23:59 Intake Total 858.1 2131 1110 Output Total 50 350 1150 Balance 808.1 1781 -40 Meds/Results Medications: Active Medications Generic Name Dose Route Start Last Admin Trade Name Freq PRN Reason Stop Dose Admin Acetaminophen 650 mg 09/19/24 12:58 Acetaminophen 325 Mg Tablet PO Q6H PRN Mild Pain (1-3) or Fever Albuterol/Ipratropium 3 ml 09/19/24 12:58 Ipratropium 0.5 Mg/Albuterol Sulfate 2.5 Mg Ampul.Neb 3 Ml INHALATION Q6HRT PRN Shortness Of Breath Or Wheezing Atorvastatin Calcium 20 mg 09/20/24 09:00 09/20/24 10:01 Atorvastatin 20 Mg Tablet PO 20 mg DAILY DEEP Administration Benzonatate 100 mg 09/19/24 12:58 09/19/24 13:52 Benzonatate 100 Mg Capsule PO 100 mg TID PRN Administration Cough Calcitriol 0.25 mcg 09/20/24 09:00 09/20/24 10:01 Calcitriol 0.25 Mcg Capsule PO 0.25 mcg DAILY DEEP Administration Doxycycline Hyclate 100 mg 09/19/24 13:10 09/20/24 21:13 Doxycycline Hyclate 100 Mg Tablet PO 100 mg Q12HR DEEP Administration Furosemide 40 mg 09/19/24 17:00 09/20/24 18:28 Furosemide Inj 40 Mg/4 Ml Vial IV PUSH 09/21/24 10:00 40 mg BID DEEP Administration Gabapentin 200 mg 09/19/24 22:00 09/21/24 06:34 Gabapentin 100 Mg Capsule PO 200 mg Q8H DEEP Administration Guaifenesin 600 mg 09/19/24 21:00 09/20/24 21:13 Guaifenesin 12 Hr 600 Mg Tabcr PO 600 mg Q12HR DEEP Administration Hydralazine HCl 10 mg 09/19/24 19:15 Hydralazine Hcl 20 Mg/Ml Vial IV PUSH Q8H PRN BP greater than 180/90 Leflunomide 20 mg 09/20/24 09:00 09/20/24 10:01 Leflunomide 20 Mg Tablet PO 20 mg DAILY DEEP Administration Losartan Potassium 25 mg 09/20/24 09:00 09/20/24 10:01 Losartan Potassium 25 Mg Tablet PO 25 mg DAILY DEEP Administration Metoprolol Succinate 200 mg 09/21/24 09:00 Metoprolol Succinate Ext Rel 100 Mg Tabcr PO QAM DEEP Ondansetron HCl 4 mg 09/19/24 09:46 Ondansetron Inj 4 Mg/2 Ml Vial IV PUSH Q4H PRN Nausea Perflutren Lipid Microsphere 0 ml 09/19/24 12:57 Perflutren Lipid Microspheres 1.5 Ml Vial Diluted To 10 Ml Total Volume IV PUSH 09/22/24 12:57 ONCE PRN adequate visualization Protocol Pramipexole Dihydrochloride 1.5 mg 09/19/24 22:00 09/21/24 06:34 Pramipexole 0.5 Mg Tablet PO 1.5 mg Q8H DEEP Administration Prednisone 40 mg 09/19/24 13:05 09/20/24 10:00 Prednisone 20 Mg Tablet PO 09/24/24 13:04 40 mg DAILY@0800 DEEP Administration Rivaroxaban 20 mg 09/19/24 20:35 09/20/24 18:28 Rivaroxaban 20 Mg Tablet PO 20 mg DAILY@1700 DEEP Administration Umeclidinium/Vilanterol 1 puff 09/20/24 09:00 09/20/24 08:13 Umeclidinium/Vilanterol 62.5-25 Mcg Ellipta INHALATION 1 puff DAILY DEEP Administration Radiology Results: ITS Impressions Abdomen X-Ray 09/19/24 07:56 IMPRESSION: 1. Normal bowel gas pattern. 2. Cardiomegaly. Abdomen/Pelvis CT 09/19/24 09:09 IMPRESSION: 1. Unremarkable liver with no intra or extra hepatic biliary ductal dilation. There is a calcification along the left ligamentum teres most likely a phlebolith or old granulomatous disease but could not absolutely exclude a gallstone within a very small decompressed gallbladder. Suspect more likely the gallbladder is surgically absent and would correlate with surgical history. 2. 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 3. Fibroid uterus. 4. Small bilateral pleural effusions with patchy groundglass opacities in bilateral lower lobes which could represent atelectasis, pneumonia or mild pulmonary edema. 5. Cardiomegaly. Chest X-Ray 09/19/24 15:11 IMPRESSION: Bilateral lower lobe prominent markings with minimal opacification more on the left side which may indicate pneumonia. Follow-up advised. Possible nodule versus focal pneumonia in the right lower lobe. Minimal right pleural effusion. Bilateral interstitial changes which may indicate fibrotic changes versus pneumonitis versus underlying pulmonary edema. Clinical correlation advised. Labs Labs: Laboratory Results - last 24 hr 09/20/24 11:47 WBC 7.7 RBC 3.81 L Hgb 10.9 L Hct 36.6 L MCV 96.1 MCH 28.6 MCHC 29.8 L RDW 16.9 H Plt Count 176 MPV 12.0 H Immature Gran % (Auto) 0.4 Neut % (Auto) 85.7 H Lymph % (Auto) 10.2 L [place] % (Auto) 3.4 Eos % (Auto) 0.0 Baso % (Auto) 0.3 Lymph # (Auto) 0.79 L [place] # (Auto) 0.3 Eos # (Auto) 0.0 Baso # (Auto) 0.0 Abs Immat Gran (auto) 0.03 Absolute Neuts (auto) 6.6 Absolute Nucleated RBC 0.000 Nucleated RBC % 0.0 Platelet Estimate Adequate Anisocytosis 1+ Ovalocytes 1+ [place] Cells 1+ Schistocytes Rare Sodium 138 Potassium 4.0 Chloride 107 Carbon Dioxide 20 L Anion Gap 11 BUN 37 H Creatinine 1.90 H Estim Creat Clear Calc 21 Estimated GFR 25 L Glucose 221 H Calcium 8.9
--- NOTE | 2024-09-21 08:52 | P.PNIM_ITS ---
Progress Note: A&P Assessment and Plan (1) Acute on chronic systolic heart failure: Code(s): I50.23 - Acute on chronic systolic (congestive) heart failure Status: Deleted (2) Pneumonia: Qualifiers: Laterality: bilateral Lung location: lower lobe of lung Pneumonia type: due to unspecified organism Qualified Code(s): J18.9 - Pneumonia, unspecified organism Code(s): J18.9 - Pneumonia, unspecified organism Status: Acute (3) Atrial fibrillation with RVR: Code(s): I48.91 - Unspecified atrial fibrillation Status: Acute (4) Chronic respiratory failure: Code(s): J96.10 - Chronic respiratory failure, unspecified whether with hypoxia or hypercapnia Status: Acute (5) COPD (chronic obstructive pulmonary disease): Qualifiers: COPD type: COPD with acute exacerbation Qualified Code(s): J44.1 - Chronic obstructive pulmonary disease with (acute) exacerbation Code(s): J44.9 - Chronic obstructive pulmonary disease, unspecified Status: Acute Plan Acute on chronic systolic heart failure Qualifiers: Heart failure chronicity: acute on chronic Heart failure type: combined systolic and diastolic Qualified Code(s): I50.43 - Acute on chronic combined systolic (congestive) and diastolic (congestive) heart failure Code(s): I50.9 - Heart failure, unspecified Status: Acute Assessment and Plan: BNP 56234 - most recent echo (10/2023): Mild left ventricular enlargement with moderate concentric hypertrophy, severe global hypokinesis, EF 22%, grade 3 diastolic dysfunction present. See report for further details. - currently on: spironolactone 12.5 mg daily, torsemide 10 mg daily. - monitor I&Os and daily weights Patient had crackles left lower lobe, coarse breath sound bilaterally, on Lasix 40 mg b.i.d. IV push change to lasix 40mg qd po per refinery operator Atrial fibrillation with RVR: Code(s): I48.91 - Unspecified atrial fibrillation Status: Acute Assessment and Plan: - EKG, initial: AFib RVR with aberrant conduction, rate 136, right bundle branch block. - history of persistent AFib on Xarelto and has not required rate controlling medication, continue anticoagulant once confirmed. start metoprolol 50 mg every 6 hours, discontinue diltiazem giving her systolic dysfunction - refinery operator consulted given Afib in the setting of advanced CHF (EF 22%) - telemetry monitoring (3) Pneumonia: Qualifiers: Laterality: bilateral Lung location: lower lobe of lung Pneumonia type: due to unspecified organism Qualified Code(s): J18.9 - Pneumonia, unspecified organism Code(s): J18.9 - Pneumonia, unspecified organism Status: Acute Assessment and Plan: - CT abdomen/pelvis: Small bilateral pleural effusions with patchy groundglass opacities in bilateral lower lobes which could represent atelectasis, pneumonia or mild pulmonary edema. - risk factors and complicating factors: Suspected CHF exacerbation, AFib - started on doxycycline b.i.d. p.o. - MRSA PCR negative and sputum culture added - Viral PCR negative - new supplemental O2 requirement - 2L NC - supportive care COPD (chronic obstructive pulmonary disease): Qualifiers: COPD type: COPD with acute exacerbation Qualified Code(s): J44.1 - Chronic obstructive pulmonary disease with (acute) exacerbation Code(s): J44.9 - Chronic obstructive pulmonary disease, unspecified Status: Acute Assessment and Plan: - started on nebs p.r.n. and scheduled steroids (5) Hypertension: Qualifiers: Hypertension type: primary hypertension Qualified Code(s): I10 - Essential (primary) hypertension Code(s): I10 - Essential (primary) hypertension Blood pressure is controlled, continue metoprolol 200 mg daily p.o., [id number] mg qd po Subjective Date/time seen: 09/21/24 08:52 Interval history: shortness breath with exertion, shortness improving, patient denies palpit ation, patient denies chest pain, abdomen pain, nausea vomiting diarrhea. Telemetry showed AFib, rate controlled Exam Narrative: GENERAL: Pleasant, in no acute distress. Well-nourished. - EYES: EOMI. Anicteric. - HENT: Moist mucous membranes. - LUNGS: Coarse sounds bilaterally, tractor crane engineer ckles left lower base - CARDIOVASCULAR: Regular rate and rhyth m. No murmur. No JVD. - ABDOMEN: Soft, non-tender and non-dist ended. No palpable masses. - EXTREMITIES: No edema. Peripheral puls es 2+. Non-tender. - NEUROLOGIC: No focal neurological defi cits. CN II-XII grossly intact. - PSYCHIATRIC: Awake, Alert and oriented x 3. Appropriate mood and affect. General weakness - SKIN: No rashes or lesions. Warm. - LYMPH: No cervical lymphadenopathy. Objective Data Vital Signs Vital Signs: Vital Signs - 24 hr 09/20/24 11:54 09/20/24 12:00 09/20/24 15:59 Temperature 97.8 F 97.6 F Pulse Rate 90 69 Respiratory Rate 18 20 Blood Pressure 128/97 H 120/78 Pulse Oximetry 93 95 99 Oxygen Delivery Nasal Cannula Oxygen Flow Rate 2 09/20/24 18:27 09/20/24 10:00 09/20/24 12:00 Temperature Pulse Rate 88 84 95 Respiratory Rate Blood Pressure Pulse Oximetry Oxygen Delivery Oxygen Flow Rate 09/20/24 14:00 09/20/24 16:00 09/20/24 16:00 Temperature Pulse Rate 93 81 Respiratory Rate Blood Pressure Pulse Oximetry 99 Oxygen Delivery Nasal Cannula Oxygen Flow Rate 2 09/20/24 18:00 09/20/24 19:52 09/20/24 20:00 Temperature 97.5 F L Pulse Rate 82 91 Respiratory Rate 20 Blood Pressure 114/82 Pulse Oximetry 92 92 Oxygen Delivery Nasal Cannula Oxygen Flow Rate 2 09/20/24 20:00 09/20/24 22:00 09/20/24 23:08 Temperature 97.6 F Pulse Rate 92 81 81 Respiratory Rate 20 Blood Pressure 130/85 Pulse Oximetry 96 Oxygen Delivery Oxygen Flow Rate 09/21/24 00:00 09/21/24 00:00 09/21/24 04:00 Temperature 98.6 F Pulse Rate 81 95 Respiratory Rate 20 Blood Pressure 116/83 Pulse Oximetry 96 99 Oxygen Delivery Nasal Cannula Oxygen Flow Rate 2 09/21/24 04:00 09/21/24 02:00 09/21/24 04:00 Temperature Pulse Rate 73 79 Respiratory Rate Blood Pressure Pulse Oximetry 98 Oxygen Delivery Nasal Cannula Oxygen Flow Rate 2 09/21/24 06:00 09/21/24 08:03 09/21/24 08:10 Temperature 97.6 F Pulse Rate 71 99 Respiratory Rate 20 Blood Pressure 105/66 Pulse Oximetry 97 Oxygen Delivery Nasal Cannula Oxygen Flow Rate 2 Intake/Output Intake/Output: Intake & Output 09/18/24 09/19/24 09/20/24 09/21/24 23:59 23:59 23:59 23:59 Intake Total 858.1 2131 1230 Output Total 50 350 1150 Balance 808.1 1781 80 Meds/Results Medications: Active Medications Generic Name Dose Route Start Last Admin Trade Name Freq PRN Reason Stop Dose Admin Acetaminophen 650 mg 09/19/24 12:58 Acetaminophen 325 Mg Tablet PO Q6H PRN Mild Pain (1-3) or Fever Albuterol/Ipratropium 3 ml 09/19/24 12:58 Ipratropium 0.5 Mg/Albuterol Sulfate 2.5 Mg Ampul.Neb 3 Ml INHALATION Q6HRT PRN Shortness Of Breath Or Wheezing Atorvastatin Calcium 20 mg 09/20/24 09:00 09/20/24 10:01 Atorvastatin 20 Mg Tablet PO 20 mg DAILY DEEP Administration Benzonatate 100 mg 09/19/24 12:58 09/19/24 13:52 Benzonatate 100 Mg Capsule PO 100 mg TID PRN Administration Cough Calcitriol 0.25 mcg 09/20/24 09:00 09/20/24 10:01 Calcitriol 0.25 Mcg Capsule PO 0.25 mcg DAILY DEEP Administration Doxycycline Hyclate 100 mg 09/19/24 13:10 09/20/24 21:13 Doxycycline Hyclate 100 Mg Tablet PO 100 mg Q12HR DEEP Administration Furosemide 40 mg 09/21/24 09:00 Furosemide 40 Mg Tablet PO DAILY DEEP Gabapentin 200 mg 09/19/24 22:00 09/21/24 06:34 Gabapentin 100 Mg Capsule PO 200 mg Q8H DEEP Administration Guaifenesin 600 mg 09/19/24 21:00 09/20/24 21:13 Guaifenesin 12 Hr 600 Mg Tabcr PO 600 mg Q12HR DEEP Administration Hydralazine HCl 10 mg 09/19/24 19:15 Hydralazine Hcl 20 Mg/Ml Vial IV PUSH Q8H PRN BP greater than 180/90 Leflunomide 20 mg 09/20/24 09:00 09/20/24 10:01 Leflunomide 20 Mg Tablet PO 20 mg DAILY DEEP Administration Losartan Potassium 25 mg 09/20/24 09:00 09/20/24 10:01 Losartan Potassium 25 Mg Tablet PO 25 mg DAILY DEEP Administration Metoprolol Succinate 200 mg 09/21/24 09:00 Metoprolol Succinate Ext Rel 100 Mg Tabcr PO QAM DEEP Ondansetron HCl 4 mg 09/19/24 09:46 Ondansetron Inj 4 Mg/2 Ml Vial IV PUSH Q4H PRN Nausea Perflutren Lipid Microsphere 0 ml 09/19/24 12:57 Perflutren Lipid Microspheres 1.5 Ml Vial Diluted To 10 Ml Total Volume IV PUSH 09/22/24 12:57 ONCE PRN adequate visualization Protocol Pramipexole Dihydrochloride 1.5 mg 09/19/24 22:00 09/21/24 06:34 Pramipexole 0.5 Mg Tablet PO 1.5 mg Q8H DEEP Administration Prednisone 40 mg 09/19/24 13:05 09/20/24 10:00 Prednisone 20 Mg Tablet PO 09/24/24 13:04 40 mg DAILY@0800 DEEP Administration Rivaroxaban 20 mg 09/19/24 20:35 09/20/24 18:28 Rivaroxaban 20 Mg Tablet PO 20 mg DAILY@1700 DEEP Administration Umeclidinium/Vilanterol 1 puff 09/20/24 09:00 09/20/24 08:13 Umeclidinium/Vilanterol 62.5-25 Mcg Ellipta INHALATION 1 puff DAILY DEEP Administration Radiology Results: ITS Impressions Abdomen X-Ray 09/19/24 07:56 IMPRESSION: 1. Normal bowel gas pattern. 2. Cardiomegaly. Abdomen/Pelvis CT 09/19/24 09:09 IMPRESSION: 1. Unremarkable liver with no intra or extra hepatic biliary ductal dilation. There is a calcification along the left ligamentum teres most likely a phlebolith or old granulomatous disease but could not absolutely exclude a gallstone within a very small decompressed gallbladder. Suspect more likely the gallbladder is surgically absent and would correlate with surgical history. 2. 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 3. Fibroid uterus. 4. Small bilateral pleural effusions with patchy groundglass opacities in bilateral lower lobes which could represent atelectasis, pneumonia or mild pulmonary edema. 5. Cardiomegaly. Chest X-Ray 09/19/24 15:11 IMPRESSION: Bilateral lower lobe prominent markings with minimal opacification more on the left side which may indicate pneumonia. Follow-up advised. Possible nodule versus focal pneumonia in the right lower lobe. Minimal right pleural effusion. Bilateral interstitial changes which may indicate fibrotic changes versus pneumonitis versus underlying pulmonary edema. Clinical correlation advised. Labs Labs: Laboratory Results - last 24 hr 09/20/24 11:47 WBC 7.7 RBC 3.81 L Hgb 10.9 L Hct 36.6 L MCV 96.1 MCH 28.6 MCHC 29.8 L RDW 16.9 H Plt Count 176 MPV 12.0 H Immature Gran % (Auto) 0.4 Neut % (Auto) 85.7 H Lymph % (Auto) 10.2 L [place] % (Auto) 3.4 Eos % (Auto) 0.0 Baso % (Auto) 0.3 Lymph # (Auto) 0.79 L [place] # (Auto) 0.3 Eos # (Auto) 0.0 Baso # (Auto) 0.0 Abs Immat Gran (auto) 0.03 Absolute Neuts (auto) 6.6 Absolute Nucleated RBC 0.000 Nucleated RBC % 0.0 Platelet Estimate Adequate Anisocytosis 1+ Ovalocytes 1+ [place] Cells 1+ Schistocytes Rare Sodium 138 Potassium 4.0 Chloride 107 Carbon Dioxide 20 L Anion Gap 11 BUN 37 H Creatinine 1.90 H Estim Creat Clear Calc 21 Estimated GFR 25 L Glucose 221 H Calcium 8.9
[2024-09-21] MEDS: UMECLIDINIUM/VILANTEROL 62.5-25 MCG ELLIPTA 1 PUFF INHALATION (09:07)
[2024-09-21] MEDS: LEFLUNOMIDE 20 MG TABLET PO (09:59)
[2024-09-21] MEDS: METOPROLOL SUCCINATE EXT REL 100 MG TABCR 200 MG PO (09:59)
[2024-09-21] MEDS: calcitrioL 0.25 MCG CAPSULE PO (09:59)
[2024-09-21] MEDS: DOXYCYCLINE HYCLATE 100 MG TABLET PO ×2 (10:00→21:51)
[2024-09-21] MEDS: LOSARTAN POTASSIUM 25 MG TABLET PO (10:00)
[2024-09-21] MEDS: guaiFENesin 12 HR 600 MG TABCR PO ×2 (10:00→21:51)
[2024-09-21] MEDS: ATORVASTATIN 20 MG TABLET PO (10:01)
[2024-09-21] MEDS: FUROSEMIDE 40 MG TABLET PO (10:01)
[2024-09-21] MEDS: predniSONE 20 MG TABLET 40 MG PO (10:01)
[2024-09-21 10:21] LABS: Basophils Percent Auto 0.1 % (0.2-1.2); Hematocrit 37.1 % (37.0-47.0); Hemoglobin 11.2 g/dL (12.0-15.0); Immature Granulocyte Absolute 0.06 K/mm3 (0.00-0.031); Immature Granulocyte Percent A 0.6 % (0-0.5); Lymphocytes Absolute Auto 0.83 K/mm3 (0.9-3.2); Lymphocytes Percent Auto 8.6 % (18.3-44.2); Mean Corpuscular HGB Conc 30.2 g/dl (32-36); Mean Corpuscular Hemoglobin 28.9 pg (26-34); Mean Corpuscular Volume 95.6 fl (80-100); Monocytes Absolute Auto 0.5 K/mm3 (0.1-0.6); Monocytes Percent Auto 5.5 % (2.6-8.5); Neutrophils Absolute Auto 8.2 K/mm3 (1.3-6.7); Neutrophils Percent Auto 85.2 % (45.5-73.1); Platelet Count Result 173 k/mm3 (150-375); Red Blood Count 3.88 M/mm3 (4.2-5.4); White Blood Count 9.7 K/mm3 (4.5-10.0)
[2024-09-21 10:41] LABS: Anion Gap 8 mmol/L (4-12); Blood Urea Nitrogen 44 mg/dL (7-17); Calcium 8.7 mg/dL (8.4-10.2); Carbon Dioxide 23 mmol/L (22-30); Chloride 105 mmol/L (98-107); Estimated CRCL calculation 21 ml/min; Estimated Glomerular Filt Rate 25; Glucose 243 mg/dL (65-110); Potassium 4.4 mmol/L (3.4-5.0); Sodium 136 mmol/L (137-145)
[2024-09-21] MEDS: RIVAROXABAN 20 MG TABLET PO (21:50)
[2024-09-22] VITALS (14 sets, daily range): BP systolic 96–113; BP diastolic 61–81; PULSE 77–112; RESP 16–19; TEMP 36.2–37.1; O2SAT 94–100
--- NOTE | 2024-09-22 01:04 | PC.NURSE ---
Daylight Savings Time For Daylight Savings Time Ending in the Fall - Clocks are moved back. For Daylight Savings Time Beginning in the Spring - Clocks are moved ahead. For [facility], the time of change occurs at 0200 hrs. Time is taken from the server developer. This entry on the patient's chart recognizes the change in time reflected during documentation. Example: 2 entries for vital signs may be charted for 0200 hrs.
--- NOTE | 2024-09-22 07:56 | P.PNCA_ITS ---
Progress Note: A&P Assessment and Plan (1) Atrial fibrillation with RVR: Code(s): I48.91 - Unspecified atrial fibrillation Status: Acute Assessment and Plan: Overall rate is controlled. Continue Xarelto for anticoagulation. Continue Toprol-XL with 200 mg daily for rate control. 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 We started Lasix 40 mg p.o. daily yesterday September 21. Continue Lasix 40 mg daily. -Continue Losartan. Continue Toprol-XL. -would recommend to not start spironolactone given chronic kidney disease. -she will arrange for follow-up appointment with her package wrapper at [facility] (3) Hypertension: Qualifiers: Hypertension type: primary hypertension Qualified Code(s): I10 - Essential (primary) hypertension Code(s): I10 - Essential (primary) hypertension Status: Chronic Assessment and Plan: Continue losartan and Toprol-XL. Heart rate controlled. (4) Pneumonia: Qualifiers: Pneumonia type: due to unspecified organism Laterality: bilateral Lung location: lower lobe of lung Qualified Code(s): J18.9 - Pneumonia, unspecified organism Code(s): J18.9 - Pneumonia, unspecified organism Status: Acute Assessment and Plan: On antibiotics as per primary team. (5) COPD (chronic obstructive pulmonary disease): Qualifiers: COPD type: COPD with acute exacerbation Qualified Code(s): J44.1 - Chronic obstructive pulmonary disease with (acute) exacerbation Code(s): J44.9 - Chronic obstructive pulmonary disease, unspecified Status: Acute Assessment and Plan: Management of acute COPD exacerbation as per primary team. Subjective Date/time seen: 09/22/24 07:56 Interval history: Reason for visit: AFIB with RVR, CHF HPI: 83-year-old woman with chronic systolic heart failure (LVEF 20-25%), chronic atrial fibrillation, COPD, and hypertension presented with 3 days of worsening shortness of breath. There has been associated weakness, general malaise, and decreased appetite. Her son was at bedside who provided some the subjective history as well. It would appear that the patient stop taking her anoro and her breathing started to worsen. She denies any orthopnea or worsening lower extremity swelling. She also denies any chest discomfort, palpitations, and syncope. She lives at home by herself and has a home fire alarm installer and daughter who helps her with her conference coordinator. Otherwise she is able to get around the house by herself without any significant cardiopulmonary limitations prior to the development of her current symptoms. Date of service 09/20: Feeling better today. Still with mild lower extremity edema. Shortness of breath with activity, however, none at rest. Date of uucnlcp44/2-feeling better today. On 2 L nasal cannula. She is working with physical therapist and remains in AFib heart rates low 100s. Denies extremity edema Date of service 09/22-feeling okay with overall. Has dry cough. On room air. Remains in AFib with heart rates 95-105. Wants to go home today. Her brother's is today Review of Systems Review of Systems: All systems reviewed & are unremarkable except as noted in HPI and below (HPI) Cardiovascular: Cardiovascular: Reports as per HPI Respiratory: Respiratory: Reports as per HPI Exam Const: General: comfortable and no acute distress HENMT: Mouth: Yes moist mucous membranes Eyes: General: appearance normal, both eyes and all related structures Sclera: sclerae normal EOM: EOMs intact bilaterally Neck: Other: Mildly positive hepatojugular reflux Resp: Effort & Inspection: normal respiratory effort Auscultation: rales Other: On supplemental oxygen Cardio: Rate: regular rate Rhythm: abnormal rhythm irregularly irregular Heart sounds: no murmurs Other: Mild lower extremity edema Skin: General skin exam: normal color Neuro: Speech: normal speech Extrem: General: edema Psych: Mental Status: mental status grossly normal Affect: normal affect Objective Data Vital Signs Vital Signs: Vital Signs - 24 hr 09/21/24 09:09 09/21/24 09:59 09/21/24 11:31 Temperature 36.7 C Pulse Rate 98 93 Respiratory Rate 16 Blood Pressure 95/77 L Pulse Oximetry 96 99 Oxygen Delivery Nasal Cannula Oxygen Flow Rate 2 Fraction of Inspired Oxygen 28 09/21/24 11:36 09/21/24 10:00 09/21/24 15:52 Temperature 36.5 C Pulse Rate 115 H 95 Respiratory Rate 16 Blood Pressure 102/55 L 97/57 L Pulse Oximetry 98 Oxygen Delivery Oxygen Flow Rate Fraction of Inspired Oxygen 09/21/24 12:00 09/21/24 14:00 09/21/24 16:00 Temperature Pulse Rate 93 86 76 Respiratory Rate Blood Pressure Pulse Oximetry Oxygen Delivery Oxygen Flow Rate Fraction of Inspired Oxygen 09/21/24 12:00 09/21/24 16:00 09/21/24 18:00 Temperature Pulse Rate 90 Respiratory Rate 16 17 Blood Pressure Pulse Oximetry 99 99 Oxygen Delivery Nasal Cannula Nasal Cannula Oxygen Flow Rate 2 2 Fraction of Inspired Oxygen 09/21/24 20:00 09/21/24 21:45 09/22/24 00:00 Temperature 37.1 C 36.7 C Pulse Rate 99 87 Respiratory Rate 20 19 Blood Pressure 103/77 110/79 Pulse Oximetry 95 95 96 Oxygen Delivery Nasal Cannula Oxygen Flow Rate 1 Fraction of Inspired Oxygen 09/22/24 00:00 09/21/24 20:00 09/21/24 22:00 Temperature Pulse Rate 94 85 Respiratory Rate Blood Pressure Pulse Oximetry 96 Oxygen Delivery Nasal Cannula Oxygen Flow Rate 1 Fraction of Inspired Oxygen 09/22/24 00:00 09/22/24 01:06 ESTIMATOR JEWELRY 09/22/24 03:59 Temperature 36.6 C Pulse Rate 93 81 83 Respiratory Rate 18 Blood Pressure 111/72 Pulse Oximetry 96 Oxygen Delivery Oxygen Flow Rate Fraction of Inspired Oxygen 09/22/24 04:00 09/22/24 04:00 09/22/24 06:00 Temperature Pulse Rate 81 86 Respiratory Rate Blood Pressure Pulse Oximetry 96 Oxygen Delivery Room Air Oxygen Flow Rate Fraction of Inspired Oxygen Intake/Output Intake/Output: Intake & Output 09/19/24 09/20/24 09/21/24 09/22/24 23:59 23:59 23:59 22:59 Intake Total 858.1 1 2009 180 Output Total 50 350 1150 75 Balance 808.1 1781 860 105 Meds/Results Medications: Active Medications Generic Name Dose Route Start Last Admin Trade Name Freq PRN Reason Stop Dose Admin Acetaminophen 650 mg 09/19/24 12:58 Acetaminophen 325 Mg Tablet PO Q6H PRN Mild Pain (1-3) or Fever Albuterol/Ipratropium 3 ml 09/19/24 12:58 Ipratropium 0.5 Mg/Albuterol Sulfate 2.5 Mg Ampul.Neb 3 Ml INHALATION Q6HRT PRN Shortness Of Breath Or Wheezing Atorvastatin Calcium 20 mg 09/20/24 09:00 09/21/24 10:01 Atorvastatin 20 Mg Tablet PO 20 mg DAILY DEEP Administration Benzonatate 100 mg 09/19/24 12:58 09/19/24 13:52 Benzonatate 100 Mg Capsule PO 100 mg TID PRN Administration Cough Calcitriol 0.25 mcg 09/20/24 09:00 09/21/24 09:59 Calcitriol 0.25 Mcg Capsule PO 0.25 mcg DAILY DEEP Administration Doxycycline Hyclate 100 mg 09/19/24 13:10 09/21/24 21:51 Doxycycline Hyclate 100 Mg Tablet PO 100 mg Q12HR DEEP Administration Furosemide 40 mg 09/21/24 09:00 09/21/24 10:01 Furosemide 40 Mg Tablet PO 40 mg DAILY DEEP Administration Gabapentin 200 mg 09/19/24 22:00 09/21/24 21:51 Gabapentin 100 Mg Capsule PO 200 mg Q8H DEEP Administration Guaifenesin 600 mg 09/19/24 21:00 09/21/24 21:51 Guaifenesin 12 Hr 600 Mg Tabcr PO 600 mg Q12HR DEEP Administration Hydralazine HCl 10 mg 09/19/24 19:15 Hydralazine Hcl 20 Mg/Ml Vial IV PUSH Q8H PRN BP greater than 180/90 Leflunomide 20 mg 09/20/24 09:00 09/21/24 09:59 Leflunomide 20 Mg Tablet PO 20 mg DAILY DEEP Administration Losartan Potassium 25 mg 09/20/24 09:00 09/21/24 10:00 Losartan Potassium 25 Mg Tablet PO 25 mg DAILY DEEP Administration Metoprolol Succinate 200 mg 09/21/24 09:00 09/21/24 09:59 Metoprolol Succinate Ext Rel 100 Mg Tabcr PO 200 mg QAM DEEP Administration Ondansetron HCl 4 mg 09/19/24 09:46 Ondansetron Inj 4 Mg/2 Ml Vial IV PUSH Q4H PRN Nausea Perflutren Lipid Microsphere 0 ml 09/19/24 12:57 Perflutren Lipid Microspheres 1.5 Ml Vial Diluted To 10 Ml Total Volume IV PUSH 09/22/24 12:57 ONCE PRN adequate visualization Protocol Pramipexole Dihydrochloride 1.5 mg 09/19/24 22:00 09/21/24 21:51 Pramipexole 0.5 Mg Tablet PO 1.5 mg Q8H DEEP Administration Prednisone 40 mg 09/19/24 13:05 09/21/24 10:01 Prednisone 20 Mg Tablet PO 09/24/24 13:04 40 mg DAILY@0800 DEEP Administration Rivaroxaban 20 mg 09/19/24 20:35 09/21/24 21:50 Rivaroxaban 20 Mg Tablet PO 20 mg DAILY@1700 DEEP Administration Umeclidinium/Vilanterol 1 puff 09/20/24 09:00 09/21/24 09:07 Umeclidinium/Vilanterol 62.5-25 Mcg Ellipta INHALATION 1 puff DAILY DEEP Administration Radiology Results: ITS Impressions Abdomen X-Ray 09/19/24 07:56 IMPRESSION: 1. Normal bowel gas pattern. 2. Cardiomegaly. Abdomen/Pelvis CT 09/19/24 09:09 IMPRESSION: 1. Unremarkable liver with no intra or extra hepatic biliary ductal dilation. There is a calcification along the left ligamentum teres most likely a phlebolith or old granulomatous disease but could not absolutely exclude a gallstone within a very small decompressed gallbladder. Suspect more likely the gallbladder is surgically absent and would correlate with surgical history. 2. 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 3. Fibroid uterus. 4. Small bilateral pleural effusions with patchy groundglass opacities in bilateral lower lobes which could represent atelectasis, pneumonia or mild pulmonary edema. 5. Cardiomegaly. Chest X-Ray 09/19/24 15:11 IMPRESSION: Bilateral lower lobe prominent markings with minimal opacification more on the left side which may indicate pneumonia. Follow-up advised. Possible nodule versus focal pneumonia in the right lower lobe. Minimal right pleural effusion. Bilateral interstitial changes which may indicate fibrotic changes versus pneumonitis versus underlying pulmonary edema. Clinical correlation advised. Labs Labs: Laboratory Results - last 24 hr 09/21/24 10:12 WBC 9.7 RBC 3.88 L Hgb 11.2 L Hct 37.1 MCV 95.6 MCH 28.9 MCHC 30.2 L RDW 17.0 H Plt Count 173 MPV 12.0 H Immature Gran % (Auto) 0.6 H Neut % (Auto) 85.2 H Lymph % (Auto) 8.6 L [place] % (Auto) 5.5 Eos % (Auto) 0.0 Baso % (Auto) 0.1 L Lymph # (Auto) 0.83 L [place] # (Auto) 0.5 Eos # (Auto) 0.0 Baso # (Auto) 0.0 Abs Immat Gran (auto) 0.06 H Absolute Neuts (auto) 8.2 H Absolute Nucleated RBC 0.000 Nucleated RBC % 0.0 Sodium 136 L Potassium 4.4 Chloride 105 Carbon Dioxide 23 Anion Gap 8 BUN 44 H Creatinine 1.90 H Estim Creat Clear Calc 21 Estimated GFR 25 L Glucose 243 H Calcium 8.7
[2024-09-22] MEDS: UMECLIDINIUM/VILANTEROL 62.5-25 MCG ELLIPTA 1 PUFF INHALATION (08:19)
[2024-09-22] MEDS: GABAPENTIN 100 MG CAPSULE 200 MG PO ×3 (08:20→21:19)
[2024-09-22] MEDS: PRAMIPEXOLE 0.5 MG TABLET 1.5 MG PO ×2 (08:21→21:18)
[2024-09-22] MEDS: METOPROLOL SUCCINATE EXT REL 100 MG TABCR 200 MG PO (08:55)
[2024-09-22] MEDS: calcitrioL 0.25 MCG CAPSULE PO (08:56)
[2024-09-22] MEDS: LEFLUNOMIDE 20 MG TABLET PO (08:56)
[2024-09-22] MEDS: ATORVASTATIN 20 MG TABLET PO (08:56)
[2024-09-22] MEDS: DOXYCYCLINE HYCLATE 100 MG TABLET PO ×2 (08:56→21:19)
[2024-09-22] MEDS: guaiFENesin 12 HR 600 MG TABCR PO ×2 (08:56→21:18)
[2024-09-22] MEDS: predniSONE 20 MG TABLET 40 MG PO (09:00)
--- NOTE | 2024-09-22 09:40 | P.PNIM_ITS ---
Progress Note: A&P Assessment and Plan (1) Acute on chronic systolic heart failure: Code(s): I50.23 - Acute on chronic systolic (congestive) heart failure Status: Deleted (2) Pneumonia: Qualifiers: Laterality: bilateral Lung location: lower lobe of lung Pneumonia type: due to unspecified organism Qualified Code(s): J18.9 - Pneumonia, unspecified organism Code(s): J18.9 - Pneumonia, unspecified organism Status: Acute (3) Atrial fibrillation with RVR: Code(s): I48.91 - Unspecified atrial fibrillation Status: Acute (4) Chronic respiratory failure: Code(s): J96.10 - Chronic respiratory failure, unspecified whether with hypoxia or hypercapnia Status: Acute (5) COPD (chronic obstructive pulmonary disease): Qualifiers: COPD type: COPD with acute exacerbation Qualified Code(s): J44.1 - Chronic obstructive pulmonary disease with (acute) exacerbation Code(s): J44.9 - Chronic obstructive pulmonary disease, unspecified Status: Acute Plan Acute on chronic systolic heart failure Qualifiers: Heart failure chronicity: acute on chronic Heart failure type: combined systolic and diastolic Qualified Code(s): I50.43 - Acute on chronic combined systolic (congestive) and diastolic (congestive) heart failure Code(s): I50.9 - Heart failure, unspecified Status: Acute Assessment and Plan: BNP 05508 - most recent echo (10/2023): Mild left ventricular enlargement with moderate concentric hypertrophy, severe global hypokinesis, EF 22%, grade 3 diastolic dysfunction present. See report for further details. home meds : spironolactone 12.5 mg daily, torsemide 10 mg daily. received Lasix 40 mg b.i.d. IV push change to lasix 40mg qd po per packer and carry out compensated now monitor I&Os and daily weights Atrial fibrillation with RVR: Code(s): I48.91 - Unspecified atrial fibrillation Status: Acute Assessment and Plan: - EKG, initial: AFib RVR with aberrant conduction, rate 136, right bundle branch block. - history of persistent AFib on Xarelto and has not required rate controlling medication, continue anticoagulant once confirmed. - packer and carry out consulted given Afib in the setting of advanced CHF (EF 22%) - telemetry monitoring Patient is on metoprolol 200 mg daily p.o. (3) Pneumonia: Qualifiers: Laterality: bilateral Lung location: lower lobe of lung Pneumonia type: due to unspecified organism Qualified Code(s): J18.9 - Pneumonia, unspecified organism Code(s): J18.9 - Pneumonia, unspecified organism Status: Acute Assessment and Plan: - CT abdomen/pelvis: Small bilateral pleural effusions with patchy groundglass opacities in bilateral lower lobes which could represent atelectasis, pneumonia or mild pulmonary edema. - risk factors and complicating factors: Suspected CHF exacerbation, AFib started on doxycycline b.i.d. p.o. - MRSA PCR negative and sputum culture added - Viral PCR negative - new supplemental O2 requirement - 2L NC - supportive care COPD (chronic obstructive pulmonary disease): Qualifiers: COPD type: COPD with acute exacerbation Qualified Code(s): J44.1 - Chronic obstructive pulmonary disease with (acute) exacerbation Code(s): J44.9 - Chronic obstructive pulmonary disease, unspecified Status: Acute Assessment and Plan: - started on nebs p.r.n. and scheduled steroids (5) Hypertension: Qualifiers: Hypertension type: primary hypertension Qualified Code(s): I10 - Essential (primary) hypertension Code(s): I10 - Essential (primary) hypertension Blood pressure is controlled, continue metoprolol 200 mg daily p.o., [id number] mg qd po Patient declined to be discharged to rehab, discussed with patient's daughter and patient, patient slept home has care. Patient can be discharged tomorrow Subjective Date/time seen: 09/22/24 09:40 Interval history: Saw examined patient today, patient condition continue to improve, patient denies chest pain, abdomen pain, nausea vomiting diarrhea. Telemetry showed AFib, rate controlled Exam Narrative: GENERAL: Pleasant, in no acute distress. Well-nourished. - EYES: EOMI. Anicteric. - HENT: Moist mucous membranes. - LUNGS: Coarse sounds bilaterally, scrap sawyer ckles left lower base - CARDIOVASCULAR: Irregular irregular r hythm, rate is controlled No murmur. No JVD. - ABDOMEN: Soft, non-tender and non-dist ended. No palpable masses. - EXTREMITIES: No edema. Peripheral puls es 2+. Non-tender. - NEUROLOGIC: No focal neurological defi cits. CN II-XII grossly intact. - PSYCHIATRIC: Awake, Alert and oriented x 3. Appropriate mood and affect. General weakness - SKIN: No rashes or lesions. Warm. - LYMPH: No cervical lymphadenopathy. Objective Data Vital Signs Vital Signs: Vital Signs - 24 hr 09/21/24 11:31 09/21/24 11:36 09/21/24 15:52 Temperature 98.1 F 97.7 F Pulse Rate 93 95 Respiratory Rate 16 16 Blood Pressure 95/77 L 102/55 L 97/57 L Pulse Oximetry 99 98 Oxygen Delivery Oxygen Flow Rate 09/21/24 12:00 09/21/24 14:00 09/21/24 16:00 Temperature Pulse Rate 93 86 76 Respiratory Rate Blood Pressure Pulse Oximetry Oxygen Delivery Oxygen Flow Rate 09/21/24 12:00 09/21/24 16:00 09/21/24 18:00 Temperature Pulse Rate 90 Respiratory Rate 16 17 Blood Pressure Pulse Oximetry 99 99 Oxygen Delivery Nasal Cannula Nasal Cannula Oxygen Flow Rate 2 2 09/21/24 20:00 09/21/24 21:45 09/22/24 00:00 Temperature 98.7 F 98.0 F Pulse Rate 99 87 Respiratory Rate 20 19 Blood Pressure 103/77 110/79 Pulse Oximetry 95 95 96 Oxygen Delivery Nasal Cannula Oxygen Flow Rate 1 09/22/24 00:00 09/21/24 20:00 09/21/24 22:00 Temperature Pulse Rate 94 85 Respiratory Rate Blood Pressure Pulse Oximetry 96 Oxygen Delivery Nasal Cannula Oxygen Flow Rate 1 09/22/24 00:00 09/22/24 01:06 URBAN DESIGNER 09/22/24 03:59 Temperature 97.9 F Pulse Rate 93 81 83 Respiratory Rate 18 Blood Pressure 111/72 Pulse Oximetry 96 Oxygen Delivery Oxygen Flow Rate 09/22/24 04:00 09/22/24 04:00 09/22/24 06:00 Temperature Pulse Rate 81 86 Respiratory Rate Blood Pressure Pulse Oximetry 96 Oxygen Delivery Room Air Oxygen Flow Rate 09/22/24 08:00 09/22/24 08:55 Temperature Pulse Rate 77 101 H Respiratory Rate 16 Blood Pressure 104/81 Pulse Oximetry 95 Oxygen Delivery Oxygen Flow Rate Intake/Output Intake/Output: Intake & Output 09/19/24 09/20/24 09/21/24 09/22/24 23:59 23:59 23:59 22:59 Intake Total 858.1 1 2010 180 Output Total 50 350 1150 75 Balance 808.1 1781 860 105 Meds/Results Medications: Active Medications Generic Name Dose Route Start Last Admin Trade Name Freq PRN Reason Stop Dose Admin Acetaminophen 650 mg 09/19/24 12:58 Acetaminophen 325 Mg Tablet PO Q6H PRN Mild Pain (1-3) or Fever Albuterol/Ipratropium 3 ml 09/19/24 12:58 Ipratropium 0.5 Mg/Albuterol Sulfate 2.5 Mg Ampul.Neb 3 Ml INHALATION Q6HRT PRN Shortness Of Breath Or Wheezing Atorvastatin Calcium 20 mg 09/20/24 09:00 09/22/24 08:56 Atorvastatin 20 Mg Tablet PO 20 mg DAILY DEEP Administration Benzonatate 100 mg 09/19/24 12:58 09/19/24 13:52 Benzonatate 100 Mg Capsule PO 100 mg TID PRN Administration Cough Calcitriol 0.25 mcg 09/20/24 09:00 09/22/24 08:56 Calcitriol 0.25 Mcg Capsule PO 0.25 mcg DAILY DEEP Administration Doxycycline Hyclate 100 mg 09/19/24 13:10 09/22/24 08:56 Doxycycline Hyclate 100 Mg Tablet PO 100 mg Q12HR DEEP Administration Furosemide 40 mg 09/21/24 09:00 09/21/24 10:01 Furosemide 40 Mg Tablet PO 40 mg DAILY DEEP Administration Gabapentin 200 mg 09/19/24 22:00 09/22/24 08:20 Gabapentin 100 Mg Capsule PO 200 mg Q8H DEEP Administration Guaifenesin 600 mg 09/19/24 21:00 09/22/24 08:56 Guaifenesin 12 Hr 600 Mg Tabcr PO 600 mg Q12HR DEEP Administration Hydralazine HCl 10 mg 09/19/24 19:15 Hydralazine Hcl 20 Mg/Ml Vial IV PUSH Q8H PRN BP greater than 180/90 Leflunomide 20 mg 09/20/24 09:00 09/22/24 08:56 Leflunomide 20 Mg Tablet PO 20 mg DAILY DEEP Administration Losartan Potassium 25 mg 09/20/24 09:00 09/21/24 10:00 Losartan Potassium 25 Mg Tablet PO 25 mg DAILY DEEP Administration Metoprolol Succinate 200 mg 09/21/24 09:00 09/22/24 08:55 Metoprolol Succinate Ext Rel 100 Mg Tabcr PO 200 mg QAM DEEP Administration Ondansetron HCl 4 mg 09/19/24 09:46 Ondansetron Inj 4 Mg/2 Ml Vial IV PUSH Q4H PRN Nausea Perflutren Lipid Microsphere 0 ml 09/19/24 12:57 Perflutren Lipid Microspheres 1.5 Ml Vial Diluted To 10 Ml Total Volume IV PUSH 09/22/24 12:57 ONCE PRN adequate visualization Protocol Pramipexole Dihydrochloride 1.5 mg 09/19/24 22:00 09/22/24 08:21 Pramipexole 0.5 Mg Tablet PO 1.5 mg Q8H DEEP Administration Prednisone 40 mg 09/19/24 13:05 09/22/24 09:00 Prednisone 20 Mg Tablet PO 09/24/24 13:04 40 mg DAILY@0800 DEEP Administration Rivaroxaban 20 mg 09/19/24 20:35 09/21/24 21:50 Rivaroxaban 20 Mg Tablet PO 20 mg DAILY@1700 DEEP Administration Umeclidinium/Vilanterol 1 puff 09/20/24 09:00 09/22/24 08:19 Umeclidinium/Vilanterol 62.5-25 Mcg Ellipta INHALATION 1 puff DAILY DEEP Administration Radiology Results: ITS Impressions Abdomen X-Ray 09/19/24 07:56 IMPRESSION: 1. Normal bowel gas pattern. 2. Cardiomegaly. Abdomen/Pelvis CT 09/19/24 09:09 IMPRESSION: 1. Unremarkable liver with no intra or extra hepatic biliary ductal dilation. There is a calcification along the left ligamentum teres most likely a phlebolith or old granulomatous disease but could not absolutely exclude a gallstone within a very small decompressed gallbladder. Suspect more likely the gallbladder is surgically absent and would correlate with surgical history. 2. 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 3. Fibroid uterus. 4. Small bilateral pleural effusions with patchy groundglass opacities in bilateral lower lobes which could represent atelectasis, pneumonia or mild pulmonary edema. 5. Cardiomegaly. Chest X-Ray 09/19/24 15:11 IMPRESSION: Bilateral lower lobe prominent markings with minimal opacification more on the left side which may indicate pneumonia. Follow-up advised. Possible nodule versus focal pneumonia in the right lower lobe. Minimal right pleural effusion. Bilateral interstitial changes which may indicate fibrotic changes versus pneumonitis versus underlying pulmonary edema. Clinical correlation advised. Labs Labs: Laboratory Results - last 24 hr 09/21/24 10:12 Sodium 136 L Potassium 4.4 Chloride 105 Carbon Dioxide 23 Anion Gap 8 BUN 44 H Creatinine 1.90 H Estim Creat Clear Calc 21 Estimated GFR 25 L Glucose 243 H Calcium 8.7
[2024-09-22] MEDS: FUROSEMIDE 40 MG TABLET PO (10:16)
--- NOTE | 2024-09-22 10:24 | PCSTNOTE ---
Please refer to the Bedside Swallow Evaluation in the EMR. Please note, silent aspiration cannot be ruled out at bedside.
[2024-09-22 11:31] LABS: Basophils Percent Auto 0.1 % (0.2-1.2); Hematocrit 34.2 % (37.0-47.0); Hemoglobin 10.2 g/dL (12.0-15.0); Immature Granulocyte Absolute 0.03 K/mm3 (0.00-0.031); Immature Granulocyte Percent A 0.4 % (0-0.5); Lymphocytes Percent Auto 6.6 % (18.3-44.2); Mean Corpuscular HGB Conc 29.8 g/dl (32-36); Mean Corpuscular Hemoglobin 28.3 pg (26-34); Mean Platelet Volume 12.2 fl (7.4-10.4); Monocytes Absolute Auto 0.4 K/mm3 (0.1-0.6); Monocytes Percent Auto 5.2 % (2.6-8.5); Neutrophils Absolute Auto 6.6 K/mm3 (1.3-6.7); Neutrophils Percent Auto 87.7 % (45.5-73.1); Platelet Count Result 150 k/mm3 (150-375); Red Cell Distribution Width 16.6 % (11.5-14.5); White Blood Count 7.6 K/mm3 (4.5-10.0)
[2024-09-22 11:41] LABS: Anion Gap 10 mmol/L (4-12); Blood Urea Nitrogen 50 mg/dL (7-17); Calcium 8.3 mg/dL (8.4-10.2); Carbon Dioxide 24 mmol/L (22-30); Chloride 100 mmol/L (98-107); Estimated CRCL calculation 22 ml/min; Estimated Glomerular Filt Rate 27; Glucose 382 mg/dL (65-110); Potassium 3.7 mmol/L (3.4-5.0); Sodium 134 mmol/L (137-145)
[2024-09-22 11:57] LABS: Anisocytosis 1+; Burr Cells 1+; Ovalocytes 1+; Platelet Estimate Adequate (Adequate); Schistocytes None Seen
[2024-09-22] MEDS: LOSARTAN POTASSIUM 25 MG TABLET PO (12:18)
--- NOTE | 2024-09-22 13:07 | PC.NURSE ---
This patient, Genny Gomez, was transferred to [facility] on 09/22/24 at 1300. Personal belongings sent with patient. Report given to Jose at 1251. Appropriate documentation sent with patient. Patient to inform family of room change.
--- NOTE | 2024-09-22 13:12 | PC.NURSE ---
This patient, Genny Gomez, was received from IMU on 09/22/24 at 1313. Patient/family oriented to unit policies and routines
--- NOTE | 2024-09-22 13:14 | PC.NURSE ---
RN completed left over admission tabs off of the worklist. Patient was initially admitted to IMU.
[2024-09-22] MEDS: RIVAROXABAN 20 MG TABLET PO (17:57)
[2024-09-23] VITALS (7 sets, daily range): BP systolic 116–125; BP diastolic 72–98; PULSE 62–104; RESP 16–18; TEMP 36.3–36.4; O2SAT 95–97
[2024-09-23] MEDS: PRAMIPEXOLE 0.5 MG TABLET 1.5 MG PO ×2 (05:50→14:55)
[2024-09-23] MEDS: GABAPENTIN 100 MG CAPSULE 200 MG PO ×2 (05:50→14:55)
[2024-09-23] MEDS: DOXYCYCLINE HYCLATE 100 MG TABLET PO ×2 (08:12→14:56)
[2024-09-23] MEDS: calcitrioL 0.25 MCG CAPSULE PO (08:12)
[2024-09-23] MEDS: guaiFENesin 12 HR 600 MG TABCR PO (08:12)
[2024-09-23] MEDS: predniSONE 20 MG TABLET 40 MG PO (08:12)
[2024-09-23] MEDS: ATORVASTATIN 20 MG TABLET PO (08:12)
[2024-09-23] MEDS: LOSARTAN POTASSIUM 25 MG TABLET PO (08:12)
[2024-09-23] MEDS: LEFLUNOMIDE 20 MG TABLET PO (08:12)
[2024-09-23] MEDS: METOPROLOL SUCCINATE EXT REL 100 MG TABCR 200 MG PO (08:14)
[2024-09-23] MEDS: FUROSEMIDE 40 MG TABLET PO (08:14)
[2024-09-23] MEDS: UMECLIDINIUM/VILANTEROL 62.5-25 MCG ELLIPTA 1 PUFF INHALATION (08:19)
--- NOTE | 2024-09-23 11:33 | PM.DS ---
DS: Admitting Diagnosis Discharge Date 09/23/24 Admitting Diagnosis atrial fibrillation with RVR CHF Pneumonia COPD HTN DS: Discharge Diagnosis Discharge Diagnosis (1) Acute on chronic systolic heart failure: Code(s): I50.23 - Acute on chronic systolic (congestive) heart failure Status: Deleted (2) Pneumonia: Qualifiers: Laterality: bilateral Lung location: lower lobe of lung Pneumonia type: due to unspecified organism Qualified Code(s): J18.9 - Pneumonia, unspecified organism Code(s): J18.9 - Pneumonia, unspecified organism Status: Acute (3) Atrial fibrillation with RVR: Code(s): I48.91 - Unspecified atrial fibrillation Status: Acute (4) Chronic respiratory failure: Code(s): J96.10 - Chronic respiratory failure, unspecified whether with hypoxia or hypercapnia Status: Acute (5) COPD (chronic obstructive pulmonary disease): Qualifiers: COPD type: COPD with acute exacerbation Qualified Code(s): J44.1 - Chronic obstructive pulmonary disease with (acute) exacerbation Code(s): J44.9 - Chronic obstructive pulmonary disease, unspecified Status: Acute DS: Summary Hospital Course Reason for hospitalization: atrial fibrillation with RVR CHF Pneumonia COPD HTN Hospital Course: Final diagnosis: CHF, atrial fibrillation with RVR, pneumonia Status at Discharge Cognitive/behavioral status at discharge: Alert and oriented x3 Time Spent with Patient Time attestation: Total time spent providing and/or coordinating discharge services: Time spent: Greater than 30 minutes Exam Narrative: General: In no acute distress, well nourished Head: atraumatic, no encephalopathy Eyes: PERRLA, sclera clear ENT: moist mucous membranes, nasal passages clear Neck: supple, no JVD, no adenopathy, trachea midline Cardiac: Normal S1 and S2. No murmur, gallops or friction rubs, peripheral pulses intact. Respiratory: Lungs clear to auscultation, no adventitious lung sounds, currently on room air Gastrointestinal: soft, non-distended, non-tender, normoactive bowel sounds. : voiding without difficulty. Extremities: moves all extremities well, no edema Skin: clean, dry, intact. No wounds or lesions. Neuro: Alert and oriented x4, cranial nerves intact, no neuro deficits. Psych: normal mood, normal affect, interactive DS: Data Data Completed and Pending Completed studies during hospitalization: Chest x-ray Abdomen/pelvis CT Abdomen X-ray Pending studies at discharge: None Labs on day of discharge: Labs from last 24 hours 09/22/24 11:23 WBC 7.6 RBC 3.60 L Hgb 10.2 L Hct 34.2 L MCV 95.0 MCH 28.3 MCHC 29.8 L RDW 16.6 H Plt Count 150 MPV 12.2 H Immature Gran % (Auto) 0.4 Neut % (Auto) 87.7 H Lymph % (Auto) 6.6 L Newton % (Auto) 5.2 Eos % (Auto) 0.0 Baso % (Auto) 0.1 L Lymph # (Auto) 0.50 L Newton # (Auto) 0.4 Eos # (Auto) 0.0 Baso # (Auto) 0.0 Abs Immat Gran (auto) 0.03 Absolute Neuts (auto) 6.6 Absolute Nucleated RBC 0.000 Nucleated RBC % 0.0 Platelet Estimate Adequate Anisocytosis 1+ Ovalocytes 1+ Carson Cells 1+ Schistocytes None seen Sodium 134 L Potassium 3.7 Chloride 100 Carbon Dioxide 24 Anion Gap 10 BUN 50 H Creatinine 1.80 H Estim Creat Clear Calc 22 Estimated GFR 27 L Glucose 382 H Calcium 8.3 L Procedures/Treatments: None Discharge Plan Discharge Attending physician on discharge: Darian Gabriel Consulting providers: Marbin Felix; Marichuy Overton Discharging Clinician: Marichuy Overton Anticipated Discharge Date/Time: 09/23/24 11:28 Patient Disposition: Home Health Service Activity: as tolerated Diet: as tolerated Discharge Instructions: Per Care coordination, patient to discharge with [facility] ( [phone]) for PT/OT and fpc services. Please fax discharge instructions and medication sheets to [phone]. Finish antibiotic as directed even if you are feeling better Follow up with primary care doctor in 1 week Stop taking Spironolactone and torsemide as this was discontinued while here Start taking Lasix 40 mg daily You were found to be in Atrial fibrillation and was started on Metoprolol XL 200mg daily. Continue taking this medication You can take Robitussin DM at night for your dry cough Patient Instructions: Antibiotic Form, Rivaroxaban (By mouth), Heart Failure (GEN) Patient Language: Cypriot Stand Alone Forms: General Discharge Information Follow-up/Referrals: Toy,Immanuel Figueroa MD [Primary Care Provider] - 1 Week Discharge Medications: New furosemide 40 mg Tablet 40 mg PO DAILY Qty: 30 0RF metoprolol succinate [Toprol XL] 100 mg Tablet Extended Release 24 Hr 200 mg PO QAM Qty: 30 0RF doxycycline hyclate 100 mg Tablet 100 mg PO Q12HR Qty: 5 0RF Continued atorvastatin 20 mg tablet 20 mg PO DAILY leflunomide 20 mg tablet 20 mg PO DAILY pramipexole 0.5 mg tablet 1.5 mg PO Q8H gabapentin 100 mg capsule 200 mg PO Q8H losartan 25 mg tablet 25 mg PO DAILY Xarelto 20 mg tablet 20 mg PO DAILY calcitriol 0.25 mcg capsule 0.25 mcg PO DAILY Anoro Ellipta 62.5-25 mcg/actuation blister with device 1 inh INHALATION DAILY Discontinued torsemide 10 mg Tablet 10 mg PO QAM Qty: 90 1RF spironolactone 25 mg tablet 12.5 mg PO DAILY Qty: 90 1RF Date of admission: 09/20/24 10:54 Primary Care Provider: Toy,Immanuel Figueroa Admitting Provider: Oleg Robledo Attending physician on admission: Oleg Robledo Condition: Improved Quality VTE Prophylaxis VTE prophylaxis: pharmacologic ordered Hospitalist MIPS Heart Failure (Exclusion) Patient has history of Heart Transplant or Left Ventricular Assistive Device?: No IF YES, STOP HERE Heart Failure (Qualifier) Patient has current or prior documentation of LVEF less than or equal to 40%, or mod/servere depressed LVSF?: No IF NO, STOP HERE
== END 2024-09-23 16:20 | DRG 291 ==
LOC: ANHED 09:46 → ANHIMU 10:45 → ANH3MED 09-22 12:58
PROVIDERS: Hospitalist; Student in an Organized Health Care Education/Training Program; Admitting Provider Internal Medicine; Emergency Provider Emergency Medicine; PCP Internal Medicine; Visit Provider Nurse Practitioner Acute Care
DX: I11.0 Hypertensive heart disease with heart failure (principal); I50.23 Acute on chronic systolic (congestive) heart failure; J18.9 Pneumonia, unspecified organism; I48.20 Chronic atrial fibrillation, unspecified; J44.0 Chronic obstructive pulmonary disease with (acute) lower respiratory infection; J44.1 Chronic obstructive pulmonary disease with (acute) exacerbation; I45.10 Unspecified right bundle-branch block; Z20.822 Contact with and (suspected) exposure to COVID-19; M06.9 Rheumatoid arthritis, unspecified; M19.90 Unspecified osteoarthritis, unspecified site; Z66 Do not resuscitate; Z79.01 Long term (current) use of anticoagulants; Z85.3 Personal history of malignant neoplasm of breast; Z90.49 Acquired absence of other specified parts of digestive tract
CPT/HCPCS: 36415; 71045; 74018; 74176; 80048; 80053; 81001; 82948; 83605; 83880; 85025; 85610; 85730; 87637; 87641; 92610; 93005; 93306; 94640; 96365; 97110; 97161; 97165; 97530; 99285; A9270; G0378; J1940; J7040; J7512

== ENCOUNTER 2024-10-22 20:22 | Emergency (ER) | payer MEDICARE, SELFPAY ==
--- NOTE | ~2024-10-22 | CT_ITS ---
CT brain wo con Ordering provider: Roddy Escobar MD History: 83 years Female with . trauma . Comparison: None. Technique: CT of the head without contrast. Radiation reduction technique utilized. The dose-length p roduct was 605.33 mGy-cm. FINDINGS: BRAIN PARENCHYMA AND CSF SPACES: Mild leukoaraiosis and diffuse cortical atrophy. Mild atheromatous d isease. Calcified meningioma is seen in the left parietal area. No midline shift, mass effect or hemo rrhage. The brain parenchyma and CSF spaces are otherwise normal. VISUALIZED PARANASAL SINUSES: Left sphenoid sinus disease. MASTOIDS: Well aerated. BONES: The bones appear intact. SOFT TISSUES: Visualized nasopharynx is normal. Superficial soft tissues are normal. IMPRESSION: No acute intracranial findings. Reviewed, dictated and finalized at location A. A SERVICES DIRECTOR
--- NOTE | ~2024-10-22 | CT_ITS ---
CT cervical spine wo con Ordering provider: Roddy Escobar MD History: . Trauma . Comparison: None. Technique: CT of the cervical spine was performed without contrast. Sagittal and coronal reformatted images were also obtained and reviewed. Automated exposure control and iterative reconstruction marlene hnique were employed. The dose-length product was 420.64 mGy-cm. FINDINGS: VERTEBRAE: No subluxation or acute fracture. The occipital condyles are intact. Anterolisthesis at t he level of C3-C4. DISC SPACES: Severe narrowing of the disc C4-C5, C5-C6 and C6-C7. Multilevel facet joint disease. Mul tilevel uncovertebral joint osteoarthritic changes. Left narrowing of the foramina at the level of C3-C4. Bilateral narrowing of the foramina at the leve l of C4-C5, C5-C6 and C6-C7. PARASPINOUS SOFT TISSUES: Normal. IMPRESSION: No acute osseous abnormality cervical spine. Anterolisthesis at the level of L3-L4. Multilevel degenerative disc disease. Reviewed, dictated and finalized at location A. DWORKS MECHANICAL DESIGNER
[2024-10-22 20:27] VITALS: BP 111/68; PULSE 81; RESP 16; TEMP 36.2; O2SAT 100
[2024-10-22 20:42] LABS: Basophils Percent Auto 0.2 % (0.2-1.2); Eosinophils Percent Auto 0.1 % (0-4.4); Hematocrit 31.6 % (37.0-47.0); Hemoglobin 9.8 g/dL (12.0-15.0); Immature Granulocyte Absolute 0.39 K/mm3 (0.00-0.031); Immature Granulocyte Percent A 2.9 % (0-0.5); Lymphocytes Absolute Auto 1.05 K/mm3 (0.9-3.2); Lymphocytes Percent Auto 7.9 % (18.3-44.2); Mean Corpuscular Hemoglobin 28.7 pg (26-34); Mean Corpuscular Volume 92.4 fl (80-100); Mean Platelet Volume 10.8 fl (7.4-10.4); Monocytes Percent Auto 7.2 % (2.6-8.5); Neutrophils Absolute Auto 10.9 K/mm3 (1.3-6.7); Neutrophils Percent Auto 81.7 % (45.5-73.1); Nucleated Red Blood Cells Perc 0.1 % (0.0-0.2); Platelet Count Result 273 k/mm3 (150-375); Red Blood Count 3.42 M/mm3 (4.2-5.4); Red Cell Distribution Width 17.6 % (11.5-14.5); White Blood Count 13.4 K/mm3 (4.5-10.0)
[2024-10-22 20:53] LABS: Alanine Aminotransferase 259 U/L (6-35); Alkaline Phosphatase 886 U/L (38-126); Anion Gap 3 mmol/L (4-12); Aspartate Amino Transferase 273 U/L (14-36); Bilirubin,Total 1.1 mg/dL (0.2-1.3); Blood Urea Nitrogen 68 mg/dL (7-17); Calcium 8.6 mg/dL (8.4-10.2); Carbon Dioxide 31 mmol/L (22-30); Chloride 95 mmol/L (98-107); Estimated Glomerular Filt Rate 24; Glucose 206 mg/dL (65-110); Potassium 3.9 mmol/L (3.4-5.0); Sodium 129 mmol/L (137-145)
[2024-10-22 21:51] VITALS: RESP 19; O2SAT 98
--- NOTE | 2024-10-22 22:09 | ED.GENADULT ---
HPI - General Adult General Chief complaint: Recheck/Abnormal Lab/Rx Stated complaint: recheck K+, 5.4 2 days ago Time Seen by Provider: 10/22/24 21:37 History of Present Illness HPI narrative: Patient is a 83-year-old female who presents emergency department with chief complaint of elevated potassium. Patient had blood work drawn 2 days ago at the nursing facility where she is resident of and they called EMS today because they got the levels back this morning saying it was 5.4 the patient currently has no complaints does report that she had a ground level fall at the facility after she got tangled up walking back from the bathroom the patient currently reports that she has no pain at but does report that she is on anticoagulants. Related Data Home Medications Medication Instructions Recorded Confirmed leflunomide 20 mg tablet 20 mg PO DAILY 08/26/20 09/19/24 pramipexole 0.5 mg tablet 1.5 mg PO Q8H 08/26/20 09/19/24 atorvastatin 20 mg tablet 20 mg PO DAILY 02/17/21 09/19/24 gabapentin 100 mg capsule 200 mg PO Q8H 04/26/23 09/19/24 calcitriol 0.25 mcg capsule 0.25 mcg PO DAILY 11/11/23 09/19/24 umeclidinium 62.5 mcg-vilanterol 1 inh inhalation DAILY 11/11/23 09/19/24 25 mcg/actuation powdr for inhalation (Anoro Ellipta) losartan 25 mg tablet 25 mg PO DAILY 09/19/24 09/19/24 rivaroxaban 20 mg tablet (Xarelto) 20 mg PO DAILY 09/19/24 09/19/24 Allergies Allergy/AdvReac Type Severity Reaction Status Date / Time adalimumab [From Humira] Allergy Severe site Verified 10/22/24 20:25 reaction etanercept [From Enbrel] Allergy Severe site Verified 10/22/24 20:25 reaction infliximab [From Remicade] Allergy Severe pass out Verified 10/22/24 20:25 levofloxacin [From Levaquin] Allergy Intermediate rash Verified 10/22/24 20:25 amoxicillin Allergy Mild rash Verified 10/22/24 20:25 clarithromycin Allergy Mild rash Verified 10/22/24 20:25 codeine Allergy Mild sick Verified 10/22/24 20:25 Review of Systems Review of Systems: A 10 system review of systems was completed on the patient and is negative except for what is stated in the HPI. Nursing and ancillary documentation was reviewed. [facility] Past Medical History Medical History Arthritis Atrial fibrillation On Xarelto Cancer Breast Congestive heart failure COPD (chronic obstructive pulmonary disease) Diabetes last A1c noted by pt to be 6.1 in 2019 Essential tremor Hypertension Rheumatoid arthritis Surgical History Surgical History H/O tubal ligation History of carpal tunnel release left wrist 08/[address] Valiente History of cholecystectomy History of lumpectomy of left breast Hx of parathyroidectomy Family History Family History Other Asthma Cancer Social History Social History Smoking status: Never smoker Alcohol intake: never Substance use: never Substance use type: does not use Do You Feel Safe in your Home?: Yes Lack of Transportation: No Lack of Food: Never True Current Housing: I Have Housing Concerned About Future Housing: No Difficulty Paying Gas/Electric Bills: No Difficulty Paying for Meds: No Currently Unemployed: No Education: High School Diploma/GED Difficulty w/ Childcare or Family Care: No Living arrangements: alone Occupation/Education: occupation 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 HEAD: Normocephalic, atraumatic. EYES: PERRLA and EOMI. ENT: Nares clear, no rhinorrhea or epistaxis. Mucous membranes moist. NECK: Supple. CHEST: Clear to auscultation. No respiratory distress. HEART: Regular rate and rhythm. No murmur heard. Normal peripheral pulses. ABDOMEN: Soft, nontender, nondistended, normal active bowel sounds. EXTREMITIES: Normal range of motion. No edema. SKIN: Warm, dry, no rash. NEURO: No focal deficits. Alert and oriented x3. PSYCH: Normal mood and affect. Course Vital Signs Vital signs: Vital Signs Temperature 36.2 C L 10/22/24 20:27 Pulse Rate 81 10/22/24 20:27 Respiratory Rate 16 10/22/24 20:27 Blood Pressure 111/68 10/22/24 20:27 Pulse Oximetry 100 10/22/24 20:27 Oxygen Delivery Nasal Cannula 10/22/24 20:27 Oxygen Flow Rate 2 10/22/24 20:27 Temperature 36.3 C L 10/22/24 23:24 Pulse Rate 83 10/22/24 23:32 Respiratory Rate 20 10/22/24 23:24 Blood Pressure 100/71 10/22/24 23:24 Pulse Oximetry 97 10/22/24 23:57 Oxygen Delivery Room Air 10/22/24 23:57 Oxygen Flow Rate 2 10/22/24 23:28 Medical Decision Making MDM Narrative Medical decision making narrative: Differential diagnosis includes hyperkalemia, renal failure, Laboratory studies were obtained patient's white count 13.4 hemoglobin is 9.8 this is not significantly lower than the patient's baseline electrolytes were obtained which showed a potassium of 3.9 BUN was 68 creatinine was 2.0 the patient has history of chronic renal insufficiency and fluctuates between 1.8 and 2.2 liver enzymes were slightly elevated the patient is complaining of no abdominal pain and has no jaundice and has a normal bilirubin Vital Signs Vital Signs: Vital Signs Temperature 36.2 C L 10/22/24 20:27 Pulse Rate 81 10/22/24 20:27 Respiratory Rate 16 10/22/24 20:27 Blood Pressure 111/68 10/22/24 20:27 Pulse Oximetry 100 10/22/24 20:27 Oxygen Delivery Nasal Cannula 10/22/24 20:27 Oxygen Flow Rate 2 10/22/24 20:27 Temperature 36.3 C L 10/22/24 23:24 Pulse Rate 83 10/22/24 23:32 Respiratory Rate 20 10/22/24 23:24 Blood Pressure 100/71 10/22/24 23:24 Pulse Oximetry 97 10/22/24 23:57 Oxygen Delivery Room Air 10/22/24 23:57 Oxygen Flow Rate 2 10/22/24 23:28 Lab Data 10/22/24 20:36 10/22/24 20:36 Labs: Lab Results 10/22/24 Range/Units 20:36 WBC 13.4 H (4.5-10.0) K/mm3 RBC 3.42 L (4.2-5.4) M/mm3 Hgb 9.8 L (12.0-15.0) g/dL Hct 31.6 L (37.0-47.0) % MCV 92.4 (80-100) fl MCH 28.7 (26-34) pg MCHC 31.0 L (32-36) g/dl RDW 17.6 H (11.5-14.5) % Plt Count 273 D (150-375) k/mm3 MPV 10.8 H (7.4-10.4) fl Immature Gran % (Auto) 2.9 H (0-0.5) % Neut % (Auto) 81.7 H (45.5-73.1) % Lymph % (Auto) 7.9 L (18.3-44.2) % Henry % (Auto) 7.2 (2.6-8.5) % Eos % (Auto) 0.1 (0-4.4) % Baso % (Auto) 0.2 (0.2-1.2) % Lymph # (Auto) 1.05 (0.9-3.2) K/mm3 Henry # (Auto) 1.0 H (0.1-0.6) K/mm3 Eos # (Auto) 0.0 (0-0.3) K/mm3 Baso # (Auto) 0.0 (0.0-0.1) K/mm3 Abs Immat Gran (auto) 0.39 H (0.00-0.031) K/mm3 Absolute Neuts (auto) 10.9 H (1.3-6.7) K/mm3 Absolute Nucleated RBC 0.020 H (0.0-0.012) K/mm3 Nucleated RBC % 0.1 (0.0-0.2) % Sodium 129 L (137-145) mmol/L Potassium 3.9 (3.4-5.0) mmol/L Chloride 95 L (98-107) mmol/L Carbon Dioxide 31 H (22-30) mmol/L Anion Gap 3 L (4-12) mmol/L BUN 68 H D (7-17) mg/dL Creatinine 2.00 H (0.7-1.0) mg/dL Estim Creat Clear Calc Not Reportable Estimated GFR 24 L (59 - ) Glucose 206 H (65-110) mg/dL Calcium 8.6 (8.4-10.2) mg/dL Total Bilirubin 1.1 (0.2-1.3) mg/dL AST 273 H (14-36) U/L ALT 259 H (6-35) U/L Alkaline Phosphatase 886 H (38-126) U/L Total Protein 5.0 L (6.3-8.2) g/dL Albumin 3.0 L (3.5-5.1) g/dL Discharge Plan Discharge Clinical Impression: Ground-level fall [facility] Condition: Stable Instructions: Antibiotic Form, Head Injury (ED), Fall Prevention (ED) Additional Instructions: The repeat potassium today was 3.9 Prescriptions: No Action atorvastatin 20 mg tablet 20 mg PO DAILY leflunomide 20 mg tablet 20 mg PO DAILY pramipexole 0.5 mg tablet 1.5 mg PO Q8H gabapentin 100 mg capsule 200 mg PO Q8H losartan 25 mg tablet 25 mg PO DAILY Xarelto 20 mg tablet 20 mg PO DAILY furosemide 40 mg Tablet 40 mg PO DAILY Qty: 30 0RF metoprolol succinate [Toprol XL] 100 mg Tablet Extended Release 24 Hr 200 mg PO QAM Qty: 30 0RF doxycycline hyclate 100 mg Tablet 100 mg PO Q12HR Qty: 5 0RF calcitriol 0.25 mcg capsule 0.25 mcg PO DAILY Anoro Ellipta 62.5-25 mcg/actuation blister with device 1 inh INHALATION DAILY Follow-up/Referrals: Toy,Immanuel Figueroa MD [Primary Care Provider] - Time of Disposition: 23:30
[2024-10-22 23:24] VITALS: BP 100/71; PULSE 82; RESP 20; TEMP 36.3; O2SAT 96
[2024-10-22 23:28] VITALS: O2SAT 96
[2024-10-22 23:32] VITALS: PULSE 83
[2024-10-22 23:57] VITALS: O2SAT 97
== END 2024-10-23 00:03 ==
PROVIDERS: Emergency Medicine; Emergency Provider Emergency Medicine; PCP Internal Medicine
DX: M19.90 Unspecified osteoarthritis, unspecified site (principal); I48.91 Unspecified atrial fibrillation; Z79.01 Long term (current) use of anticoagulants; I11.0 Hypertensive heart disease with heart failure; I50.9 Heart failure, unspecified; E11.9 Type 2 diabetes mellitus without complications; J44.9 Chronic obstructive pulmonary disease, unspecified; W01.0XXA Fall on same level from slipping, tripping and stumbling without subsequent striking against object, initial encounter
CPT/HCPCS: 36415; 70450; 72125; 80053; 85025; 99284

== ENCOUNTER 2024-11-05 10:31 | Inpatient (IN) | payer MEDICARE, SELFPAY ==
[2024-11-05] VITALS (34 sets, daily range): BP systolic 81–112; BP diastolic 54–76; PULSE 67–129; RESP 16–28; TEMP 36.4–37.1; O2SAT 64–100; BMI 29.5
--- NOTE | ~2024-11-05 | XR_ITS ---
XR abdomen gastric tube insert DATE: 11/09/2024 15:09 INDICATION: NG tube placement TECHNIQUE: Portable AP view on 11/09/2024 1504 hours COMPARISON: None FINDINGS: NG tube tip overlies the body of the stomach, the proximal side port approximately 6 cm bey ond the diaphragmatic hiatus. Left lower lobe atelectasis/or consolidation, patchy with draining the right lower lung. Scoliosis and degenerative spurring of the thoracic and particularly in the lumbar spine. Osteopenia. Surgical clips overlie the left breast. IMPRESSION: NG tube tip in body of stomach Reviewed, dictated and finalized at [facility] Reviewed, dictated and finalized at [facility]. AND EXPLOSION INVESTIGATOR
--- NOTE | ~2024-11-05 | XR_ITS ---
XR chest 1V portable Ordering provider: Sid Wilson MD History: 84 years Female with . atrial fib COUGH . Comparison: September 19, 2024 FINDINGS: MEDIASTINUM: The cardiac silhouette is moderately enlarged. Congestive wagner. LUNGS: No pneumothorax. Opacification in the left lower lobe area is seen suggestive of atelectasis v ersus pneumonia with pleural effusion. Bilateral interstitial changes. OTHER: No free air under the diaphragm. Degenerative changes of the spine. IMPRESSION: Cardiomegaly with cardiac decompensation and pulmonary edema. Superimposed pneumonitis is not exclude d. Left basilar atelectasis versus pneumonia with pleural effusion. Reviewed, dictated and finalized at location A. MELTER IMPRESSION: Cardiomegaly with cardiac decompensation and pulmonary edema. Superimposed pneu monitis is not excluded. Left basilar atelectasis versus pneumonia with pleural effusion.
--- NOTE | ~2024-11-05 | XR_ITS ---
EXAMINATION: XR chest 1V portable DATE: 11/12/2024 13:19 INDICATION: Shortness of breath. COVID-19. TECHNIQUE: A single frontal view of the chest was obtained. COMPARISON: Chest single view 11/11/2024, CT abdomen and pelvis 09/19/2024 FINDINGS: There is a diffuse interstitial pattern in the lungs. There are airspace opacities in the p erihilar regions and at the lung bases. There are small right and moderate-sized left pleural effusio ns. No pneumothorax. Cardiomegaly is noted. The nasogastric tube tip is in the stomach. IMPRESSION: 1. Worsened diffuse lung disease, likely moderate pulmonary edema. 2. Small right and moderate-sized left pleural effusions. 3. Cardiomegaly. Reviewed, dictated and finalized at location A. HT ENGINEER INSPECTOR
--- NOTE | ~2024-11-05 | XR_ITS ---
EXAMINATION: XR chest 1V portable DATE: 11/11/2024 05:59 INDICATION: COVID-19. TECHNIQUE: A single frontal view of the chest was obtained. COMPARISON: Chest single view 11/09/2024 FINDINGS: There is a diffuse interstitial pattern in the lungs, consistent with mild pulmonary edema. There are small right and moderate-sized left pleural effusions. No pneumothorax. Cardiomegaly is no jaiden. The nasogastric tube tip is in the stomach. IMPRESSION: 1. Mild pulmonary edema. 2. Small right and moderate-sized left pleural effusions with worsening on the left. 3. Cardiomegaly. Reviewed, dictated and finalized at location A. GE PUMP OPERATOR
--- NOTE | ~2024-11-05 | US_ITS ---
EXAMINATION: US venous doppler UE RT DATE: 11/11/2024 18:03 INDICATION: edema . TECHNIQUE: Grayscale ultrasound images without and with compression and Doppler ultrasound images of the right upper extremity veins were obtained. COMPARISON: None. FINDINGS: The visualized portions of the right internal jugular vein, subclavian vein, axillary vein, brachial veins, basilic vein, cephalic vein, radial vein, and ulnar vein are patent. Subcutaneous edema. IMPRESSION: No deep venous thrombosis detected in the right upper extremity. Reviewed, dictated and finalized at location K. L ENGINEER HELPER
--- NOTE | ~2024-11-05 | US_ITS ---
EXAMINATION: US renal BI DATE: 11/05/2024 21:53 INDICATION: Acute kidney injury. TECHNIQUE: Multiple ultrasound grayscale images of the kidneys were obtained. COMPARISON: CT abdomen and pelvis 09/19/2024 FINDINGS: The right kidney measures 14.5 x 5.5 x 6.4 cm. The left kidney measures 10.0 x 4.7 x 3.7 cm. The kidn eys demonstrate normal parenchymal echogenicity. There is chronic mild right hydronephrosis. The blad jie is decompressed by a Greco catheter. IMPRESSION: 1. Normal kidney sizes. 2. Chronic mild right hydronephrosis. Reviewed, dictated and finalized at location A. EMENT PROCESSOR
--- NOTE | ~2024-11-05 | XR_ITS ---
XR chest 1V portable DATE: 11/09/2024 15:09 INDICATION: Shortness of breath TECHNIQUE: Portable upright AP chest on 11/09/2024 at 1503 hours COMPARISON: 11/05/2024 portable supine AP chest FINDINGS: NG tube in body of stomach. Cardiomegaly. There are bilateral lower lung infiltrates, particularly prominent atelectasis or consolidation at th e left lower lobe. Pleural effusions are suggested. Osteopenia. Degenerative change and scoliosis of the thoracic and particularly lumbar spine. Osteoart hritic change at the glenohumeral joints. IMPRESSION: Bilateral lower lung infiltrate/atelectasis, including particularly left lower lobe atele ctasis and/or consolidation; the right lower lung infiltrate is largely new 04/05/2024 Cardiomegaly Small pleural effusions are suggested Reviewed, dictated and finalized at location A. DRIVER IMPRESSION: Bilateral lower lung infiltrate/atelectasis, including particularly left lower lobe atelectasis and/or consolidation; the right lower lung infiltr ate is largely new 04/05/2024 Cardiomegaly Small pleural effusions are suggested
--- NOTE | ~2024-11-05 | XR_ITS ---
EXAMINATION: XR barium swallow modified DATE: 11/12/2024 10:12 INDICATION: Dysphagia. TECHNIQUE: The patient was given barium-containing material of multiple consistencies to swallow by t he speech pathologist while I performed fluoroscopy. Fluoroscopy exposure time was 1.6 minutes. The n umber of fluoroscopy images saved to the PACS was 1. Dose-area product was 1.22 Gy-cm^2. FINDINGS: There is laryngeal penetration. No aspiration. IMPRESSION: 1. Laryngeal penetration. 2. Please refer to the speech therapy report for recommendations. Reviewed, dictated and finalized at location A. D TAX AUDITOR
--- NOTE | 2024-11-05 10:32 | ECG_ITS ---
Test Date: 2024-11-05 10:44:42 Measurements Intervals [place] Rate: 108 P: 0 VA: 0 QRS: 77 QRSD: 135 T: 21 QT: 356 QTc: 479 Interpretive Statements ATRIAL FIBRILLATION WITH RAPID VENTRICULAR RESPONSE WITH ABERRANT CONDUCTION OR VENTRICULAR PREMATURE COMPLEXES RIGHT BUNDLE BRANCH BLOCK [120+ ms QRS DURATION, UPRIGHT V1, 40+ ms S IN I/aVL/V4/V5/V6] BASELINE ARTIFACT PRESENT Compared to ECG 09/19/2024 07:19:30 No significant changes Electronically Signed On 11-05-2024 16:19:48 EMPLOYEE COMMUNICATIONS COORDINATOR by Joshua Miles M.D.
--- NOTE | 2024-11-05 10:40 | ED.GENADULT ---
HPI - General Adult General Chief complaint: Altered Mental Status Stated complaint: lethargic History of Present Illness HPI narrative: 84-year-old female with a prior history of CHF pneumonia CHF hypertension COPD AFib presents to the emergency department for evaluation for decreased p.o. intake and elevated creatinine at her care facility. When EMS arrived on scene patient was in AFib with RVR and did have a low blood pressure that did improve with IV fluids. Upon arrival to the emergency department patient's only complaint is pain in her tailbone and patient does have known bed sores. Related Data Home Medications ?Medication ?Instructions ?Recorded ?Confirmed ?Last Taken ?Type leflunomide 20 mg tablet 20 mg PO DAILY 08/26/20 11/05/24 Unknown History pramipexole 0.5 mg tablet 1.5 mg PO Q8H 08/26/20 11/05/24 Unknown History atorvastatin 20 mg tablet 20 mg PO DAILY 02/17/21 11/05/24 11/04/24 History gabapentin 100 mg capsule 200 mg PO TID 04/26/23 11/05/24 Unknown History calcitriol 0.25 mcg capsule 0.25 mcg PO DAILY 11/11/23 11/05/24 Unknown History umeclidinium 62.5 mcg-vilanterol 1 inh inhalation DAILY 11/11/23 11/05/24 11/04/24 History 25 mcg/actuation powdr for inhalation (Anoro Ellipta) losartan 25 mg tablet 25 mg PO DAILY 09/19/24 11/05/24 Unknown History rivaroxaban 20 mg tablet (Xarelto) 20 mg PO DAILY 09/19/24 11/05/24 09/18/24 History Lactobacillus acidophilus 1 tablet PO BID 11/05/24 11/05/24 Unknown History arginine-vitamin C-vitamin E oral 4.5 g PO DIRECTED 11/05/24 11/05/24 11/04/24 History 4.5 gram-156 mg/9.2 gram powder pkt (Arginaid) benzonatate 100 mg capsule 200 mg PO TID PRN cough 11/05/24 11/05/24 Unknown History collagenase clostridium histo. 250 1 applic topical DAILY 11/05/24 11/05/24 Unknown History unit/gram topical ointment (Santyl) diclofenac sodium 1 % topical gel 1 ea topical TID PRN pain 11/05/24 11/05/24 Unknown History hydrocodone 5 mg-acetaminophen 325 1 tablet PO Q4H PRN pain 11/05/24 11/05/24 Unknown History mg tablet insulin aspart U-100 100 unit/mL 1 sliding scale dose subcut 11/05/24 11/05/24 Unknown History (3 mL) subcutaneous pen (Novolog USEASDIRECTD FlexPen U-100 Insulin aspart) metformin 500 mg tablet 500 mg PO BID 11/05/24 11/05/24 Unknown History Allergies Allergy/AdvReac Type Severity Reaction Status Date / Time adalimumab (From Humira) Allergy Severe site Verified 10/22/24 20:25 reaction etanercept (From Enbrel) Allergy Severe site Verified 10/22/24 20:25 reaction infliximab (From Remicade) Allergy Severe pass out Verified 10/22/24 20:25 levofloxacin (From Levaquin) Allergy Intermediate rash Verified 10/22/24 20:25 amoxicillin Allergy Mild rash Verified 10/22/24 20:25 clarithromycin Allergy Mild rash Verified 10/22/24 20:25 codeine Allergy Mild sick Verified 10/22/24 20:25 Review of Systems Review of Systems: All systems reviewed & are unremarkable except as noted in HPI and below PMFSH Past Medical History Medical History (Updated 11/05/24 @ 16:06 by Aleah Marsh PA-C) Hydronephrosis chronic, mild right hydronephrosis noted on prior CT scans Hemorrhoids Chronic anticoagulation Atrial fibrillation Cancer of left breast Chronic obstructive pulmonary disease Diet-controlled type 2 diabetes mellitus Chronic respiratory failure with hypoxia, on home oxygen therapy Heart failure with reduced ejection fraction Hypertension Rheumatoid arthritis Essential tremor Arthritis Surgical History Surgical History (Updated 11/05/24 @ 15:51 by Aleah Marsh PA-C) History of parathyroidectomy History of tubal ligation History of cholecystectomy History of lumpectomy of left breast History of carpal tunnel release left wrist 08/[address] Valiente Family History Family History Other Asthma Cancer Social History Social History (Updated 11/05/24 @ 15:53 by Aleah Marsh PA-C) Social History: Surrogate medical decision maker: Code status: Do not resuscitate. Smoking status: Never smoker Alcohol intake: unknown Substance use: unknown Substance use type: does not use Do You Feel Safe in your Home?: Yes Lack of Transportation: No Lack of Food: Never True Current Housing: I Do Not Have Housing Concerned About Future Housing: No Difficulty Paying Gas/Electric Bills: No Difficulty Paying for Meds: No Currently Unemployed: No Education: High School Diploma/GED Difficulty w/ Childcare or Family Care: No Additional living arrangements comments: She lives in her own home but is currently at [facility] for rehab as of 09/2024. Spiritual care concerns: No Exam Narrative: APPEARANCE: Uncomfortable appearing HEAD: normocephalic, atraumatic. EYES: PERRLA/EOMI, conjunctivae clear. NOSE: Normal no drainage EARS:TMS clear with good light reflex. THROAT: Pharynx clear, no exudate. NECK: Supple. No adenopathy, no masses. RESPIRATORY: Airway patent, respirations nonlabored. Clear to auscultation bilaterally, no rales, rhonchi, wheezing. CARDIOVASCULAR: Regular rate and rhythm without murmurs rubs or gallops. ABDOMINAL: Soft, nontender, nondistended, normal bowel sounds MUSCULOSKELETAL: Moves all extremities. Strength/ROM intact, No edema, No calf tenderness. NEURO: Alert. Cranial nerves II through XII intact. Grossly intact SKIN: Warm, dry. Normal Color. Sacral ulcer with clean intact dressing Rectal exam: Extensive hemorrhoids, Hemoccult positive on the digital rectal exam Course Course Emergency Course: Case was discussed with the hospitalist, admitted to the IMU and GI was consulted Vital Signs Vital signs: Vital Signs Temperature 98.2 F 11/05/24 10:32 Pulse Rate 111 H 11/05/24 10:32 Respiratory Rate 28 H 11/05/24 10:32 Blood Pressure 100/70 11/05/24 10:32 Pulse Oximetry 100 11/05/24 10:32 Oxygen Delivery Nasal Cannula 11/05/24 10:32 Oxygen Flow Rate 4 11/05/24 10:32 Temperature 98.7 F 11/05/24 17:25 Pulse Rate 103 H 11/05/24 17:25 Respiratory Rate 20 11/05/24 17:25 Blood Pressure 112/63 11/05/24 17:25 Pulse Oximetry 99 11/05/24 17:25 Oxygen Delivery Nasal Cannula 11/05/24 12:44 Oxygen Flow Rate 4 11/05/24 12:44 Medical Decision Making [facility] Narrative Medical decision making narrative: 84 old female presents emergency department for evaluation for worsening kidney function, decreased p.o. intake. Patient does have significantly worsen kidney function with a baseline closer to 2 with a level today of 3.5. Patient is afebrile with no leukocytosis but did have a hemoglobin of 6.8 which is lower than her baseline of 9-10. Patient is on Xarelto and does have bleeding hemorrhoids. GI was consulted. Patient was transfused with 2 units of packed red blood cells. UA was positive for infection and patient was positive for COVID. Patient was started on Rocephin in the emergency department. Discussed with hospitalist patient was accepted for admission to the IMU. Patient family were also updated the results of the workup with they are comfortable the plan for admission and further treatment. Differential Diagnosis Differential Diagnosis: Colitis, diverticulitis, hemorrhoids, melena, hematochezia, pneumonia, influenza, COVID, RSV, SARAI Vital Signs Vital Signs: Vital Signs Temperature 98.2 F 11/05/24 10:32 Pulse Rate 111 H 11/05/24 10:32 Respiratory Rate 28 H 11/05/24 10:32 Blood Pressure 100/70 11/05/24 10:32 Pulse Oximetry 100 11/05/24 10:32 Oxygen Delivery Nasal Cannula 11/05/24 10:32 Oxygen Flow Rate 4 11/05/24 10:32 Temperature 98.7 F 11/05/24 17:25 Pulse Rate 103 H 11/05/24 17:25 Respiratory Rate 20 11/05/24 17:25 Blood Pressure 112/63 11/05/24 17:25 Pulse Oximetry 99 11/05/24 17:25 Oxygen Delivery Nasal Cannula 11/05/24 12:44 Oxygen Flow Rate 4 11/05/24 12:44 Lab Data Lab results reviewed: Yes I reviewed the patient's lab results. 11/05/24 11:00 11/05/24 11:00 Labs: Lab Results 11/05/24 11/05/24 Range/Units 10:59 11:00 WBC 9.3 (4.5-10.0) K/mm3 RBC 2.29 L (4.2-5.4) M/mm3 Hgb 6.8 L* D (12.0-15.0) g/dL Hct 23.6 L (37.0-47.0) % MCV 103.1 H (80-100) fl MCH 29.7 (26-34) pg MCHC 28.8 L (32-36) g/dl RDW 20.3 H (11.5-14.5) % Plt Count 224 (150-375) k/mm3 MPV 11.2 H (7.4-10.4) fl Immature Gran % (Auto) 0.6 H (0-0.5) % Neut % (Auto) 86.5 H (45.5-73.1) % Lymph % (Auto) 5.8 L (18.3-44.2) % [place] % (Auto) 6.7 (2.6-8.5) % Eos % (Auto) 0.1 (0-4.4) % Baso % (Auto) 0.3 (0.2-1.2) % Lymph # (Auto) 0.54 L (0.9-3.2) K/mm3 [place] # (Auto) 0.6 (0.1-0.6) K/mm3 Eos # (Auto) 0.0 (0-0.3) K/mm3 Baso # (Auto) 0.0 (0.0-0.1) K/mm3 Abs Immat Gran (auto) 0.06 H (0.00-0.031) K/mm3 Absolute Neuts (auto) 8.0 H (1.3-6.7) K/mm3 Absolute Nucleated RBC 0.020 H (0.0-0.012) K/mm3 Nucleated RBC % 0.2 (0.0-0.2) % Platelet Estimate Adequate (Adequate) Macrocytosis 2+ (NORMAL) Schistocytes None seen PT 24.5 H (11.1-14.7) Seconds INR 2.2 APTT 34.0 (22.3-36.8) Seconds Sodium 130 L (137-145) mmol/L Potassium 3.4 (3.4-5.0) mmol/L Chloride 99 (98-107) mmol/L Carbon Dioxide 31 H (22-30) mmol/L Anion Gap 0 L (4-12) mmol/L BUN 98 H D (7-17) mg/dL Creatinine 3.50 H (0.7-1.0) mg/dL Estim Creat Clear Calc Not Reportable Estimated GFR 12 L (59 - ) Glucose 167 H (65-110) mg/dL Calcium 8.3 L (8.4-10.2) mg/dL Total Bilirubin 0.9 (0.2-1.3) mg/dL AST 37 H (14-36) U/L ALT 38 H (6-35) U/L Alkaline Phosphatase 391 H (38-126) U/L Total Protein 5.0 L (6.3-8.2) g/dL Albumin 2.6 L (3.5-5.1) g/dL Urine Color Yellow (Yellow) Urine Appearance Cloudy H (Clear) Urine pH 5.0 (5.0-9.0) Ur Specific [place] 1.013 (1.001-1.035) Urine Protein 1+ H (Negative) mg/dL Urine Glucose (UA) Negative (Negative) mg/dL Urine Ketones Negative (Negative) mg/dL Ur Blood (Man) Negative (Negative) Urine Nitrate Negative (Negative) Urine Bilirubin Negative (Negative) Urine Urobilinogen 0.2 (<2.0) mg/dL Add Ur Microanalysis Reviewed Leukocyte Esterase Rfl 2+ H (Negative) OTILIO/UL Urine RBC 0-2 (0-2) /hpf Urine WBC 21-50 H (0-3) /hpf Ur Squamous Epith Cells Occasional (Few) /hpf Urine Bacteria 4+ H /hpf Urine Casts 11-20 Influenza A (RT-PCR) Negative (Negative) Influenza B (RT-PCR) Negative (Negative) RSV (RT-PCR) Negative (Negative) SARS-CoV-2 RNA (RT-PCR) Positive A (Negative) Imaging Data Radiologist's impression: Impressions Chest X-Ray 11/05/24 11:31 IMPRESSION: Cardiomegaly with cardiac decompensation and pulmonary edema. Superimposed pneumonitis is not excluded. Left basilar atelectasis versus pneumonia with pleural effusion. Discharge Plan Discharge Clinical Impression: Acute UTI, SARAI (acute kidney injury), Anemia, Bleeding hemorrhoids, COVID Patient Disposition: Still a Patient Condition: Serious
[2024-11-05 11:06] LABS: Basophils Percent Auto 0.3 % (0.2-1.2); Eosinophils Percent Auto 0.1 % (0-4.4); Hematocrit 23.6 % (37.0-47.0); Immature Granulocyte Absolute 0.06 K/mm3 (0.00-0.031); Immature Granulocyte Percent A 0.6 % (0-0.5); Lymphocytes Absolute Auto 0.54 K/mm3 (0.9-3.2); Lymphocytes Percent Auto 5.8 % (18.3-44.2); Mean Corpuscular HGB Conc 28.8 g/dl (32-36); Mean Corpuscular Hemoglobin 29.7 pg (26-34); Mean Corpuscular Volume 103.1 fl (80-100); Mean Platelet Volume 11.2 fl (7.4-10.4); Monocytes Absolute Auto 0.6 K/mm3 (0.1-0.6); Monocytes Percent Auto 6.7 % (2.6-8.5); Neutrophils Percent Auto 86.5 % (45.5-73.1); Nucleated Red Blood Cells Perc 0.2 % (0.0-0.2); Platelet Count Result 224 k/mm3 (150-375); Red Blood Count 2.29 M/mm3 (4.2-5.4); Red Cell Distribution Width 20.3 % (11.5-14.5); White Blood Count 9.3 K/mm3 (4.5-10.0)
[2024-11-05 11:16] LABS: Alanine Aminotransferase 38 U/L (6-35); Albumin Level 2.6 g/dL (3.5-5.1); Alkaline Phosphatase 391 U/L (38-126); Anion Gap 0 mmol/L (4-12); Aspartate Amino Transferase 37 U/L (14-36); Bilirubin,Total 0.9 mg/dL (0.2-1.3); Blood Urea Nitrogen 98 mg/dL (7-17); Calcium 8.3 mg/dL (8.4-10.2); Carbon Dioxide 31 mmol/L (22-30); Chloride 99 mmol/L (98-107); Estimated Glomerular Filt Rate 12; Glucose 167 mg/dL (65-110); Potassium 3.4 mmol/L (3.4-5.0); Sodium 130 mmol/L (137-145)
[2024-11-05 11:24] LABS: Add Urine Microscopic? YES; Appearance Urine Cloudy (Clear); Bacteria Urine 4+ /hpf; Bilirubin Urine Negative (Negative); Blood Urine Negative (Negative); Color Urine Yellow (Yellow); Glucose Urine UA Negative (Negative); INR 2.2; Ketones Urine Negative (Negative); Leukocyte Esterase Ur 2+ LEU/UL (Negative); Need Manual Microscopic Reviewed; Nitrate Urine Negative (Negative); Protein Urine 1+ mg/dL (Negative); Prothrombin Time 24.5 Seconds (11.1-14.7); RBC Urine 0-2 /hpf (0-2); Specific Grav Ur 1.013 (1.001-1.035); Squamous Epithelial Cell Urine Occasional /hpf (Few); Urobilinogen Urine 0.2 mg/dL (<2.0); WBC Urine 21-50 /hpf (0-3)
[2024-11-05 11:43] LABS: Influenza A QL RT-PCR Negative (Negative); Influenza B QL RT-PCR Negative (Negative); RSV RNA, RT-PCR Negative (Negative); SARS-CoV-2 RNA PCR Positive (Negative)
[2024-11-05 11:48] LABS: Hemoglobin 6.8 g/dL (12.0-15.0)
[2024-11-05 11:51] LABS: Macrocytosis 2+ (NORMAL); Platelet Estimate Adequate (Adequate); Schistocytes None Seen
--- NOTE | 2024-11-05 12:59 | P.HP_ITS ---
H&P: HPI History of Present Illness Date/Time: 11/05/24 14:00 Chief Complaint: Lethargic. Narrative: This is an 84-year-old female with multiple medical problems including chronic respiratory failure with hypoxia on home oxygen, chronic obstructive pulmonary disease, heart failure with reduced ejection fraction, atrial fibrillation on chronic anticoagulation, chronic kidney disease, chronic anemia, hypertension, and rheumatoid arthritis who presented to the emergency department via EMS for evaluation of lethargy. The patient provides the following history. She was treated for a urinary tract infection a few weeks ago and does not feel as though she ever got back to baseline and continues to have mild dysuria. The last several days she has felt worse with symptoms to include a dry hacking cough, sore throat, body aches, weakness, lethargy, and poor appetite. She also reports an increase in bleeding from her hemorrhoids without straining; in fact she reports having loose stools a majority of the time. She denies fever, headache, neck ache, chest pain, shortness of breath, abdominal pain, nausea, vomiting, and diarrhea. In the ED: Blood pressures were soft on arrival but improved with IV fluid bolus. She has been in atrial fibrillation with rates ranging from the 80s to low 100s. Currently on 4 L nasal cannula with an SpO2 in the mid 90s. Labs were significant for WBC count of 9.3, hemoglobin 6.8, platelet 224, sodium 130, potassium 3.4, BUN 98, creatinine 3.50. She was positive for SARS-CoV-2 by PCR. Chest x-ray showed pulmonary edema, possible superimposed pneumonitis, and left basilar atelectasis versus pneumonia with effusion. She is being admitted in this setting for further treatment and evaluation. Review of Systems Review of Systems: 12 systems were reviewed and are negativ e except for as per HPI. [facility] Past Medical History Medical History (Updated 11/05/24 @ 16:06 by Aleah Marsh PA-C) Hydronephrosis chronic, mild right hydronephrosis noted on prior CT scans Hemorrhoids Chronic anticoagulation Atrial fibrillation Cancer of left breast Chronic obstructive pulmonary disease Diet-controlled type 2 diabetes mellitus Chronic respiratory failure with hypoxia, on home oxygen therapy Heart failure with reduced ejection fraction Hypertension Rheumatoid arthritis Essential tremor Arthritis Surgical History Surgical History (Updated 11/05/24 @ 15:51 by Aleah Marsh PA-C) History of parathyroidectomy History of tubal ligation History of cholecystectomy History of lumpectomy of left breast History of carpal tunnel release left wrist 08/[address] Valiente Family History Family History Other Asthma Cancer Social History Social History (Updated 11/05/24 @ 15:53 by Aleah Marsh PA-C) Social History: Surrogate medical decision maker: Code status: Do not resuscitate. Smoking status: Never smoker Alcohol intake: never Substance use: never Substance use type: does not use Do You Feel Safe in your Home?: Yes Lack of Transportation: No Lack of Food: Never True Current Housing: I Have Housing Concerned About Future Housing: No Difficulty Paying Gas/Electric Bills: No Difficulty Paying for Meds: No Currently Unemployed: No Education: High School Diploma/GED Difficulty w/ Childcare or Family Care: No Additional living arrangements comments: She lives in her own home but is currently at [facility] for rehab as of 09/2024. Spiritual care concerns: No Meds Home Medications and Allergies Home Medications ?Medication ?Instructions ?Recorded ?Confirmed ?Type leflunomide 20 mg tablet 20 mg PO DAILY 08/26/20 09/19/24 History pramipexole 0.5 mg tablet 1.5 mg PO Q8H 08/26/20 09/19/24 History atorvastatin 20 mg tablet 20 mg PO DAILY 02/17/21 11/05/24 History gabapentin 100 mg capsule 200 mg PO Q8H 04/26/23 09/19/24 History calcitriol 0.25 mcg capsule 0.25 mcg PO DAILY 11/11/23 09/19/24 History umeclidinium 62.5 mcg-vilanterol 1 inh inhalation DAILY 11/11/23 11/05/24 History 25 mcg/actuation powdr for inhalation (Anoro Ellipta) losartan 25 mg tablet 25 mg PO DAILY 09/19/24 09/19/24 History rivaroxaban 20 mg tablet (Xarelto) 20 mg PO DAILY 09/19/24 09/19/24 History doxycycline hyclate 100 mg tablet 100 mg PO Q12HR #5 tabs 09/23/24 Rx furosemide 40 mg tablet 40 mg PO DAILY #30 tabs 09/23/24 Rx metoprolol succinate 100 mg 200 mg (2 x 100 mg) PO QAM #30 tabs 09/23/24 Rx tablet,extended release 24 hr (Toprol XL) arginine-vitamin C-vitamin E oral PO DIRECTED 11/05/24 History 4.5 gram-156 mg/9.2 gram powder pkt (Arginaid) Allergies Allergy/AdvReac Type Severity Reaction Status Date / Time adalimumab (From Humira) Allergy Severe site Verified 10/22/24 20:25 reaction etanercept (From Enbrel) Allergy Severe site Verified 10/22/24 20:25 reaction infliximab (From Remicade) Allergy Severe pass out Verified 10/22/24 20:25 levofloxacin (From Levaquin) Allergy Intermediate rash Verified 10/22/24 20:25 amoxicillin Allergy Mild rash Verified 10/22/24 20:25 clarithromycin Allergy Mild rash Verified 10/22/24 20:25 codeine Allergy Mild sick Verified 10/22/24 20:25 Vital Signs Vital Signs - 24 hr 11/05/24 10:32 11/05/24 11:04 11/05/24 11:20 Temperature 98.2 F Pulse Rate 111 H 129 H 120 H Respiratory Rate 28 H 19 20 Blood Pressure 100/70 Pulse Oximetry 100 64 L Oxygen Delivery Nasal Cannula Oxygen Flow Rate 4 11/05/24 11:44 11/05/24 11:45 11/05/24 12:00 Temperature Pulse Rate 126 H 129 H 101 H Respiratory Rate 22 H 25 H 24 H Blood Pressure Pulse Oximetry 100 100 100 Oxygen Delivery Oxygen Flow Rate 11/05/24 12:02 11/05/24 12:29 11/05/24 12:30 Temperature Pulse Rate 115 H 109 H 97 Respiratory Rate 24 H 26 H 18 Blood Pressure 106/60 Pulse Oximetry 100 100 100 Oxygen Delivery Oxygen Flow Rate 11/05/24 12:31 11/05/24 12:44 Temperature Pulse Rate 95 Respiratory Rate 18 Blood Pressure 87/54 L Pulse Oximetry 100 Oxygen Delivery Nasal Cannula Oxygen Flow Rate 4 Exam Narrative: General: Ill-appearing elderly female lying on her left side in bed. Weight: 80.4 kg. HEENT: PERRL, EOMI. Sclera anicteric. Tacky mucous membranes. Neck: Supple. No lymphadenopathy or jugular venous distention. Respiratory: Currently on 4 L nasal cannula. Occasional dry, hacking cough. Respirations are nonlabored. Lung sounds are diminished throughout with scattered crackles at the left base and faint expiratory wheezes. Cardiovascular: Irregularly irregular rate and rhythm. 3/6 systolic murmur at the apex. Gastrointestinal: Abdomen is soft, nontender, and nondistended with positive bowel sounds. Rectal: Exam deferred. Skin: Warm and dry. Generalized pallor. Normal capillary refill. Extremities: No cyanosis or clubbing. Trace maria esther ankle edema bilaterally. Neurological: Alert. Cranial nerves 2-12 are grossly intact. Essential tremors of the jaw. Generalized weakness without gross focal findings. Psychiatric: Pleasant and cooperative with appropriate mood and affect. H&P: Results Labs Labs: Short CBC 11/05/24 Range/Units 11:00 WBC 9.3 (4.5-10.0) K/mm3 Hgb 6.8 L* D (12.0-15.0) g/dL Hct 23.6 L (37.0-47.0) % Plt Count 224 (150-375) k/mm3 BMP 11/05/24 11:00 Sodium 130 L Potassium 3.4 Chloride 99 Carbon Dioxide 31 H BUN 98 H D Creatinine 3.50 H Glucose 167 H Calcium 8.3 L Liver Function 11/05/24 Range/Units 11:00 Total Bilirubin 0.9 (0.2-1.3) mg/dL AST 37 H (14-36) U/L ALT 38 H (6-35) U/L Alkaline Phosphatase 391 H (38-126) U/L Albumin 2.6 L (3.5-5.1) g/dL Urine 11/05/24 Range/Units 11:00 Urine Color Yellow (Yellow) Urine Appearance Cloudy H (Clear) Urine pH 5.0 (5.0-9.0) Ur Specific [place] 1.013 (1.001-1.035) Urine Protein 1+ H (Negative) mg/dL Urine Glucose (UA) Negative (Negative) mg/dL Imaging Chest X-Ray 11/05/24 11:31 IMPRESSION: Cardiomegaly with cardiac decompensation and pulmonary edema. Superimposed pneumonitis is not excluded. Left basilar atelectasis versus pneumonia with pleural effusion. Assessment and Plan Assessment and plan (1) Acute on chronic anemia: Code(s): D64.9 - Anemia, unspecified Status: Acute (2) Acute on chronic kidney failure: Code(s): N17.9 - Acute kidney failure, unspecified; N18.9 - Chronic kidney disease, unspecified Status: Acute (3) Bleeding hemorrhoids: Code(s): K64.9 - Unspecified hemorrhoids Status: Acute (4) COVID: Code(s): U07.1 - COVID-19 Status: Acute (5) Urinary tract infection: Code(s): N39.0 - Urinary tract infection, site not specified Status: Acute (6) Heart failure with reduced ejection fraction: Code(s): I50.20 - Unspecified systolic (congestive) heart failure Status: Acute (7) Chronic respiratory failure with hypoxia: Code(s): J96.11 - Chronic respiratory failure with hypoxia Status: Acute (8) Rheumatoid arthritis: Code(s): M06.9 - Rheumatoid arthritis, unspecified Status: Acute (9) Chronic obstructive pulmonary disease: Code(s): J44.9 - Chronic obstructive pulmonary disease, unspecified Status: Acute Plan The patient presented to the emergency department for evaluation of lethargy and other symptoms including sore throat, dry cough, and others as detailed in HPI. Labs, imaging, EKG, and all reports were personally reviewed. Acute on chronic anemia may very well be due to bleeding hemorrhoids. Hold rivaroxaban. She will be transfused to a stable hemoglobin with close monitoring. Dr. Root was consulted by the ED physician his input is appreciated. She also has an acute on chronic kidney injury which is likely due to a combination of factors including dehydration from poor oral intake, hypoperfusion from relative hypotension and hypovolemia from the anemia. She is also on an ARB. Previous imaging of the abdomen has shown mild right hydronephrosis and renal ultrasound has been ordered. Insert Greco catheter for strict I/O. Check urine electrolytes. Avoid all nephrotoxic agents and renally dose medications as appropriate. If no improvement within the next day or so, a video tape transferrer consult and further workup would be appropriate. She has been started on ceftriaxone for probable urinary tract infection, pending urine culture. She also has COVID and has been started on remdesivir and dexamethasone and will be placed in isolation per protocol. She is currently at her baseline oxygen requirements. Mild wheezing noted on exam though not consistent with COPD exacerbation. Monitor volume status closely while transfusing given HFrEF. Her medications will be reviewed and resumed as appropriate. Findings and treatment plan were discussed with the patient. Questions were solicited and answered to satisfaction. The patient's medical management will be taken over by the hospitalist team in a.m. Quality VTE Prophylaxis VTE prophylaxis: mechanical ordered If No VTE Prophylaxis Answer both mechanical and pharmacologic: Reason no pharmacologic proph: medical contraindication (bleeding hemorrhoids, acute/chronic anemia) Hospitalist MIPS Advance Care Plan I have confirmed that the patient's Advanced Care Plan is present, code status is documented, or surrogate decision maker is listed in patient medical record.: Yes Medication Reconciliation I have utilized all available resources to obtain, update and review the patients current medications (includes all prescriptions, OTC, herbals, cannabis, and nutritional supplements).: Yes
[2024-11-05] MEDS: SODIUM CHLORIDE 0.9% IV 250 ML 30 ML IV CONT (14:49)
[2024-11-05] MEDS: TUBING, BLOOD SET 1 EACH XX (14:49)
[2024-11-05] MEDS: dexAMETHasone SOD PHOS INJ 10 MG/ML 1 ML VIAL 6 MG IV PUSH (16:14)
--- NOTE | 2024-11-05 16:21 | ADMGEN ---
This patient, Genny Gomez, was admitted to IMU Room 202-01. Patient/family oriented to hospital policies and general routines including ID bracelet, bed and alarms, visiting hours, pain management, procedures, bathroom and other care routines, personal items, smoking policy, room service/diet, and visiting hours. Information on how to activate the Rapid Response Team has been discussed. Patient/Family are encouraged to report perceived risks to care and to ask questions if they do not understand what they are told or what they should do.
[2024-11-05] MEDS: REMDESIVIR 200 MG/NS 250 ML 200 MG/250 ML BAG 250 MG IVPB (17:15)
[2024-11-05] MEDS: TUBING, BLOOD PLUM PUMP TUBING 1 EACH XX (17:16)
[2024-11-05] MEDS: SODIUM CHLORIDE 0.9% IV 100 ML (18:22)
--- NOTE | 2024-11-05 18:39 | PC.NURSE ---
This patient, Genny Gomez, was received from [ICU-2 ] on 11/05/24 at [id number]. Patient/family oriented to unit policies and routines. Report received from WALE Dupont @ [id number]
[2024-11-05 18:55] LABS: Eosinophil Urine None Seen % (None Seen); Urine Eos QC 2nd Tech Confirmed
[2024-11-05 19:19] LABS: Creatinine Urine 77.8 mg/dL; Total Protein Urine Random 26 mg/dL; Ur Ttl Prot Creatinine Ratio 0.33 mg/mg (0-0.20)
[2024-11-05 19:36] LABS: Potassium Urine Random 22.4 meq/L; Sodium Urine Random 42 meq/L
[2024-11-05 20:21] LABS: Creatine Kinase 41 U/L (30-135)
[2024-11-05] MEDS: guaiFENesin 12 HR 600 MG TABCR 1200 MG PO (20:55)
[2024-11-05] MEDS: PRAMIPEXOLE 0.5 MG TABLET 1.5 MG PO (20:55)
[2024-11-05 22:32] LABS: Hematocrit 29.8 % (37.0-47.0); Hemoglobin 9.2 g/dL (12.0-15.0)
[2024-11-05 22:42] LABS: Anion Gap 4 mmol/L (4-12); Blood Urea Nitrogen 96 mg/dL (7-17); Calcium 8.4 mg/dL (8.4-10.2); Carbon Dioxide 24 mmol/L (22-30); Chloride 100 mmol/L (98-107); Estimated CRCL calculation 11 ml/min; Estimated Glomerular Filt Rate 12; Glucose 267 mg/dL (65-110); Potassium 3.7 mmol/L (3.4-5.0); Sodium 128 mmol/L (137-145)
[2024-11-06] VITALS (16 sets, daily range): BP systolic 91–128; BP diastolic 43–81; PULSE 70–105; RESP 20–33; TEMP 36.1–36.9; O2SAT 96–100
[2024-11-06 05:01] LABS: Basophils Percent Auto 0.3 % (0.2-1.2); Hemoglobin 9.9 g/dL (12.0-15.0); Immature Granulocyte Absolute 0.08 K/mm3 (0.00-0.031); Immature Granulocyte Percent A 1.3 % (0-0.5); Lymphocytes Absolute Auto 0.47 K/mm3 (0.9-3.2); Lymphocytes Percent Auto 7.4 % (18.3-44.2); Mean Corpuscular HGB Conc 30.9 g/dl (32-36); Mean Corpuscular Volume 93.8 fl (80-100); Monocytes Absolute Auto 0.1 K/mm3 (0.1-0.6); Monocytes Percent Auto 1.1 % (2.6-8.5); Neutrophils Absolute Auto 5.7 K/mm3 (1.3-6.7); Neutrophils Percent Auto 89.9 % (45.5-73.1); Platelet Count Result 193 k/mm3 (150-375); Red Blood Count 3.41 M/mm3 (4.2-5.4); Red Cell Distribution Width 19.3 % (11.5-14.5); White Blood Count 6.4 K/mm3 (4.5-10.0)
[2024-11-06 05:15] LABS: Alanine Aminotransferase 41 U/L (6-35); Albumin Level 2.7 g/dL (3.5-5.1); Alkaline Phosphatase 457 U/L (38-126); Anion Gap 6 mmol/L (4-12); Aspartate Amino Transferase 44 U/L (14-36); Bilirubin,Total 1.1 mg/dL (0.2-1.3); Blood Urea Nitrogen 98 mg/dL (7-17); CRP < 0.5 mg/dL (<1.0); Calcium 8.4 mg/dL (8.4-10.2); Carbon Dioxide 25 mmol/L (22-30); Chloride 100 mmol/L (98-107); Estimated CRCL calculation 12 ml/min; Estimated Glomerular Filt Rate 13; Glucose 229 mg/dL (65-110); Lactate Dehydrogenase 455 U/L (120-246); Magnesium 2.3 mg/dL (1.6-2.3); Potassium 3.8 mmol/L (3.4-5.0); Sodium 131 mmol/L (137-145)
[2024-11-06] MEDS: PRAMIPEXOLE 0.5 MG TABLET 1.5 MG PO ×3 (06:12→21:55)
[2024-11-06] MEDS: METOPROLOL SUCCINATE EXT REL 100 MG TABCR 200 MG PO (08:18)
[2024-11-06] MEDS: guaiFENesin 12 HR 600 MG TABCR 1200 MG PO ×2 (08:18→21:02)
[2024-11-06] MEDS: dexAMETHasone 2 MG TABLET 6 MG PO (08:18)
[2024-11-06] MEDS: calcitrioL 0.25 MCG CAPSULE PO (08:19)
[2024-11-06] MEDS: GABAPENTIN 100 MG CAPSULE 200 MG PO ×3 (08:19→17:06)
[2024-11-06] MEDS: ACIDOPHILUS/BULGARICUS CHEWABLE TABLET 1 TABLET PO ×2 (08:19→17:06)
[2024-11-06] MEDS: COLLAGENASE OINT 30 GM TUBE 1 APPLIC TOPICAL (08:19)
--- NOTE | 2024-11-06 12:18 | P.PNIM_ITS ---
Progress Note: A&P Assessment and Plan (1) Acute on chronic anemia: Code(s): D64.9 - Anemia, unspecified Status: Acute (2) Acute on chronic kidney failure: Code(s): N17.9 - Acute kidney failure, unspecified; N18.9 - Chronic kidney disease, unspecified Status: Acute (3) Bleeding hemorrhoids: Code(s): K64.9 - Unspecified hemorrhoids Status: Acute (4) COVID: Code(s): U07.1 - COVID-19 Status: Acute (5) Acute UTI: Code(s): N39.0 - Urinary tract infection, site not specified Status: Acute (6) Heart failure with reduced ejection fraction: Code(s): I50.20 - Unspecified systolic (congestive) heart failure Status: Acute (7) Chronic respiratory failure: Code(s): J96.10 - Chronic respiratory failure, unspecified whether with hypoxia or hypercapnia Status: Acute (8) Rheumatoid arthritis: Code(s): M06.9 - Rheumatoid arthritis, unspecified Status: Acute (9) COPD (chronic obstructive pulmonary disease): Qualifiers: COPD type: COPD with acute exacerbation Qualified Code(s): J44.1 - Chronic obstructive pulmonary disease with (acute) exacerbation Code(s): J44.9 - Chronic obstructive pulmonary disease, unspecified Status: Acute (10) Atrial fibrillation with RVR: Code(s): I48.91 - Unspecified atrial fibrillation Status: Acute Plan The patient presented to the emergency department for evaluation of lethargy and other symptoms including sore throat and cough. Acute on chronic anemia may very well be due to bleeding hemorrhoids. Holding rivaroxaban. Hgb 6.8. She was transfused 2U PRBCs. Repeat Hgb better. Monitor HH and transfuse as needed until HH stable. GI consulted and appreciate their input. Acute on chronic kidney injury which is likely multifactorial including dehydration from poor oral intake, hypoperfusion from relative hypotension and hypovolemia from the anemia. Also on an ARB. Baseline Cr 1.4-2.1. Cr 3.5. Renal US showing mild right hydronephrosis which is chronic. Greco catheter inserted for strict I/O. Urine electrolytes showing Johnathan 42 with FENa 1.4% to suggest renal disease. Avoid all nephrotoxic agents and renally dose medications as appropriate. Cr better today so will follow for now. Holding IV fluids given that she has COVID Bleeding hemorrhoids may be at least partially the etiology of the anemia. Symptomatic treatment for now. Patient found to have COVID. She has chronic respiratory failure. She was started on remdesivir and dexamethasone and was placed in isolation per protocol. Wean O2 as tolerated. Bronchodilators prn. Add Albuterol inhaler. Patient with UTI and was started on ceftriaxone. Urine culture growing GNB. Contineu abx. She has COPD but not felt to have exacerbation. Also with chronic CHF. Monitor volume status closely while transfusing DVT Prophylaxis - SCDs due to her anemia. Code status - DNR Patient's oxygen was turned off in the room and monitored. SpO2 was 98-100% on room air. Patient became more SOB and RN had trouble obtaining SpO2. She was on a NRB mask. ABG obtained showing 7.37/46/364 on MRB mask. She was calmed and o2 able to decreased back to 2L. RN felt patient may have had a panic attack. Subjective Date/time seen: 11/06/24 12:18 Interval history: 84yo female with chronic respiratory failure with hypoxia on home oxygen, COPD, systolic CHF, Chronic AFib on anticoagulation, CKD, chronic anemia, HTN and RA who presented to the emergency department via EMS for evaluation of lethargy. She is alert and oriented but confused at times. She feels she has been here 'since last week' and denies needing O2 at home. She also states she tested positive last week for COIVD. Exam Narrative: AF 96.9 109/74 82 27 96% 2L Gen - NARD Chest - distant BS, nml RR CV - RRR S1/S2. Abd - Soft, NT/ND, Positive BS - Greco secured draining clear yellow urine Ext - No pedal edema Neuro - Alert and oriented x4 but confused about recent events. Psych - Nml mood and affect Skin - Warm and dry Objective Data Vital Signs Vital Signs: Vital Signs - 24 hr 11/05/24 12:29 11/05/24 12:30 11/05/24 12:31 Temperature Pulse Rate 109 H 97 95 Respiratory Rate 26 H 18 18 Blood Pressure 87/54 L Pulse Oximetry 100 100 Oxygen Delivery Oxygen Flow Rate 11/05/24 12:32 11/05/24 12:44 11/05/24 12:45 Temperature Pulse Rate 98 107 H Respiratory Rate 20 20 Blood Pressure Pulse Oximetry 99 100 100 Oxygen Delivery Nasal Cannula Oxygen Flow Rate 4 11/05/24 12:46 11/05/24 13:00 11/05/24 13:24 Temperature Pulse Rate 92 113 H 112 H Respiratory Rate 16 27 H 24 H Blood Pressure 81/71 L Pulse Oximetry 92 Oxygen Delivery Oxygen Flow Rate 11/05/24 13:30 11/05/24 13:35 11/05/24 14:03 Temperature Pulse Rate 104 H 106 H 119 H Respiratory Rate 25 H 27 H 24 H Blood Pressure 106/67 Pulse Oximetry Oxygen Delivery Oxygen Flow Rate 11/05/24 14:55 11/05/24 15:10 11/05/24 15:28 Temperature 98.8 F 98.1 F Pulse Rate 105 H 107 H 103 H Respiratory Rate 20 22 H 20 Blood Pressure 90/61 L 91/61 L Pulse Oximetry 100 96 99 Oxygen Delivery Nasal Cannula Oxygen Flow Rate 2 11/05/24 15:59 11/05/24 16:02 11/05/24 16:17 Temperature 97.6 F 97.6 F Pulse Rate 67 98 113 H Respiratory Rate 16 18 20 Blood Pressure 98/70 L 101/58 L 99/57 L Pulse Oximetry 100 100 100 Oxygen Delivery Oxygen Flow Rate 11/05/24 16:19 11/05/24 17:08 11/05/24 17:25 Temperature 98.0 F 98.7 F Pulse Rate 116 H 121 H 103 H Respiratory Rate 18 20 Blood Pressure 111/76 112/63 Pulse Oximetry 100 99 Oxygen Delivery Oxygen Flow Rate 11/05/24 18:00 11/05/24 18:25 11/05/24 19:35 Temperature 97.8 F 97.9 F Pulse Rate 129 H 115 H 113 H Respiratory Rate 18 22 H Blood Pressure 92/59 L 105/76 Pulse Oximetry 97 100 Oxygen Delivery Oxygen Flow Rate 11/05/24 19:37 11/05/24 20:00 11/05/24 20:00 Temperature Pulse Rate 105 H 105 H Respiratory Rate 22 H Blood Pressure Pulse Oximetry 99 99 Oxygen Delivery Nasal Cannula Nasal Cannula Oxygen Flow Rate 2 2 11/05/24 20:00 11/05/24 21:57 11/06/24 00:00 Temperature 97.9 F Pulse Rate 105 H 98 89 Respiratory Rate 22 H 22 H Blood Pressure 105/76 Pulse Oximetry 100 100 Oxygen Delivery Nasal Cannula Oxygen Flow Rate 2 11/06/24 00:00 11/06/24 00:48 11/06/24 02:00 Temperature 98.4 F Pulse Rate 89 85 88 Respiratory Rate 22 H Blood Pressure 105/67 Pulse Oximetry 100 Oxygen Delivery Oxygen Flow Rate 11/06/24 03:57 11/06/24 03:57 11/06/24 04:09 Temperature 97.2 F L Pulse Rate 90 90 92 Respiratory Rate 22 H 22 H Blood Pressure 91/62 L Pulse Oximetry 100 100 Oxygen Delivery Nasal Cannula Oxygen Flow Rate 2 11/06/24 06:00 11/06/24 07:57 11/06/24 08:00 Temperature 97.3 F L Pulse Rate 94 97 101 H Respiratory Rate 20 20 Blood Pressure 109/77 Pulse Oximetry 100 100 Oxygen Delivery Nasal Cannula Oxygen Flow Rate 2 11/06/24 08:00 11/06/24 08:18 11/06/24 10:00 Temperature Pulse Rate 105 H 101 H 70 Respiratory Rate Blood Pressure Pulse Oximetry Oxygen Delivery Oxygen Flow Rate 11/06/24 12:00 Temperature 96.9 F L Pulse Rate 82 Respiratory Rate 27 H Blood Pressure 109/74 Pulse Oximetry 96 Oxygen Delivery Oxygen Flow Rate Intake/Output Intake/Output: Intake & Output 11/03/24 11/04/24 11/05/24 11/06/24 23:59 23:59 23:59 23:59 Intake Total 1148 360 Output Total 100 450 Balance 1048 -90 Meds/Results Medications: Active Medications Generic Name Dose Route Start Last Admin Trade Name Freq PRN Reason Stop Dose Admin Acetaminophen 650 mg 11/05/24 15:28 Acetaminophen 325 Mg Tablet PO Q6H PRN Mild Pain (1-3) or Fever Hydrocodone Bitart/Acetaminophen 1 tab 11/05/24 17:49 Hydrocodone/Acetaminophen (*Crx) 5-325 Mg Tablet PO Q4H PRN pain 4-6 Albuterol/Ipratropium 3 ml 11/05/24 16:21 Ipratropium 0.5 Mg/Albuterol Sulfate 2.5 Mg Ampul.Neb 3 Ml INHALATION Q6HRT PRN Shortness Of Breath Or Wheezing Benzonatate 200 mg 11/05/24 17:49 Benzonatate 100 Mg Capsule PO TID PRN cough Calcitriol 0.25 mcg 11/06/24 09:00 11/06/24 08:19 Calcitriol 0.25 Mcg Capsule PO 0.25 mcg DAILY DEEP Administration Collagenase 1 applic 11/06/24 09:00 11/06/24 08:19 Collagenase Oint 30 Gm Tube TOPICAL 1 applic DAILY DEEP Administration Dexamethasone 6 mg 11/06/24 08:00 11/06/24 08:18 Dexamethasone 2 Mg Tablet PO 11/15/24 08:01 6 mg DAILY@0800 [facility] Administration Diclofenac Sodium 1 applic 11/05/24 18:00 Diclofenac Sodium 1% 100 Gm Gel (*Bkc) TOPICAL TID PRN ARTHRITIS PAIN Gabapentin 200 mg 11/06/24 09:00 11/06/24 08:19 Gabapentin 100 Mg Capsule PO 200 mg TID [facility] Administration Guaifenesin 1,200 mg 11/05/24 21:00 11/06/24 08:18 Guaifenesin 12 Hr 600 Mg Tabcr PO 1,200 mg Q12HR [facility] Administration Remdesivir 100 mg in 250 mls @ 250 mls/hr 11/06/24 22:00 IVPB 11/09/24 22:59 Q24H DEEP Ceftriaxone Sodium 1 gm in 50 mls @ 100 mls/hr 11/05/24 20:00 11/05/24 20:30 Rocephin 1 Gm/Ns 50 Ml IVPB Infused Q24H [facility] Infusion Lactobacillus Acidophilus 1 tablet 11/06/24 09:00 11/06/24 08:19 Acidophilus/Bulgaricus Chewable Tablet PO 1 tablet BID [facility] Administration Metoprolol Succinate 200 mg 11/06/24 09:00 11/06/24 08:18 Metoprolol Succinate Ext Rel 100 Mg Tabcr PO 200 mg QAM [facility] Administration Non-Formulary Medication 1 each 11/05/24 17:59 Nonformulary Nutritional Supplement XX 11/06/24 17:58 PRN PRN PROTOCOL Pramipexole Dihydrochloride 1.5 mg 11/05/24 22:00 11/06/24 06:12 Pramipexole 0.5 Mg Tablet PO 1.5 mg Q8HR [facility] Administration Umeclidinium/Vilanterol 1 puff 11/06/24 09:00 Umeclidinium/Vilanterol 62.5-25 Mcg Ellipta INHALATION DAILY [facility] Radiology Results: ITS Impressions Chest X-Ray 11/05/24 11:31 IMPRESSION: Cardiomegaly with cardiac decompensation and pulmonary edema. Superimposed pneumonitis is not excluded. Left basilar atelectasis versus pneumonia with pleural effusion. Renal Ultrasound 11/05/24 22:02 IMPRESSION: 1. Normal kidney sizes. 2. Chronic mild right hydronephrosis. Labs Labs: Laboratory Results - last 24 hr 11/05/24 11/05/24 11/05/24 10:59 13:16 18:37 WBC RBC Hgb Hct MCV MCH MCHC RDW Plt Count MPV Immature Gran % (Auto) Neut % (Auto) Lymph % (Auto) Dickson % (Auto) Eos % (Auto) Baso % (Auto) Lymph # (Auto) Dickson # (Auto) Eos # (Auto) Baso # (Auto) Abs Immat Gran (auto) Absolute Neuts (auto) Absolute Nucleated RBC Nucleated RBC % Sodium Potassium Chloride Carbon Dioxide Anion Gap BUN Creatinine Estim Creat Clear Calc Estimated GFR Glucose Calcium Magnesium Ferritin Total Bilirubin AST ALT Alkaline Phosphatase Lactate Dehydrogenase Total Creatine Kinase 41 C-Reactive Protein Total Protein Albumin Urine Eosinophils None seen U Random Total Protein Ur Random Sodium Ur Random Potassium Urine Creatinine Protein/Creat Ratio 2 Blood Type O Positive Antibody Screen Negative Crossmatch See Detail 11/05/24 11/05/24 11/05/24 18:38 18:38 22:17 WBC RBC Hgb 9.2 L Hct 29.8 L MCV MCH MCHC RDW Plt Count MPV Immature Gran % (Auto) Neut % (Auto) Lymph % (Auto) Dickson % (Auto) Eos % (Auto) Baso % (Auto) Lymph # (Auto) Dickson # (Auto) Eos # (Auto) Baso # (Auto) Abs Immat Gran (auto) Absolute Neuts (auto) Absolute Nucleated RBC Nucleated RBC % Sodium 128 L Potassium 3.7 Chloride 100 Carbon Dioxide 24 Anion Gap 4 BUN 96 H Creatinine 3.50 H Estim Creat Clear Calc 11 Estimated GFR 12 L Glucose 267 H Calcium 8.4 Magnesium Ferritin Total Bilirubin AST ALT Alkaline Phosphatase Lactate Dehydrogenase Total Creatine Kinase C-Reactive Protein Total Protein Albumin Urine Eosinophils U Random Total Protein 26 Ur Random Sodium 42 Ur Random Potassium 22.4 Urine Creatinine 77.8 79.0 Protein/Creat Ratio 2 0.33 H Blood Type Antibody Screen Crossmatch 11/06/24 04:34 WBC 6.4 RBC 3.41 L Hgb 9.9 L Hct 32.0 L MCV 93.8 D MCH 29.0 MCHC 30.9 L RDW 19.3 H Plt Count 193 MPV 11.0 H Immature Gran % (Auto) 1.3 H Neut % (Auto) 89.9 H Lymph % (Auto) 7.4 L Dickson % (Auto) 1.1 L Eos % (Auto) 0.0 Baso % (Auto) 0.3 Lymph # (Auto) 0.47 L Dickson # (Auto) 0.1 Eos # (Auto) 0.0 Baso # (Auto) 0.0 Abs Immat Gran (auto) 0.08 H Absolute Neuts (auto) 5.7 Absolute Nucleated RBC 0.000 Nucleated RBC % 0.0 Sodium 131 L Potassium 3.8 Chloride 100 Carbon Dioxide 25 Anion Gap 6 BUN 98 H Creatinine 3.30 H Estim Creat Clear Calc 12 Estimated GFR 13 L Glucose 229 H Calcium 8.4 Magnesium 2.3 Ferritin 38.90 Total Bilirubin 1.1 AST 44 H ALT 41 H Alkaline Phosphatase 457 H Lactate Dehydrogenase 455 H Total Creatine Kinase C-Reactive Protein < 0.5 Total Protein 5.0 L Albumin 2.7 L Urine Eosinophils U Random Total Protein Ur Random Sodium Ur Random Potassium Urine Creatinine Protein/Creat Ratio 2 Blood Type Antibody Screen Crossmatch
[2024-11-06 12:34] LABS: Alveolar/Arterial O2 Gradient 302.6 mmHg; Base Excess ABG 0.6 mEq/l (+/-2.0); Fractional Inspired Oxygen 100 %; HCO3 ABG 26.1 mEq/l (22.0-26.0); Oxygen Content ABG 15.2 %vol (16.0-22.0); Oxygen Saturation ABG 99.8 % (95.0-100.0); Oxyhemoglobin 98.8 % THb (90.0-100.0); PCO2 ABG 45.8 mmHg (35.0-45.0); PO2 ABG 364.6 mmHg (80.0-100.0); PO2 FiO2 Ratio Arterial Blood 3.65 %; Total Hemoglobin 10.2 g/dL (12.0-18.0); pH ABG 7.374 (7.350-7.450)
[2024-11-06 12:36] LABS: Device NON-REBREATHER MASK; Modified Allen's Test Pass; Site Drawn RIGHT RADIAL
--- NOTE | 2024-11-06 12:52 | PC.NURSE ---
Respiratory rate 29-30, States not feeling well . Oxygen off at this time, Currently oxygen saturations 69-80% with a poor pleth. Oxygen sensor changed with no luck in better reading. Placed warm blanket on patient hand and reading remains low. Placed on non-rebreather mask. Called MD, states I turned the oxygen off because saturations were 98-100%. RN made MD aware of elevated RR, and oxygen saturations and that patient placed on non-rebreather. Heart rate currently elevated to 120s-150s. Blood gas ordered at this time.
--- NOTE | 2024-11-06 16:45 | P.CONGI_ITS ---
Assessment and Plan Assessment and plan (1) Acute on chronic anemia: Code(s): D64.9 - Anemia, unspecified Status: Acute Assessment and Plan: agree with holding blood thinner for now noted hemorrhoids she is sick for colonoscopy, I recommend conservative treatment and monitor (also worsening renal failure and can explain part of anemia) (2) Blood in stool: Code(s): K92.1 - Melena Status: Acute (3) Bleeding hemorrhoids: Code(s): K64.9 - Unspecified hemorrhoids Status: Acute Assessment and Plan: topical hydrocortisone (4) COVID: Code(s): U07.1 - COVID-19 Status: Acute Assessment and Plan: on treatment by primary (5) Acute hypoxic respiratory failure: Code(s): J96.01 - Acute respiratory failure with hypoxia Status: Acute Assessment and Plan: requiring oxygen (6) COPD (chronic obstructive pulmonary disease): Qualifiers: COPD type: COPD with acute exacerbation Qualified Code(s): J44.1 - Chronic obstructive pulmonary disease with (acute) exacerbation Code(s): J44.9 - Chronic obstructive pulmonary disease, unspecified Status: Acute GI Consult Note Consult date/time: 11/06/24 16:45 Reason for consult: anemia, hemorrhoids HPI: Genny Gomez is a 84 year old female chronic respiratory failure with hypoxia on home oxygen, chronic obstructive pulmonary disease, heart failure with reduced ejection fraction, atrial fibrillation on chronic anticoagulation, chronic kidney disease, chronic anemia with hgb ~ 9, hypertension, and rheumatoid arthritis who presented to the emergency department via EMS for evaluation of lethargy. she has been coughing for almost a week and feeling more tired than usual, recently diagnosed with COVID. She also reports some blood in stools from her hemorrhoids. Admitted here with acute on CKD (creatinine up to 3.5), hgb 6.8 and received blood transfusion, also acute on chronic respiratory failure. She says that last colonoscopy about 10 years ago Review of Systems 2 Constitutional: Constitutional: Reports fatigue and Reports lethargy ENT: Reports Normal hearing present Cardiovascular: Cardiovascular: Denies chest pain Respiratory: Respiratory: Reports cough and Reports dyspnea on exertion Gastrointestinal: Gastrointestinal: Denies abdominal pain Musculoskeletal: Musculoskeletal: Denies arthralgias Integumentary/Breasts: Skin/Breast: Denies rash Neurologic: Denies Abnormal speech present Psychiatric: Psychiatric: Denies behavioral changes [facility] Past Medical History Medical History (Updated 11/05/24 @ 16:06 by Aleah Marsh PA-C) Hydronephrosis chronic, mild right hydronephrosis noted on prior CT scans Hemorrhoids Chronic anticoagulation Atrial fibrillation Cancer of left breast Chronic obstructive pulmonary disease Diet-controlled type 2 diabetes mellitus Chronic respiratory failure with hypoxia, on home oxygen therapy Heart failure with reduced ejection fraction Hypertension Rheumatoid arthritis Essential tremor Arthritis Surgical History Surgical History (Updated 11/05/24 @ 15:51 by Aleah Marsh PA-C) History of parathyroidectomy History of tubal ligation History of cholecystectomy History of lumpectomy of left breast History of carpal tunnel release left wrist 08/[address] Valiente Family History Family History Other Asthma Cancer Social History Social History (Updated 11/05/24 @ 15:53 by Aleah Marsh PA-C) Social History: Surrogate medical decision maker: Code status: Do not resuscitate. Smoking status: Never smoker Alcohol intake: unknown Substance use: unknown Substance use type: does not use Do You Feel Safe in your Home?: Yes Lack of Transportation: No Lack of Food: Never True Current Housing: I Do Not Have Housing Concerned About Future Housing: No Difficulty Paying Gas/Electric Bills: No Difficulty Paying for Meds: No Currently Unemployed: No Education: High School Diploma/GED Difficulty w/ Childcare or Family Care: No Additional living arrangements comments: She lives in her own home but is currently at [facility] for rehab as of 09/2024. Spiritual care concerns: No Meds Home Medications and Allergies Home Medications ?Medication ?Instructions ?Recorded ?Confirmed ?Type leflunomide 20 mg tablet 20 mg PO DAILY 08/26/20 11/05/24 History pramipexole 0.5 mg tablet 1.5 mg PO Q8H 08/26/20 11/05/24 History atorvastatin 20 mg tablet 20 mg PO DAILY 02/17/21 11/05/24 History gabapentin 100 mg capsule 200 mg PO TID 04/26/23 11/05/24 History calcitriol 0.25 mcg capsule 0.25 mcg PO DAILY 11/11/23 11/05/24 History umeclidinium 62.5 mcg-vilanterol 1 inh inhalation DAILY 11/11/23 11/05/24 History 25 mcg/actuation powdr for inhalation (Anoro Ellipta) losartan 25 mg tablet 25 mg PO DAILY 09/19/24 11/05/24 History rivaroxaban 20 mg tablet (Xarelto) 20 mg PO DAILY 09/19/24 11/05/24 History furosemide 40 mg tablet 40 mg PO DAILY #30 tabs 09/23/24 11/05/24 Rx metoprolol succinate 100 mg 200 mg (2 x 100 mg) PO QAM #30 tabs 09/23/24 11/05/24 Rx tablet,extended release 24 hr (Toprol XL) Lactobacillus acidophilus 1 tablet PO BID 11/05/24 11/05/24 History arginine-vitamin C-vitamin E oral 4.5 g PO DIRECTED 11/05/24 11/05/24 History 4.5 gram-156 mg/9.2 gram powder pkt (Arginaid) benzonatate 100 mg capsule 200 mg PO TID PRN cough 11/05/24 11/05/24 History collagenase clostridium histo. 250 1 applic topical DAILY 11/05/24 11/05/24 History unit/gram topical ointment (Santyl) diclofenac sodium 1 % topical gel 1 ea topical TID PRN pain 11/05/24 11/05/24 History hydrocodone 5 mg-acetaminophen 325 1 tablet PO Q4H PRN pain 11/05/24 11/05/24 History mg tablet insulin aspart U-100 100 unit/mL 1 sliding scale dose subcut 11/05/24 11/05/24 History (3 mL) subcutaneous pen (Novolog USEASDIRECTD FlexPen U-100 Insulin aspart) metformin 500 mg tablet 500 mg PO BID 11/05/24 11/05/24 History Allergies Allergy/AdvReac Type Severity Reaction Status Date / Time adalimumab (From Humira) Allergy Severe site Verified 10/22/24 20:25 reaction etanercept (From Enbrel) Allergy Severe site Verified 10/22/24 20:25 reaction infliximab (From Remicade) Allergy Severe pass out Verified 10/22/24 20:25 levofloxacin (From Levaquin) Allergy Intermediate rash Verified 10/22/24 20:25 amoxicillin Allergy Mild rash Verified 10/22/24 20:25 clarithromycin Allergy Mild rash Verified 10/22/24 20:25 codeine Allergy Mild sick Verified 10/22/24 20:25 Vital Signs Vital Signs - 24 hr 11/05/24 17:08 11/05/24 17:25 11/05/24 18:00 Temperature 98.0 F 98.7 F Pulse Rate 121 H 103 H 129 H Respiratory Rate 18 20 Blood Pressure 111/76 112/63 Pulse Oximetry 100 99 Oxygen Delivery Oxygen Flow Rate 11/05/24 18:25 11/05/24 19:35 11/05/24 19:37 Temperature 97.8 F 97.9 F Pulse Rate 115 H 113 H Respiratory Rate 18 22 H Blood Pressure 92/59 L 105/76 Pulse Oximetry 97 100 99 Oxygen Delivery Nasal Cannula Oxygen Flow Rate 2 11/05/24 20:00 11/05/24 20:00 11/05/24 20:00 Temperature 97.9 F Pulse Rate 105 H 105 H 105 H Respiratory Rate 22 H 22 H Blood Pressure 105/76 Pulse Oximetry 99 100 Oxygen Delivery Nasal Cannula Oxygen Flow Rate 2 11/05/24 21:57 11/06/24 00:00 11/06/24 00:00 Temperature Pulse Rate 98 89 89 Respiratory Rate 22 H Blood Pressure Pulse Oximetry 100 Oxygen Delivery Nasal Cannula Oxygen Flow Rate 2 11/06/24 00:48 11/06/24 02:00 11/06/24 03:57 Temperature 98.4 F Pulse Rate 85 88 90 Respiratory Rate 22 H 22 H Blood Pressure 105/67 Pulse Oximetry 100 100 Oxygen Delivery Nasal Cannula Oxygen Flow Rate 2 11/06/24 03:57 11/06/24 04:09 11/06/24 06:00 Temperature 97.2 F L Pulse Rate 90 92 94 Respiratory Rate 22 H Blood Pressure 91/62 L Pulse Oximetry 100 Oxygen Delivery Oxygen Flow Rate 11/06/24 07:57 11/06/24 08:00 11/06/24 08:00 Temperature 97.3 F L Pulse Rate 97 101 H 105 H Respiratory Rate 20 20 Blood Pressure 109/77 Pulse Oximetry 100 100 Oxygen Delivery Nasal Cannula Oxygen Flow Rate 2 11/06/24 08:18 11/06/24 10:00 11/06/24 12:00 Temperature 96.9 F L Pulse Rate 101 H 70 82 Respiratory Rate 27 H Blood Pressure 109/74 Pulse Oximetry 96 Oxygen Delivery Oxygen Flow Rate 11/06/24 12:00 11/06/24 12:00 12/18/24 14:00 Temperature Pulse Rate 82 89 82 Respiratory Rate 27 H Blood Pressure Pulse Oximetry 96 Oxygen Delivery Room Air Oxygen Flow Rate 11/06/24 16:00 11/06/24 16:00 Temperature Pulse Rate 82 86 Respiratory Rate 27 H Blood Pressure Pulse Oximetry 96 Oxygen Delivery Room Air Oxygen Flow Rate Exam 2 Narrative: Gen - chronically ill appearing, wearing NC oxygen Chest - distant BS, nml RR CV - RRR S1/S2. Abd - Soft, NT/ND, Positive BS - Greco secured draining clear yellow urine Ext - No pedal edema Neuro - Alert and oriented x4 but confused about recent events. Psych - Nml mood and affect Skin - Warm and dry Results Labs 11/06/24 04:34 11/06/24 04:34 Labs: Short CBC 11/05/24 11/06/24 Range/Units 22:17 04:34 WBC 6.4 (4.5-10.0) K/mm3 Hgb 9.2 L 9.9 L (12.0-15.0) g/dL Hct 29.8 L 32.0 L (37.0-47.0) % Plt Count 193 (150-375) k/mm3 BMP 11/05/24 11/06/24 22:17 04:34 Sodium 128 L 131 L Potassium 3.7 3.8 Chloride 100 100 Carbon Dioxide 24 25 BUN 96 H 98 H Creatinine 3.50 H 3.30 H Glucose 267 H 229 H Calcium 8.4 8.4 Cardiac Enzymes 11/05/24 Range/Units 10:59 Total Creatine Kinase 41 (30-135) U/L Liver Function 11/06/24 Range/Units 04:34 Total Bilirubin 1.1 (0.2-1.3) mg/dL AST 44 H (14-36) U/L ALT 41 H (6-35) U/L Alkaline Phosphatase 457 H (38-126) U/L Albumin 2.7 L (3.5-5.1) g/dL
[2024-11-06] MEDS: HYDROCORTISONE 2.5% CREAM 30 GM TUBE 1 APPLIC TOPICAL (21:02)
[2024-11-06] MEDS: REMDESIVIR 100 MG/NS 250 ML 100 MG/250 ML BAG 250 MG IVPB (21:55)
[2024-11-07] VITALS (20 sets, daily range): BP systolic 98–118; BP diastolic 51–95; PULSE 81–114; RESP 20–33; TEMP 35.5–36.9; O2SAT 91–100
--- NOTE | 2024-11-07 04:03 | PCRCNOTE ---
Window of time for administration has passed. See next scheduled administration.
[2024-11-07 05:25] LABS: Hematocrit 32.2 % (37.0-47.0); Mean Corpuscular HGB Conc 31.1 g/dl (32-36); Mean Corpuscular Hemoglobin 28.2 pg (26-34); Mean Corpuscular Volume 90.7 fl (80-100); Mean Platelet Volume 11.3 fl (7.4-10.4); Platelet Count Result 249 k/mm3 (150-375); Red Blood Count 3.55 M/mm3 (4.2-5.4); Red Cell Distribution Width 19.2 % (11.5-14.5)
[2024-11-07 05:41] LABS: INR 1.3; Prothrombin Time 16.4 Seconds (11.1-14.7)
[2024-11-07 05:45] LABS: Alanine Aminotransferase 55 U/L (6-35); Albumin Level 2.5 g/dL (3.5-5.1); Alkaline Phosphatase 454 U/L (38-126); Anion Gap 3 mmol/L (4-12); Aspartate Amino Transferase 68 U/L (14-36); Bilirubin,Total 1.1 mg/dL (0.2-1.3); Blood Urea Nitrogen 114 mg/dL (7-17); Calcium 8.3 mg/dL (8.4-10.2); Carbon Dioxide 25 mmol/L (22-30); Chloride 100 mmol/L (98-107); Estimated CRCL calculation 13 ml/min; Estimated Glomerular Filt Rate 14; Glucose 246 mg/dL (65-110); Magnesium 2.4 mg/dL (1.6-2.3); Sodium 128 mmol/L (137-145)
[2024-11-07] MEDS: PRAMIPEXOLE 0.5 MG TABLET 1.5 MG PO ×3 (06:02→22:33)
[2024-11-07] MEDS: UMECLIDINIUM/VILANTEROL 62.5-25 MCG ELLIPTA 1 PUFF INHALATION (07:46)
[2024-11-07] MEDS: ALBUTEROL SULFATE (*SP) AEROSOL 1 PUFF 2 PUFF INHALATION ×3 (07:53→20:44)
[2024-11-07] MEDS: SODIUM CHLORIDE 0.9% IV 1,000 ML 100 ML IV CONT (08:34)
[2024-11-07] MEDS: guaiFENesin 12 HR 600 MG TABCR 1200 MG PO ×2 (08:36→22:33)
[2024-11-07] MEDS: calcitrioL 0.25 MCG CAPSULE PO (08:36)
[2024-11-07] MEDS: ACIDOPHILUS/BULGARICUS CHEWABLE TABLET 1 TABLET PO ×2 (08:36→17:11)
[2024-11-07] MEDS: dexAMETHasone 2 MG TABLET 6 MG PO (08:36)
[2024-11-07] MEDS: METOPROLOL SUCCINATE EXT REL 100 MG TABCR 200 MG PO (08:36)
[2024-11-07] MEDS: GABAPENTIN 100 MG CAPSULE 200 MG PO ×3 (08:36→17:11)
[2024-11-07] MEDS: HYDROCORTISONE 2.5% CREAM 30 GM TUBE 1 APPLIC TOPICAL ×2 (08:37→22:35)
[2024-11-07] MEDS: COLLAGENASE OINT 30 GM TUBE 1 APPLIC TOPICAL (08:37)
--- NOTE | 2024-11-07 10:29 | PM.IMPN ---
Progress Note: A&P Assessment and Plan (1) Acute on chronic anemia: Code(s): D64.9 - Anemia, unspecified Status: Acute (2) Acute on chronic kidney failure: Code(s): N17.9 - Acute kidney failure, unspecified; N18.9 - Chronic kidney disease, unspecified Status: Acute (3) Bleeding hemorrhoids: Code(s): K64.9 - Unspecified hemorrhoids Status: Acute (4) COVID: Code(s): U07.1 - COVID-19 Status: Acute (5) Acute UTI: Code(s): N39.0 - Urinary tract infection, site not specified Status: Acute (6) Heart failure with reduced ejection fraction: Code(s): I50.20 - Unspecified systolic (congestive) heart failure Status: Acute (7) Chronic respiratory failure: Code(s): J96.10 - Chronic respiratory failure, unspecified whether with hypoxia or hypercapnia Status: Acute (8) Rheumatoid arthritis: Code(s): M06.9 - Rheumatoid arthritis, unspecified Status: Acute (9) COPD (chronic obstructive pulmonary disease): Qualifiers: COPD type: COPD with acute exacerbation Qualified Code(s): J44.1 - Chronic obstructive pulmonary disease with (acute) exacerbation Code(s): J44.9 - Chronic obstructive pulmonary disease, unspecified Status: Acute (10) Atrial fibrillation with RVR: Code(s): I48.91 - Unspecified atrial fibrillation Status: Acute Plan The patient presented to the emergency department for evaluation of lethargy and other symptoms including sore throat and cough. Acute on chronic anemia may very well be due to bleeding hemorrhoids. Holding rivaroxaban. Hgb was 6.8. She was transfused 2U PRBCs. Repeat Hgb up to 9-10 and stable. Still having oozing. Monitor HH and transfuse to a stable Hgb. GI consulted and appreciate their input. Continue HC cream for hemorrhoids Acute on chronic kidney injury which is likely multifactorial including dehydration from poor oral intake, hypoperfusion from relative hypotension and hypovolemia from the anemia. Also on an ARB. Baseline Cr 1.4-2.1. Cr 3.5. Renal US showing mild right hydronephrosis which is chronic. Greco catheter inserted for strict I/O. Urine electrolytes showing Johnathan 42 with FENa 1.4% to suggest renal disease. Avoid all nephrotoxic agents and renally dose medications as appropriate. Cr stable at 3.1 but BUN 114 now. BUN elevation related somewhat to the steroids. Will give small amount of IV fluids. Stop Dexamtheasone. Nephrology consult Bleeding hemorrhoids may be at least partially the etiology of the anemia. Symptomatic treatment for now. Patient found to have COVID. She has chronic respiratory failure. She was started on remdesivir and dexamethasone and was placed in isolation per protocol. Wean O2 as tolerated. Bronchodilators prn. Albuterol inhaler added. Stop Dexamethasone for now. Able to be weaned to room air. Patient with UTI and was started on ceftriaxone. Urine culture growing pansensitive Klebsiella. Continue abx. She has COPD but not felt to have exacerbation. Follow. Albuterol HFA ordered. Also with chronic CHF. Monitor volume status closely while transfusing and with IV fluids, DVT Prophylaxis - SCDs due to her anemia. Code status - DNR Subjective Date/time seen: 11/07/24 10:29 Interval history: 84yo female with chronic respiratory failure with hypoxia on home oxygen, COPD, systolic CHF, Chronic AFib on anticoagulation, CKD, chronic anemia, HTN and RA who presented to the emergency department via EMS for evaluation of lethargy. Feels anxious. No issues overnight. She denies CP or SOB. Still having rectal bleeding. She has chronic anxiety. Exam Narrative: AF 98.2 112/77 113 33 95% RA Gen - NARD up to a recliner with normal RR but becomes tachypneic at times with short shallow breaths. Chest - distant clear BS CV - irregular iregular. Tele showing AFib with mostly controlled rate but increased when active Abd - Soft, NT/ND, Positive BS - Greco secured draining clear yellow urine Ext - No pedal edema Neuro - Alert and oriented x3 (not year) Psych - anxious at times Skin - Warm and dry Objective Data Vital Signs Vital Signs: Vital Signs - 24 hr 11/06/24 12:00 11/06/24 12:00 11/06/24 12:00 Temperature 96.9 F L Pulse Rate 82 82 89 Respiratory Rate 27 H 27 H Blood Pressure 109/74 Pulse Oximetry 96 96 Oxygen Delivery Room Air Oxygen Flow Rate 11/06/24 14:00 11/06/24 16:00 11/06/24 16:00 Temperature Pulse Rate 82 82 86 Respiratory Rate 27 H Blood Pressure Pulse Oximetry 96 Oxygen Delivery Room Air Oxygen Flow Rate 11/06/24 16:00 11/06/24 20:00 11/06/24 20:00 Temperature 97.4 F L 97.5 F L Pulse Rate 91 81 94 Respiratory Rate 33 H 22 H Blood Pressure 128/81 116/43 L Pulse Oximetry 97 99 Oxygen Delivery Oxygen Flow Rate 11/06/24 20:00 11/06/24 22:00 11/06/24 23:17 Temperature Pulse Rate 94 92 96 Respiratory Rate 22 H 22 H Blood Pressure Pulse Oximetry 99 99 Oxygen Delivery Nasal Cannula Nasal Cannula Oxygen Flow Rate 2 2 11/06/24 23:17 11/07/24 00:00 11/07/24 02:00 Temperature 97.3 F L Pulse Rate 96 88 96 Respiratory Rate 22 H Blood Pressure 107/62 Pulse Oximetry 100 Oxygen Delivery Oxygen Flow Rate 11/07/24 04:00 11/07/24 04:00 11/07/24 04:50 Temperature 98.5 F Pulse Rate 94 94 93 Respiratory Rate 22 H 22 H Blood Pressure 118/62 Pulse Oximetry 92 92 Oxygen Delivery Nasal Cannula Oxygen Flow Rate 2 11/07/24 05:51 11/07/24 07:54 11/07/24 07:55 Temperature Pulse Rate 94 98 Respiratory Rate 20 Blood Pressure Pulse Oximetry 97 Oxygen Delivery Nasal Cannula Oxygen Flow Rate 2 11/07/24 08:00 11/07/24 08:00 11/07/24 08:00 Temperature 98.2 F Pulse Rate 82 82 114 H Respiratory Rate 33 H 33 H Blood Pressure 112/77 Pulse Oximetry 95 95 Oxygen Delivery Room Air Oxygen Flow Rate 11/07/24 10:00 Temperature Pulse Rate 113 H Respiratory Rate Blood Pressure Pulse Oximetry Oxygen Delivery Oxygen Flow Rate Intake/Output Intake/Output: Intake & Output 11/04/24 11/05/24 11/06/24 11/07/24 23:59 23:59 23:59 23:59 Intake Total 1148 1930 360 Output Total 100 875 500 Balance 1048 1055 -140 Meds/Results Medications: Active Medications Generic Name Dose Route Start Last Admin Trade Name Freq PRN Reason Stop Dose Admin Acetaminophen 650 mg 11/05/24 15:28 Acetaminophen 325 Mg Tablet PO Q6H PRN Mild Pain (1-3) or Fever Hydrocodone Bitart/Acetaminophen 1 tab 11/05/24 17:49 Hydrocodone/Acetaminophen (*Crx) 5-325 Mg Tablet PO Q4H PRN pain 4-6 Albuterol 2 puff 11/06/24 20:00 11/07/24 07:53 Albuterol Sulfate (*Sp) Aerosol 1 Puff INHALATION 2 puff [id number] DEEP Administration Albuterol/Ipratropium 3 ml 11/05/24 16:21 Ipratropium 0.5 Mg/Albuterol Sulfate 2.5 Mg Ampul.Neb 3 Ml INHALATION Q6HRT PRN Shortness Of Breath Or Wheezing Benzonatate 200 mg 11/05/24 17:49 Benzonatate 100 Mg Capsule PO TID PRN cough Calcitriol 0.25 mcg 11/06/24 09:00 11/07/24 08:36 Calcitriol 0.25 Mcg Capsule PO 0.25 mcg DAILY DEEP Administration Collagenase 1 applic 11/06/24 09:00 11/07/24 08:37 Collagenase Oint 30 Gm Tube TOPICAL 1 applic DAILY DEEP Administration Dexamethasone 6 mg 11/06/24 08:00 11/07/24 08:36 Dexamethasone 2 Mg Tablet PO 11/15/24 08:01 6 mg DAILY@0800 DEEP Administration Diclofenac Sodium 1 applic 11/05/24 18:00 Diclofenac Sodium 1% 100 Gm Gel (*Bkc) TOPICAL TID PRN ARTHRITIS PAIN Gabapentin 200 mg 11/06/24 09:00 11/07/24 08:36 Gabapentin 100 Mg Capsule PO 200 mg TID DEEP Administration Guaifenesin 1,200 mg 11/05/24 21:00 11/07/24 08:36 Guaifenesin 12 Hr 600 Mg Tabcr PO 1,200 mg Q12HR DEEP Administration Hydrocortisone 1 applic 11/06/24 21:00 11/07/24 08:37 Hydrocortisone 2.5% Cream 30 Gm Tube TOPICAL 1 applic Q12HR DEEP Administration Remdesivir 100 mg in 250 mls @ 250 mls/hr 11/06/24 22:00 11/06/24 22:55 IVPB 11/09/24 22:59 Infused Q24H DEEP Infusion Ceftriaxone Sodium 1 gm in 50 mls @ 100 mls/hr 11/05/24 20:00 11/06/24 21:30 Rocephin 1 Gm/Ns 50 Ml IVPB Infused Q24H DEEP Infusion Sodium Chloride 1,000 mls @ 100 mls/hr 11/07/24 08:10 11/07/24 08:34 Normal Saline Iv IV CONT 11/07/24 13:09 100 mls/hr .Q10H DEEP Administration Lactobacillus Acidophilus 1 tablet 11/06/24 09:00 11/07/24 08:36 Acidophilus/Bulgaricus Chewable Tablet PO 1 tablet BID DEEP Administration Metoprolol Succinate 200 mg 11/06/24 09:00 11/07/24 08:36 Metoprolol Succinate Ext Rel 100 Mg Tabcr PO 200 mg QAM DEEP Administration Pramipexole Dihydrochloride 1.5 mg 11/05/24 22:00 11/07/24 06:02 Pramipexole 0.5 Mg Tablet PO 1.5 mg Q8HR DEEP Administration Umeclidinium/Vilanterol 1 puff 11/06/24 09:00 11/07/24 07:46 Umeclidinium/Vilanterol 62.5-25 Mcg Ellipta INHALATION 1 puff DAILY DEEP Administration Radiology Results: ITS Impressions Chest X-Ray 11/05/24 11:31 IMPRESSION: Cardiomegaly with cardiac decompensation and pulmonary edema. Superimposed pneumonitis is not excluded. Left basilar atelectasis versus pneumonia with pleural effusion. Renal Ultrasound 11/05/24 22:02 IMPRESSION: 1. Normal kidney sizes. 2. Chronic mild right hydronephrosis. Labs Labs: Laboratory Results - last 24 hr 11/06/24 11/07/24 12:26 04:45 WBC 10.0 RBC 3.55 L Hgb 10.0 L Hct 32.2 L MCV 90.7 MCH 28.2 MCHC 31.1 L RDW 19.2 H Plt Count 249 MPV 11.3 H PT 16.4 H D INR 1.3 Puncture Site Right radial ABG pH 7.374 ABG pCO2 45.8 H ABG pO2 364.6 H ABG PO2/FiO2 Ratio 3.65 ABG HCO3 26.1 H ABG O2 Saturation 99.8 ABG O2 Content 15.2 L ABG Base Excess 0.6 A-a Gradient 302.6 Oxyhemoglobin 98.8 Total Hemoglobin 10.2 L O2 Delivery Device Non-rebreather mask O2 Liters/Min 15.0 FiO2 100 Sodium 128 L Potassium 4.0 Chloride 100 Carbon Dioxide 25 Anion Gap 3 L BUN 114 H D Creatinine 3.10 H Estim Creat Clear Calc 13 Estimated GFR 14 L Glucose 246 H Calcium 8.3 L Magnesium 2.4 H Total Bilirubin 1.1 Direct Bilirubin 0.0 AST 68 H ALT 55 H Alkaline Phosphatase 454 H Total Protein 5.0 L Albumin 2.5 L
[2024-11-07] MEDS: busPIRone HCL 2.5 MG TABLET PO ×2 (11:13→22:34)
--- NOTE | 2024-11-07 12:21 | P.CONNP_ITS ---
Assessment and Plan Assessment and plan (1) SARAI (acute kidney injury): Code(s): N17.9 - Acute kidney failure, unspecified Status: Acute Assessment and Plan: * as noted by admission labs * evaluation to date noted: * renal ultrasound with chronic mild right hydronephrosis * urine electrolytes non-prerenal * urine eosinophils negative * CPK normal * UA suggests infection * mild proteinuria * suspect multifactorial etiology: * prerenal factors (poor oral intake) * relative hypotension/renal hypoperfusion * anemia/GI bleed * ARB + diuretic therapy prior to admission * possible NSAID use * infection (COVID + UTI) * consider trial of IVFs * follow trend of repeat labs and UOP (2) Stage 3b chronic kidney disease: Code(s): N18.32 - Chronic kidney disease, stage 3b Status: Chronic Assessment and Plan: * baseline creatinine runs ~ 1.5 - 2.0mg/dl in the last year * however, she has been as hign as 2.5mg/dl in the past * this causes her to fluctuate between CKD stage 3b and stage 4 * secondary to hypertension, diabetes, vascular disease [hyperlipidemia, cardiomyopathy (EF ~ 35 - 40 %] and age-related change * follows with Dr. Reji Lamb for CKD management (3) Acute on chronic anemia: Code(s): D64.9 - Anemia, unspecified Status: Acute Assessment and Plan: * as noted with a Hgb of 6.8 on admission * suspect etiology due to hemorrhoids in conjunction with anticoagulation * still with some oozing per nursing * rivaroxaban on hold * continue HC cream * however, suspect a component related to CKD * PRBC transfusion per protocol (has received 2 units of PRBCs to date) * Gastroenterology following * consider empiric Retacrit if H/H continues to drop * follow trend of H/H (4) COVID: Code(s): U07.1 - COVID-19 Status: Acute Assessment and Plan: * as noted by admission viral testing * complicated by known history of COPD * started on remdesivir and dexamethasone * isolation per protocol * bronchodilators and albuterol inhaler as needed * weaned to room air (5) Acute UTI: Code(s): N39.0 - Urinary tract infection, site not specified Status: Acute Assessment and Plan: * admission UA suggestive * urine culture with Klebsiella * on antibiotics (6) Heart failure with reduced ejection fraction: Code(s): I50.20 - Unspecified systolic (congestive) heart failure Status: Chronic Assessment and Plan: * known history * however, appears clinically volume depleted * holding diuretics * consider trial of IVFs * follow volume status closely (7) Atrial fibrillation with RVR: Code(s): I48.91 - Unspecified atrial fibrillation Status: Acute Assessment and Plan: * rate controlled * off metoprolol due to low BP * off anticoagulation due to #3 * continue supportive therapy (8) Diabetes: Code(s): E11.9 - Type 2 diabetes mellitus without complications Status: Chronic Assessment and Plan: * follow accu-checks * glycemic control per hospitalists I will continue to follow the patient with you while she remains hospitalized and make further recommendations as deemed necessary. Thank you for allowing me to participate in the care of this patient. History of Present Illness Reason for Consult Consult date: 11/07/24 Reason for consult: acute renal failure (on chronic kidney disease) Chief Complaint Chief complaint: SARAI/UTI/Anemia/Hemorrhoids/COVID History of Present Illness Narrative: The patient is an 84-year-old female an extensive past medical history as outlined who presented to [facility] Emergency Room via EMS due to altered mental status/ lethargy. The patient was apparently treated for urinary tract infection a few weeks ago and since that time, she is felt that she never got back to her usual baseline status. She reports continued mild dysuria despite completing the antibiotic therapy. Over last several days prior to presentation to the ER, she has felt worse with symptoms including a dry hacking cough, sore throat, generalized body aches, weakness, lethargy, and poor oral intake/poor appetite. Furthermore, she has noticed increased bleeding from hemorrhoids without any specific aggravating factors. She gives no history of fevers, chills, headache, chest pain, shortness of breath, abdominal pain, nausea, vomiting, or diarrhea. However, given the persistence of the symptoms, she presented to the ER for further assessment. Workup and evaluation emergency room demonstrated the patient to have somewhat soft blood pressures which did improve with IV fluid boluses. EKG showed atrial fibrillation but appears to be rate controlled but she was noted to be hypoxic and required application of 4 L of supplemental oxygen to get her oxygen saturations in the mid 90s. Routine blood test demonstrated white blood cell count 9.3, hemoglobin 6.8, platelet count of 224, sodium 130, potassium 3.4, BUN of 98 with a creatinine of 3.5. Viral testing for influenza and RSV were negative but she was found to be positive for COVID. Her urinalysis was somewhat suggestive of urinary tract infection and her chest x-ray showed mild pulmonary edema with possible superimposed pneumonitis and left bibasal atelectasis versus pneumonia with effusion. Given her constellation of symptoms and laboratory abnormalities with regard to significant anemia and acute kidney injury on her baseline chronic kidney disease, she was admitted the hospital for further evaluation therapy. Since her admission to the hospital, he has received packed red blood cell transfusions with improvement in hemoglobin hematocrit and been seen in consultation by Gastroenterology. Unfortunately, her renal function is not significantly improved since her admission. Renal consultation was requested due to her acute kidney injury/acute renal failure on top of her baseline chronic kidney disease. Baseline chronic kidney disease fluctuate anywhere from 1.5-2.0 mg/dL last year although has been as high as 2.5 mg/dL in the past. She normally follows with Dr. Reji Lamb for management of her chronic kidney disease. Her chronic renal insufficiency is thought to be secondary to her hypertension diabetes, extensive vascular disease, and age-related change. Her acute insult on top of her baseline kidney disease is probably related to her acute illness in conjunction with her anemia, prerenal factors/poor oral intake, infection, and possibly COVID. Currently, the time my evaluation, she does not appear to be in any acute distress. Review of Systems 2 Review of Systems: As per HPI. [facility] Past Medical History Medical History (Updated 11/09/24 @ 05:36 by John Baca MD) Hydronephrosis chronic, mild right hydronephrosis noted on prior CT scans Hemorrhoids Chronic anticoagulation Cancer of left breast Chronic obstructive pulmonary disease Diet-controlled type 2 diabetes mellitus Chronic respiratory failure with hypoxia, on home oxygen therapy Heart failure with reduced ejection fraction Hypertension Rheumatoid arthritis Essential tremor Atrial fibrillation Arthritis Surgical History Surgical History (Updated 11/05/24 @ 15:51 by Aleah Marsh PA-C) History of parathyroidectomy History of tubal ligation History of cholecystectomy History of lumpectomy of left breast History of carpal tunnel release left wrist 08/[address] Valiente Family History Family History Other Asthma Cancer Social History Social History (Updated 11/05/24 @ 15:53 by Aleah Marsh PA-C) Social History: Surrogate medical decision maker: Code status: Do not resuscitate. Smoking status: Never smoker Alcohol intake: unknown Substance use: unknown Substance use type: does not use Do You Feel Safe in your Home?: Yes Lack of Transportation: No Lack of Food: Never True Current Housing: I Do Not Have Housing Concerned About Future Housing: No Difficulty Paying Gas/Electric Bills: No Difficulty Paying for Meds: No Currently Unemployed: No Education: High School Diploma/GED Difficulty w/ Childcare or Family Care: No Additional living arrangements comments: She lives in her own home but is currently at [facility] for rehab as of 09/2024. Spiritual care concerns: No Meds Home Medications and Allergies Home Medications ?Medication ?Instructions ?Recorded ?Confirmed ?Type leflunomide 20 mg tablet 20 mg PO DAILY 08/26/20 11/05/24 History pramipexole 0.5 mg tablet 1.5 mg PO Q8H 08/26/20 11/05/24 History atorvastatin 20 mg tablet 20 mg PO DAILY 02/17/21 11/05/24 History gabapentin 100 mg capsule 200 mg PO TID 04/26/23 11/05/24 History calcitriol 0.25 mcg capsule 0.25 mcg PO DAILY 11/11/23 11/05/24 History umeclidinium 62.5 mcg-vilanterol 1 inh inhalation DAILY 11/11/23 11/05/24 History 25 mcg/actuation powdr for inhalation (Anoro Ellipta) losartan 25 mg tablet 25 mg PO DAILY 09/19/24 11/05/24 History rivaroxaban 20 mg tablet (Xarelto) 20 mg PO DAILY 09/19/24 11/05/24 History furosemide 40 mg tablet 40 mg PO DAILY #30 tabs 09/23/24 11/05/24 Rx metoprolol succinate 100 mg 200 mg (2 x 100 mg) PO QAM #30 tabs 09/23/24 11/05/24 Rx tablet,extended release 24 hr (Toprol XL) Lactobacillus acidophilus 1 tablet PO BID 11/05/24 11/05/24 History arginine-vitamin C-vitamin E oral 4.5 g PO DIRECTED 11/05/24 11/05/24 History 4.5 gram-156 mg/9.2 gram powder pkt (Arginaid) benzonatate 100 mg capsule 200 mg PO TID PRN cough 11/05/24 11/05/24 History collagenase clostridium histo. 250 1 applic topical DAILY 11/05/24 11/05/24 History unit/gram topical ointment (Santyl) diclofenac sodium 1 % topical gel 1 ea topical TID PRN pain 11/05/24 11/05/24 History hydrocodone 5 mg-acetaminophen 325 1 tablet PO Q4H PRN pain 11/05/24 11/05/24 History mg tablet insulin aspart U-100 100 unit/mL 1 sliding scale dose subcut 11/05/24 11/05/24 History (3 mL) subcutaneous pen (Novolog USEASDIRECTD FlexPen U-100 Insulin aspart) metformin 500 mg tablet 500 mg PO BID 11/05/24 11/05/24 History Allergies Allergy/AdvReac Type Severity Reaction Status Date / Time adalimumab (From Humira) Allergy Severe site Verified 10/22/24 20:25 reaction etanercept (From Enbrel) Allergy Severe site Verified 10/22/24 20:25 reaction infliximab (From Remicade) Allergy Severe pass out Verified 10/22/24 20:25 levofloxacin (From Levaquin) Allergy Intermediate rash Verified 10/22/24 20:25 amoxicillin Allergy Mild rash Verified 10/22/24 20:25 clarithromycin Allergy Mild rash Verified 10/22/24 20:25 codeine Allergy Mild sick Verified 10/22/24 20:25 Vital Signs Vital Signs Temp Pulse Resp BP Pulse Ox O2 Del Method O2 Flow Rate 11/07/24 12:00 106 H 22 H 97 Room Air 11/07/24 11:08 98 F 101 H 28 H 98/58 L 97 11/07/24 10:00 113 H 11/07/24 08:00 114 H 11/07/24 08:00 82 33 H 95 Room Air 11/07/24 08:00 98.2 F 82 33 H 112/77 95 11/07/24 07:55 98 20 11/07/24 07:54 97 Nasal Cannula 2 11/07/24 05:51 94 11/07/24 04:50 98.5 F 93 22 H 118/62 92 11/07/24 04:00 94 11/07/24 04:00 94 22 H 92 Nasal Cannula 2 11/07/24 02:00 96 11/07/24 00:00 97.3 F L 88 22 H 107/62 100 11/06/24 23:17 96 11/06/24 23:17 96 22 H 99 Nasal Cannula 2 11/06/24 22:00 92 11/06/24 20:00 94 22 H 99 Nasal Cannula 2 11/06/24 20:00 94 11/06/24 20:00 97.5 F L 81 22 H 116/43 L 99 Exam 2 Narrative: GENERAL APPEARANCE: elderly female in no acute distress HEENT: normocephalic, atraumatic, normal conjunctiva and sclera, nares patient NECK: no lymphadenopathy, thyromegaly, or JVD MOUTH: normal lips, teeth, and gums CARDIOVASCULAR: tachycardic; IRRR, normal S1 and S2, no rub RESPIRATORY: distant breath sounds; bouts of tachypnea noted ABDOMEN: soft, nontender, nondistended, positive bowel sounds present EXTREMITIES: no evidence of cyanosis, clubbing, or edema NEUROLOGICAL: awake and alert; CN II - XII intact bilaterally; no focal deficits noted Results Lab Results 11/09/24 03:35 11/09/24 03:35 Lab results: Most recent lab results ABG pH 7.374 (7.350-7.450) 11/06/24 12:26 ABG pCO2 45.8 mmHg (35.0-45.0) H 11/06/24 12:26 ABG pO2 364.6 mmHg (80.0-100.0) H 11/06/24 12:26 ABG HCO3 26.1 mEq/l (22.0-26.0) H 11/06/24 12:26 ABG O2 Saturation 99.8 % (95.0-100.0) 11/06/24 12:26 Calcium 8.3 mg/dL (8.4-10.2) L 11/07/24 04:45 Magnesium 2.4 mg/dL (1.6-2.3) H 11/07/24 04:45 Urine Creatinine 77.8 mg/dL 11/05/24 18:38 Urine Creatinine 79.0 mg/dL 11/05/24 18:38
[2024-11-07] MEDS: BENZONATATE 100 MG CAPSULE 200 MG PO (13:47)
[2024-11-07 16:29] LABS: Anion Gap 8 mmol/L (4-12); Blood Urea Nitrogen 113 mg/dL (7-17); Calcium 8.4 mg/dL (8.4-10.2); Carbon Dioxide 22 mmol/L (22-30); Chloride 99 mmol/L (98-107); Estimated CRCL calculation 12 ml/min; Estimated Glomerular Filt Rate 13; Glucose 265 mg/dL (65-110); Potassium 4.2 mmol/L (3.4-5.0); Sodium 129 mmol/L (137-145)
[2024-11-07] MEDS: REMDESIVIR 100 MG/NS 250 ML 100 MG/250 ML BAG 250 MG IVPB (22:34)
[2024-11-07] MEDS: CEFDINIR 300 MG CAPSULE PO (22:35)
[2024-11-08] VITALS (21 sets, daily range): BP systolic 79–130; BP diastolic 49–79; PULSE 76–120; RESP 18–28; TEMP 36.4–36.9; O2SAT 93–96
[2024-11-08] MEDS: PRAMIPEXOLE 0.5 MG TABLET 1.5 MG PO ×3 (05:55→21:27)
[2024-11-08 06:41] LABS: Basophils Percent Auto 0.1 % (0.2-1.2); Hematocrit 34.9 % (37.0-47.0); Hemoglobin 11.4 g/dL (12.0-15.0); Immature Granulocyte Absolute 0.15 K/mm3 (0.00-0.031); Lymphocytes Absolute Auto 0.98 K/mm3 (0.9-3.2); Lymphocytes Percent Auto 6.5 % (18.3-44.2); Mean Corpuscular HGB Conc 32.7 g/dl (32-36); Mean Corpuscular Hemoglobin 29.2 pg (26-34); Mean Corpuscular Volume 89.3 fl (80-100); Mean Platelet Volume 11.3 fl (7.4-10.4); Monocytes Absolute Auto 0.5 K/mm3 (0.1-0.6); Monocytes Percent Auto 3.3 % (2.6-8.5); Neutrophils Absolute Auto 13.3 K/mm3 (1.3-6.7); Neutrophils Percent Auto 89.1 % (45.5-73.1); Platelet Count Result 247 k/mm3 (150-375); Red Blood Count 3.91 M/mm3 (4.2-5.4); Red Cell Distribution Width 19.4 % (11.5-14.5)
[2024-11-08 06:45] LABS: Alanine Aminotransferase 86 U/L (6-35); Albumin Level 2.6 g/dL (3.5-5.1); Alkaline Phosphatase 615 U/L (38-126); Anion Gap 7 mmol/L (4-12); Aspartate Amino Transferase 97 U/L (14-36); Bilirubin,Total 1.2 mg/dL (0.2-1.3); Calcium 8.5 mg/dL (8.4-10.2); Carbon Dioxide 22 mmol/L (22-30); Chloride 100 mmol/L (98-107); Creatine Kinase 28 U/L (30-135); Estimated CRCL calculation 12 ml/min; Estimated Glomerular Filt Rate 14; Glucose 249 mg/dL (65-110); Magnesium 2.5 mg/dL (1.6-2.3); Phosphorus 5.9 mg/dL (2.5-4.5); Potassium 4.2 mmol/L (3.4-5.0); Sodium 129 mmol/L (137-145)
[2024-11-08 07:43] LABS: Blood Urea Nitrogen 129 mg/dL (7-17)
[2024-11-08] MEDS: UMECLIDINIUM/VILANTEROL 62.5-25 MCG ELLIPTA 1 PUFF INHALATION (07:56)
[2024-11-08] MEDS: ALBUTEROL SULFATE (*SP) AEROSOL 1 PUFF 2 PUFF INHALATION ×2 (07:56→13:58)
--- NOTE | 2024-11-08 08:28 | PCOTNOTE ---
Patient refused treatment this session. Patient opened her eye but then swatted away and said, No. Patient also refused breakfast.
[2024-11-08] MEDS: busPIRone HCL 2.5 MG TABLET PO ×2 (10:02→21:27)
[2024-11-08] MEDS: calcitrioL 0.25 MCG CAPSULE PO (10:02)
[2024-11-08] MEDS: ACIDOPHILUS/BULGARICUS CHEWABLE TABLET 1 TABLET PO ×2 (10:03→18:11)
[2024-11-08] MEDS: HYDROCORTISONE 2.5% CREAM 30 GM TUBE 1 APPLIC TOPICAL ×2 (10:03→21:26)
[2024-11-08] MEDS: guaiFENesin 12 HR 600 MG TABCR 1200 MG PO ×2 (10:03→21:26)
[2024-11-08] MEDS: GABAPENTIN 100 MG CAPSULE 200 MG PO ×3 (10:03→18:10)
[2024-11-08] MEDS: COLLAGENASE OINT 30 GM TUBE 1 APPLIC TOPICAL (10:03)
--- NOTE | 2024-11-08 10:17 | P.PNNP_ITS ---
Progress Note: A&P Assessment and Plan (1) SARAI (acute kidney injury): Code(s): N17.9 - Acute kidney failure, unspecified Status: Acute Assessment and Plan: * as noted by admission labs * evaluation to date noted: * renal ultrasound with chronic mild right hydronephrosis * urine electrolytes non-prerenal * urine eosinophils negative * CPK normal * UA suggests infection * mild proteinuria * suspect multifactorial etiology: * prerenal factors (poor oral intake) * relative hypotension/renal hypoperfusion * anemia/GI bleed * ARB + diuretic therapy prior to admission * possible NSAID use * infection (COVID + UTI) * agree with trial of IVFs * elevated BUN concerning -- previous steroid use contributing along with SARAI and bleeding issues * remains at risk for [employer]/dialysis * follow trend of repeat labs and UOP (2) Stage 3b chronic kidney disease: Code(s): N18.32 - Chronic kidney disease, stage 3b Status: Chronic Assessment and Plan: * baseline creatinine runs ~ 1.5 - 2.0mg/dl in the last year * however, she has been as hign as 2.5mg/dl in the past * this causes her to fluctuate between CKD stage 3b and stage 4 * secondary to hypertension, diabetes, vascular disease [hyperlipidemia, cardiomyopathy (EF ~ 35 - 40 %] and age-related change * follows with Dr. Reji Lamb for CKD management (3) Acute on chronic anemia: Code(s): D64.9 - Anemia, unspecified Status: Acute Assessment and Plan: * as noted with a Hgb of 6.8 on admission * suspect etiology due to hemorrhoids in conjunction with anticoagulation * still with some oozing per nursing * rivaroxaban on hold * continue HC cream * however, suspect a component related to CKD * PRBC transfusion per protocol (has received 2 units of PRBCs to date) * Gastroenterology following * consider empiric Retacrit if H/H continues to drop * follow trend of H/H (4) COVID: Code(s): U07.1 - COVID-19 Status: Acute Assessment and Plan: * as noted by admission viral testing * complicated by known history of COPD * started on remdesivir and dexamethasone * off steroids at this time * isolation per protocol * bronchodilators and albuterol inhaler as needed * weaned to room air (5) Acute UTI: Code(s): N39.0 - Urinary tract infection, site not specified Status: Acute Assessment and Plan: * admission UA suggestive * urine culture with Klebsiella * on antibiotics (6) Heart failure with reduced ejection fraction: Code(s): I50.20 - Unspecified systolic (congestive) heart failure Status: Chronic Assessment and Plan: * known history * however, appears clinically volume depleted * holding diuretics * trial of IVFs * follow volume status closely (7) Atrial fibrillation with RVR: Code(s): I48.91 - Unspecified atrial fibrillation Status: Acute Assessment and Plan: * rate controlled * off metoprolol due to low BP * off anticoagulation due to #3 * continue supportive therapy (8) Diabetes: Code(s): E11.9 - Type 2 diabetes mellitus without complications Status: Chronic Assessment and Plan: * follow accu-checks * glycemic control per hospitalists Will continue to follow. Subjective Date/time seen: 11/08/24 10:17 Interval history: Follow-up for acute kidney injury/actue renal failure on chronic kidney disease. Renal function/creatinine relatively stable but BUN has risen although still making reasonable urine output; mentation seems relatively stable; poor oral intake still noted by nursing; no other acute issues/events overnight or earlier this morning. Exam 2 Narrative: General: elderly but WD/WN female in NAD Heart: tachycardic, IRRR, normal S1 and S2; no rub Lungs: clear to auscultation Abdomen: soft, nontender, nondistended, positive bowel sounds Extremities: no cyanosis or clubbing; no edema Skin: warm and dry Objective Data Vital Signs Vital Signs: Vital Signs Temp Pulse Resp BP Pulse Ox O2 Del Method O2 Flow Rate 11/08/24 10:00 102 H 11/08/24 09:52 Room Air 11/08/24 08:00 106 H 11/08/24 08:00 Room Air 11/08/24 07:56 120 H 24 H 11/08/24 07:56 95 Nasal Cannula 2 11/08/24 07:47 97.9 F 79 20 96/63 L 11/08/24 05:26 94 11/08/24 04:00 97.8 F 89 28 H 113/67 94 11/08/24 04:00 104 H 11/08/24 04:00 104 H 24 H 96 Room Air 11/08/24 02:00 96 11/07/24 23:47 97.4 F L 87 24 H 117/95 H 96 11/07/24 23:21 92 11/07/24 23:21 92 20 91 Room Air 11/07/24 22:00 92 11/07/24 20:47 95 20 11/07/24 20:00 96 11/07/24 20:00 96 20 91 Room Air 11/07/24 20:00 97.5 F L 107 H 30 H 105/75 91 11/07/24 17:48 81 Intake/Output Intake/Output: Intake & Output 11/05/24 11/06/24 11/07/24 11/08/24 23:59 23:59 23:59 23:59 Intake Total 1148 1930 860 440 Output Total 100 875 700 450 Balance 1048 1055 160 -10 Meds/Results Medications: Active Medications Generic Name Dose Route Start Last Admin Trade Name Freq PRN Reason Stop Dose Admin Acetaminophen 650 mg 11/05/24 15:28 Acetaminophen 325 Mg Tablet PO Q6H PRN Mild Pain (1-3) or Fever Hydrocodone Bitart/Acetaminophen 1 tab 11/05/24 17:49 Hydrocodone/Acetaminophen (*Crx) 5-325 Mg Tablet PO Q4H PRN pain 4-6 Albuterol 2 puff 11/06/24 20:00 11/08/24 13:58 Albuterol Sulfate (*Sp) Aerosol 1 Puff INHALATION 2 puff [id number] DEEP Administration Albuterol/Ipratropium 3 ml 11/05/24 16:21 Ipratropium 0.5 Mg/Albuterol Sulfate 2.5 Mg Ampul.Neb 3 Ml INHALATION Q6HRT PRN Shortness Of Breath Or Wheezing Benzonatate 200 mg 11/05/24 17:49 11/07/24 13:47 Benzonatate 100 Mg Capsule PO 200 mg TID PRN Administration cough Buspirone HCl 2.5 mg 11/07/24 10:50 11/08/24 10:02 Buspirone Hcl 2.5 Mg Tablet PO 2.5 mg Q12HR DEEP Administration Calcitriol 0.25 mcg 11/06/24 09:00 11/08/24 10:02 Calcitriol 0.25 Mcg Capsule PO 0.25 mcg DAILY DEEP Administration Cefdinir 300 mg 11/07/24 21:00 11/07/24 22:35 Cefdinir 300 Mg Capsule PO 11/11/24 21:01 300 mg 2100 DEEP Administration Collagenase 1 applic 11/06/24 09:00 11/08/24 10:03 Collagenase Oint 30 Gm Tube TOPICAL 1 applic DAILY DEEP Administration Diclofenac Sodium 1 applic 11/05/24 18:00 Diclofenac Sodium 1% 100 Gm Gel (*Bkc) TOPICAL TID PRN ARTHRITIS PAIN Gabapentin 200 mg 11/06/24 09:00 11/08/24 12:40 Gabapentin 100 Mg Capsule PO 200 mg TID DEEP Administration Guaifenesin 1,200 mg 11/05/24 21:00 11/08/24 10:03 Guaifenesin 12 Hr 600 Mg Tabcr PO 1,200 mg Q12HR DEEP Administration Hydrocortisone 1 applic 11/06/24 21:00 11/08/24 10:03 Hydrocortisone 2.5% Cream 30 Gm Tube TOPICAL 1 applic Q12HR DEEP Administration Remdesivir 100 mg in 250 mls @ 250 mls/hr 11/06/24 22:00 11/07/24 22:34 IVPB 11/09/24 22:59 250 mls/hr Q24H DEEP Administration Sodium Chloride 1,000 mls @ 100 mls/hr 11/08/24 12:40 11/08/24 13:04 Normal Saline Iv IV CONT 100 mls/hr .Q10H DEEP Administration Lactobacillus Acidophilus 1 tablet 11/06/24 09:00 11/08/24 10:03 Acidophilus/Bulgaricus Chewable Tablet PO 1 tablet BID DEEP Administration Metoprolol Succinate 200 mg 11/06/24 09:00 11/08/24 10:27 Metoprolol Succinate Ext Rel 100 Mg Tabcr PO Not Given QAM DEEP Pramipexole Dihydrochloride 1.5 mg 11/05/24 22:00 11/08/24 13:04 Pramipexole 0.5 Mg Tablet PO 1.5 mg Q8HR DEEP Administration Umeclidinium/Vilanterol 1 puff 11/06/24 09:00 11/08/24 07:56 Umeclidinium/Vilanterol 62.5-25 Mcg Ellipta INHALATION 1 puff DAILY DEEP Administration Radiology Results: ITS Impressions Chest X-Ray 11/05/24 11:31 IMPRESSION: Cardiomegaly with cardiac decompensation and pulmonary edema. Superimposed pneumonitis is not excluded. Left basilar atelectasis versus pneumonia with pleural effusion. Renal Ultrasound 11/05/24 22:02 IMPRESSION: 1. Normal kidney sizes. 2. Chronic mild right hydronephrosis. Labs Labs: Laboratory Tests 11/08/24 06:30 11/08/24 04:39 Calcium 8.5 Phosphorus 5.9 H Magnesium 2.5 H Total Bilirubin 1.2 AST 97 H ALT 86 H Alkaline Phosphatase 615 H Total Creatine Kinase 28 L Total Protein 5.0 L Albumin 2.6 L Microbiology 11/05/24 11:00 Urine Clean Catch Urine Culture - Final Klebsiella pneumoniae
[2024-11-08] MEDS: SODIUM CHLORIDE 0.9% IV 500 ML IV CONT (12:39)
[2024-11-08] MEDS: SODIUM CHLORIDE 0.9% IV 1,000 ML 100 ML IV CONT (13:04)
--- NOTE | 2024-11-08 13:56 | PM.IMPN ---
Progress Note: A&P Assessment and Plan (1) Acute on chronic anemia: Code(s): D64.9 - Anemia, unspecified Status: Acute Assessment and Plan: The patient presented to the emergency department for evaluation of lethargy, sore throat and cough. She has chronic anemia but Hgb was 6.8. Acute anemia may very well be due to bleeding hemorrhoids. Holding rivaroxaban. She was transfused 2U PRBCs. Repeat Hgb up to 9-11 and stable. Still having oozing. Hgb climbing related to dehydration Monitor HH and transfuse to a stable Hgb. GI consulted and appreciate their input. Continue HC cream for hemorrhoids (2) Acute on chronic kidney failure: Code(s): N17.9 - Acute kidney failure, unspecified; N18.9 - Chronic kidney disease, unspecified Status: Acute Assessment and Plan: Patient with SARAI with Cr 3.5. Baseline Cr 1.4-2.1. SARAI/CKD felt to be multifactorial including dehydration from poor oral intake, hypoperfusion from relative HoTN and hypovolemia from the anemia. Also on an ARB. Renal US showing mild right hydronephrosis which is chronic. Greco catheter inserted for strict I/O. Urine electrolytes showing Johnathan 42 with FENa 1.4% to suggest renal disease. Cr stable at 3.2 but BUN 129 now. BUN elevation related somewhat to the steroids. Steroids stopped. Nephrology consulted and appreciate their input. Patient not eating much and suspect she is becoming dehydrated causing the higher Hgb and low BP. IV fluids started -- Discussed with family at bedside. Patient has not zonia eating well recently and the family feels she will just be back in the hospital again for similar issues. Discussed care options. They were clear that they do not want dialysis. Discussed hospice/comfort measures and they will talk with family about this. Avoid all nephrotoxic agents and renally dose medications as appropriate. (3) Bleeding hemorrhoids: Code(s): K64.9 - Unspecified hemorrhoids Status: Acute Assessment and Plan: Bleeding hemorrhoids may be at least partially the etiology of the anemia. Symptomatic treatment for now. (4) COVID: Code(s): U07.1 - COVID-19 Status: Acute Assessment and Plan: Patient found to have COVID and was started on remdesivir and dexamethasone. Isolation per protocol. Bronchodilators prn. Albuterol inhaler added. Dexamethasone stopped for now. Able to be weaned to room air. (5) Acute UTI: Code(s): N39.0 - Urinary tract infection, site not specified Status: Acute Assessment and Plan: UA is consistent with UTI. UCx collected. Rocephin started. UCx growing pansensitive Klebsiella. Continue abx (6) Heart failure with reduced ejection fraction: Code(s): I50.20 - Unspecified systolic (congestive) heart failure Status: Acute Assessment and Plan: She has chronic CHF. Suspect patient more dehydrated Monitor volume status closely while transfusing and with IV fluids (7) Rheumatoid arthritis: Code(s): M06.9 - Rheumatoid arthritis, unspecified Status: Acute Assessment and Plan: Stable (8) COPD (chronic obstructive pulmonary disease): Qualifiers: COPD type: COPD with acute exacerbation Qualified Code(s): J44.1 - Chronic obstructive pulmonary disease with (acute) exacerbation Code(s): J44.9 - Chronic obstructive pulmonary disease, unspecified Status: Acute Assessment and Plan: She has COPD but not felt to have exacerbation. Follow. Albuterol HFA ordered. (9) Atrial fibrillation with RVR: Code(s): I48.91 - Unspecified atrial fibrillation Status: Acute Assessment and Plan: Patietn with AFib and is rate controlled. On metoprolol for rate control - held today due to soft BP On Xarelto but held due to anemia and bleeding. Follow Plan DVT Prophylaxis - SCDs due to her anemia. Code status - DNR Subjective Date/time seen: 11/08/24 13:56 Interval history: 84yo female with chronic respiratory failure with hypoxia on home oxygen, COPD, systolic CHF, Chronic AFib on anticoagulation, CKD, chronic anemia, HTN and RA who presented to the emergency department via EMS for evaluation of lethargy. Called to the room for patient with HoTN. Patient is alert and mostly oriented. Family in the room as well. No complaints of CP, SOB, LH or dizziness. Not eating much. Exam Narrative: AF 98.5 79/49 94 18 95% ra Gen - NARD lying flat in bed on her right side Chest - distant clear BS CV - irregularly irregular. Tele showing AFib with mostly controlled rate but increased when active Abd - Soft, NT/ND, Positive BS - Greco secured draining clear yellow urine Ext - No pedal edema. normal cap refill Neuro - Alert and oriented x3 (not Carlene name) Psych - normal mood and affect Skin - Warm and dry Objective Data Vital Signs Vital Signs: Vital Signs - 24 hr 11/07/24 14:00 11/07/24 14:11 11/07/24 16:00 Temperature 96 F L Pulse Rate 103 H 106 H 102 H Respiratory Rate 22 H 25 H Blood Pressure 116/51 L Pulse Oximetry 91 Oxygen Delivery Oxygen Flow Rate 11/07/24 16:00 11/07/24 16:00 11/07/24 17:48 Temperature Pulse Rate 102 H 107 H 81 Respiratory Rate 25 H Blood Pressure Pulse Oximetry 91 Oxygen Delivery Room Air Oxygen Flow Rate 11/07/24 20:00 11/07/24 20:00 11/07/24 20:00 Temperature 97.5 F L Pulse Rate 107 H 96 96 Respiratory Rate 30 H 20 Blood Pressure 105/75 Pulse Oximetry 91 91 Oxygen Delivery Room Air Oxygen Flow Rate 11/07/24 20:47 11/07/24 22:00 11/07/24 23:21 Temperature Pulse Rate 95 92 92 Respiratory Rate 20 20 Blood Pressure Pulse Oximetry 91 Oxygen Delivery Room Air Oxygen Flow Rate 11/07/24 23:21 11/07/24 23:47 11/08/24 02:00 Temperature 97.4 F L Pulse Rate 92 87 96 Respiratory Rate 24 H Blood Pressure 117/95 H Pulse Oximetry 96 Oxygen Delivery Oxygen Flow Rate 11/08/24 04:00 11/08/24 04:00 11/08/24 04:00 Temperature 97.8 F Pulse Rate 104 H 104 H 89 Respiratory Rate 24 H 28 H Blood Pressure 113/67 Pulse Oximetry 96 94 Oxygen Delivery Room Air Oxygen Flow Rate 11/08/24 05:26 11/08/24 07:47 11/08/24 07:56 Temperature 97.9 F Pulse Rate 94 79 Respiratory Rate 20 Blood Pressure 96/63 L Pulse Oximetry 95 Oxygen Delivery Nasal Cannula Oxygen Flow Rate 2 11/08/24 07:56 11/08/24 08:00 11/08/24 08:00 Temperature Pulse Rate 120 H 106 H Respiratory Rate 24 H Blood Pressure Pulse Oximetry Oxygen Delivery Room Air Oxygen Flow Rate 11/08/24 09:52 11/08/24 10:00 11/08/24 11:46 Temperature 98.5 F Pulse Rate 102 H 94 Respiratory Rate 18 Blood Pressure 79/49 L Pulse Oximetry Oxygen Delivery Room Air Oxygen Flow Rate Intake/Output Intake/Output: Intake & Output 11/05/24 11/06/24 11/07/24 11/08/24 23:59 23:59 23:59 23:59 Intake Total 1148 1930 860 340 Output Total 100 875 700 250 Balance 1048 1055 160 90 Meds/Results Medications: Active Medications Generic Name Dose Route Start Last Admin Trade Name Freq PRN Reason Stop Dose Admin Acetaminophen 650 mg 11/05/24 15:28 Acetaminophen 325 Mg Tablet PO Q6H PRN Mild Pain (1-3) or Fever Hydrocodone Bitart/Acetaminophen 1 tab 11/05/24 17:49 Hydrocodone/Acetaminophen (*Crx) 5-325 Mg Tablet PO Q4H PRN pain 4-6 Albuterol 2 puff 11/06/24 20:00 11/08/24 07:56 Albuterol Sulfate (*Sp) Aerosol 1 Puff INHALATION 2 puff [id number] DEEP Administration Albuterol/Ipratropium 3 ml 11/05/24 16:21 Ipratropium 0.5 Mg/Albuterol Sulfate 2.5 Mg Ampul.Neb 3 Ml INHALATION Q6HRT PRN Shortness Of Breath Or Wheezing Benzonatate 200 mg 11/05/24 17:49 11/07/24 13:47 Benzonatate 100 Mg Capsule PO 200 mg TID PRN Administration cough Buspirone HCl 2.5 mg 11/07/24 10:50 11/08/24 10:02 Buspirone Hcl 2.5 Mg Tablet PO 2.5 mg Q12HR DEEP Administration Calcitriol 0.25 mcg 11/06/24 09:00 11/08/24 10:02 Calcitriol 0.25 Mcg Capsule PO 0.25 mcg DAILY DEEP Administration Cefdinir 300 mg 11/07/24 21:00 11/07/24 22:35 Cefdinir 300 Mg Capsule PO 11/11/24 21:01 300 mg 2100 DEEP Administration Collagenase 1 applic 11/06/24 09:00 11/08/24 10:03 Collagenase Oint 30 Gm Tube TOPICAL 1 applic DAILY DEEP Administration Diclofenac Sodium 1 applic 11/05/24 18:00 Diclofenac Sodium 1% 100 Gm Gel (*Bkc) TOPICAL TID PRN ARTHRITIS PAIN Gabapentin 200 mg 11/06/24 09:00 11/08/24 12:40 Gabapentin 100 Mg Capsule PO 200 mg TID DEEP Administration Guaifenesin 1,200 mg 11/05/24 21:00 11/08/24 10:03 Guaifenesin 12 Hr 600 Mg Tabcr PO 1,200 mg Q12HR DEEP Administration Hydrocortisone 1 applic 11/06/24 21:00 11/08/24 10:03 Hydrocortisone 2.5% Cream 30 Gm Tube TOPICAL 1 applic Q12HR DEEP Administration Remdesivir 100 mg in 250 mls @ 250 mls/hr 11/06/24 22:00 11/07/24 22:34 IVPB 11/09/24 22:59 250 mls/hr Q24H DEEP Administration Sodium Chloride 250 mls @ 100 mls/hr 11/08/24 13:30 Normal Saline Iv IV CONT 11/08/24 15:59 .Q2H30M ONE Sodium Chloride 1,000 mls @ 100 mls/hr 11/08/24 12:40 11/08/24 13:04 Normal Saline Iv IV CONT 100 mls/hr .Q10H DEEP Administration Lactobacillus Acidophilus 1 tablet 11/06/24 09:00 11/08/24 10:03 Acidophilus/Bulgaricus Chewable Tablet PO 1 tablet BID DEEP Administration Metoprolol Succinate 200 mg 11/06/24 09:00 11/08/24 10:27 Metoprolol Succinate Ext Rel 100 Mg Tabcr PO Not Given QAM DEEP Pramipexole Dihydrochloride 1.5 mg 11/05/24 22:00 11/08/24 13:04 Pramipexole 0.5 Mg Tablet PO 1.5 mg Q8HR DEEP Administration Umeclidinium/Vilanterol 1 puff 11/06/24 09:00 11/08/24 07:56 Umeclidinium/Vilanterol 62.5-25 Mcg Ellipta INHALATION 1 puff DAILY DEEP Administration Radiology Results: ITS Impressions Chest X-Ray 11/05/24 11:31 IMPRESSION: Cardiomegaly with cardiac decompensation and pulmonary edema. Superimposed pneumonitis is not excluded. Left basilar atelectasis versus pneumonia with pleural effusion. Renal Ultrasound 11/05/24 22:02 IMPRESSION: 1. Normal kidney sizes. 2. Chronic mild right hydronephrosis. Labs Labs: Laboratory Results - last 24 hr 11/07/24 11/08/24 11/08/24 16:09 04:39 06:30 WBC 15.0 H RBC 3.91 L Hgb 11.4 L Hct 34.9 L MCV 89.3 MCH 29.2 MCHC 32.7 RDW 19.4 H Plt Count 247 MPV 11.3 H Immature Gran % (Auto) 1.0 H Neut % (Auto) 89.1 H Lymph % (Auto) 6.5 L [place] % (Auto) 3.3 Eos % (Auto) 0.0 Baso % (Auto) 0.1 L Lymph # (Auto) 0.98 [place] # (Auto) 0.5 Eos # (Auto) 0.0 Baso # (Auto) 0.0 Abs Immat Gran (auto) 0.15 H Absolute Neuts (auto) 13.3 H Absolute Nucleated RBC 0.000 Nucleated RBC % 0.0 Sodium 129 L 129 L Potassium 4.2 4.2 Chloride 99 100 Carbon Dioxide 22 22 Anion Gap 8 7 BUN 113 H 129 H D Creatinine 3.30 H 3.20 H Estim Creat Clear Calc 12 12 Estimated GFR 13 L 14 L Glucose 265 H 249 H Calcium 8.4 8.5 Phosphorus 5.9 H Magnesium 2.5 H Total Bilirubin 1.2 AST 97 H ALT 86 H Alkaline Phosphatase 615 H Total Creatine Kinase 28 L Total Protein 5.0 L Albumin 2.6 L
[2024-11-08] MEDS: CEFDINIR 300 MG CAPSULE PO (21:26)
[2024-11-08] MEDS: REMDESIVIR 100 MG/NS 250 ML 100 MG/250 ML BAG 250 MG IVPB (21:27)
[2024-11-08 23:39] LABS: Alveolar/Arterial O2 Gradient 73.5 mmHg; Base Excess ABG -4.8 mEq/l (+/-2.0); Carboxyhemoglobin 0.5 % THb (0-2.0); Fractional Inspired Oxygen 32 %; HCO3 ABG 20.8 mEq/l (22.0-26.0); Methemoglobin ABG 0.3 %THb (0-1.5); Oxygen Content ABG 13.7 %vol (16.0-22.0); Oxygen Saturation ABG 97.6 % (95.0-100.0); Oxyhemoglobin 96.2 % THb (90.0-100.0); PCO2 ABG 40.7 mmHg (35.0-45.0); PO2 FiO2 Ratio Arterial Blood 3.34 %; Site Drawn LEFT RADIAL; pH ABG 7.327 (7.350-7.450)
[2024-11-08 23:40] LABS: Device NASAL CANNULA; Modified Allen's Test Pass
[2024-11-09] VITALS (19 sets, daily range): BP systolic 85–119; BP diastolic 46–79; PULSE 78–112; RESP 18–20; TEMP 36.2–37.3; O2SAT 93–98
[2024-11-09] MEDS: SODIUM CHLORIDE 0.9% IV 1,000 ML 100 ML IV CONT ×2 (00:36→14:46)
[2024-11-09 04:04] LABS: Basophils Percent Auto 0.1 % (0.2-1.2); Hematocrit 30.3 % (37.0-47.0); Hemoglobin 9.7 g/dL (12.0-15.0); Immature Granulocyte Absolute 0.06 K/mm3 (0.00-0.031); Immature Granulocyte Percent A 0.7 % (0-0.5); Lymphocytes Absolute Auto 0.48 K/mm3 (0.9-3.2); Lymphocytes Percent Auto 5.4 % (18.3-44.2); Mean Corpuscular Hemoglobin 29.8 pg (26-34); Mean Corpuscular Volume 93.2 fl (80-100); Mean Platelet Volume 11.7 fl (7.4-10.4); Monocytes Absolute Auto 0.5 K/mm3 (0.1-0.6); Monocytes Percent Auto 5.5 % (2.6-8.5); Neutrophils Absolute Auto 7.9 K/mm3 (1.3-6.7); Neutrophils Percent Auto 88.3 % (45.5-73.1); Platelet Count Result 193 k/mm3 (150-375); Red Blood Count 3.25 M/mm3 (4.2-5.4); Red Cell Distribution Width 18.8 % (11.5-14.5); White Blood Count 8.9 K/mm3 (4.5-10.0)
[2024-11-09 04:15] LABS: INR 1.3; Prothrombin Time 17.1 Seconds (11.1-14.7)
[2024-11-09 04:30] LABS: Alanine Aminotransferase 86 U/L (6-35); Albumin Level 2.1 g/dL (3.5-5.1); Alkaline Phosphatase 558 U/L (38-126); Anion Gap 4 mmol/L (4-12); Aspartate Amino Transferase 86 U/L (14-36); Bilirubin,Total 0.9 mg/dL (0.2-1.3); Calcium 7.6 mg/dL (8.4-10.2); Carbon Dioxide 21 mmol/L (22-30); Chloride 103 mmol/L (98-107); Estimated CRCL calculation 12 ml/min; Estimated Glomerular Filt Rate 14; Glucose 215 mg/dL (65-110); Magnesium 2.5 mg/dL (1.6-2.3); Phosphorus 5.8 mg/dL (2.5-4.5); Potassium 3.7 mmol/L (3.4-5.0); Sodium 128 mmol/L (137-145)
[2024-11-09 05:54] LABS: Blood Urea Nitrogen 134 mg/dL (7-17)
[2024-11-09] MEDS: ALBUTEROL SULFATE (*SP) AEROSOL 1 PUFF 2 PUFF INHALATION ×3 (07:10→20:08)
[2024-11-09] MEDS: UMECLIDINIUM/VILANTEROL 62.5-25 MCG ELLIPTA 1 PUFF INHALATION (07:10)
[2024-11-09 08:10] LABS: Immunoglobulin A 79 mg/dL (70-400); Immunoglobulin G 305 mg/dL (700-1600); Immunoglobulin M 34 mg/dL (40-230)
[2024-11-09] MEDS: COLLAGENASE OINT 30 GM TUBE 1 APPLIC TOPICAL (09:00)
[2024-11-09 10:00] LABS: Glucose Point of Care 221 mg/dl (65-105)
[2024-11-09] MEDS: guaiFENesin 12 HR 600 MG TABCR 1200 MG PO ×2 (11:22→22:07)
[2024-11-09] MEDS: GABAPENTIN 100 MG CAPSULE 200 MG PO ×2 (11:22→16:35)
[2024-11-09] MEDS: busPIRone HCL 2.5 MG TABLET PO ×2 (11:22→22:07)
[2024-11-09] MEDS: ACIDOPHILUS/BULGARICUS CHEWABLE TABLET 1 TABLET PO ×2 (11:23→16:35)
[2024-11-09] MEDS: calcitrioL 0.25 MCG CAPSULE PO (11:23)
[2024-11-09 12:32] LABS: Glucose Point of Care 176 mg/dl (65-105)
--- NOTE | 2024-11-09 13:40 | P.PNIM_ITS ---
Progress Note: A&P Assessment and Plan (1) Acute on chronic anemia: Code(s): D64.9 - Anemia, unspecified Status: Acute Assessment and Plan: The patient presented to the emergency department for evaluation of lethargy, sore throat and cough. She has chronic anemia but Hgb was 6.8. Acute anemia may be due to bleeding hemorrhoids. Holding rivaroxaban. She was transfused 2U PRBCs. Repeat Hgb was up to 11 abut dropped to 9.7 possibly due to IV fluids. Still having oozing but no melena. Monitor HH and transfuse to a stable Hgb. GI consulted and appreciate their input. Continue HC cream for hemorrhoids (2) Hypotension: Code(s): I95.9 - Hypotension, unspecified Status: Acute Assessment and Plan: BP soft at times related to anemia, poor oncotic pressure and home meds. Metoprolol held past 2 days. IV fluids started. Add albumin Add midodrine. Lower metoprolol dose and add parameters. (3) Acute on chronic kidney failure: Code(s): N17.9 - Acute kidney failure, unspecified; N18.9 - Chronic kidney disease, unspecified Status: Acute Assessment and Plan: Patient with SARAI with Cr 3.5. Baseline Cr 1.4-2.1. SARAI/CKD felt to be multifactorial including dehydration from poor oral intake, hypoperfusion from relative HoTN and hypovolemia from the anemia. Also on an ARB. Renal US showing mild right hydronephrosis which is chronic. Greco catheter inserted for strict I/O. Urine electrolytes showing Johnathan 42 with FENa 1.4% to suggest renal disease. Cr stable at 3.2 but BUN 134 now. BUN elevation related somewhat to the steroids but these were stopped a few days ago. COnsider catabolic from poor oral intake. Nephrology consulted and appreciate their input. IV fluids started. Cheetah showing she is still fluid responsive. Will add Albumin since albumin at 2.1. Place NGT and start Nepro. Avoid all nephrotoxic agents and renally dose medications as appropriate. -- Discussed with family at bedside and patient. Family feel that we may be doing too much and asked about comfort measures. Patient updated on care plan and need for NGT for nutrition that hopefully mariana be temporary. Talked about SARAI and how this is not improving as one would like. Patient would like to continue with medical treatment and is agreeable for NGT (4) COVID: Code(s): U07.1 - COVID-19 Status: Acute Assessment and Plan: Patient found to have COVID and was started on remdesivir and dexamethasone. Isolation per protocol. Bronchodilators prn. Albuterol inhaler added. Dexamethasone stopped due to rising BUN. Back on oxygen Repeat CXR. (5) Acute UTI: Code(s): N39.0 - Urinary tract infection, site not specified Status: Acute Assessment and Plan: UA is consistent with UTI. UCx collected. Rocephin started. UCx growing pansensitive Klebsiella. Continue abx (6) Bleeding hemorrhoids: Code(s): K64.9 - Unspecified hemorrhoids Status: Acute Assessment and Plan: Bleeding hemorrhoids may be at least partially the etiology of the anemia. Symptomatic treatment for now. (7) Heart failure with reduced ejection fraction: Code(s): I50.20 - Unspecified systolic (congestive) heart failure Status: Chronic Assessment and Plan: She has chronic CHF. Suspect patient more dehydrated Monitor volume status closely with IV fluids (8) Rheumatoid arthritis: Code(s): M06.9 - Rheumatoid arthritis, unspecified Status: Acute Assessment and Plan: Stable (9) COPD (chronic obstructive pulmonary disease): Qualifiers: COPD type: COPD with acute exacerbation Qualified Code(s): J44.1 - Chronic obstructive pulmonary disease with (acute) exacerbation Code(s): J44.9 - Chronic obstructive pulmonary disease, unspecified Status: Acute Assessment and Plan: She has COPD but not felt to have exacerbation. Follow. Albuterol HFA ordered. (10) Atrial fibrillation with RVR: Code(s): I48.91 - Unspecified atrial fibrillation Status: Acute Assessment and Plan: Patient with AFib and is rate controlled. On metoprolol for rate control - held today due to soft BP On Xarelto but held due to anemia and bleeding. Follow Plan DVT Prophylaxis - SCDs due to her anemia. Code status - DNR Subjective Date/time seen: 11/09/24 13:40 Interval history: 84yo female with chronic respiratory failure with hypoxia on home oxygen, COPD, systolic CHF, Chronic AFib on anticoagulation, CKD, chronic anemia, HTN and RA who presented to the emergency department via EMS for evaluation of lethargy. Patient with soft BP this morning again. No evidence of acute blood loss. She feels about the same. She has a persistent cough. She does not like to work with therapy. Exam Narrative: AF 98.6 119/75 93 20 98% 2L Gen - NARD Chest - decreased BS in the bases with inspir crackles mid and lower lung hough CV - irregularly irregular. Tele showing AFib with mostly controlled rate but trending higher Abd - Soft, NT/ND, Positive BS - Greco secured draining dark yellow urine Ext - No pedal edema. normal cap refill Neuro - Alert and oriented x3. Psych - normal mood and affect Skin - Warm and dry Objective Data Vital Signs Vital Signs: Vital Signs - 24 hr 11/08/24 13:58 11/08/24 14:00 11/08/24 14:29 Temperature Pulse Rate 90 87 108 H Respiratory Rate 22 H Blood Pressure 122/70 Pulse Oximetry 96 Oxygen Delivery Oxygen Flow Rate 11/08/24 15:21 11/08/24 16:00 11/08/24 16:00 Temperature 97.5 F L Pulse Rate 98 89 Respiratory Rate 20 Blood Pressure 95/60 L Pulse Oximetry 96 Oxygen Delivery Nasal Cannula Oxygen Flow Rate 2 11/08/24 18:00 11/08/24 18:05 11/08/24 20:00 Temperature Pulse Rate 76 82 Respiratory Rate Blood Pressure 130/68 Pulse Oximetry Oxygen Delivery Oxygen Flow Rate 11/08/24 21:00 11/08/24 21:00 11/08/24 22:00 Temperature 97.7 F Pulse Rate 93 88 Respiratory Rate 20 Blood Pressure 90/56 L Pulse Oximetry 95 93 Oxygen Delivery Nasal Cannula Oxygen Flow Rate 2 11/08/24 22:14 11/08/24 23:30 11/09/24 00:00 Temperature 97.6 F Pulse Rate 84 Respiratory Rate 20 Blood Pressure 125/79 109/72 Pulse Oximetry 94 96 Oxygen Delivery Nasal Cannula Oxygen Flow Rate 2 11/09/24 00:00 11/09/24 01:58 11/09/24 04:00 Temperature Pulse Rate 84 79 Respiratory Rate Blood Pressure Pulse Oximetry 93 Oxygen Delivery Nasal Cannula Oxygen Flow Rate 2 11/09/24 04:00 11/09/24 04:32 11/09/24 06:00 Temperature 97.7 F Pulse Rate 78 83 86 Respiratory Rate 20 Blood Pressure 103/79 Pulse Oximetry 94 Oxygen Delivery Oxygen Flow Rate 11/09/24 07:42 11/09/24 07:42 11/09/24 08:00 Temperature 97.2 F L Pulse Rate 89 89 91 Respiratory Rate 18 18 20 Blood Pressure 106/62 Pulse Oximetry 95 98 Oxygen Delivery Nasal Cannula Oxygen Flow Rate 2 11/09/24 11:25 11/09/24 12:58 Temperature 98.6 F Pulse Rate 105 H 93 Respiratory Rate 20 20 Blood Pressure 119/75 Pulse Oximetry Oxygen Delivery Oxygen Flow Rate Intake/Output Intake/Output: Intake & Output 11/06/24 11/07/24 11/08/24 11/09/24 23:59 23:59 23:59 23:59 Intake Total 1930 1110 1290 370 Output Total 875 700 450 700 Balance 1055 410 840 -330 Meds/Results Medications: Active Medications Generic Name Dose Route Start Last Admin Trade Name Freq PRN Reason Stop Dose Admin Acetaminophen 650 mg 11/05/24 15:28 Acetaminophen 325 Mg Tablet PO Q6H PRN Mild Pain (1-3) or Fever Hydrocodone Bitart/Acetaminophen 1 tab 11/05/24 17:49 Hydrocodone/Acetaminophen (*Crx) 5-325 Mg Tablet PO Q4H PRN pain 4-6 Albuterol 2 puff 11/06/24 20:00 11/09/24 12:58 Albuterol Sulfate (*Sp) Aerosol 1 Puff INHALATION 2 puff [id number] DEEP Administration Albuterol/Ipratropium 3 ml 11/05/24 16:21 Ipratropium 0.5 Mg/Albuterol Sulfate 2.5 Mg Ampul.Neb 3 Ml INHALATION Q6HRT PRN Shortness Of Breath Or Wheezing Benzonatate 200 mg 11/05/24 17:49 11/07/24 13:47 Benzonatate 100 Mg Capsule PO 200 mg TID PRN Administration cough Buspirone HCl 2.5 mg 11/07/24 10:50 11/09/24 11:22 Buspirone Hcl 2.5 Mg Tablet PO 2.5 mg Q12HR DEEP Administration Calcitriol 0.25 mcg 11/06/24 09:00 11/09/24 11:23 Calcitriol 0.25 Mcg Capsule PO 0.25 mcg DAILY DEEP Administration Cefdinir 300 mg 11/07/24 21:00 11/08/24 21:26 Cefdinir 300 Mg Capsule PO 11/11/24 21:01 300 mg 2100 DEEP Administration Collagenase 1 applic 11/06/24 09:00 11/08/24 10:03 Collagenase Oint 30 Gm Tube TOPICAL 1 applic DAILY DEEP Administration Diclofenac Sodium 1 applic 11/05/24 18:00 Diclofenac Sodium 1% 100 Gm Gel (*Bkc) TOPICAL TID PRN ARTHRITIS PAIN Gabapentin 200 mg 11/06/24 09:00 11/09/24 11:22 Gabapentin 100 Mg Capsule PO 200 mg TID DEEP Administration Guaifenesin 1,200 mg 11/05/24 21:00 11/09/24 11:22 Guaifenesin 12 Hr 600 Mg Tabcr PO 1,200 mg Q12HR DEEP Administration Hydrocortisone 1 applic 11/06/24 21:00 11/09/24 11:24 Hydrocortisone 2.5% Cream 30 Gm Tube TOPICAL Not Given Q12HR DEEP Remdesivir 100 mg in 250 mls @ 250 mls/hr 11/06/24 22:00 11/08/24 21:27 IVPB 11/09/24 22:59 250 mls/hr Q24H DEEP Administration Sodium Chloride 1,000 mls @ 100 mls/hr 11/08/24 12:40 11/09/24 00:36 Normal Saline Iv IV CONT 100 mls/hr .Q10H DEEP Administration Albumin Human 100 mls @ 60 mls/hr 11/09/24 12:00 Albutein IVPB 11/10/24 07:39 Q6HR DEEP Lactobacillus Acidophilus 1 tablet 11/06/24 09:00 11/09/24 11:23 Acidophilus/Bulgaricus Chewable Tablet PO 1 tablet BID DEEP Administration Metoprolol Succinate 200 mg 11/06/24 09:00 11/08/24 10:27 Metoprolol Succinate Ext Rel 100 Mg Tabcr PO Not Given QAM DEEP Pramipexole Dihydrochloride 1.5 mg 11/05/24 22:00 11/09/24 05:26 Pramipexole 0.5 Mg Tablet PO Not Given Q8HR DEEP Umeclidinium/Vilanterol 1 puff 11/06/24 09:00 11/09/24 07:10 Umeclidinium/Vilanterol 62.5-25 Mcg Ellipta INHALATION 1 puff DAILY DEEP Administration Radiology Results: ITS Impressions Chest X-Ray 11/05/24 11:31 IMPRESSION: Cardiomegaly with cardiac decompensation and pulmonary edema. Superimposed pneumonitis is not excluded. Left basilar atelectasis versus pneumonia with pleural effusion. Renal Ultrasound 11/05/24 22:02 IMPRESSION: 1. Normal kidney sizes. 2. Chronic mild right hydronephrosis. Labs Labs: Laboratory Results - last 24 hr 11/08/24 11/09/24 11/09/24 23:23 03:27 03:35 WBC 8.9 RBC 3.25 L Hgb 9.7 L Hct 30.3 L MCV 93.2 MCH 29.8 MCHC 32.0 RDW 18.8 H Plt Count 193 MPV 11.7 H Immature Gran % (Auto) 0.7 H Neut % (Auto) 88.3 H Lymph % (Auto) 5.4 L [place] % (Auto) 5.5 Eos % (Auto) 0.0 Baso % (Auto) 0.1 L Lymph # (Auto) 0.48 L [place] # (Auto) 0.5 Eos # (Auto) 0.0 Baso # (Auto) 0.0 Abs Immat Gran (auto) 0.06 H Absolute Neuts (auto) 7.9 H Absolute Nucleated RBC 0.000 Nucleated RBC % 0.0 PT 17.1 H INR 1.3 Puncture Site Left radial ABG pH 7.327 L ABG pCO2 40.7 ABG pO2 107.0 H ABG PO2/FiO2 Ratio 3.34 ABG HCO3 20.8 L ABG O2 Saturation 97.6 ABG O2 Content 13.7 L ABG Base Excess -4.8 A-a Gradient 73.5 Oxyhemoglobin 96.2 Carboxyhemoglobin 0.5 Methemoglobin 0.3 Reduced Hemoglobin 3.0 Total Hemoglobin 10.0 L O2 Delivery Device Nasal cannula O2 Liters/Min 3.0 FiO2 32 Sodium 128 L Potassium 3.7 Chloride 103 Carbon Dioxide 21 L Anion Gap 4 BUN 134 H Creatinine 3.20 H Estim Creat Clear Calc 12 Estimated GFR 14 L Glucose 215 H POC Capillary Glucose Calcium 7.6 L Phosphorus 5.8 H Magnesium 2.5 H Total Bilirubin 0.9 Direct Bilirubin 0.0 AST 86 H ALT 86 H Alkaline Phosphatase 558 H Total Protein 4.0 L Albumin 2.1 L IgG 305 L IgA 79 IgM 34 L 11/09/24 11/09/24 09:34 11:02 WBC RBC Hgb Hct MCV MCH MCHC RDW Plt Count MPV Immature Gran % (Auto) Neut % (Auto) Lymph % (Auto) [place] % (Auto) Eos % (Auto) Baso % (Auto) Lymph # (Auto) [place] # (Auto) Eos # (Auto) Baso # (Auto) Abs Immat Gran (auto) Absolute Neuts (auto) Absolute Nucleated RBC Nucleated RBC % PT INR Puncture Site ABG pH ABG pCO2 ABG pO2 ABG PO2/FiO2 Ratio ABG HCO3 ABG O2 Saturation ABG O2 Content ABG Base Excess A-a Gradient Oxyhemoglobin Carboxyhemoglobin Methemoglobin Reduced Hemoglobin Total Hemoglobin O2 Delivery Device O2 Liters/Min FiO2 Sodium Potassium Chloride Carbon Dioxide Anion Gap BUN Creatinine Estim Creat Clear Calc Estimated GFR Glucose POC Capillary Glucose 221 H 176 H Calcium Phosphorus Magnesium Total Bilirubin Direct Bilirubin AST ALT Alkaline Phosphatase Total Protein Albumin IgG IgA IgM
[2024-11-09] MEDS: MIDODRINE HCL 2.5 MG TABLET PO ×2 (14:30→16:35)
[2024-11-09] MEDS: PRAMIPEXOLE 0.5 MG TABLET 1.5 MG PO ×2 (14:30→22:07)
[2024-11-09] MEDS: PANTOPRAZOLE SODIUM IV 40 MG VIAL IV PUSH (14:30)
[2024-11-09] MEDS: ALBUMIN HUMAN 25% 25 GM/100 ML 100 ML IVPB ×2 (14:46→18:34)
--- NOTE | 2024-11-09 14:50 | P.PNNP_ITS ---
Progress Note: A&P Assessment and Plan (1) SARAI (acute kidney injury): Code(s): N17.9 - Acute kidney failure, unspecified Status: Acute Assessment and Plan: * SARAI * evaluation to date noted: * renal ultrasound with chronic mild right hydronephrosis * urine electrolytes non-prerenal * urine eosinophils negative * CPK normal * UA suggests infection * mild proteinuria * suspect multifactorial etiology: * prerenal factors * relative hypotension/renal hypoperfusion * anemia/GI bleed * ARB + diuretic therapy prior to admission * possible NSAID use * infection (COVID + UTI) * getting IVFs and also nepro tfs. * creatinine stable but BUN rising. * steroids stopped. Hb stable so no longer actively bleeding. however hb did drop between yesterday and today * BUN rate of rise is decreasing. hopefully the bun will start falling soon. * check labs tomorrow. (2) Stage 3b chronic kidney disease: Code(s): N18.32 - Chronic kidney disease, stage 3b Status: Chronic Assessment and Plan: * baseline creatinine runs ~ 1.5 - 2.0mg/dl in the last year * however, she has been as hign as 2.5mg/dl in the past * this causes her to fluctuate between CKD stage 3b and stage 4 * secondary to hypertension, diabetes, vascular disease [hyperlipidemia, cardiomyopathy (EF ~ 35 - 40 %] and age-related change * follows with Dr. Reji Lamb for CKD management (3) Acute on chronic anemia: Code(s): D64.9 - Anemia, unspecified Status: Acute Assessment and Plan: * as noted with a Hgb of 6.8 on admission * suspect etiology due to hemorrhoids in conjunction with anticoagulation * still with some oozing per nursing * rivaroxaban on hold * continue HC cream * however, suspect a component related to CKD * PRBC transfusion per protocol (has received 2 units of PRBCs to date) * Gastroenterology following * hb dropped a bit. * will start epo (4) COVID: Code(s): U07.1 - COVID-19 Status: Acute Assessment and Plan: * as noted by admission viral testing * complicated by known history of COPD * started on remdesivir and dexamethasone * off steroids at this time * isolation per protocol * bronchodilators and albuterol inhaler as needed * weaned to room air (5) Acute UTI: Code(s): N39.0 - Urinary tract infection, site not specified Status: Acute Assessment and Plan: * admission UA suggestive * urine culture with Klebsiella * on cefdinir. (6) Heart failure with reduced ejection fraction: Code(s): I50.20 - Unspecified systolic (congestive) heart failure Status: Chronic Assessment and Plan: * known history * however, appears clinically volume depleted * holding diuretics * trial of IVFs * follow volume status closely (7) Atrial fibrillation with RVR: Code(s): I48.91 - Unspecified atrial fibrillation Status: Acute Assessment and Plan: * hr 70s to 105. * off metoprolol due to low BP * off anticoagulation due to #3 * continue supportive therapy (8) Diabetes: Code(s): E11.9 - Type 2 diabetes mellitus without complications Status: Chronic Assessment and Plan: * follow accu-checks * glycemic control per hospitalists Subjective Date/time seen: 11/09/24 14:50 Interval history: alert. daughters and granddaughter in room. pt coughing. no sob. very weak still not eating. she has an NG tube in getting nepro Exam Narrative: General: elderly but WD/WN female in NAD Heart: tachycardic, IRRR, normal S1 and S2; no rub Lungs: clear to auscultation, some upper airway noise. Abdomen: soft, nontender, nondistended, positive bowel sounds Extremities: no cyanosis or clubbing; no edema Skin: no rash Objective Data Vital Signs Vital Signs: Vital Signs - 24 hr 11/08/24 15:21 11/08/24 16:00 11/08/24 16:00 Temperature 97.5 F L Pulse Rate 98 89 Respiratory Rate 20 Blood Pressure 95/60 L Pulse Oximetry 96 Oxygen Delivery Nasal Cannula Oxygen Flow Rate 2 11/08/24 18:00 11/08/24 18:05 11/08/24 20:00 Temperature Pulse Rate 76 82 Respiratory Rate Blood Pressure 130/68 Pulse Oximetry Oxygen Delivery Oxygen Flow Rate 11/08/24 21:00 11/08/24 21:00 11/08/24 22:00 Temperature 97.7 F Pulse Rate 93 88 Respiratory Rate 20 Blood Pressure 90/56 L Pulse Oximetry 95 93 Oxygen Delivery Nasal Cannula Oxygen Flow Rate 2 11/08/24 22:14 11/08/24 23:30 11/09/24 00:00 Temperature 97.6 F Pulse Rate 84 Respiratory Rate 20 Blood Pressure 125/79 109/72 Pulse Oximetry 94 96 Oxygen Delivery Nasal Cannula Oxygen Flow Rate 2 11/09/24 00:00 11/09/24 01:58 11/09/24 04:00 Temperature Pulse Rate 84 79 Respiratory Rate Blood Pressure Pulse Oximetry 93 Oxygen Delivery Nasal Cannula Oxygen Flow Rate 2 11/09/24 04:00 11/09/24 04:32 11/09/24 06:00 Temperature 97.7 F Pulse Rate 78 83 86 Respiratory Rate 20 Blood Pressure 103/79 Pulse Oximetry 94 Oxygen Delivery Oxygen Flow Rate 11/09/24 07:42 11/09/24 07:42 11/09/24 08:00 Temperature 97.2 F L Pulse Rate 89 89 91 Respiratory Rate 18 18 20 Blood Pressure 106/62 Pulse Oximetry 95 98 Oxygen Delivery Nasal Cannula Oxygen Flow Rate 2 11/09/24 11:25 11/09/24 12:58 Temperature 98.6 F Pulse Rate 105 H 93 Respiratory Rate 20 20 Blood Pressure 119/75 Pulse Oximetry Oxygen Delivery Oxygen Flow Rate Intake/Output Intake/Output: Intake & Output 11/06/24 11/07/24 11/08/24 11/09/24 23:59 23:59 23:59 23:59 Intake Total 1930 1110 1290 1370 Output Total 875 700 450 700 Balance 1055 410 840 670 Meds/Results Medications: Active Medications Generic Name Dose Route Start Last Admin Trade Name Freq PRN Reason Stop Dose Admin Acetaminophen 650 mg 11/05/24 15:28 Acetaminophen 325 Mg Tablet PO Q6H PRN Mild Pain (1-3) or Fever Hydrocodone Bitart/Acetaminophen 1 tab 11/05/24 17:49 Hydrocodone/Acetaminophen (*Crx) 5-325 Mg Tablet PO Q4H PRN pain 4-6 Albuterol 2 puff 11/06/24 20:00 11/09/24 12:58 Albuterol Sulfate (*Sp) Aerosol 1 Puff INHALATION 2 puff [id number] DEEP Administration Albuterol/Ipratropium 3 ml 11/05/24 16:21 Ipratropium 0.5 Mg/Albuterol Sulfate 2.5 Mg Ampul.Neb 3 Ml INHALATION Q6HRT PRN Shortness Of Breath Or Wheezing Benzonatate 200 mg 11/05/24 17:49 11/07/24 13:47 Benzonatate 100 Mg Capsule PO 200 mg TID PRN Administration cough Buspirone HCl 2.5 mg 11/07/24 10:50 11/09/24 11:22 Buspirone Hcl 2.5 Mg Tablet PO 2.5 mg Q12HR DEEP Administration Calcitriol 0.25 mcg 11/06/24 09:00 11/09/24 11:23 Calcitriol 0.25 Mcg Capsule PO 0.25 mcg DAILY DEEP Administration Cefdinir 300 mg 11/07/24 21:00 11/08/24 21:26 Cefdinir 300 Mg Capsule PO 11/11/24 21:01 300 mg 2100 DEEP Administration Collagenase 1 applic 11/06/24 09:00 11/08/24 10:03 Collagenase Oint 30 Gm Tube TOPICAL 1 applic DAILY DEEP Administration Dextrose 12.5 gm 11/09/24 13:38 Dextrose 50% 25 Gm/50 Ml Syringe IV PUSH PRN PRN Hypoglycemia Protocol Diclofenac Sodium 1 applic 11/05/24 18:00 Diclofenac Sodium 1% 100 Gm Gel (*Bkc) TOPICAL TID PRN ARTHRITIS PAIN Gabapentin 200 mg 11/06/24 09:00 11/09/24 14:47 Gabapentin 100 Mg Capsule PO Not Given TID DEEP Glucagon 1 mg 11/09/24 13:38 Glucagon For Inj 1 Mg Vial IM PRN PRN Hypoglycemia Protocol Glucose 15 gm 11/09/24 13:38 Glucose Oral Gel 15 Gm Of Glucse In 37.5 Gm Tube PO PRN PRN Hypoglycemia Protocol Guaifenesin 1,200 mg 11/05/24 21:00 11/09/24 11:22 Guaifenesin 12 Hr 600 Mg Tabcr PO 1,200 mg Q12HR DEEP Administration Hydrocortisone 1 applic 11/06/24 21:00 11/09/24 11:24 Hydrocortisone 2.5% Cream 30 Gm Tube TOPICAL Not Given Q12HR DEEP Remdesivir 100 mg in 250 mls @ 250 mls/hr 11/06/24 22:00 11/08/24 21:27 IVPB 11/09/24 22:59 250 mls/hr Q24H DEEP Administration Sodium Chloride 1,000 mls @ 100 mls/hr 11/08/24 12:40 11/09/24 14:46 Normal Saline Iv IV CONT 100 mls/hr .Q10H DEEP Administration Albumin Human 100 mls @ 60 mls/hr 11/09/24 12:00 11/09/24 14:46 Albutein IVPB 11/10/24 07:39 60 mls/hr Q6HR DEEP Administration Dextrose 1,000 mls @ 100 mls/hr 11/09/24 13:38 Dextrose 5% 1,000 Ml IVPB PRN PRN Hypoglycemia Protocol Insulin Aspart 3 - 6 units 11/09/24 18:00 Insulin Aspart (*Bkc) 100 Units/Ml SUB-Q Q6HR DEEP Protocol Insulin Glargine 10 units 11/09/24 21:00 Insulin Glargine (*Bkc) 100 Units/Ml SUB-Q HS DEEP Lactobacillus Acidophilus 1 tablet 11/06/24 09:00 11/09/24 11:23 Acidophilus/Bulgaricus Chewable Tablet PO 1 tablet BID DEEP Administration Metoprolol Succinate 100 mg 11/10/24 09:00 Metoprolol Succinate Ext Rel 100 Mg Tabcr PO QAM DEEP Midodrine 2.5 mg 11/09/24 14:00 Midodrine Hcl 2.5 Mg Tablet PO TID DEEP Pantoprazole Sodium 40 mg 11/10/24 09:00 Pantoprazole Sodium Iv 40 Mg Vial IV PUSH QAM DEEP Pramipexole Dihydrochloride 1.5 mg 11/05/24 22:00 11/09/24 05:26 Pramipexole 0.5 Mg Tablet PO Not Given Q8HR DEEP Umeclidinium/Vilanterol 1 puff 11/06/24 09:00 11/09/24 07:10 Umeclidinium/Vilanterol 62.5-25 Mcg Ellipta INHALATION 1 puff DAILY DEEP Administration Radiology Results: ITS Impressions Chest X-Ray 11/05/24 11:31 IMPRESSION: Cardiomegaly with cardiac decompensation and pulmonary edema. Superimposed pneumonitis is not excluded. Left basilar atelectasis versus pneumonia with pleural effusion. Renal Ultrasound 11/05/24 22:02 IMPRESSION: 1. Normal kidney sizes. 2. Chronic mild right hydronephrosis. Labs Labs: Laboratory Results - last 24 hr 11/08/24 11/09/24 11/09/24 23:23 03:27 03:35 WBC 8.9 RBC 3.25 L Hgb 9.7 L Hct 30.3 L MCV 93.2 MCH 29.8 MCHC 32.0 RDW 18.8 H Plt Count 193 MPV 11.7 H Immature Gran % (Auto) 0.7 H Neut % (Auto) 88.3 H Lymph % (Auto) 5.[address] % (Auto) 5.5 Eos % (Auto) 0.0 Baso % (Auto) 0.1 L Lymph # (Auto) 0.[address] # (Auto) 0.5 Eos # (Auto) 0.0 Baso # (Auto) 0.0 Abs Immat Gran (auto) 0.06 H Absolute Neuts (auto) 7.9 H Absolute Nucleated RBC 0.000 Nucleated RBC % 0.0 PT 17.1 H INR 1.3 Puncture Site Left radial ABG pH 7.327 L ABG pCO2 40.7 ABG pO2 107.0 H ABG PO2/FiO2 Ratio 3.34 ABG HCO3 20.8 L ABG O2 Saturation 97.6 ABG O2 Content 13.7 L ABG Base Excess -4.8 A-a Gradient 73.5 Oxyhemoglobin 96.2 Carboxyhemoglobin 0.5 Methemoglobin 0.3 Reduced Hemoglobin 3.0 Total Hemoglobin 10.0 L O2 Delivery Device Nasal cannula O2 Liters/Min 3.0 FiO2 32 Sodium 128 L Potassium 3.7 Chloride 103 Carbon Dioxide 21 L Anion Gap 4 BUN 134 H Creatinine 3.20 H Estim Creat Clear Calc 12 Estimated GFR 14 L Glucose 215 H POC Capillary Glucose Calcium 7.6 L Phosphorus 5.8 H Magnesium 2.5 H Total Bilirubin 0.9 Direct Bilirubin 0.0 AST 86 H ALT 86 H Alkaline Phosphatase 558 H Total Protein 4.0 L Albumin 2.1 L IgG 305 L IgA 79 IgM 34 L 11/09/24 11/09/24 09:34 11:02 WBC RBC Hgb Hct MCV MCH MCHC RDW Plt Count MPV Immature Gran % (Auto) Neut % (Auto) Lymph % (Auto) Lane % (Auto) Eos % (Auto) Baso % (Auto) Lymph # (Auto) Lane # (Auto) Eos # (Auto) Baso # (Auto) Abs Immat Gran (auto) Absolute Neuts (auto) Absolute Nucleated RBC Nucleated RBC % PT INR Puncture Site ABG pH ABG pCO2 ABG pO2 ABG PO2/FiO2 Ratio ABG HCO3 ABG O2 Saturation ABG O2 Content ABG Base Excess A-a Gradient Oxyhemoglobin Carboxyhemoglobin Methemoglobin Reduced Hemoglobin Total Hemoglobin O2 Delivery Device O2 Liters/Min FiO2 Sodium Potassium Chloride Carbon Dioxide Anion Gap BUN Creatinine Estim Creat Clear Calc Estimated GFR Glucose POC Capillary Glucose 221 H 176 H Calcium Phosphorus Magnesium Total Bilirubin Direct Bilirubin AST ALT Alkaline Phosphatase Total Protein Albumin IgG IgA IgM
[2024-11-09 17:02] LABS: Glucose Point of Care 171 mg/dl (65-105)
[2024-11-09] MEDS: REMDESIVIR 100 MG/NS 250 ML 100 MG/250 ML BAG 250 MG IVPB (22:06)
[2024-11-09] MEDS: CEFDINIR 300 MG CAPSULE PO (22:07)
[2024-11-09] MEDS: INSULIN GLARGINE (*BKC) 100 UNITS/ML 10 UNITS SUB-Q (22:19)
[2024-11-10] VITALS (22 sets, daily range): BP systolic 90–128; BP diastolic 56–90; PULSE 85–122; RESP 20–32; TEMP 36.7–37.7; O2SAT 87–98
[2024-11-10 01:21] LABS: Glucose Point of Care 151 mg/dl (65-105)
[2024-11-10] MEDS: ALBUMIN HUMAN 25% 25 GM/100 ML 100 ML IVPB ×4 (01:24→23:56)
[2024-11-10] MEDS: SODIUM CHLORIDE 0.9% IV 1,000 ML 100 ML IV CONT (03:50)
[2024-11-10 05:06] LABS: Basophils Percent Auto 0.1 % (0.2-1.2); Eosinophils Percent Auto 0.1 % (0-4.4); Hematocrit 26.7 % (37.0-47.0); Hemoglobin 8.3 g/dL (12.0-15.0); Immature Granulocyte Absolute 0.07 K/mm3 (0.00-0.031); Lymphocytes Absolute Auto 0.48 K/mm3 (0.9-3.2); Lymphocytes Percent Auto 6.8 % (18.3-44.2); Mean Corpuscular HGB Conc 31.1 g/dl (32-36); Mean Corpuscular Volume 93.4 fl (80-100); Mean Platelet Volume 11.6 fl (7.4-10.4); Monocytes Absolute Auto 0.3 K/mm3 (0.1-0.6); Monocytes Percent Auto 4.5 % (2.6-8.5); Neutrophils Absolute Auto 6.2 K/mm3 (1.3-6.7); Neutrophils Percent Auto 87.5 % (45.5-73.1); Platelet Count Result 153 k/mm3 (150-375); Red Blood Count 2.86 M/mm3 (4.2-5.4); Red Cell Distribution Width 18.5 % (11.5-14.5); White Blood Count 7.1 K/mm3 (4.5-10.0)
[2024-11-10] MEDS: PRAMIPEXOLE 0.5 MG TABLET 1.5 MG PO (05:14)
[2024-11-10 05:16] LABS: Alanine Aminotransferase 77 U/L (6-35); Albumin Level 2.7 g/dL (3.5-5.1); Alkaline Phosphatase 524 U/L (38-126); Anion Gap 7 mmol/L (4-12); Aspartate Amino Transferase 81 U/L (14-36); Calcium 7.9 mg/dL (8.4-10.2); Carbon Dioxide 22 mmol/L (22-30); Chloride 105 mmol/L (98-107); Estimated CRCL calculation 12 ml/min; Estimated Glomerular Filt Rate 12; Glucose 142 mg/dL (65-110); Potassium 3.4 mmol/L (3.4-5.0); Sodium 134 mmol/L (137-145)
[2024-11-10 05:29] LABS: Blood Urea Nitrogen 129 mg/dL (7-17)
[2024-11-10] MEDS: ALBUTEROL SULFATE (*SP) AEROSOL 1 PUFF 2 PUFF INHALATION ×3 (08:00→19:59)
[2024-11-10] MEDS: UMECLIDINIUM/VILANTEROL 62.5-25 MCG ELLIPTA 1 PUFF INHALATION (08:00)
--- NOTE | 2024-11-10 09:52 | P.PNNP_ITS ---
Progress Note: A&P Assessment and Plan (1) SARAI (acute kidney injury): Code(s): N17.9 - Acute kidney failure, unspecified Status: Acute Assessment and Plan: * SARAI * evaluation to date noted: * renal ultrasound with chronic mild right hydronephrosis * urine electrolytes non-prerenal * urine eosinophils negative * CPK normal * UA suggests infection * mild proteinuria * suspect multifactorial etiology: * prerenal factors * relative hypotension/renal hypoperfusion * anemia/GI bleed * ARB + diuretic therapy prior to admission * possible NSAID use * infection (COVID + UTI) * getting IVFs and also nepro tfs. * Since she is tolerating the Nepro and getting tube feeding flushes will decrease IV fluid rate * creatinine is a little higher. BUN is dropping. * Continue fluids and antibiotics. * Continue treatment of COVID (2) Stage 3b chronic kidney disease: Code(s): N18.32 - Chronic kidney disease, stage 3b Status: Chronic Assessment and Plan: * baseline creatinine runs ~ 1.5 - 2.0mg/dl in the last year * however, she has been as hign as 2.5mg/dl in the past * this causes her to fluctuate between CKD stage 3b and stage 4 * secondary to hypertension, diabetes, vascular disease [hyperlipidemia, cardiomyopathy (EF ~ 35 - 40 %] and age-related change * follows with Dr. Reji Lamb for CKD management (3) Acute on chronic anemia: Code(s): D64.9 - Anemia, unspecified Status: Acute Assessment and Plan: * as noted with a Hgb of 6.8 on admission * suspect etiology due to hemorrhoids in conjunction with anticoagulation * still with some oozing per nursing * rivaroxaban on hold * continue HC cream * however, suspect a component related to CKD * PRBC transfusion per protocol (has received 2 units of PRBCs to date) * Gastroenterology following * hb in the 8s range * will start epo today and continue TTS (4) COVID: Code(s): U07.1 - COVID-19 Status: Acute Assessment and Plan: * as noted by admission viral testing * complicated by known history of COPD * started on remdesivir and dexamethasone * off steroids due to the high BUN * isolation per protocol * bronchodilators and albuterol inhaler as needed * weaned to room air * No shortness of breath but still coughing (5) Acute UTI: Code(s): N39.0 - Urinary tract infection, site not specified Status: Acute Assessment and Plan: * admission UA suggestive * urine culture with Klebsiella * on cefdinir. (6) Heart failure with reduced ejection fraction: Code(s): I50.20 - Unspecified systolic (congestive) heart failure Status: Chronic Assessment and Plan: * known history * however, appears clinically volume depleted * holding diuretics * trial of IVFs * follow volume status closely (7) Atrial fibrillation with RVR: Code(s): I48.91 - Unspecified atrial fibrillation Status: Acute Assessment and Plan: * hr 70s to 105. * off metoprolol due to low BP * off anticoagulation due to #3 * continue supportive therapy (8) Diabetes: Code(s): E11.9 - Type 2 diabetes mellitus without complications Status: Chronic Assessment and Plan: * follow accu-checks * glycemic control per hospitalists Subjective Date/time seen: 11/10/24 09:52 Interval history: Genny feels about the same today. No shortness of breath Still coughing Hoping to eat more today she said Exam Narrative: General: WD/WN female in NAD, coughing frequently Heart: tachycardic, IRRR, normal S1 and S2; no rub Lungs: Bilateral mild upper airway noise. Abdomen: positive bowel sounds, nontender Extremities: no edema Skin: no rash Objective Data Vital Signs Vital Signs: Vital Signs - 24 hr 11/09/24 10:00 11/09/24 10:00 11/09/24 10:05 Temperature Pulse Rate 96 Respiratory Rate Blood Pressure 85/46 L 85/53 L Pulse Oximetry Oxygen Delivery Oxygen Flow Rate 11/09/24 11:25 11/09/24 12:00 11/09/24 12:00 Temperature 98.6 F Pulse Rate 105 H 111 H Respiratory Rate 20 Blood Pressure 119/75 Pulse Oximetry 93 Oxygen Delivery Nasal Cannula Oxygen Flow Rate 3 11/09/24 12:58 11/09/24 14:00 11/09/24 16:00 Temperature 99.1 F Pulse Rate 93 105 H 112 H Respiratory Rate 20 20 Blood Pressure 98/74 L Pulse Oximetry 98 Oxygen Delivery Oxygen Flow Rate 11/09/24 16:00 11/09/24 16:00 11/09/24 18:00 Temperature Pulse Rate 85 97 Respiratory Rate Blood Pressure Pulse Oximetry 95 Oxygen Delivery Nasal Cannula Oxygen Flow Rate 3 11/09/24 20:00 11/09/24 20:00 11/09/24 20:00 Temperature Pulse Rate 79 91 Respiratory Rate Blood Pressure Pulse Oximetry 97 Oxygen Delivery Nasal Cannula Oxygen Flow Rate 3 11/09/24 20:09 11/09/24 21:08 11/09/24 22:00 Temperature 98.4 F Pulse Rate 85 84 Respiratory Rate 20 Blood Pressure 96/61 L Pulse Oximetry 95 98 Oxygen Delivery Nasal Cannula Oxygen Flow Rate 2 11/10/24 00:00 11/10/24 00:00 11/10/24 00:10 Temperature 98.4 F Pulse Rate 93 85 Respiratory Rate 20 Blood Pressure 105/56 L Pulse Oximetry 96 98 Oxygen Delivery Nasal Cannula Oxygen Flow Rate 3 11/10/24 02:00 11/10/24 04:00 11/10/24 04:00 Temperature Pulse Rate 86 92 Respiratory Rate Blood Pressure Pulse Oximetry 96 Oxygen Delivery Nasal Cannula Oxygen Flow Rate 3 11/10/24 04:27 11/10/24 06:00 11/10/24 07:53 Temperature 98.0 F 99.5 F Pulse Rate 98 107 H 118 H Respiratory Rate 20 28 H Blood Pressure 111/68 128/90 Pulse Oximetry 97 96 Oxygen Delivery Oxygen Flow Rate 11/10/24 08:03 Temperature Pulse Rate Respiratory Rate Blood Pressure Pulse Oximetry 95 Oxygen Delivery Nasal Cannula Oxygen Flow Rate 2 Intake/Output Intake/Output: Intake & Output 11/07/24 11/08/24 11/09/24 11/10/24 23:59 23:59 23:59 23:59 Intake Total 1110 1540 1690 1200 Output Total 349 582 5858 400 Balance 410 1090 690 800 Meds/Results Medications: Active Medications Generic Name Dose Route Start Last Admin Trade Name Freq PRN Reason Stop Dose Admin Acetaminophen 650 mg 11/05/24 15:28 Acetaminophen 325 Mg Tablet PO Q6H PRN Mild Pain (1-3) or Fever Hydrocodone Bitart/Acetaminophen 1 tab 11/05/24 17:49 Hydrocodone/Acetaminophen (*Crx) 5-325 Mg Tablet PO Q4H PRN pain 4-6 Albuterol 2 puff 11/06/24 20:00 11/10/24 08:00 Albuterol Sulfate (*Sp) Aerosol 1 Puff INHALATION 2 puff [id number] DEEP Administration Albuterol/Ipratropium 3 ml 11/05/24 16:21 Ipratropium 0.5 Mg/Albuterol Sulfate 2.5 Mg Ampul.Neb 3 Ml INHALATION Q6HRT PRN Shortness Of Breath Or Wheezing Benzonatate 200 mg 11/05/24 17:49 11/07/24 13:47 Benzonatate 100 Mg Capsule PO 200 mg TID PRN Administration cough Buspirone HCl 2.5 mg 11/07/24 10:50 11/09/24 22:07 Buspirone Hcl 2.5 Mg Tablet PO 2.5 mg Q12HR DEEP Administration Calcitriol 0.25 mcg 11/06/24 09:00 11/09/24 11:23 Calcitriol 0.25 Mcg Capsule PO 0.25 mcg DAILY DEEP Administration Cefdinir 300 mg 11/07/24 21:00 11/09/24 22:07 Cefdinir 300 Mg Capsule PO 11/11/24 21:01 300 mg 2100 DEEP Administration Collagenase 1 applic 11/06/24 09:00 11/09/24 09:00 Collagenase Oint 30 Gm Tube TOPICAL 1 applic DAILY DEEP Administration Dextrose 12.5 gm 11/09/24 13:38 Dextrose 50% 25 Gm/50 Ml Syringe IV PUSH PRN PRN Hypoglycemia Protocol Diclofenac Sodium 1 applic 11/05/24 18:00 Diclofenac Sodium 1% 100 Gm Gel (*Bkc) TOPICAL TID PRN ARTHRITIS PAIN Gabapentin 200 mg 11/06/24 09:00 11/09/24 16:35 Gabapentin 100 Mg Capsule PO 200 mg TID DEEP Administration Glucagon 1 mg 11/09/24 13:38 Glucagon For Inj 1 Mg Vial IM PRN PRN Hypoglycemia Protocol Glucose 15 gm 11/09/24 13:38 Glucose Oral Gel 15 Gm Of Glucse In 37.5 Gm Tube PO PRN PRN Hypoglycemia Protocol Guaifenesin 1,200 mg 11/05/24 21:00 11/09/24 22:07 Guaifenesin 12 Hr 600 Mg Tabcr PO 1,200 mg Q12HR DEEP Administration Hydrocortisone 1 applic 11/06/24 21:00 11/10/24 01:25 Hydrocortisone 2.5% Cream 30 Gm Tube TOPICAL Not Given Q12HR [facility] Sodium Chloride 1,000 mls @ 100 mls/hr 11/08/24 12:40 11/10/24 03:50 Normal Saline Iv IV CONT 100 mls/hr .Q10H DEEP Administration Dextrose 1,000 mls @ 100 mls/hr 11/09/24 13:38 Dextrose 5% 1,000 Ml IVPB PRN PRN Hypoglycemia Protocol Insulin Aspart 3 - 6 units 11/09/24 18:00 11/10/24 06:00 Insulin Aspart (*Bkc) 100 Units/Ml SUB-Q Not Given Q6HR DEEP Protocol Insulin Glargine 10 units 11/09/24 21:00 11/09/24 22:19 Insulin Glargine (*Bkc) 100 Units/Ml SUB-Q 10 units HS DEEP Administration Lactobacillus Acidophilus 1 tablet 11/06/24 09:00 11/09/24 16:35 Acidophilus/Bulgaricus Chewable Tablet PO 1 tablet BID DEEP Administration Metoprolol Succinate 100 mg 11/10/24 09:00 Metoprolol Succinate Ext Rel 100 Mg Tabcr PO QAM DEEP Midodrine 2.5 mg 11/09/24 14:00 11/09/24 16:35 Midodrine Hcl 2.5 Mg Tablet PO 2.5 mg TID DEEP Administration Pantoprazole Sodium 40 mg 11/10/24 09:00 Pantoprazole Sodium Iv 40 Mg Vial IV PUSH QAM DEEP Pramipexole Dihydrochloride 1.5 mg 11/05/24 22:00 11/10/24 05:14 Pramipexole 0.5 Mg Tablet PO 1.5 mg Q8HR DEEP Administration Umeclidinium/Vilanterol 1 puff 11/06/24 09:00 11/10/24 08:00 Umeclidinium/Vilanterol 62.5-25 Mcg Ellipta INHALATION 1 puff DAILY DEEP Administration Radiology Results: ITS Impressions Renal Ultrasound 11/05/24 22:02 IMPRESSION: 1. Normal kidney sizes. 2. Chronic mild right hydronephrosis. Chest X-Ray 11/09/24 15:51 IMPRESSION: Bilateral lower lung infiltrate/atelectasis, including particularly left lower lobe atelectasis and/or consolidation; the right lower lung infiltrate is largely new 04/05/2024 Cardiomegaly Small pleural effusions are suggested Abdomen X-Ray 11/09/24 15:54 IMPRESSION: NG tube tip in body of stomach Labs Labs: Laboratory Results - last 24 hr 11/09/24 11/09/24 11/09/24 09:34 11:02 16:51 WBC RBC Hgb Hct MCV MCH MCHC RDW Plt Count MPV Immature Gran % (Auto) Neut % (Auto) Lymph % (Auto) [place] % (Auto) Eos % (Auto) Baso % (Auto) Lymph # (Auto) [place] # (Auto) Eos # (Auto) Baso # (Auto) Abs Immat Gran (auto) Absolute Neuts (auto) Absolute Nucleated RBC Nucleated RBC % Sodium Potassium Chloride Carbon Dioxide Anion Gap BUN Creatinine Estim Creat Clear Calc Estimated GFR Glucose POC Capillary Glucose 221 H 176 H 171 H Calcium Total Bilirubin AST ALT Alkaline Phosphatase Total Protein Albumin 11/10/24 11/10/24 01:17 04:10 WBC 7.1 RBC 2.86 L Hgb 8.3 L Hct 26.7 L MCV 93.4 MCH 29.0 MCHC 31.1 L RDW 18.5 H Plt Count 153 MPV 11.6 H Immature Gran % (Auto) 1.0 H Neut % (Auto) 87.5 H Lymph % (Auto) 6.8 L [place] % (Auto) 4.5 Eos % (Auto) 0.1 Baso % (Auto) 0.1 L Lymph # (Auto) 0.48 L [place] # (Auto) 0.3 Eos # (Auto) 0.0 Baso # (Auto) 0.0 Abs Immat Gran (auto) 0.07 H Absolute Neuts (auto) 6.2 Absolute Nucleated RBC 0.000 Nucleated RBC % 0.0 Sodium 134 L Potassium 3.4 Chloride 105 Carbon Dioxide 22 Anion Gap 7 BUN 129 H Creatinine 3.50 H Estim Creat Clear Calc 12 Estimated GFR 12 L Glucose 142 H POC Capillary Glucose 151 H Calcium 7.9 L Total Bilirubin 1.0 AST 81 H ALT 77 H Alkaline Phosphatase 524 H Total Protein 5.0 L Albumin 2.7 L
[2024-11-10] MEDS: PANTOPRAZOLE SODIUM IV 40 MG VIAL IV PUSH (10:00)
[2024-11-10] MEDS: METOPROLOL SUCCINATE EXT REL 100 MG TABCR PO ×2 (10:10→10:12)
[2024-11-10] MEDS: guaiFENesin 12 HR 600 MG TABCR 1200 MG PO (11:37)
[2024-11-10] MEDS: GABAPENTIN 100 MG CAPSULE 200 MG PO (11:37)
[2024-11-10] MEDS: COLLAGENASE OINT 30 GM TUBE 1 APPLIC TOPICAL (11:39)
[2024-11-10] MEDS: HYDROCORTISONE 2.5% CREAM 30 GM TUBE 1 APPLIC TOPICAL ×2 (11:39→21:10)
[2024-11-10] MEDS: MIDODRINE HCL 2.5 MG TABLET FEED TUBE (11:39)
[2024-11-10 11:40] LABS: Glucose Point of Care 139 mg/dl (65-105)
[2024-11-10] MEDS: EPOETIN ALFA-EPBX 10,000 UNITS/ML VIAL 10000 UNITS SUB-Q (14:48)
[2024-11-10] MEDS: GABAPENTIN 100 MG CAPSULE 200 MG FEED TUBE ×2 (14:48→18:49)
[2024-11-10] MEDS: PRAMIPEXOLE 0.5 MG TABLET 1.5 MG FEED TUBE ×2 (14:48→21:09)
--- NOTE | 2024-11-10 15:42 | PCPTNOTE ---
Attempted to see patient for Physical Therapy this date. Patient's daughter reports that patient is struggling today. She reports that she is really tired and she is just having her try to squeeze the play jimenez with her hands and lift her arms. Patient and her daughter declined for patient to be seen for therapy today.
--- NOTE | 2024-11-10 15:59 | PM.IMPN ---
Progress Note: A&P Assessment and Plan (1) Hypotension: Code(s): I95.9 - Hypotension, unspecified Status: Acute Assessment and Plan: BP soft at times related to anemia, poor oncotic pressure (albumin 2.1) and home meds. Metoprolol held IV fluids started. Albumin x 4 bags. Midodrine added. CXR yesterday reviewed showing bibasilar infiltrates/atelectasis. Now with higher O2 requirement Probably getting fluid overloaded. Stop IV fluids. Advance midodrine. Bumex once. (2) Acute on chronic kidney failure: Code(s): N17.9 - Acute kidney failure, unspecified; N18.9 - Chronic kidney disease, unspecified Status: Acute Assessment and Plan: Patient with SARAI with Cr 3.5. Baseline Cr 1.4-2.1. SARAI/CKD felt to be multifactorial including dehydration from poor oral intake, hypoperfusion from relative HoTN and hypovolemia from the anemia. Also on an ARB. Renal US showing mild right hydronephrosis which is chronic. Greco catheter inserted for strict I/O. Urine electrolytes showing Johnathan 42 with FENa 1.4% to suggest renal disease. Cr up to 3.5 but BUN 129 now. BUN elevation related somewhat to the steroids but these were stopped a few days ago. Consider catabolic from poor oral intake and better now with TF going. Nephrology consulted and appreciate their input. IV fluids given since Cheetah showing she was fluid responsive. Albumin given since albumin was 2.1. Continued TF. Stop IV fluids. Advance midodrine. Talked with nephrology about Bumex and repeating Albumin and they agreed. Avoid all nephrotoxic agents and renally dose medications as appropriate. (3) Acute on chronic anemia: Code(s): D64.9 - Anemia, unspecified Status: Acute Assessment and Plan: The patient presented to the emergency department for evaluation of lethargy, sore throat and cough. She has chronic anemia but Hgb was 6.8. Acute anemia may be due to bleeding hemorrhoids. Holding rivaroxaban. She was transfused 2U PRBCs. Repeat Hgb was up to 11 abut dropped to 8.3 possibly due to IV fluids. Still having oozing but no melena. Monitor HH and transfuse to a stable Hgb. GI consulted and appreciate their input. Continue HC cream for hemorrhoids (4) Atrial fibrillation with RVR: Code(s): I48.91 - Unspecified atrial fibrillation Status: Acute Assessment and Plan: Patient with AFib and is mostly rate controlled. She takes Toprol XL 200mg daily but have held this due to soft BP. On Xarelto at home but held due to anemia and bleeding. HR 100-120 range today. Follow. Resume metoprolol as BP allows. (5) COVID: Code(s): U07.1 - COVID-19 Status: Acute Assessment and Plan: Patient found to have COVID and was started on remdesivir and dexamethasone. Isolation per protocol. Bronchodilators prn. Albuterol inhaler added. Dexamethasone stopped due to rising BUN. Back on oxygen now related to above Completed Remdesivir. Will not extend treatment to 10 days since feel other etiologies causing her hypoxia (6) Acute UTI: Code(s): N39.0 - Urinary tract infection, site not specified Status: Acute Assessment and Plan: UA is consistent with UTI. UCx collected. Rocephin started. UCx growing pansensitive Klebsiella. Continue abx (7) Bleeding hemorrhoids: Code(s): K64.9 - Unspecified hemorrhoids Status: Acute Assessment and Plan: Bleeding hemorrhoids may be at least partially the etiology of the anemia. Symptomatic treatment for now. (8) Heart failure with reduced ejection fraction: Code(s): I50.20 - Unspecified systolic (congestive) heart failure Status: Chronic Assessment and Plan: She has chronic systolic and diastolic CHF. Echo Oct showing EF 35-40% with diastolic dysfunction. She was fluid responsive yesterday so IV fluids continued but suspect fluid overload/acute CHF now. Stop IVF and Bumex x1. Monitor renal fxn and give diuretics as she tolerates (9) Rheumatoid arthritis: Code(s): M06.9 - Rheumatoid arthritis, unspecified Status: Acute Assessment and Plan: Stable (10) COPD (chronic obstructive pulmonary disease): Qualifiers: COPD type: COPD with acute exacerbation Qualified Code(s): J44.1 - Chronic obstructive pulmonary disease with (acute) exacerbation Code(s): J44.9 - Chronic obstructive pulmonary disease, unspecified Status: Acute Assessment and Plan: She has COPD but not felt to have exacerbation. Follow. Albuterol HFA ordered. Plan DVT Prophylaxis - SCDs due to her anemia. Code status - DNR Subjective Date/time seen: 11/10/24 15:59 Interval history: 84yo female with chronic respiratory failure with hypoxia on home oxygen, COPD, systolic CHF, Chronic AFib on anticoagulation, CKD, chronic anemia, HTN and RA who presented to the emergency department via EMS for evaluation of lethargy. Slept well. No CP. Denies feeling SOB. No n/v. Concern for aspiration last night when taking her pills. Exam Narrative: AF 98.8 119/84 105 32 97% 3L Gen - tachypneic HEENT NGT secured Chest - crackles in the flanks. CV - irregularly irregular. Tele showing AFib with mildly eelvated HR Abd - Soft, NT/ND, Positive BS - Greco secured draining clear yellow urine Ext - trace LE pedal edema; 1+ Rt UE edema Neuro - Alert and apprpriate Skin - Warm and dry Objective Data Vital Signs Vital Signs: Vital Signs - 24 hr 11/09/24 16:00 11/09/24 16:00 11/09/24 16:00 Temperature 99.1 F Pulse Rate 112 H 85 Respiratory Rate 20 Blood Pressure 98/74 L Pulse Oximetry 98 95 Oxygen Delivery Nasal Cannula Oxygen Flow Rate 3 11/09/24 18:00 11/09/24 20:00 11/09/24 20:00 Temperature Pulse Rate 97 79 Respiratory Rate Blood Pressure Pulse Oximetry 97 Oxygen Delivery Nasal Cannula Oxygen Flow Rate 3 11/09/24 20:00 11/09/24 20:09 11/09/24 21:08 Temperature 98.4 F Pulse Rate 91 85 Respiratory Rate 20 Blood Pressure 96/61 L Pulse Oximetry 95 98 Oxygen Delivery Nasal Cannula Oxygen Flow Rate 2 11/09/24 22:00 11/10/24 00:00 11/10/24 00:00 Temperature Pulse Rate 84 93 Respiratory Rate Blood Pressure Pulse Oximetry 96 Oxygen Delivery Nasal Cannula Oxygen Flow Rate 3 11/10/24 00:10 11/10/24 02:00 11/10/24 04:00 Temperature 98.4 F Pulse Rate 85 86 Respiratory Rate 20 Blood Pressure 105/56 L Pulse Oximetry 98 96 Oxygen Delivery Nasal Cannula Oxygen Flow Rate 3 11/10/24 04:00 11/10/24 04:27 11/10/24 06:00 Temperature 98.0 F Pulse Rate 92 98 107 H Respiratory Rate 20 Blood Pressure 111/68 Pulse Oximetry 97 Oxygen Delivery Oxygen Flow Rate 11/10/24 07:53 11/10/24 08:00 11/10/24 08:00 Temperature 99.5 F Pulse Rate 118 H 112 H Respiratory Rate 28 H Blood Pressure 128/90 Pulse Oximetry 96 94 Oxygen Delivery Nasal Cannula Oxygen Flow Rate 3 11/10/24 08:03 11/10/24 10:00 11/10/24 10:10 Temperature Pulse Rate 122 H 116 H Respiratory Rate Blood Pressure Pulse Oximetry 95 Oxygen Delivery Nasal Cannula Oxygen Flow Rate 2 11/10/24 10:12 11/10/24 12:00 11/10/24 12:00 Temperature Pulse Rate 116 H 105 H Respiratory Rate Blood Pressure Pulse Oximetry 97 Oxygen Delivery Nasal Cannula Oxygen Flow Rate 3 11/10/24 12:00 Temperature 98.8 F Pulse Rate 104 H Respiratory Rate 32 H Blood Pressure 119/84 Pulse Oximetry 91 Oxygen Delivery Oxygen Flow Rate Intake/Output Intake/Output: Intake & Output 11/07/24 11/08/24 11/09/24 11/10/24 23:59 23:59 23:59 23:59 Intake Total 1110 1540 1690 1200 Output Total 096 827 7199 400 Balance 410 1090 690 800 Meds/Results Medications: Active Medications Generic Name Dose Route Start Last Admin Trade Name Freq PRN Reason Stop Dose Admin Acetaminophen 650 mg 11/10/24 11:07 Acetaminophen 325 Mg Tablet FEED TUBE Q6H PRN Mild Pain (1-3) or Fever Hydrocodone Bitart/Acetaminophen 1 tab 11/05/24 17:49 Hydrocodone/Acetaminophen (*Crx) 5-325 Mg Tablet PO Q4H PRN pain 4-6 Albuterol 2 puff 11/06/24 20:00 11/10/24 14:29 Albuterol Sulfate (*Sp) Aerosol 1 Puff INHALATION 2 puff [id number] DEEP Administration Albuterol/Ipratropium 3 ml 11/05/24 16:21 Ipratropium 0.5 Mg/Albuterol Sulfate 2.5 Mg Ampul.Neb 3 Ml INHALATION Q6HRT PRN Shortness Of Breath Or Wheezing Benzonatate 200 mg 11/05/24 17:49 11/07/24 13:47 Benzonatate 100 Mg Capsule PO 200 mg TID PRN Administration cough Buspirone HCl 2.5 mg 11/10/24 21:00 Buspirone Hcl 2.5 Mg Tablet XX Q12HR DEEP Calcitriol 0.25 mcg 11/06/24 09:00 11/10/24 11:20 Calcitriol 0.25 Mcg Capsule PO Not Given DAILY DEEP Cefdinir 300 mg 11/07/24 21:00 11/09/24 22:07 Cefdinir 300 Mg Capsule PO 11/11/24 21:01 300 mg 2100 DEEP Administration Collagenase 1 applic 11/06/24 09:00 11/10/24 11:39 Collagenase Oint 30 Gm Tube TOPICAL 1 applic DAILY DEEP Administration Dextrose 12.5 gm 11/09/24 13:38 Dextrose 50% 25 Gm/50 Ml Syringe IV PUSH PRN PRN Hypoglycemia Protocol Diclofenac Sodium 1 applic 11/05/24 18:00 Diclofenac Sodium 1% 100 Gm Gel (*Bkc) TOPICAL TID PRN ARTHRITIS PAIN Epoetin Ross-epbx 10,000 units 11/10/24 09:55 11/10/24 14:48 Epoetin Ross-Epbx 10,000 Units/Ml Vial SUB-Q 10,000 units TUTHSA@09 DEEP Administration Gabapentin 200 mg 11/10/24 14:20 11/10/24 14:48 Gabapentin 100 Mg Capsule FEED TUBE 200 mg TID DEEP Administration Glucagon 1 mg 11/09/24 13:38 Glucagon For Inj 1 Mg Vial IM PRN PRN Hypoglycemia Protocol Glucose 15 gm 11/09/24 13:38 Glucose Oral Gel 15 Gm Of Glucse In 37.5 Gm Tube PO PRN PRN Hypoglycemia Protocol Guaifenesin 1,200 mg 11/05/24 21:00 11/10/24 11:37 Guaifenesin 12 Hr 600 Mg Tabcr PO 1,200 mg Q12HR DEEP Administration Hydrocortisone 1 applic 11/06/24 21:00 11/10/24 11:39 Hydrocortisone 2.5% Cream 30 Gm Tube TOPICAL 1 applic Q12HR DEEP Administration Sodium Chloride 1,000 mls @ 100 mls/hr 11/08/24 12:40 11/10/24 03:50 Normal Saline Iv IV CONT 100 mls/hr .Q10H DEEP Administration Dextrose 1,000 mls @ 100 mls/hr 11/09/24 13:38 Dextrose 5% 1,000 Ml IVPB PRN PRN Hypoglycemia Protocol Insulin Aspart 3 - 6 units 12/21/24 18:00 11/10/24 14:18 Insulin Aspart (*Bkc) 100 Units/Ml SUB-Q Not Given Q6HR [facility] Protocol Insulin Glargine 10 units 11/09/24 21:00 11/09/24 22:19 Insulin Glargine (*Bkc) 100 Units/Ml SUB-Q 10 units HS DEEP Administration Lactobacillus Acidophilus 1 tablet 11/10/24 17:00 Acidophilus/Bulgaricus Chewable Tablet FEED TUBE BID DEEP Metoprolol Succinate 100 mg 11/10/24 09:00 11/10/24 10:12 Metoprolol Succinate Ext Rel 100 Mg Tabcr PO 100 mg QAM DEEP Administration Midodrine 2.5 mg 11/10/24 13:00 11/10/24 11:39 Midodrine Hcl 2.5 Mg Tablet FEED TUBE 2.5 mg TID DEEP Administration Pantoprazole Sodium 40 mg 11/10/24 09:00 11/10/24 10:00 Pantoprazole Sodium Iv 40 Mg Vial IV PUSH 40 mg QAM DEEP Administration Pramipexole Dihydrochloride 1.5 mg 11/10/24 14:25 11/10/24 14:48 Pramipexole 0.5 Mg Tablet FEED TUBE 1.5 mg Q8HR DEEP Administration Umeclidinium/Vilanterol 1 puff 11/06/24 09:00 11/10/24 08:00 Umeclidinium/Vilanterol 62.5-25 Mcg Ellipta INHALATION 1 puff DAILY DEEP Administration Radiology Results: ITS Impressions Renal Ultrasound 11/05/24 22:02 IMPRESSION: 1. Normal kidney sizes. 2. Chronic mild right hydronephrosis. Chest X-Ray 11/09/24 15:51 IMPRESSION: Bilateral lower lung infiltrate/atelectasis, including particularly left lower lobe atelectasis and/or consolidation; the right lower lung infiltrate is largely new 04/05/2024 Cardiomegaly Small pleural effusions are suggested Abdomen X-Ray 11/09/24 15:54 IMPRESSION: NG tube tip in body of stomach Labs Labs: Laboratory Results - last 24 hr 11/09/24 11/10/24 11/10/24 16:51 01:17 04:10 WBC 7.1 RBC 2.86 L Hgb 8.3 L Hct 26.7 L MCV 93.4 MCH 29.0 MCHC 31.1 L RDW 18.5 H Plt Count 153 MPV 11.6 H Immature Gran % (Auto) 1.0 H Neut % (Auto) 87.5 H Lymph % (Auto) 6.8 L [place] % (Auto) 4.5 Eos % (Auto) 0.1 Baso % (Auto) 0.1 L Lymph # (Auto) 0.48 L [place] # (Auto) 0.3 Eos # (Auto) 0.0 Baso # (Auto) 0.0 Abs Immat Gran (auto) 0.07 H Absolute Neuts (auto) 6.2 Absolute Nucleated RBC 0.000 Nucleated RBC % 0.0 Sodium 134 L Potassium 3.4 Chloride 105 Carbon Dioxide 22 Anion Gap 7 BUN 129 H Creatinine 3.50 H Estim Creat Clear Calc 12 Estimated GFR 12 L Glucose 142 H POC Capillary Glucose 171 H 151 H Calcium 7.9 L Total Bilirubin 1.0 AST 81 H ALT 77 H Alkaline Phosphatase 524 H Total Protein 5.0 L Albumin 2.7 L 11/10/24 11:26 WBC RBC Hgb Hct MCV MCH MCHC RDW Plt Count MPV Immature Gran % (Auto) Neut % (Auto) Lymph % (Auto) [place] % (Auto) Eos % (Auto) Baso % (Auto) Lymph # (Auto) [place] # (Auto) Eos # (Auto) Baso # (Auto) Abs Immat Gran (auto) Absolute Neuts (auto) Absolute Nucleated RBC Nucleated RBC % Sodium Potassium Chloride Carbon Dioxide Anion Gap BUN Creatinine Estim Creat Clear Calc Estimated GFR Glucose POC Capillary Glucose 139 H Calcium Total Bilirubin AST ALT Alkaline Phosphatase Total Protein Albumin
[2024-11-10] MEDS: BUMETANIDE INJ 1 MG/4 ML VIAL IV PUSH (18:49)
[2024-11-10] MEDS: ACIDOPHILUS/BULGARICUS CHEWABLE TABLET 1 TABLET FEED TUBE (18:49)
[2024-11-10] MEDS: MIDODRINE HCL 2.5 MG TABLET 5 MG FEED TUBE (18:50)
[2024-11-10 19:00] LABS: Glucose Point of Care 191 mg/dl (65-105)
[2024-11-10] MEDS: BUMETANIDE INJ 1 MG/4 ML VIAL (19:31)
[2024-11-10] MEDS: CEFDINIR 300 MG CAPSULE PO (21:10)
[2024-11-10] MEDS: INSULIN GLARGINE (*BKC) 100 UNITS/ML 10 UNITS SUB-Q (21:10)
[2024-11-10] MEDS: busPIRone HCL 2.5 MG TABLET XX (21:10)
[2024-11-10] MEDS: INSULIN ASPART (*BKC) 100 UNITS/ML SUB-Q (23:55)
[2024-11-11] VITALS (21 sets, daily range): BP systolic 96–122; BP diastolic 58–85; PULSE 92–130; RESP 20–24; TEMP 36.7–37; O2SAT 84–98
[2024-11-11 00:04] LABS: Glucose Point of Care 201 mg/dl (65-105)
[2024-11-11] MEDS: ALBUMIN HUMAN 25% 25 GM/100 ML 100 ML IVPB ×2 (04:49→11:50)
[2024-11-11] MEDS: PRAMIPEXOLE 0.5 MG TABLET 1.5 MG FEED TUBE ×3 (04:51→21:10)
[2024-11-11 05:21] LABS: Hematocrit 27.7 % (37.0-47.0); Hemoglobin 8.7 g/dL (12.0-15.0); Mean Corpuscular HGB Conc 31.4 g/dl (32-36); Mean Corpuscular Hemoglobin 28.8 pg (26-34); Mean Corpuscular Volume 91.7 fl (80-100); Mean Platelet Volume 11.9 fl (7.4-10.4); Platelet Count Result 152 k/mm3 (150-375); Red Blood Count 3.02 M/mm3 (4.2-5.4); Red Cell Distribution Width 18.4 % (11.5-14.5); White Blood Count 8.9 K/mm3 (4.5-10.0)
[2024-11-11 05:48] LABS: Alanine Aminotransferase 79 U/L (6-35); Albumin Level 2.7 g/dL (3.5-5.1); Alkaline Phosphatase 848 U/L (38-126); Anion Gap 7 mmol/L (4-12); Aspartate Amino Transferase 109 U/L (14-36); Bilirubin,Total 1.3 mg/dL (0.2-1.3); Blood Urea Nitrogen 127 mg/dL (7-17); Carbon Dioxide 21 mmol/L (22-30); Chloride 106 mmol/L (98-107); Estimated CRCL calculation 12 ml/min; Estimated Glomerular Filt Rate 12; Glucose 161 mg/dL (65-110); Magnesium 2.5 mg/dL (1.6-2.3); Phosphorus 4.1 mg/dL (2.5-4.5); Potassium 3.2 mmol/L (3.4-5.0); Sodium 134 mmol/L (137-145)
[2024-11-11] MEDS: UMECLIDINIUM/VILANTEROL 62.5-25 MCG ELLIPTA 1 PUFF INHALATION (08:15)
[2024-11-11] MEDS: ALBUTEROL SULFATE (*SP) AEROSOL 1 PUFF 2 PUFF INHALATION ×3 (08:18→21:00)
--- NOTE | 2024-11-11 09:13 | PCNFU ---
Nutrition Follow-Up Complete: Inadequate oral intake related to poor appetite, increased needs from pressure injuries as evidenced by 0% breakfast, wound reports Adequate meal intake at least 50-75% to support wound healing Goal: Pt current nutrition is Tube feeding: Nepro @ 50 ml/h with 30 ml flushes q 4 hours. Nutrition recommendation: No new nutrition recommendations. Continue tube feeding as ordered. Advance to oral intake when able. Last recorded weight is 85.6 kg. Bowel Motility: No bowel movements are charted Labs Reviewed: Hgb 8.7, Hct 27.7, Alb 2.7, Na 134, K+ 3.2, GFR 12, BUN 127, Cre 3.5, Glu 161 Meds Noted: Lantus, Protonix, Novolog Skin: Stage 2 BL buttocks Additional Notes: Nepro @ 50 ml/h provides 1980 kcal (100% EER), 89 g protein (100% estimated protein needs) 800 ml free water. Flush 30 ml q 4 hous. Tolerating. May need bowel regimen. Monitoring intakes, weights, labs, supplement tolerance, wound healing, plan of care Follow up in 5 days
[2024-11-11] MEDS: ACIDOPHILUS/BULGARICUS CHEWABLE TABLET 1 TABLET FEED TUBE ×2 (09:30→17:17)
[2024-11-11] MEDS: busPIRone HCL 2.5 MG TABLET XX ×2 (09:30→21:11)
[2024-11-11] MEDS: GABAPENTIN 100 MG CAPSULE 200 MG FEED TUBE ×3 (09:30→17:17)
[2024-11-11] MEDS: MIDODRINE HCL 2.5 MG TABLET 5 MG FEED TUBE ×3 (09:30→17:17)
[2024-11-11] MEDS: PANTOPRAZOLE SODIUM IV 40 MG VIAL IV PUSH (09:31)
[2024-11-11] MEDS: HYDROCORTISONE 2.5% CREAM 30 GM TUBE 1 APPLIC TOPICAL ×2 (09:31→21:11)
[2024-11-11] MEDS: COLLAGENASE OINT 30 GM TUBE 1 APPLIC TOPICAL (09:31)
--- NOTE | 2024-11-11 11:48 | PCOTNOTE ---
The patient treatment was not able to be completed per RN patient more lethargic this date and on 5 L on SPO2. Will plan to continue treatment per plan of care.
[2024-11-11 13:02] LABS: Glucose Point of Care 184 mg/dl (65-105)
--- NOTE | 2024-11-11 13:04 | PM.IMPN ---
Progress Note: A&P Assessment and Plan (1) Hypotension: Code(s): I95.9 - Hypotension, unspecified Status: Acute Assessment and Plan: BP soft at times related to anemia, poor oncotic pressure (albumin 2.1) and home meds. Metoprolol held IV fluids started. Albumin given. Midodrine added. CXR today reviewed showing mild pulm edema. L>R pleural effusions and CMG. Increasing O2 requirement Fluid overloaded. IV fluids stopped 11/10 and Bumex x1 given with good UOP BP soft today so will hold on repeating Bumex. Monitor BP. (2) Acute on chronic kidney failure: Code(s): N17.9 - Acute kidney failure, unspecified; N18.9 - Chronic kidney disease, unspecified Status: Acute Assessment and Plan: Patient with SARAI with Cr 3.5. Baseline Cr 1.4-2.1. SARAI/CKD felt to be multifactorial including dehydration from poor oral intake, hypoperfusion from relative HoTN and hypovolemia from the anemia. Also on an ARB. Renal US showing mild right hydronephrosis which is chronic. Greco catheter inserted for strict I/O. Urine electrolytes showing Johnathan 42 with FENa 1.4% to suggest renal disease. Cr up to 3.5 but BUN 127 now. BUN elevation related somewhat to the steroids but these were stopped a few days ago. Consider catabolic from poor oral intake. NGT placed and TF started. Nephrology consulted and appreciate their input. IV fluids given since Cheetah showing she was fluid responsive. Also given Albumin and started on Midodrine Stopped IV fluids 11/10 due to fluid overload. Bumex once given with good UOP. Continue midodrine. Increasing RUE edema felt related to third spacing from infiltrated IV but will check doppler to exclude DVT Spoke with daughters. They did not want to proceed with dialysis. Discussed with nephrology Avoid all nephrotoxic agents and renally dose medications as appropriate. Repeat Bumex prn as BP allows. (3) Acute on chronic anemia: Code(s): D64.9 - Anemia, unspecified Status: Acute Assessment and Plan: The patient presented to the emergency department for evaluation of lethargy, sore throat and cough. She has chronic anemia but Hgb was 6.8. Acute anemia may be due to bleeding hemorrhoids. Holding rivaroxaban. She was transfused 2U PRBCs. Repeat Hgb was up to 11 abut dropped to 8.3 possibly due to IV fluids. Was having intermittent rectal oozing but no melena. Monitor HH and transfuse to a stable Hgb. GI consulted and appreciate their input. Continue HC cream for hemorrhoids (4) Atrial fibrillation with RVR: Code(s): I48.91 - Unspecified atrial fibrillation Status: Acute Assessment and Plan: Patient with AFib and is mostly rate controlled. She takes Toprol XL 200mg daily but have held this due to soft BP. On Xarelto at home but held due to anemia and bleeding. HR mostly <115. Follow. Resume metoprolol as BP allows. (5) COVID: Code(s): U07.1 - COVID-19 Status: Acute Assessment and Plan: Patient found to have COVID and was started on remdesivir and dexamethasone. Isolation per protocol. Bronchodilators prn. Albuterol inhaler added. Dexamethasone stopped due to rising BUN. Back on oxygen now related to above Completed Remdesivir. Will not extend treatment to 10 days since feel other etiologies causing her hypoxia (6) Acute UTI: Code(s): N39.0 - Urinary tract infection, site not specified Status: Acute Assessment and Plan: UA is consistent with UTI. UCx collected. Rocephin started. UCx growing pansensitive Klebsiella. Continue abx to complete a course (7) Heart failure with reduced ejection fraction: Code(s): I50.20 - Unspecified systolic (congestive) heart failure Status: Chronic Assessment and Plan: She has chronic systolic and diastolic CHF. Echo Oct showing EF 35-40% with diastolic dysfunction. She was fluid responsive yesterday so IV fluids continued but now fluid overloaded Bumex x1. Off IVF. Monitor renal fxn and give diuretics as she tolerates (8) Rheumatoid arthritis: Code(s): M06.9 - Rheumatoid arthritis, unspecified Status: Acute Assessment and Plan: Stable (9) COPD (chronic obstructive pulmonary disease): Qualifiers: COPD type: COPD with acute exacerbation Qualified Code(s): J44.1 - Chronic obstructive pulmonary disease with (acute) exacerbation Code(s): J44.9 - Chronic obstructive pulmonary disease, unspecified Status: Acute Assessment and Plan: She has COPD but not felt to have exacerbation. Follow. Albuterol HFA ordered. (10) Bleeding hemorrhoids: Code(s): K64.9 - Unspecified hemorrhoids Status: Acute Assessment and Plan: Bleeding hemorrhoids may be at least partially the etiology of the anemia. Symptomatic treatment for now. Plan Elevated LFTs - noted. Possibly related to hepatic congestion. Follow DVT Prophylaxis - SCDs due to her anemia. Code status - DNR Subjective Date/time seen: 11/11/24 13:04 Interval history: 84yo female with chronic respiratory failure with hypoxia on home oxygen, COPD, systolic CHF, Chronic AFib on anticoagulation, CKD, chronic anemia, HTN and RA who presented to the emergency department via EMS for evaluation of lethargy. Patient more lethargic this morning but better after a bath, She denies SOb or CP and is requesting something to eat. O2 increased to 5L overnight. Exam Narrative: AF 98.6 96/59 98 20 96% 5L Gen - NARD HEENT - NGT secured Chest - decreased BS in the left base with inspiratory crackles mid and lower lung hough bilaterally. CV - irregularly irregular. Tele showing AFib with mild tachycardia with HR<115 mostly Abd - Soft, NT/ND, Positive BS - Greco secured draining with scant amount of urine in bag Ext - trace LE pedal edema; 1+ Rt UE edema Neuro - Alert and appropriate Skin - Warm and dry Objective Data Vital Signs Vital Signs: Vital Signs - 24 hr 11/10/24 14:00 11/10/24 16:00 11/10/24 16:00 Temperature 99.9 F H Pulse Rate 108 H 104 H 98 Respiratory Rate 28 H Blood Pressure 100/63 Pulse Oximetry 91 Oxygen Delivery Oxygen Flow Rate 11/10/24 16:00 11/10/24 18:00 11/10/24 20:00 Temperature 98.9 F Pulse Rate 102 H 112 H Respiratory Rate 20 Blood Pressure 105/61 Pulse Oximetry 97 87 L Oxygen Delivery Nasal Cannula Oxygen Flow Rate 3 11/10/24 20:00 11/10/24 20:02 11/10/24 21:15 Temperature Pulse Rate 105 H 112 H Respiratory Rate 20 Blood Pressure Pulse Oximetry 90 90 Oxygen Delivery Nasal Cannula Nasal Cannula Oxygen Flow Rate 3 5 11/10/24 22:00 11/10/24 23:45 11/10/24 23:49 Temperature 98.7 F Pulse Rate 103 H 101 H 101 H Respiratory Rate 20 20 Blood Pressure 90/56 L Pulse Oximetry 92 92 Oxygen Delivery Nasal Cannula Oxygen Flow Rate 5 11/11/24 00:00 11/11/24 02:00 11/11/24 03:22 Temperature 98.6 F Pulse Rate 105 H 92 111 H Respiratory Rate 20 Blood Pressure 106/58 L Pulse Oximetry 90 Oxygen Delivery Oxygen Flow Rate 11/11/24 04:00 11/11/24 04:40 11/11/24 06:00 Temperature Pulse Rate 103 H 111 H 118 H Respiratory Rate 20 Blood Pressure Pulse Oximetry 84 L Oxygen Delivery Nasal Cannula Oxygen Flow Rate 5 11/11/24 08:00 11/11/24 08:00 11/11/24 08:00 Temperature 98.0 F Pulse Rate 121 H 130 H Respiratory Rate 24 H Blood Pressure 116/62 Pulse Oximetry 98 95 Oxygen Delivery Nasal Cannula Oxygen Flow Rate 5 11/11/24 08:19 11/11/24 08:19 11/11/24 10:00 Temperature Pulse Rate 117 H 106 H Respiratory Rate 22 H Blood Pressure Pulse Oximetry 95 Oxygen Delivery Nasal Cannula Oxygen Flow Rate 5 11/11/24 12:00 Temperature 98.6 F Pulse Rate 98 Respiratory Rate 20 Blood Pressure 96/59 L Pulse Oximetry 96 Oxygen Delivery Oxygen Flow Rate Intake/Output Intake/Output: Intake & Output 11/08/24 11/09/24 11/10/24 11/11/24 23:59 23:59 23:59 23:59 Intake Total 1540 1690 1550 916 Output Total 450 1000 2050 1000 Balance 1090 690 -500 -84 Meds/Results Medications: Active Medications Generic Name Dose Route Start Last Admin Trade Name Freq PRN Reason Stop Dose Admin Acetaminophen 650 mg 11/10/24 11:07 Acetaminophen 325 Mg Tablet FEED TUBE Q6H PRN Mild Pain (1-3) or Fever Hydrocodone Bitart/Acetaminophen 1 tab 11/05/24 17:49 Hydrocodone/Acetaminophen (*Crx) 5-325 Mg Tablet PO Q4H PRN pain 4-6 Albuterol 2 puff 11/06/24 20:00 11/11/24 08:18 Albuterol Sulfate (*Sp) Aerosol 1 Puff INHALATION 2 puff [id number] DEEP Administration Albuterol/Ipratropium 3 ml 11/05/24 16:21 Ipratropium 0.5 Mg/Albuterol Sulfate 2.5 Mg Ampul.Neb 3 Ml INHALATION Q6HRT PRN Shortness Of Breath Or Wheezing Benzonatate 200 mg 11/05/24 17:49 11/07/24 13:47 Benzonatate 100 Mg Capsule PO 200 mg TID PRN Administration cough Buspirone HCl 2.5 mg 11/10/24 21:00 11/11/24 09:30 Buspirone Hcl 2.5 Mg Tablet XX 2.5 mg Q12HR DEEP Administration Calcitriol 0.25 mcg 11/06/24 09:00 11/11/24 09:30 Calcitriol 0.25 Mcg Capsule PO Not Given DAILY DEEP Cefdinir 300 mg 11/07/24 21:00 11/10/24 21:10 Cefdinir 300 Mg Capsule PO 11/11/24 21:01 300 mg 2100 DEEP Administration Collagenase 1 applic 11/06/24 09:00 11/11/24 09:31 Collagenase Oint 30 Gm Tube TOPICAL 1 applic DAILY DEEP Administration Dextrose 12.5 gm 11/09/24 13:38 Dextrose 50% 25 Gm/50 Ml Syringe IV PUSH PRN PRN Hypoglycemia Protocol Diclofenac Sodium 1 applic 11/05/24 18:00 Diclofenac Sodium 1% 100 Gm Gel (*Bkc) TOPICAL TID PRN ARTHRITIS PAIN Epoetin Ross-epbx 10,000 units 11/10/24 09:55 11/10/24 14:48 Epoetin Ross-Epbx 10,000 Units/Ml Vial SUB-Q 10,000 units TUTHSA@09 DEEP Administration Gabapentin 200 mg 11/10/24 14:20 11/11/24 09:30 Gabapentin 100 Mg Capsule FEED TUBE 200 mg TID DEEP Administration Glucagon 1 mg 11/09/24 13:38 Glucagon For Inj 1 Mg Vial IM PRN PRN Hypoglycemia Protocol Glucose 15 gm 11/09/24 13:38 Glucose Oral Gel 15 Gm Of Glucse In 37.5 Gm Tube PO PRN PRN Hypoglycemia Protocol Guaifenesin/Dextromethorphan 10 ml 11/10/24 16:04 Guaifenesin/Dextromethorphan 10 Ml Udc FEED TUBE Q4H PRN Cough Hydrocortisone 1 applic 11/06/24 21:00 11/11/24 09:31 Hydrocortisone 2.5% Cream 30 Gm Tube TOPICAL 1 applic Q12HR DEEP Administration Dextrose 1,000 mls @ 100 mls/hr 11/09/24 13:38 Dextrose 5% 1,000 Ml IVPB PRN PRN Hypoglycemia Protocol Albumin Human 100 mls @ 60 mls/hr 11/10/24 18:00 11/11/24 11:50 Albutein IVPB 11/11/24 13:39 60 mls/hr Q6HR DEEP Administration Insulin Aspart 3 - 6 units 11/09/24 18:00 11/11/24 12:35 Insulin Aspart (*Bkc) 100 Units/Ml SUB-Q Not Given Q6HR DEEP Protocol Insulin Glargine 10 units 11/09/24 21:00 11/10/24 21:10 Insulin Glargine (*Bkc) 100 Units/Ml SUB-Q 10 units HS DEEP Administration Lactobacillus Acidophilus 1 tablet 11/10/24 17:00 11/11/24 09:30 Acidophilus/Bulgaricus Chewable Tablet FEED TUBE 1 tablet BID DEEP Administration Midodrine 5 mg 11/10/24 17:00 11/11/24 09:30 Midodrine Hcl 2.5 Mg Tablet FEED TUBE 5 mg TID DEEP Administration Pantoprazole Sodium 40 mg 11/10/24 09:00 11/11/24 09:31 Pantoprazole Sodium Iv 40 Mg Vial IV PUSH 40 mg QAM DEEP Administration Pramipexole Dihydrochloride 1.5 mg 11/10/24 14:25 11/11/24 04:51 Pramipexole 0.5 Mg Tablet FEED TUBE 1.5 mg Q8HR DEEP Administration Umeclidinium/Vilanterol 1 puff 11/06/24 09:00 11/11/24 08:15 Umeclidinium/Vilanterol 62.5-25 Mcg Ellipta INHALATION 1 puff DAILY DEEP Administration Radiology Results: ITS Impressions Renal Ultrasound 11/05/24 22:02 IMPRESSION: 1. Normal kidney sizes. 2. Chronic mild right hydronephrosis. Abdomen X-Ray 11/09/24 15:54 IMPRESSION: NG tube tip in body of stomach Chest X-Ray 11/11/24 06:16 IMPRESSION: 1. Mild pulmonary edema. 2. Small right and moderate-sized left pleural effusions with worsening on the left. 3. Cardiomegaly. Labs Labs: Laboratory Results - last 24 hr 1211/10/24 11/11/24 18:56 23:48 04:43 WBC 8.9 RBC 3.02 L Hgb 8.7 L Hct 27.7 L MCV 91.7 MCH 28.8 MCHC 31.4 L RDW 18.4 H Plt Count 152 MPV 11.9 H Sodium 134 L Potassium 3.2 L Chloride 106 Carbon Dioxide 21 L Anion Gap 7 BUN 127 H Creatinine 3.50 H Estim Creat Clear Calc 12 Estimated GFR 12 L Glucose 161 H POC Capillary Glucose 191 H 201 H Calcium 8.0 L Phosphorus 4.1 Magnesium 2.5 H Total Bilirubin 1.3 AST 109 H ALT 79 H Alkaline Phosphatase 848 H Total Protein 5.0 L Albumin 2.7 L 11/11/24 11:51 WBC RBC Hgb Hct MCV MCH MCHC RDW Plt Count MPV Sodium Potassium Chloride Carbon Dioxide Anion Gap BUN Creatinine Estim Creat Clear Calc Estimated GFR Glucose POC Capillary Glucose 184 H Calcium Phosphorus Magnesium Total Bilirubin AST ALT Alkaline Phosphatase Total Protein Albumin
--- NOTE | 2024-11-11 14:02 | P.PNNP_ITS ---
Progress Note: A&P Assessment and Plan (1) SARAI (acute kidney injury): Code(s): N17.9 - Acute kidney failure, unspecified Status: Acute Assessment and Plan: * SARAI * evaluation to date noted: * renal ultrasound with chronic mild right hydronephrosis * urine electrolytes non-prerenal * urine eosinophils negative * CPK normal * UA suggests infection * mild proteinuria * suspect multifactorial etiology: * prerenal factors * relative hypotension/renal hypoperfusion * anemia/GI bleed * ARB + diuretic therapy prior to admission * possible NSAID use * infection (COVID + UTI) * getting Nepro tube feedings. * IV fluids were discontinued because of fluid overload. * BUN and creatinine are essentially the same. * Unfortunately the patient does not seem to be improving from the renal standpoint. Two daughters are in the room and we discussed the situation at length. The patient is little more lethargic today. Perhaps this is from her blood pressure or perhaps the uremic toxins are starting to become sympto matic. I do not think she needs to start dialysis right now but the time will come shortly I believe. We discussed that the dialysis might be temporary. Usually in cases of acute kidney injury the kidneys eventually improve. However sometimes, especially with COVID, the kidney function does not improve and the patient would be on chronic dialysis if that were the case. The patient does not want dialysis. I asked her if it were to come down to it and she needed dialysis to survive would she want to do this and the patient said no. She would rather nature take its course. The daughters were listening in and they agree with her decision. * I also discussed with Dr. Cano the above conversation * Will continue to work and see if we can get the kidney function better. * Her main symptom right now is lethargy plus her cough. She is on medicines for the cough. she is on midodrine for the blood pressure and hopefully will help with the lethargy, and maybe renal perfusion. she is getting albumin to help with the third spacing (2) Stage 3b chronic kidney disease: Code(s): N18.32 - Chronic kidney disease, stage 3b Status: Chronic Assessment and Plan: * baseline creatinine runs ~ 1.5 - 2.0mg/dl in the last year * however, she has been as hign as 2.5mg/dl in the past * this causes her to fluctuate between CKD stage 3b and stage 4 * secondary to hypertension, diabetes, vascular disease [hyperlipidemia, cardiomyopathy (EF ~ 35 - 40 %] and age-related change * follows with Dr. Reji Lamb for CKD management (3) Acute on chronic anemia: Code(s): D64.9 - Anemia, unspecified Status: Acute Assessment and Plan: * as noted with a Hgb of 6.8 on admission * suspect etiology due to hemorrhoids in conjunction with anticoagulation * still with some oozing per nursing * rivaroxaban on hold * continue HC cream * however, suspect a component related to CKD * PRBC transfusion per protocol (has received 2 units of PRBCs to date) * Gastroenterology following * hb in the 8s range * will start epo today and continue TTS (4) COVID: Code(s): U07.1 - COVID-19 Status: Acute Assessment and Plan: * as noted by admission viral testing * complicated by known history of COPD * started on remdesivir and was on dexamethasone * off steroids due to the high BUN * isolation per protocol * bronchodilators and albuterol inhaler as needed * pt is on 5 L now. * No shortness of breath but still coughing (5) Acute UTI: Code(s): N39.0 - Urinary tract infection, site not specified Status: Acute Assessment and Plan: * admission UA suggestive * urine culture with Klebsiella * on cefdinir. (6) Heart failure with reduced ejection fraction: Code(s): I50.20 - Unspecified systolic (congestive) heart failure Status: Chronic Assessment and Plan: * known history * however, appears clinically volume depleted * received diuretics and albumin to help mobilize fluid and improve diureiss. she made 2 L urine yesterday. (7) Atrial fibrillation with RVR: Code(s): I48.91 - Unspecified atrial fibrillation Status: Acute Assessment and Plan: * hr 70s to 105. * off metoprolol due to low BP * off anticoagulation due to #3 * continue supportive therapy (8) Diabetes: Code(s): E11.9 - Type 2 diabetes mellitus without complications Status: Chronic Assessment and Plan: * follow accu-checks * glycemic control per hospitalists Subjective Date/time seen: 11/11/24 14:02 Interval history: Genny is a little weaker today. She has no shortness of breath but does have a cough. She has swelling. She was given diuretics last evening. she did have a response with increased urine output. Exam Narrative: General: WD/WN female in NAD, coughing frequently Heart: tachycardic, IRRR, normal S1 and S2; no rub Lungs: Bilateral mild upper airway noise. Abdomen: positive bowel sounds, nontender Extremities: 1-2+ edema Skin: no rash or subcu nodules Objective Data Vital Signs Vital Signs: Vital Signs - 24 hr 11/10/24 16:00 11/10/24 16:00 11/10/24 16:00 Temperature 99.9 F H Pulse Rate 104 H 98 Respiratory Rate 28 H Blood Pressure 100/63 Pulse Oximetry 91 97 Oxygen Delivery Nasal Cannula Oxygen Flow Rate 3 11/10/24 18:00 11/10/24 20:00 11/10/24 20:00 Temperature 98.9 F Pulse Rate 102 H 112 H 105 H Respiratory Rate 20 Blood Pressure 105/61 Pulse Oximetry 87 L Oxygen Delivery Oxygen Flow Rate 11/10/24 20:02 11/10/24 21:15 11/10/24 22:00 Temperature Pulse Rate 112 H 103 H Respiratory Rate 20 Blood Pressure Pulse Oximetry 90 90 Oxygen Delivery Nasal Cannula Nasal Cannula Oxygen Flow Rate 3 5 11/10/24 23:45 11/10/24 23:49 11/11/24 00:00 Temperature 98.7 F Pulse Rate 101 H 101 H 105 H Respiratory Rate 20 20 Blood Pressure 90/56 L Pulse Oximetry 92 92 Oxygen Delivery Nasal Cannula Oxygen Flow Rate 5 11/11/24 02:00 11/11/24 03:22 11/11/24 04:00 Temperature 98.6 F Pulse Rate 92 111 H 103 H Respiratory Rate 20 Blood Pressure 106/58 L Pulse Oximetry 90 Oxygen Delivery Oxygen Flow Rate 11/11/24 04:40 11/11/24 06:00 11/11/24 08:00 Temperature 98.0 F Pulse Rate 111 H 118 H 121 H Respiratory Rate 20 24 H Blood Pressure 116/62 Pulse Oximetry 84 L 98 Oxygen Delivery Nasal Cannula Oxygen Flow Rate 5 11/11/24 08:00 11/11/24 08:00 11/11/24 08:19 Temperature Pulse Rate 130 H Respiratory Rate Blood Pressure Pulse Oximetry 95 95 Oxygen Delivery Nasal Cannula Nasal Cannula Oxygen Flow Rate 5 5 11/11/24 08:19 11/11/24 10:00 11/11/24 12:00 Temperature 98.6 F Pulse Rate 117 H 106 H 98 Respiratory Rate 22 H 20 Blood Pressure 96/59 L Pulse Oximetry 96 Oxygen Delivery Oxygen Flow Rate 11/11/24 13:51 Temperature Pulse Rate 103 H Respiratory Rate 20 Blood Pressure Pulse Oximetry Oxygen Delivery Oxygen Flow Rate Intake/Output Intake/Output: Intake & Output 11/08/24 11/09/24 11/10/24 11/11/24 23:59 23:59 23:59 23:59 Intake Total 1540 1690 1550 916 Output Total 450 1000 2050 1000 Balance 1090 690 -500 -84 Meds/Results Medications: Active Medications Generic Name Dose Route Start Last Admin Trade Name Freq PRN Reason Stop Dose Admin Acetaminophen 650 mg 11/10/24 11:07 Acetaminophen 325 Mg Tablet FEED TUBE Q6H PRN Mild Pain (1-3) or Fever Hydrocodone Bitart/Acetaminophen 1 tab 11/05/24 17:49 Hydrocodone/Acetaminophen (*Crx) 5-325 Mg Tablet PO Q4H PRN pain 4-6 Albuterol 2 puff 11/06/24 20:00 11/11/24 13:51 Albuterol Sulfate (*Sp) Aerosol 1 Puff INHALATION 2 puff [id number] DEEP Administration Albuterol/Ipratropium 3 ml 11/05/24 16:21 Ipratropium 0.5 Mg/Albuterol Sulfate 2.5 Mg Ampul.Neb 3 Ml INHALATION Q6HRT PRN Shortness Of Breath Or Wheezing Benzonatate 200 mg 11/05/24 17:49 11/07/24 13:47 Benzonatate 100 Mg Capsule PO 200 mg TID PRN Administration cough Buspirone HCl 2.5 mg 11/10/24 21:00 11/11/24 09:30 Buspirone Hcl 2.5 Mg Tablet XX 2.5 mg Q12HR DEEP Administration Calcitriol 0.25 mcg 11/06/24 09:00 11/11/24 09:30 Calcitriol 0.25 Mcg Capsule PO Not Given DAILY DEEP Cefdinir 300 mg 11/07/24 21:00 11/10/24 21:10 Cefdinir 300 Mg Capsule PO 11/11/24 21:01 300 mg 2100 DEEP Administration Collagenase 1 applic 11/06/24 09:00 11/11/24 09:31 Collagenase Oint 30 Gm Tube TOPICAL 1 applic DAILY DEEP Administration Dextrose 12.5 gm 11/09/24 13:38 Dextrose 50% 25 Gm/50 Ml Syringe IV PUSH PRN PRN Hypoglycemia Protocol Diclofenac Sodium 1 applic 11/05/24 18:00 Diclofenac Sodium 1% 100 Gm Gel (*Bkc) TOPICAL TID PRN ARTHRITIS PAIN Epoetin Ross-epbx 10,000 units 11/10/24 09:55 11/10/24 14:48 Epoetin Ross-Epbx 10,000 Units/Ml Vial SUB-Q 10,000 units TUTHSA@09 DEEP Administration Gabapentin 200 mg 11/10/24 14:20 11/11/24 13:52 Gabapentin 100 Mg Capsule FEED TUBE 200 mg TID DEEP Administration Glucagon 1 mg 11/09/24 13:38 Glucagon For Inj 1 Mg Vial IM PRN PRN Hypoglycemia Protocol Glucose 15 gm 11/09/24 13:38 Glucose Oral Gel 15 Gm Of Glucse In 37.5 Gm Tube PO PRN PRN Hypoglycemia Protocol Guaifenesin/Dextromethorphan 10 ml 11/10/24 16:04 Guaifenesin/Dextromethorphan 10 Ml Udc FEED TUBE Q4H PRN Cough Hydrocortisone 1 applic 11/06/24 21:00 11/11/24 09:31 Hydrocortisone 2.5% Cream 30 Gm Tube TOPICAL 1 applic Q12HR DEEP Administration Dextrose 1,000 mls @ 100 mls/hr 11/09/24 13:38 Dextrose 5% 1,000 Ml IVPB PRN PRN Hypoglycemia Protocol Insulin Aspart 3 - 6 units 11/09/24 18:00 11/11/24 12:35 Insulin Aspart (*Bkc) 100 Units/Ml SUB-Q Not Given Q6HR DEEP Protocol Insulin Glargine 10 units 11/09/24 21:00 11/10/24 21:10 Insulin Glargine (*Bkc) 100 Units/Ml SUB-Q 10 units HS DEEP Administration Lactobacillus Acidophilus 1 tablet 11/10/24 17:00 11/11/24 09:30 Acidophilus/Bulgaricus Chewable Tablet FEED TUBE 1 tablet BID DEEP Administration Midodrine 5 mg 11/10/24 17:00 11/11/24 13:53 Midodrine Hcl 2.5 Mg Tablet FEED TUBE 5 mg TID DEEP Administration Pantoprazole Sodium 40 mg 11/10/24 09:00 11/11/24 09:31 Pantoprazole Sodium Iv 40 Mg Vial IV PUSH 40 mg QAM DEEP Administration Pramipexole Dihydrochloride 1.5 mg 11/10/24 14:25 11/11/24 13:52 Pramipexole 0.5 Mg Tablet FEED TUBE 1.5 mg Q8HR DEEP Administration Umeclidinium/Vilanterol 1 puff 11/06/24 09:00 11/11/24 08:15 Umeclidinium/Vilanterol 62.5-25 Mcg Ellipta INHALATION 1 puff DAILY DEEP Administration Radiology Results: ITS Impressions Renal Ultrasound 11/05/24 22:02 IMPRESSION: 1. Normal kidney sizes. 2. Chronic mild right hydronephrosis. Abdomen X-Ray 11/09/24 15:54 IMPRESSION: NG tube tip in body of stomach Chest X-Ray 11/11/24 06:16 IMPRESSION: 1. Mild pulmonary edema. 2. Small right and moderate-sized left pleural effusions with worsening on the left. 3. Cardiomegaly. Labs Labs: Laboratory Results - last 24 hr 11/10/24 11/10/24 11/11/24 18:56 23:48 04:43 WBC 8.9 RBC 3.02 L Hgb 8.7 L Hct 27.7 L MCV 91.7 MCH 28.8 MCHC 31.4 L RDW 18.4 H Plt Count 152 MPV 11.9 H Sodium 134 L Potassium 3.2 L Chloride 106 Carbon Dioxide 21 L Anion Gap 7 BUN 127 H Creatinine 3.50 H Estim Creat Clear Calc 12 Estimated GFR 12 L Glucose 161 H POC Capillary Glucose 191 H 201 H Calcium 8.0 L Phosphorus 4.1 Magnesium 2.5 H Total Bilirubin 1.3 AST 109 H ALT 79 H Alkaline Phosphatase 848 H Total Protein 5.0 L Albumin 2.7 L 11/11/24 11:51 WBC RBC Hgb Hct MCV MCH MCHC RDW Plt Count MPV Sodium Potassium Chloride Carbon Dioxide Anion Gap BUN Creatinine Estim Creat Clear Calc Estimated GFR Glucose POC Capillary Glucose 184 H Calcium Phosphorus Magnesium Total Bilirubin AST ALT Alkaline Phosphatase Total Protein Albumin
--- NOTE | 2024-11-11 15:14 | PCOTNOTE ---
Attempted to see Patient for OT treatment session. Patient unable to participate in therapy services. Having increased lethargy.
--- NOTE | 2024-11-11 15:39 | PCSTNOTE ---
Please refer to the Bedside Swallow Evaluation in the EMR. Please note, silent aspiration cannot be ruled out at bedside.
--- NOTE | 2024-11-11 15:40 | PCSTNOTE ---
Modified Barium Swallow study will be ordered today 11/11 to be completed 11/12.
[2024-11-11 18:04] LABS: Glucose Point of Care 190 mg/dl (65-105)
[2024-11-11] MEDS: CEFDINIR 300 MG CAPSULE PO (21:10)
[2024-11-11] MEDS: INSULIN GLARGINE (*BKC) 100 UNITS/ML 10 UNITS SUB-Q (21:11)
[2024-11-11 23:31] LABS: Glucose Point of Care 202 mg/dl (65-105)
[2024-11-11] MEDS: INSULIN ASPART (*BKC) 100 UNITS/ML SUB-Q (23:32)
[2024-11-12] VITALS (16 sets, daily range): BP systolic 79–107; BP diastolic 41–61; PULSE 54–135; RESP 16–30; TEMP 36.8–37.3; O2SAT 82–98; BMI 10.0
[2024-11-12 04:55] LABS: Basophils Percent Auto 0.3 % (0.2-1.2); Eosinophils Absolute Auto 0.1 K/mm3 (0-0.3); Eosinophils Percent Auto 0.9 % (0-4.4); Hematocrit 30.4 % (37.0-47.0); Hemoglobin 9.3 g/dL (12.0-15.0); Immature Granulocyte Absolute 0.15 K/mm3 (0.00-0.031); Immature Granulocyte Percent A 1.3 % (0-0.5); Lymphocytes Absolute Auto 0.76 K/mm3 (0.9-3.2); Lymphocytes Percent Auto 6.8 % (18.3-44.2); Mean Corpuscular HGB Conc 30.6 g/dl (32-36); Mean Corpuscular Hemoglobin 29.2 pg (26-34); Mean Corpuscular Volume 95.3 fl (80-100); Mean Platelet Volume 12.6 fl (7.4-10.4); Monocytes Absolute Auto 0.5 K/mm3 (0.1-0.6); Monocytes Percent Auto 4.2 % (2.6-8.5); Neutrophils Absolute Auto 9.7 K/mm3 (1.3-6.7); Neutrophils Percent Auto 86.5 % (45.5-73.1); Platelet Count Result 150 k/mm3 (150-375); Red Blood Count 3.19 M/mm3 (4.2-5.4); Red Cell Distribution Width 18.7 % (11.5-14.5); White Blood Count 11.2 K/mm3 (4.5-10.0)
[2024-11-12 05:43] LABS: Alanine Aminotransferase 68 U/L (6-35); Albumin Level 2.9 g/dL (3.5-5.1); Alkaline Phosphatase 759 U/L (38-126); Anion Gap 7 mmol/L (4-12); Aspartate Amino Transferase 81 U/L (14-36); Bilirubin,Total 1.3 mg/dL (0.2-1.3); Calcium 8.2 mg/dL (8.4-10.2); Carbon Dioxide 18 mmol/L (22-30); Chloride 110 mmol/L (98-107); Estimated CRCL calculation 13 ml/min; Estimated Glomerular Filt Rate 14; Glucose 159 mg/dL (65-110); Magnesium 2.8 mg/dL (1.6-2.3); Phosphorus 4.1 mg/dL (2.5-4.5); Potassium 3.4 mmol/L (3.4-5.0); Sodium 135 mmol/L (137-145)
[2024-11-12] MEDS: PRAMIPEXOLE 0.5 MG TABLET 1.5 MG FEED TUBE (05:49)
[2024-11-12 06:13] LABS: Blood Urea Nitrogen 129 mg/dL (7-17)
[2024-11-12] MEDS: UMECLIDINIUM/VILANTEROL 62.5-25 MCG ELLIPTA 1 PUFF INHALATION (07:34)
[2024-11-12] MEDS: ALBUTEROL SULFATE (*SP) AEROSOL 1 PUFF 2 PUFF INHALATION (07:36)
[2024-11-12] MEDS: busPIRone HCL 2.5 MG TABLET XX (09:12)
[2024-11-12] MEDS: MIDODRINE HCL 10 MG TABLET FEED TUBE ×2 (09:12→13:20)
[2024-11-12] MEDS: ACIDOPHILUS/BULGARICUS CHEWABLE TABLET 1 TABLET FEED TUBE (09:12)
[2024-11-12] MEDS: GABAPENTIN 100 MG CAPSULE FEED TUBE (09:12)
[2024-11-12] MEDS: EPOETIN ALFA-EPBX 10,000 UNITS/ML VIAL 10000 UNITS SUB-Q (09:13)
[2024-11-12] MEDS: PANTOPRAZOLE SODIUM IV 40 MG VIAL IV PUSH (09:14)
[2024-11-12] MEDS: SODIUM BICARBONATE TAB 650 MG TABLET FEED TUBE (09:14)
--- NOTE | 2024-11-12 09:16 | P.PNNP_ITS ---
Progress Note: A&P Assessment and Plan (1) SARAI (acute kidney injury): Code(s): N17.9 - Acute kidney failure, unspecified Status: Acute Assessment and Plan: * SARAI * evaluation to date noted: * renal ultrasound with chronic mild right hydronephrosis * urine electrolytes non-prerenal * urine eosinophils negative * CPK normal * UA suggests infection * mild proteinuria * suspect multifactorial etiology: * prerenal factors * relative hypotension/renal hypoperfusion * anemia/GI bleed * ARB + diuretic therapy prior to admission * possible NSAID use * infection (COVID + UTI) * getting Nepro tube feedings. * IV fluids were discontinued because of fluid overload. * BUN is about the same and creatinine improved a little to 3.2. * Patient still has significant edema. Blood pressure is better with albumin and midodrine. Will give a dose of Bumex today. (2) Stage 3b chronic kidney disease: Code(s): N18.32 - Chronic kidney disease, stage 3b Status: Chronic Assessment and Plan: * baseline creatinine runs ~ 1.5 - 2.0mg/dl in the last year * however, she has been as hign as 2.5mg/dl in the past * this causes her to fluctuate between CKD stage 3b and stage 4 * secondary to hypertension, diabetes, vascular disease [hyperlipidemia, cardiomyopathy (EF ~ 35 - 40 %] and age-related change * follows with Dr. Reji Lamb for CKD management (3) Acute on chronic anemia: Code(s): D64.9 - Anemia, unspecified Status: Acute Assessment and Plan: * as noted with a Hgb of 6.8 on admission * Etiology multifactorial. * CKD is playing a role * Also bleeding from hemorrhoids in conjunction with anticoagulation * still with some oozing per nursing * rivaroxaban on hold * continue HC cream * Hemoglobin up to 9.3. * The patient is getting Epogen (4) COVID: Code(s): U07.1 - COVID-19 Status: Acute Assessment and Plan: * as noted by admission viral testing * complicated by known history of COPD * started on remdesivir and was on dexamethasone * off steroids due to the high BUN * isolation per protocol * bronchodilators and albuterol inhaler as needed * pt is on 5 L of oxygen still. * Cough is better (5) Acute UTI: Code(s): N39.0 - Urinary tract infection, site not specified Status: Acute Assessment and Plan: * admission UA suggestive * urine culture with Klebsiella * on cefdinir. (6) Heart failure with reduced ejection fraction: Code(s): I50.20 - Unspecified systolic (congestive) heart failure Status: Chronic Assessment and Plan: * known history * however, appears clinically volume depleted * received diuretics and albumin to help mobilize fluid and improve diureiss. she made 2 L urine on Monday and 1L yesterday. * Blood pressure is better so will give another dose of Bumex (7) Atrial fibrillation with RVR: Code(s): I48.91 - Unspecified atrial fibrillation Status: Acute Assessment and Plan: * hr mostly in the 100-111 range * off metoprolol due to low BP * off anticoagulation due to #3 * continue supportive therapy (8) Diabetes: Code(s): E11.9 - Type 2 diabetes mellitus without complications Status: Chronic Assessment and Plan: * follow accu-checks * glycemic control per hospitalists Subjective Date/time seen: 11/12/24 09:16 Interval history: Daughter in the room. Patient is still weak. Cough is less pronounced No shortness of breath She still has some swelling Exam Narrative: General: WD/WN female in NAD, coughing frequently Heart: tachycardic, IRRR, normal S1 and S2; no rub Lungs: More clear today. Abdomen: positive bowel sounds, nontender Extremities: 1-2+ edema Skin: no rash or subcu nodules Objective Data Vital Signs Vital Signs: Vital Signs - 24 hr 11/11/24 10:00 11/11/24 12:00 11/11/24 12:00 Temperature 98.6 F Pulse Rate 106 H 98 Respiratory Rate 20 Blood Pressure 96/59 L Pulse Oximetry 96 95 Oxygen Delivery Nasal Cannula Oxygen Flow Rate 3 Fraction of Inspired Oxygen 11/11/24 12:00 11/11/24 13:51 11/11/24 14:00 Temperature Pulse Rate 111 H 103 H 107 H Respiratory Rate 20 Blood Pressure Pulse Oximetry Oxygen Delivery Oxygen Flow Rate Fraction of Inspired Oxygen 11/11/24 16:00 11/11/24 16:00 11/11/24 16:00 Temperature 98.3 F Pulse Rate 113 H 110 H Respiratory Rate 24 H Blood Pressure 122/85 Pulse Oximetry 98 98 Oxygen Delivery Nasal Cannula Oxygen Flow Rate 3 Fraction of Inspired Oxygen 11/11/24 18:00 11/11/24 20:00 11/11/24 20:00 Temperature 98.1 F Pulse Rate 101 H 105 H 94 Respiratory Rate 21 H Blood Pressure 103/70 Pulse Oximetry 96 Oxygen Delivery Oxygen Flow Rate Fraction of Inspired Oxygen 11/11/24 21:00 11/11/24 21:07 11/11/24 21:08 Temperature Pulse Rate 101 H 97 Respiratory Rate 24 H 20 Blood Pressure Pulse Oximetry 98 94 Oxygen Delivery Nasal Cannula Nasal Cannula Oxygen Flow Rate 3 3 Fraction of Inspired Oxygen 11/11/24 22:00 11/11/24 23:45 11/11/24 23:52 Temperature 98.6 F Pulse Rate 104 H 103 H 103 H Respiratory Rate 24 H 24 H Blood Pressure 103/68 Pulse Oximetry 98 98 Oxygen Delivery Nasal Cannula Oxygen Flow Rate 3 Fraction of Inspired Oxygen 11/12/24 00:00 11/12/24 02:00 11/12/24 04:00 Temperature Pulse Rate 103 H 101 H 105 H Respiratory Rate Blood Pressure Pulse Oximetry Oxygen Delivery Oxygen Flow Rate Fraction of Inspired Oxygen 11/12/24 04:00 11/12/24 04:02 11/12/24 05:58 Temperature 98.4 F Pulse Rate 105 H 101 H Respiratory Rate 22 H 24 H Blood Pressure 100/59 L Pulse Oximetry 91 98 82 L Oxygen Delivery Nasal Cannula High Flow Therapy with Na Oxygen Flow Rate 3 5 Fraction of Inspired Oxygen 11/12/24 06:00 11/12/24 07:37 11/12/24 07:37 Temperature Pulse Rate 105 H 70 Respiratory Rate 20 Blood Pressure Pulse Oximetry 96 Oxygen Delivery Nasal Cannula Oxygen Flow Rate 5 Fraction of Inspired Oxygen 40 11/12/24 08:00 Temperature 98.3 F Pulse Rate 111 H Respiratory Rate 16 Blood Pressure 107/58 L Pulse Oximetry 95 Oxygen Delivery Oxygen Flow Rate Fraction of Inspired Oxygen Intake/Output Intake/Output: Intake & Output 11/09/24 11/10/24 11/11/24 11/12/24 23:59 23:59 23:59 23:59 Intake Total 1690 3400 497 5551 Output Total 1000 2050 1150 301 Balance 003 -065 -756 1340 Meds/Results Medications: Active Medications Generic Name Dose Route Start Last Admin Trade Name Freq PRN Reason Stop Dose Admin Acetaminophen 650 mg 11/10/24 11:07 Acetaminophen 325 Mg Tablet FEED TUBE Q6H PRN Mild Pain (1-3) or Fever Hydrocodone Bitart/Acetaminophen 1 tab 11/05/24 17:49 Hydrocodone/Acetaminophen (*Crx) 5-325 Mg Tablet PO Q4H PRN pain 4-6 Albuterol 2 puff 11/06/24 20:00 11/12/24 07:36 Albuterol Sulfate (*Sp) Aerosol 1 Puff INHALATION 2 puff [id number] DEEP Administration Albuterol/Ipratropium 3 ml 11/05/24 16:21 Ipratropium 0.5 Mg/Albuterol Sulfate 2.5 Mg Ampul.Neb 3 Ml INHALATION Q6HRT PRN Shortness Of Breath Or Wheezing Benzonatate 200 mg 11/05/24 17:49 11/07/24 13:47 Benzonatate 100 Mg Capsule PO 200 mg TID PRN Administration cough Buspirone HCl 2.5 mg 11/10/24 21:00 11/11/24 21:11 Buspirone Hcl 2.5 Mg Tablet XX 2.5 mg Q12HR DEEP Administration Calcitriol 0.25 mcg 11/06/24 09:00 11/11/24 09:30 Calcitriol 0.25 Mcg Capsule PO Not Given DAILY DEEP Collagenase 1 applic 11/06/24 09:00 11/11/24 09:31 Collagenase Oint 30 Gm Tube TOPICAL 1 applic DAILY DEEP Administration Dextrose 12.5 gm 11/09/24 13:38 Dextrose 50% 25 Gm/50 Ml Syringe IV PUSH PRN PRN Hypoglycemia Protocol Diclofenac Sodium 1 applic 11/05/24 18:00 Diclofenac Sodium 1% 100 Gm Gel (*Bkc) TOPICAL TID PRN ARTHRITIS PAIN Epoetin Ross-epbx 10,000 units 11/10/24 09:55 11/10/24 14:48 Epoetin Ross-Epbx 10,000 Units/Ml Vial SUB-Q 10,000 units TUTA@09 DEEP Administration Gabapentin 100 mg 11/12/24 09:00 Gabapentin 100 Mg Capsule FEED TUBE BID DEEP Glucagon 1 mg 11/09/24 13:38 Glucagon For Inj 1 Mg Vial IM PRN PRN Hypoglycemia Protocol Glucose 15 gm 11/09/24 13:38 Glucose Oral Gel 15 Gm Of Glucse In 37.5 Gm Tube PO PRN PRN Hypoglycemia Protocol Guaifenesin/Dextromethorphan 10 ml 11/10/24 16:04 Guaifenesin/Dextromethorphan 10 Ml Udc FEED TUBE Q4H PRN Cough Hydrocortisone 1 applic 11/06/24 21:00 11/11/24 21:11 Hydrocortisone 2.5% Cream 30 Gm Tube TOPICAL 1 applic Q12HR DEEP Administration Dextrose 1,000 mls @ 100 mls/hr 11/09/24 13:38 Dextrose 5% 1,000 Ml IVPB PRN PRN Hypoglycemia Protocol Insulin Aspart 3 - 6 units 11/09/24 18:00 11/12/24 05:48 Insulin Aspart (*Bkc) 100 Units/Ml SUB-Q Not Given Q6HR DEEP Protocol Insulin Glargine 10 units 11/09/24 21:00 11/11/24 21:11 Insulin Glargine (*Bkc) 100 Units/Ml SUB-Q 10 units HS DEEP Administration Lactobacillus Acidophilus 1 tablet 11/10/24 17:00 11/11/24 17:17 Acidophilus/Bulgaricus Chewable Tablet FEED TUBE 1 tablet BID DEEP Administration Midodrine 10 mg 11/12/24 09:00 Midodrine Hcl 10 Mg Tablet FEED TUBE TID DEEP Pantoprazole Sodium 40 mg 11/10/24 09:00 11/11/24 09:31 Pantoprazole Sodium Iv 40 Mg Vial IV PUSH 40 mg QAM DEEP Administration Pramipexole Dihydrochloride 1.5 mg 11/10/24 14:25 11/12/24 05:49 Pramipexole 0.5 Mg Tablet FEED TUBE 1.5 mg Q8HR DEEP Administration Sodium Bicarbonate 650 mg 11/12/24 09:00 Sodium Bicarbonate Tab 650 Mg Tablet FEED TUBE BID DEEP Umeclidinium/Vilanterol 1 puff 11/06/24 09:00 11/12/24 07:34 Umeclidinium/Vilanterol 62.5-25 Mcg Ellipta INHALATION 1 puff DAILY DEEP Administration Radiology Results: ITS Impressions Renal Ultrasound 11/05/24 22:02 IMPRESSION: 1. Normal kidney sizes. 2. Chronic mild right hydronephrosis. Abdomen X-Ray 11/09/24 15:54 IMPRESSION: NG tube tip in body of stomach Chest X-Ray 11/11/24 06:16 IMPRESSION: 1. Mild pulmonary edema. 2. Small right and moderate-sized left pleural effusions with worsening on the left. 3. Cardiomegaly. Venous Doppler Study 11/11/24 18:12 IMPRESSION: No deep venous thrombosis detected in the right upper extremity. Labs Labs: Laboratory Results - last 24 hr 11/11/24 11/11/24 11/11/24 11:51 17:13 23:26 WBC RBC Hgb Hct MCV MCH MCHC RDW Plt Count MPV Immature Gran % (Auto) Neut % (Auto) Lymph % (Auto) Walton % (Auto) Eos % (Auto) Baso % (Auto) Lymph # (Auto) Walton # (Auto) Eos # (Auto) Baso # (Auto) Abs Immat Gran (auto) Absolute Neuts (auto) Absolute Nucleated RBC Nucleated RBC % Sodium Potassium Chloride Carbon Dioxide Anion Gap BUN Creatinine Estim Creat Clear Calc Estimated GFR Glucose POC Capillary Glucose 184 H 190 H 202 H Calcium Phosphorus Magnesium Total Bilirubin AST ALT Alkaline Phosphatase Total Protein Albumin 11/12/24 04:28 WBC 11.2 H RBC 3.19 L Hgb 9.3 L Hct 30.4 L MCV 95.3 MCH 29.2 MCHC 30.6 L RDW 18.7 H Plt Count 150 MPV 12.6 H Immature Gran % (Auto) 1.3 H Neut % (Auto) 86.5 H Lymph % (Auto) 6.8 L Walton % (Auto) 4.2 Eos % (Auto) 0.9 Baso % (Auto) 0.3 Lymph # (Auto) 0.76 L Walton # (Auto) 0.5 Eos # (Auto) 0.1 Baso # (Auto) 0.0 Abs Immat Gran (auto) 0.15 H Absolute Neuts (auto) 9.7 H Absolute Nucleated RBC 0.000 Nucleated RBC % 0.0 Sodium 135 L Potassium 3.4 Chloride 110 H Carbon Dioxide 18 L Anion Gap 7 BUN 129 H Creatinine 3.20 H Estim Creat Clear Calc 13 Estimated GFR 14 L Glucose 159 H POC Capillary Glucose Calcium 8.2 L Phosphorus 4.1 Magnesium 2.8 H Total Bilirubin 1.3 AST 81 H ALT 68 H Alkaline Phosphatase 759 H Total Protein 5.0 L Albumin 2.9 L
[2024-11-12] MEDS: HYDROCORTISONE 2.5% CREAM 30 GM TUBE 1 APPLIC TOPICAL (09:25)
[2024-11-12] MEDS: COLLAGENASE OINT 30 GM TUBE 1 APPLIC TOPICAL (09:25)
--- NOTE | 2024-11-12 11:09 | PCSTNOTE ---
Please refer to the Modified Barium Swallow Evaluation in the EMR. The pt was seen for a modified barium swallow due to overt s/s of aspiration exhibited during the bedside swallow evaluation; the pt was seated for a lateral view and presented with 5cc of thin liquid barium via a spoon, pudding consistency barium via a spoon, small cracker pieces coated with barium pudding via spoon, and an uncontrolled thin liquid barium bolus. This was presented via a cup and a straw. Oral preparatory and oral phases: within functional limits. During the pharyngeal stage, reduced laryngeal elevation was noted causing trace residue on the backside of the epiglottis after the solid trial which gradually trickled into the laryngeal vestibule. With a verbal cue to clear her throat, contents were cleared from the laryngeal vestibule with no aspiration occurring. Impression: mild dysphagia related to reduced laryngeal elevation Recommendation: pureed diet; ST to tx to improve laryngeal elevation and teach pt compensatory strategy.
[2024-11-12 12:17] LABS: Glucose Point of Care 226 mg/dl (65-105)
--- NOTE | 2024-11-12 12:29 | PCNFU ---
Nutrition Follow-Up Complete: Inadequate oral intake related to poor appetite, increased needs from pressure injuries as evidenced by 0% breakfast, wound reports Goal; Adequate meal intake at least 50-75% to support wound healing Patient has limited progressing towards goal. We will continue current goal. Pt current nutrition is Pureed, Level 4 with Donal BID/Nutritional Ice Cream and Enlive TID. Last recorded weight is 85.6 kg, up from 79.4 kg on admit Bowel Motility: +BM reported 11/12 Labs Reviewed: Mg 2.8, BUN 129, Cr 3.2, Glu 159, Na 135 Meds Noted: Protonix, Lanuts, Novolog. Skin: stage 2 bilateral bottom. Additional Notes: Patient had MBS today recommending Pureed, Level 4 diet. Spoke with hospitalist today, plans to pull NGT and start feeding oral diet. Diet supplements added of Nutritional Ice cream, Ensure Enlive TID and Donal BID. RD will monitor intake. Agree with diet orders. Monitoring intakes, weights, labs, supplement tolerance, wound healing, plan of care Follow up in 3 days.
--- NOTE | 2024-11-12 12:53 | PCOTNOTE ---
The patient treatment was not able to be completed not appropriate at this time. Increased heart rate at rest. Will plan to continue treatment per plan of care.
--- NOTE | 2024-11-12 12:54 | ECG_ITS ---
Test Date: 2024-11-12 12:56:05 Measurements Intervals Williamson Rate: 135 P: 0 MS: 0 QRS: 110 QRSD: 120 T: -15 QT: 273 QTc: 410 Interpretive Statements ATRIAL FIBRILLATION WITH RAPID VENTRICULAR RESPONSE MARKED RIGHT AXIS DEVIATION [QRS AXIS > 100] RIGHT BUNDLE BRANCH BLOCK [120+ ms QRS DURATION, UPRIGHT V1, 40+ ms S IN I/aVL/V4/V5/V6] Compared to ECG 11/05/2024 10:44:42 Right-axis deviation now present Ventricular premature complex(es) no longer present Aberrant conduction of supraventricular beat(s) no longer present Electronically Signed On 11-12-2024 14:45:20 EDUCATION ASSISTANT by Param Shah M.D.
[2024-11-12] MEDS: METOPROLOL TARTRATE INJ 5 MG/5 ML VIAL IV PUSH (12:59)
[2024-11-12] MEDS: INSULIN ASPART (*BKC) 100 UNITS/ML SUB-Q (13:00)
[2024-11-12] MEDS: METOPROLOL TARTRATE 25 MG TABLET PO (13:19)
[2024-11-12 14:17] LABS: Basophils Percent Auto 0.4 % (0.2-1.2); Eosinophils Percent Auto 0.8 % (0-4.4); Hematocrit 31.6 % (37.0-47.0); Hemoglobin 9.6 g/dL (12.0-15.0); Immature Granulocyte Absolute 0.14 K/mm3 (0.00-0.031); Immature Granulocyte Percent A 2.8 % (0-0.5); Lymphocytes Absolute Auto 0.19 K/mm3 (0.9-3.2); Lymphocytes Percent Auto 3.8 % (18.3-44.2); Mean Corpuscular HGB Conc 30.4 g/dl (32-36); Mean Corpuscular Hemoglobin 28.6 pg (26-34); Mean Platelet Volume 12.4 fl (7.4-10.4); Monocytes Absolute Auto 0.1 K/mm3 (0.1-0.6); Neutrophils Absolute Auto 4.6 K/mm3 (1.3-6.7); Neutrophils Percent Auto 91.2 % (45.5-73.1); Nucleated Red Blood Cells Perc 0.4 % (0.0-0.2); Platelet Count Result 177 k/mm3 (150-375); Red Blood Count 3.36 M/mm3 (4.2-5.4); Red Cell Distribution Width 19.1 % (11.5-14.5)
[2024-11-12 14:29] LABS: INR 1.2; Lactic Acid Reflex 1.9 mmol/L (0.7-2.0); Partial Thromboplastin Time 25.8 Seconds (22.3-36.8); Prothrombin Time 15.6 Seconds (11.1-14.7)
--- NOTE | 2024-11-12 14:30 | P.PNIM_ITS ---
Progress Note: A&P Assessment and Plan (1) Atrial fibrillation with RVR: Code(s): I48.91 - Unspecified atrial fibrillation Status: Acute Assessment and Plan: Patient with AFib. She takes Toprol XL 200mg daily but this has been held due to soft BP. On Xarelto at home but held due to anemia and bleeding. HR mostly <115 but she awoke and became tachypenic and tachycradic with HR into the 150's. She may have been hypoxic but difficult to orange picker SpO2. Stat EKG showing AFib, RVR and artifact but no acute ST-T wave changes. FLuid bolus was given and IV metoprolol. CXR a short time later performed and re viewed at bedside showing worsening fluid overload. IV fluid bolus stopped. BP remained stable and she had tolerated the IV metoprolol. Metprolol 25mg via NGT was given. Etiology could be aspiration leading to resp distress and then elevated HR. HR could have become elevated prompting the resp distress. Consider PE since off anticoagulation. Labs ordered and are pending. HR down to 100's. BP stable. Follow. Resume scheduled metoprolol (2) Hypotension: Code(s): I95.9 - Hypotension, unspecified Status: Acute Assessment and Plan: BP soft at times related to anemia, poor oncotic pressure (albumin 2.1) and home meds. Metoprolol was held IV fluids started. Albumin given. Midodrine added. CXR today showing worsening diffuse lung disease and L>R pleural effusions. Fluid overloaded. Bumex IV again ordered for today but held due above events. Monitor BP. (3) Acute on chronic kidney failure: Code(s): N17.9 - Acute kidney failure, unspecified; N18.9 - Chronic kidney disease, unspecified Status: Acute Assessment and Plan: Patient with SARAI with Cr 3.5. Baseline Cr 1.4-2.1. SARAI/CKD felt to be multifactorial including dehydration from poor oral intake, hypoperfusion from relative HoTN and hypovolemia from the anemia. Also on an ARB. Renal US showing mild right hydronephrosis which is chronic. Greco catheter inserted for strict I/O. Urine electrolytes showing Johnathan 42 with FENa 1.4% to suggest renal disease. Cr 3.2 with BUN 129 now. BUN elevation related somewhat to the steroids but these were stopped many days ago. Consider catabolic from poor oral intake. Nephrology consulted and appreciate their input. Cheetah showing she was fluid responsive. Also given Albumin and started on Midodrine Stopped IV fluids 11/10 due to fluid overload. Bumex once given with good UOP. Increasing RUE edema felt related to third spacing from infiltrated IV; doppler negative for DVT Patient and family do not want dialysis. Patient becoming more acidotic. UOP 1-2L per day but decreased today. Add bicarb. Adjust juliane dosing. Advance midodrine. Avoid all nephrotoxic agents and renally dose medications as appropriate. Repeat Bumex prn as BP allows. (4) Dysphagia: Code(s): R13.10 - Dysphagia, unspecified Status: Acute Assessment and Plan: Patient with poor oral intake and having issues with swallowing. NGT placed with patient's permission and TF started. Patient was developing dysphagia with pills so meds changed via NGT. This morning (prior to the event), she had a MBS and did well enough to have a pureed diet with thin liquids. Spoke with agronomy technician who felt they could provide enough nutrition by mouth Will hold on diet and removing NGT until she is felt to be more stable. (5) Acute on chronic anemia: Code(s): D64.9 - Anemia, unspecified Status: Acute Assessment and Plan: The patient presented to the emergency department for evaluation of lethargy, sore throat and cough. She has chronic anemia but Hgb was 6.8. Acute anemia may be due to bleeding hemorrhoids. Holding rivaroxaban. She was transfused 2U PRBCs. Repeat Hgb was up to 11 abut dropped to 8.3 possibly due to IV fluids. Was having intermittent rectal oozing but no melena. Hgb stable in the 8-9 range now. Monitor HH and transfuse to a stable Hgb. GI consulted and appreciate their input. Continue HC cream for hemorrhoids (6) COVID: Code(s): U07.1 - COVID-19 Status: Acute Assessment and Plan: Patient found to have COVID and was started on remdesivir and dexamethasone. Isolation per protocol. Bronchodilators prn. Albuterol inhaler added. Dexamethasone stopped due to rising BUN. Back on oxygen now related to above Completed Remdesivir. Will not extend Remdesivir treatment to 10 days since feel fluid overload causing her hypoxia (7) Acute UTI: Code(s): N39.0 - Urinary tract infection, site not specified Status: Acute Assessment and Plan: UA is consistent with UTI. UCx collected. Rocephin started. UCx growing pansensitive Klebsiella. She completed a course of abx (8) Heart failure with reduced ejection fraction: Code(s): I50.20 - Unspecified systolic (congestive) heart failure Status: Chronic Assessment and Plan: She has chronic systolic and diastolic CHF. Echo Oct showing EF 35-40% with diastolic dysfunction. She was hypotensive and was fluid responsive so IV fluids given but no benefit in her renal function so IVF stopped. Given albumin and Bumex Monitor renal fxn and give diuretics as she tolerates (9) Rheumatoid arthritis: Code(s): M06.9 - Rheumatoid arthritis, unspecified Status: Acute Assessment and Plan: Stable (10) COPD (chronic obstructive pulmonary disease): Qualifiers: COPD type: COPD with acute exacerbation Qualified Code(s): J44.1 - Chronic obstructive pulmonary disease with (acute) exacerbation Code(s): J44.9 - Chronic obstructive pulmonary disease, unspecified Status: Acute Assessment and Plan: She has COPD but not felt to have exacerbation. Follow. Albuterol HFA ordered. (11) Bleeding hemorrhoids: Code(s): K64.9 - Unspecified hemorrhoids Status: Acute Assessment and Plan: Bleeding hemorrhoids may be at least partially the etiology of the anemia. Symptomatic treatment for now. Plan Elevated LFTs - noted. Possibly related to hepatic congestion. Better today. Follow DVT Prophylaxis - SCDs due to her anemia. Code status - DNR Subjective Date/time seen: 11/12/24 14:30 Interval history: 84yo female with chronic respiratory failure with hypoxia on home oxygen, COPD, systolic CHF, Chronic AFib on anticoagulation, CKD, chronic anemia, HTN and RA who presented to the emergency department via EMS for evaluation of lethargy. Patient developed increasing HR, SOB this morning. Called to the room. Earlier, she had MBS and pureed with thin liquids recommended. Exam Narrative: AF 98.7 96/61 135 20 97% 5L Gen - tachypneic in resp distress HEENT - NGT secured Chest - decreased BS in the left base with inspiratory crackles mid and lower lung hough bilaterally. CV - irregularly irregular and tachycardic Tele showing AFib with RVR Abd - Soft, NT/ND, Positive BS - Greco secured draining with small amount of urine in bag Ext - trace LE pedal edema; 1+ Rt UE edema Neuro - awake, follows commands Skin - cool with mottling in the feet Objective Data Vital Signs Vital Signs: Vital Signs - 24 hr 11/11/24 16:00 11/11/24 16:00 11/11/24 16:00 Temperature 98.3 F Pulse Rate 113 H 110 H Respiratory Rate 24 H Blood Pressure 122/85 Pulse Oximetry 98 98 Oxygen Delivery Nasal Cannula Oxygen Flow Rate 3 Fraction of Inspired Oxygen 11/11/24 18:00 11/11/24 20:00 11/11/24 20:00 Temperature 98.1 F Pulse Rate 101 H 105 H 94 Respiratory Rate 21 H Blood Pressure 103/70 Pulse Oximetry 96 Oxygen Delivery Oxygen Flow Rate Fraction of Inspired Oxygen 11/11/24 21:00 11/11/24 21:07 11/11/24 21:08 Temperature Pulse Rate 101 H 97 Respiratory Rate 24 H 20 Blood Pressure Pulse Oximetry 98 94 Oxygen Delivery Nasal Cannula Nasal Cannula Oxygen Flow Rate 3 3 Fraction of Inspired Oxygen 11/11/24 22:00 11/11/24 23:45 11/11/24 23:52 Temperature 98.6 F Pulse Rate 104 H 103 H 103 H Respiratory Rate 24 H 24 H Blood Pressure 103/68 Pulse Oximetry 98 98 Oxygen Delivery Nasal Cannula Oxygen Flow Rate 3 Fraction of Inspired Oxygen 11/12/24 00:00 11/12/24 02:00 11/12/24 04:00 Temperature Pulse Rate 103 H 101 H 105 H Respiratory Rate Blood Pressure Pulse Oximetry Oxygen Delivery Oxygen Flow Rate Fraction of Inspired Oxygen 11/12/24 04:00 11/12/24 04:02 11/12/24 05:58 Temperature 98.4 F Pulse Rate 105 H 101 H Respiratory Rate 22 H 24 H Blood Pressure 100/59 L Pulse Oximetry 91 98 82 L Oxygen Delivery Nasal Cannula High Flow Therapy with Na Oxygen Flow Rate 3 5 Fraction of Inspired Oxygen 11/12/24 06:00 11/12/24 07:37 11/12/24 07:37 Temperature Pulse Rate 105 H 70 Respiratory Rate 20 Blood Pressure Pulse Oximetry 96 Oxygen Delivery Nasal Cannula Oxygen Flow Rate 5 Fraction of Inspired Oxygen 40 11/12/24 08:00 11/12/24 11:47 11/12/24 12:59 Temperature 98.3 F 98.7 F Pulse Rate 111 H 54 L 135 H Respiratory Rate 16 20 Blood Pressure 107/58 L 96/61 L Pulse Oximetry 95 97 Oxygen Delivery Oxygen Flow Rate Fraction of Inspired Oxygen Intake/Output Intake/Output: Intake & Output 11/09/24 11/10/24 11/11/24 11/12/24 23:59 23:59 23:59 23:59 Intake Total 1690 0860 761 3593 Output Total 1000 2050 1150 301 Balance 690 -500 -234 1340 Meds/Results Medications: Active Medications Generic Name Dose Route Start Last Admin Trade Name Freq PRN Reason Stop Dose Admin Acetaminophen 650 mg 11/10/24 11:07 Acetaminophen 325 Mg Tablet FEED TUBE Q6H PRN Mild Pain (1-3) or Fever Hydrocodone Bitart/Acetaminophen 1 tab 11/05/24 17:49 Hydrocodone/Acetaminophen (*Crx) 5-325 Mg Tablet PO Q4H PRN pain 4-6 Albuterol 2 puff 11/06/24 20:00 11/12/24 13:12 Albuterol Sulfate (*Sp) Aerosol 1 Puff INHALATION Not Given [id number] Albuterol/Ipratropium 3 ml 11/05/24 16:21 Ipratropium 0.5 Mg/Albuterol Sulfate 2.5 Mg Ampul.Neb 3 Ml INHALATION Q6HRT PRN Shortness Of Breath Or Wheezing Benzonatate 200 mg 11/05/24 17:49 11/07/24 13:47 Benzonatate 100 Mg Capsule PO 200 mg TID PRN Administration cough Buspirone HCl 2.5 mg 11/10/24 21:00 11/12/24 09:12 Buspirone Hcl 2.5 Mg Tablet XX 2.5 mg Q12HR DEEP Administration Calcitriol 0.25 mcg 11/06/24 09:00 11/12/24 09:13 Calcitriol 0.25 Mcg Capsule PO Not Given DAILY DEEP Collagenase 1 applic 11/06/24 09:00 11/12/24 09:25 Collagenase Oint 30 Gm Tube TOPICAL 1 applic DAILY DEEP Administration Dextrose 12.5 gm 11/09/24 13:38 Dextrose 50% 25 Gm/50 Ml Syringe IV PUSH PRN PRN Hypoglycemia Protocol Diclofenac Sodium 1 applic 11/05/24 18:00 Diclofenac Sodium 1% 100 Gm Gel (*Bkc) TOPICAL TID PRN ARTHRITIS PAIN Epoetin Ross-epbx 10,000 units 11/10/24 09:55 11/12/24 09:13 Epoetin Ross-Epbx 10,000 Units/Ml Vial SUB-Q 10,000 units TUTHSA@09 DEEP Administration Gabapentin 100 mg 11/12/24 09:00 11/12/24 09:12 Gabapentin 100 Mg Capsule FEED TUBE 100 mg BID DEEP Administration Glucagon 1 mg 11/09/24 13:38 Glucagon For Inj 1 Mg Vial IM PRN PRN Hypoglycemia Protocol Glucose 15 gm 11/09/24 13:38 Glucose Oral Gel 15 Gm Of Glucse In 37.5 Gm Tube PO PRN PRN Hypoglycemia Protocol Guaifenesin/Dextromethorphan 10 ml 11/10/24 16:04 Guaifenesin/Dextromethorphan 10 Ml Udc FEED TUBE Q4H PRN Cough Hydrocortisone 1 applic 11/06/24 21:00 11/12/24 09:25 Hydrocortisone 2.5% Cream 30 Gm Tube TOPICAL 1 applic Q12HR DEPE Administration Dextrose 1,000 mls @ 100 mls/hr 11/09/24 13:38 Dextrose 5% 1,000 Ml IVPB PRN PRN Hypoglycemia Protocol Insulin Aspart 3 - 6 units 11/09/24 18:00 11/12/24 13:00 Insulin Aspart (*Bkc) 100 Units/Ml SUB-Q 3 units Q6HR DEEP Administration Protocol Insulin Glargine 10 units 11/09/24 21:00 11/11/24 21:11 Insulin Glargine (*Bkc) 100 Units/Ml SUB-Q 10 units HS DEEP Administration Lactobacillus Acidophilus 1 tablet 11/10/24 17:00 11/12/24 09:12 Acidophilus/Bulgaricus Chewable Tablet FEED TUBE 1 tablet BID DEEP Administration Midodrine 10 mg 11/12/24 09:00 11/12/24 13:20 Midodrine Hcl 10 Mg Tablet FEED TUBE 10 mg TID DEEP Administration Pantoprazole Sodium 40 mg 11/10/24 09:00 11/12/24 09:14 Pantoprazole Sodium Iv 40 Mg Vial IV PUSH 40 mg QAM DEEP Administration Pramipexole Dihydrochloride 1.5 mg 11/10/24 14:25 11/12/24 05:49 Pramipexole 0.5 Mg Tablet FEED TUBE 1.5 mg Q8HR DEEP Administration Sodium Bicarbonate 650 mg 11/12/24 09:00 11/12/24 09:14 Sodium Bicarbonate Tab 650 Mg Tablet FEED TUBE 650 mg BID DEEP Administration Umeclidinium/Vilanterol 1 puff 11/06/24 09:00 11/12/24 07:34 Umeclidinium/Vilanterol 62.5-25 Mcg Ellipta INHALATION 1 puff DAILY DEEP Administration Radiology Results: ITS Impressions Renal Ultrasound 11/05/24 22:02 IMPRESSION: 1. Normal kidney sizes. 2. Chronic mild right hydronephrosis. Abdomen X-Ray 11/09/24 15:54 IMPRESSION: NG tube tip in body of stomach Venous Doppler Study 11/11/24 18:12 IMPRESSION: No deep venous thrombosis detected in the right upper extremity. Modified Barium Swallow 11/12/24 10:45 IMPRESSION: 1. Laryngeal penetration. 2. Please refer to the speech therapy report for recommendations. Chest X-Ray 11/12/24 13:38 IMPRESSION: 1. Worsened diffuse lung disease, likely moderate pulmonary edema. 2. Small right and moderate-sized left pleural effusions. 3. Cardiomegaly. Labs Labs: Laboratory Results - last 24 hr 11/11/24 11/11/24 11/12/24 17:13 23:26 04:28 WBC 11.2 H RBC 3.19 L Hgb 9.3 L Hct 30.4 L MCV 95.3 MCH 29.2 MCHC 30.6 L RDW 18.7 H Plt Count 150 MPV 12.6 H Immature Gran % (Auto) 1.3 H Neut % (Auto) 86.5 H Lymph % (Auto) 6.8 L Edgar % (Auto) 4.2 Eos % (Auto) 0.9 Baso % (Auto) 0.3 Lymph # (Auto) 0.76 L Edgar # (Auto) 0.5 Eos # (Auto) 0.1 Baso # (Auto) 0.0 Abs Immat Gran (auto) 0.15 H Absolute Neuts (auto) 9.7 H Absolute Nucleated RBC 0.000 Nucleated RBC % 0.0 PT INR APTT Sodium 135 L Potassium 3.4 Chloride 110 H Carbon Dioxide 18 L Anion Gap 7 BUN 129 H Creatinine 3.20 H Estim Creat Clear Calc 13 Estimated GFR 14 L Glucose 159 H POC Capillary Glucose 190 H 202 H Lactic Acid Calcium 8.2 L Phosphorus 4.1 Magnesium 2.8 H Total Bilirubin 1.3 AST 81 H ALT 68 H Alkaline Phosphatase 759 H Total Protein 5.0 L Albumin 2.9 L 11/12/24 11/12/24 11:32 13:23 WBC RBC Hgb Hct MCV MCH MCHC RDW Plt Count MPV Immature Gran % (Auto) Neut % (Auto) Lymph % (Auto) Edgar % (Auto) Eos % (Auto) Baso % (Auto) Lymph # (Auto) Edgar # (Auto) Eos # (Auto) Baso # (Auto) Abs Immat Gran (auto) Absolute Neuts (auto) Absolute Nucleated RBC Nucleated RBC % PT 15.6 H INR 1.2 APTT 25.8 Sodium Potassium Chloride Carbon Dioxide Anion Gap BUN Creatinine Estim Creat Clear Calc Estimated GFR Glucose POC Capillary Glucose 226 H Lactic Acid 1.9 Calcium Phosphorus Magnesium Total Bilirubin AST ALT Alkaline Phosphatase Total Protein Albumin
[2024-11-12 14:34] LABS: Alanine Aminotransferase 73 U/L (6-35); Alkaline Phosphatase 902 U/L (38-126); Anion Gap 6 mmol/L (4-12); Aspartate Amino Transferase 96 U/L (14-36); Bilirubin,Total 1.8 mg/dL (0.2-1.3); CRP 3.2 mg/dL (<1.0); Calcium 8.2 mg/dL (8.4-10.2); Carbon Dioxide 24 mmol/L (22-30); Chloride 107 mmol/L (98-107); Estimated CRCL calculation 12 ml/min; Estimated Glomerular Filt Rate 13; Glucose 191 mg/dL (65-110); Magnesium 2.5 mg/dL (1.6-2.3); Phosphorus 4.2 mg/dL (2.5-4.5); Potassium 3.2 mmol/L (3.4-5.0); Sodium 137 mmol/L (137-145)
[2024-11-12 14:37] LABS: Platelet Estimate Adequate (Adequate)
[2024-11-12 14:38] LABS: Burr Cells 1+; Microcytosis 1+ (NORMAL); Ovalocytes 1+; Schistocytes None Seen
[2024-11-12 14:43] LABS: Blood Urea Nitrogen 133 mg/dL (7-17)
[2024-11-12 15:03] LABS: Procalcitonin 0.7 ng/mL
[2024-11-12 16:47] LABS: Glucose Point of Care 225 mg/dl (65-105)
--- NOTE | 2024-11-12 18:22 | PC.NURSE ---
Around 1230, pt's HR started elevating between 130's and 160's. As this RN was going to check on pt, family placed call light stating that pt was shaking. Pt was shaking uncontrollably and stated that she was cold. Warm blanket was placed. Dr Cano notified of pt's HR and shaking who came into room. VS done. Orders were given for EKG, CXR, labs, 5 mg Metoprolol IV, 25 mg Metoprolol PO, 500 ml bolus of NS (was DC'd after approximately 250 ml's given); Pt appeared more comfortable and HR had decreased by the time the Dr and this RN left the room. Around 1545, Pt and family discussed with this RN and Dr Cano about further treatments. Questions were addressed. Pt and family decided that the next step would be comfort care.
[2024-11-12] MEDS: MORPHINE 50 MG/NS 100ML (*CRX) 50 MG/100 ML BAG IV CONT (18:40)
[2024-11-12] MEDS: LORazepam INJ (*CRX) 2 MG/ML VIAL 1 MG IV PUSH (22:46)
[2024-11-13 00:16] VITALS: BP 70/40; PULSE 108; RESP 25; TEMP 36.4; O2SAT 79
[2024-11-13] MEDS: LORazepam INJ (*CRX) 2 MG/ML VIAL 1 MG IV PUSH ×2 (04:17→05:47)
--- NOTE | 2024-11-13 09:00 | PC.NURSE ---
pt family has left with belongings
--- NOTE | 2024-11-13 09:49 | PC.NURSE ---
body removed by tech and taken down to [facility]
--- NOTE | 2024-11-13 09:52 | P.DN_ITS ---
Discharge Summary Date and Time Date of : 11/13/24 Time of : 07:26 Provider Pronounced By: 2 RNs Name of First RN That Pronounced: Lupe David Name of Second RN That Pronounced: Hanna Mcnair Probable Cause of Probable Cause of : COVID 19, COPD, UTI Summary Hospital Course: 84-year-old female with a prior history of CHF pneumonia CHF hypertension COPD AFib presents to the emergency department for evaluation for decreased p.o. intake and elevated creatinine at her care facility. When EMS arrived on scene patient was in AFib with RVR and did have a low blood pressure that did improve with IV fluids. Upon arrival to the emergency department patient's only complaint is pain in her tailbone and patient does have known bed sores. Patient was given treatment and IV fluids but did not get better. Patient was DNR and patient on in the morning at 7:26 a.m. Family notified Additional Data Confirmation of as documented by pronouncing clinician: Pupillary Reflex, Palpable Pulses, Response to Stimuli, Heart Tones and Breath Sounds Name of Provider Notified: Gian Time Provider Notified: 08:00 Provider Requests Autopsy: No Family Requests Autopsy: No Clinical Research Scientist Notified: Yes Date [facility] Notified of : 11/13/24 Time [facility] Notified of : 08:15
[2024-11-14 13:24] LABS: Creatinine Random Urine 80 mg/dL (20-275)
== END 2024-11-13 07:26 | disposition expired | DRG 178 ==
LOC: ANHED 12:13 → ANHIMU 13:38
PROVIDERS: Internal Medicine; Internal Medicine Nephrology; Physician Assistant; Admitting Provider Hospitalist; Emergency Provider Emergency Medicine; PCP Internal Medicine; Visit Provider Internal Medicine
DX: U07.1 COVID-19 (principal); D62 Acute posthemorrhagic anemia; I13.0 Hypertensive heart and chronic kidney disease with heart failure and stage 1 through stage 4 chronic kidney disease, or unspecified chronic kidney disease; I48.20 Chronic atrial fibrillation, unspecified; J96.11 Chronic respiratory failure with hypoxia; N39.0 Urinary tract infection, site not specified; N17.9 Acute kidney failure, unspecified; K92.1 Melena; J44.1 Chronic obstructive pulmonary disease with (acute) exacerbation; N13.30 Unspecified hydronephrosis; I43 Cardiomyopathy in diseases classified elsewhere; I50.22 Chronic systolic (congestive) heart failure; R13.10 Dysphagia, unspecified; B96.1 Klebsiella pneumoniae [K. pneumoniae] as the cause of diseases classified elsewhere; D63.1 Anemia in chronic kidney disease; E86.0 Dehydration; E11.22 Type 2 diabetes mellitus with diabetic chronic kidney disease; I95.9 Hypotension, unspecified; K64.9 Unspecified hemorrhoids; L89.322 Pressure ulcer of left buttock, stage 2; L89.312 Pressure ulcer of right buttock, stage 2; M06.9 Rheumatoid arthritis, unspecified; N18.32 Chronic kidney disease, stage 3b; Z66 Do not resuscitate; Z99.81 Dependence on supplemental oxygen; Z79.4 Long term (current) use of insulin; Z79.84 Long term (current) use of oral hypoglycemic drugs; Z79.01 Long term (current) use of anticoagulants; Z85.3 Personal history of malignant neoplasm of breast; Z90.89 Acquired absence of other organs; Z90.49 Acquired absence of other specified parts of digestive tract
CPT/HCPCS: 36415; 36430; 36600; 71045; 76775; 80048; 80053; 81001; 82248; 82375; 82436; 82550; 82570; 82728; 82784; 82805; 82948; 83050; 83605; 83615; 83735; 84100; 84133; 84145; 84156; 84300; 85014; 85018; 85025; 85027; 85610; 85730; 85999; 86140; 86850; 86900; 86901; 86923; 87040; 87086; 87186; 87637; 92610; 92611; 93005; 93971; 94640; 94667; 94668; 97110; 97161; 97166; 97530; 97535; 99285; A9270; J0248; J0696; J1100; J1815; J1939; J2060; J2270; J2470; J7030; J7040; J7050; J8540; P9016; P9047; Q5105